=== PATIENT | female | born 1970 | race Caucasian/White ===

== ENCOUNTER 2019-12-14 09:07 | Outpatient (REF) | payer MEDICAID, SELFPAY ==
--- NOTE | 2019-12-14 09:28 | US_ITS ---
EXAMINATION: US ABDOMEN COMPLETE CLINICAL INFORMATION: Right upper quadrant pain. COMPARISON: Ultrasound abdomen 11/06/2008. TECHNIQUE: Real-time imaging of the abdominal viscera. FINDINGS: PANCREAS: The pancreas is normal in size and contour and echogenicity. There is no retroperitoneal effusion. No pancreatic ductal distention. ABDOMINAL AORTA: The proximal segment is normal in caliber. INFERIOR VENA CAVA: Visualized portions are normal. LIVER: The liver is normal in size and smooth in contour. There is mild geographic increased hepatic parenchymal echogenicity consistent with mild inhomogeneous hepatic steatosis. There is no focal hepatic parenchymal lesion or intrahepatic biliary ductal dilatation. Doppler shows portal flow towards the liver. GALLBLADDER: Normal. The gallbladder is physiologically distended without evidence of stones, sludge, polyps, wall thickening or pericholecystic fluid. COMMON BILE DUCT: Normal in caliber measuring 0.3 cm in diameter. RIGHT KIDNEY: Normal. No hydronephrosis. No renal calculi or focal parenchymal lesions. The kidney measures 10.8 cm in maximum dimension. LEFT KIDNEY: Normal. No hydronephrosis. No renal calculi or focal parenchymal lesions. The kidney measures 10.5 cm in maximum dimension. SPLEEN: Normal. The spleen measures 10.8 cm in maximum dimension. FREE FLUID: None. IMPRESSION: 1. No cholelithiasis or biliary ductal dilatation. 2. No hydronephrosis.
== END 2019-12-14 09:08 | disposition home or self-care (01) ==
LOC: HO.US 09:07
PROVIDERS: PCP Internal Medicine Geriatric Medicine; Visit Provider Internal Medicine Geriatric Medicine
DX: R10.11 Right upper quadrant pain (principal)
CPT/HCPCS: 76700

== ENCOUNTER 2020-09-26 13:46 | Outpatient (REF) | payer MEDICAID, SELFPAY ==
--- NOTE | ~2020-09-26 | MM_ITS ---
EXAMINATION: MM SCREENING DIGITAL BREAST TOMOSYNTHESIS, BILATERAL CLINICAL INFORMATION: Screening. Asymptomatic. The lifetime risk of breast cancer based on the Tyrer-Cuzick Model is 18%. COMPARISON: Mammography: 01/30/2019, 11/23/2017, 11/03/2016 TECHNIQUE: Digital breast tomosynthesis is performed in both the craniocaudal and mediolateral oblique views along with computer-aided detection (CAD). Synthesized 2D images are generated from the tomosynthesis. Additional left MLO x2 views are provided. FINDINGS: The breasts are heterogeneously dense, which may obscure small masses (ACR BI-RADS breast composition Category c). There are no significant masses, abnormal calcifications, or other abnormalities. There is fine fibronodular parenchymal pattern similar to prior studies. The axilla and skin contours are unremarkable. MM/MM tomosynthesis screening BI IMPRESSION: No mammographic evidence of malignancy. ASSESSMENT: BI-RADS 2: Benign RECOMMENDATION: Routine annual mammography screening. This patient's information was entered into a reminder system with a target due date for their next mammogram.
== END 2020-09-26 13:47 | disposition home or self-care (01) ==
LOC: HO.MAMMO 13:46
PROVIDERS: Visit Provider Internal Medicine Geriatric Medicine
DX: Z12.31 Encounter for screening mammogram for malignant neoplasm of breast (principal)
CPT/HCPCS: 77063; 77067

== ENCOUNTER 2020-11-15 18:16 | Emergency (ER) | payer MEDICAID, SELFPAY ==
--- NOTE | ~2020-11-15 | XR_ITS ---
EXAMINATION: XR KNEE, LEFT CLINICAL INFORMATION: Left knee pain status post fall. COMPARISON: None TECHNIQUE: Four views of the left knee. FINDINGS: Bones and soft tissues are normal. No fracture or joint effusion. Alignment is anatomic. Joint spaces are well maintained. No abnormal soft tissue calcification. XR/XR knee LT 4V IMPRESSION: Unremarkable left knee.
[2020-11-15 18:23] VITALS: BP 112/46; BP 130/80; PULSE 110; PULSE 53; RESP 18; TEMP 36.4; O2SAT 97; O2SAT 98
[2020-11-15 18:28] VITALS: PULSE 53; RESP 16; TEMP 36.4; O2SAT 97; BMI 39.8
--- NOTE | 2020-11-15 18:36 | ED.LOWEXIN ---
HPI - Extremity Injury (Lower) General Chief Complaint: Extremity Injury, Lower Stated Complaint: fall s/p left knee Time Seen by Provider: 11/15/20 18:31 Source: patient Mode of arrival: EMS Limitations: no limitations History of Present Illness HPI Narrative: Patient is a 50-year-old female with a past medical history of HTN and anxiety presenting with left knee pain and left elbow pain after falling down 2 stairs while chasing her cat just prior to arrival. Patient states she fell onto her knee on the cement stairs and she thinks she hit this right side of her head on the wall as she was going down. She denies being on a blood thinner. She denies a headache, dizziness, change in her vision or hearing. She states she did not lose consciousness. She does admit to having a few alcoholic drinks today but she is not intoxicated. Related Data Allergies Allergy/AdvReac Type Severity Reaction Status Date / Time No Known Allergies Allergy Verified 11/15/20 18:36 Review of Systems Review of Systems: Yes all other systems are reviewed and are negative FOR[facility] Past Medical History Medical History Acute anxiety Hypertension Social History Social History Advance Directives: No Advance Directives Information Provided: No Patient : No Physical Exam Vital Signs: Vital Signs: Last Vital Signs Temp 97.6 F 11/15/20 18:28 Pulse 53 11/15/20 18:28 Resp 16 11/15/20 18:28 BP 112/46 L 11/15/20 18:23 Pulse Ox 97 11/15/20 18:28 Body Mass Index 39.8 Const: General: cooperative, healthy appearing, comfortable, no acute distress and well developed Orientation/consciousness: patient oriented x3 Limitations: no limitations HENMT: Head: Yes normal to inspection, Yes No palpable skull fracture present, Yes normocephalic, Yes atraumatic, No abrasion, No Cody's sign, No contusion, No raccoon eyes, No scalp tenderness and No periorbital ecchymosis Ears: hearing grossly normal bilaterally, external ears normal and TM's normal bilaterally General nose exam: Normal external nose present and Normal nares present Face and sinus: Yes normal facial exam Mouth: Normal oral and palatal mucosa present Eyes: General: appearance normal, both eyes and all related structures Neck: Neck: Yes normal visual inspection and Yes full ROM Resp: Effort & Inspection: normal respiratory effort and able to speak in complete sentences Skin: General skin exam: no rashes or lesions noted Neuro: General: patient oriented x3 Extrem: General: Yes normal to inspection Left upper extremity: normal to inspection, full ROM and elbow/forearm Details: swelling and abrasion; Negative for no tenderness, no lacerations and no ecchymosis Left lower extremity: knee Details: tenderness Location: of the patella, swelling, knee ligament exam normal, Kameron's Test and Apley's Test; Negative for no abrasions, no lacerations, no ecchymosis, no deformity and no unusual warmth Course Course Course Narrative: Patient comfortable ambulating with Дмитрий wrap, she does live with her boyfriend who can help her as well. MDM - Extremity Injury (Lower) Imaging Data knee x-ray: Attestation: I personally reviewed and interpreted this imaging study as follows: Radiologist's impression: [address] [place] [address] XRay Report Signed Patient: Salma Borjas MR#: [id number] : 1970 Acct:[id number] Age/Sex: 50 / F ADM Date: 11/15/20 Loc: HO.ED Attending Dr: Ordering Physician: Maia Canseco PA-C Date of Service: 11/15/20 Procedure(s): XR knee LT 4V Accession Number(s): [id number] cc: Maia Canseco PA-C~ EXAMINATION: XR KNEE, LEFT CLINICAL INFORMATION: Left knee pain status post fall.? COMPARISON: None? TECHNIQUE: Four views of the left knee. FINDINGS: Bones and soft tissues are normal. No fracture or joint effusion. Alignment is anatomic. Joint spaces are well maintained. No abnormal soft tissue calcification.? XR/XR knee LT 4V IMPRESSION: Unremarkable left knee. ? Dictated By: SHAILESH IZQUIERDO MD Signed By: <Electronically signed by SHAILESH IZQUIERDO MD in OV> 11/15/201945 DD/ 45 TD/TT:? [place]: [facility] Discharge Plan Discharge Clinical Impression: Elbow pain, left, Acute knee pain Patient Disposition: Home, Self-Care Instructions: Knee Pain (ED), Arm Pain (ED) Additional Instructions: As discussed, please rest your knee and her elbow, you me use ice on both area as several times throughout the day. Please use ibuprofen if your able to take it, 600 mg every 6 hours as needed for pain. Your pain should improve each day. If it does not get better each day, please follow-up with your primary care doctor next week or the week after. Referrals: Name,MD Amado [Primary Care Provider] - 1 week (Mechanical fall with left knee and a left arm injury)
== END 2020-11-15 20:23 | disposition home or self-care (01) ==
PROVIDERS: Emergency Provider Internal Medicine; PCP Internal Medicine Geriatric Medicine
DX: M25.522 Pain in left elbow (principal); G89.11 Acute pain due to trauma; M25.562 Pain in left knee; I10 Essential (primary) hypertension
CPT/HCPCS: 73564; 99283; 99284

== ENCOUNTER → 2021-01-16 09:39 | Outpatient (BNVA) | payer MEDICAID, SELFPAY | PROVIDERS: PCP Internal Medicine Geriatric Medicine; Visit Provider Physician Assistant | DX: M17.12 Unilateral primary osteoarthritis, left knee (principal) | CPT/HCPCS: 99202 ==

== ENCOUNTER 2021-02-28 13:23 | Outpatient (REF) | payer MEDICAID, SELFPAY ==
--- NOTE | ~2021-02-28 | XR_ITS ---
EXAMINATION: XR CHEST CLINICAL INFORMATION: Asthma, shortness of breath. COMPARISON: Chest radiographs 06/03/2012 TECHNIQUE: 2 views of the chest were obtained. FINDINGS: The lungs are clear. There is no airspace consolidation or groundglass opacity. No hyperinflation. The costophrenic sulci are clear. The heart is normal in size. No hyperinflation. The hilar and mediastinal contours are unremarkable. There is gentle levocurvature again noted thoracic spine. XR/XR chest 2V IMPRESSION: Unremarkable examination.
== END 2021-02-28 13:24 | disposition home or self-care (01) ==
LOC: HO.XRAY 13:23
PROVIDERS: PCP Internal Medicine Geriatric Medicine; Visit Provider Internal Medicine Geriatric Medicine
DX: Z72.0 Tobacco use (principal)
CPT/HCPCS: 71046

== ENCOUNTER 2021-04-30 07:35 | Outpatient (REF) | payer MEDICAID, SELFPAY ==
[2021-04-30 07:46] LABS: MANUAL DIFF FLAG NO
[2021-04-30 08:24] LABS: Basophils Absolute Auto 0.1 X10*3/uL (0.0-0.2); Basophils Percent Auto 0.5 % (0-2); Eosinophils Absolute Auto 0.5 X10*3/uL (0.0-0.4); Eosinophils Percent Auto 3.8 % (0-4); Hematocrit 36.8 % (37.0-47.0); Hemoglobin 11.1 g/dl (12.0-16.0); Imm Gran Abs Auto 0.06 X10*3/uL (0.00-0.03); Imm Gran Pct Auto 0.5 % (0.0-0.4); Lymphocytes Absolute Auto 3.1 X10*3/uL (1.2-4.9); Lymphocytes Percent Auto 25.2 % (20-40); Mean Corpuscular HGB Conc 30.2 g/dl (31.0-35.0); Mean Corpuscular Hemoglobin 22.5 pg (27.0-33.0); Mean Corpuscular Volume 74.5 fL (80.0-98.0); Mean Platelet Volume 10.9 fL (9.4-12.3); Monocytes Absolute Auto 0.8 X10*3/uL (0.1-1.2); Monocytes Percent Auto 6.6 % (2-11); Neutrophils Absolute Auto 7.7 x10*3/uL (2.0-8.3); Neutrophils Percent Auto 63.4 % (45-73); Platelet Count 386 X10*3/uL (160-400); Red Blood Count 4.94 X10*6/uL (4.20-5.50); Red Cell Distribution Width 17.7 % (11.0-16.0); White Blood Count 12.1 X10*3/uL (4.8-10.8)
[2021-04-30 09:08] LABS: Iron 31 mcg/dL (30-160); Percent Iron Saturation 8 % (15-50); Total Iron Binding Capacity 411 mcg/dL (228-428); Unsaturated Iron Binding 380 ug/dL
[2021-04-30 09:10] LABS: Ferritin 5 ng/mL (10-250)
[2021-04-30 09:27] LABS: Folate 9.5 ng/mL (> or = 4.0)
[2021-04-30 10:06] LABS: Vitamin B12 376 pg/mL (200-900)
== END 2021-04-30 07:36 | disposition home or self-care (01) ==
LOC: HO.LAB 07:35
PROVIDERS: PCP Internal Medicine Geriatric Medicine; Visit Provider Internal Medicine
DX: D50.9 Iron deficiency anemia, unspecified (principal)
CPT/HCPCS: 36415; 82607; 82728; 82746; 83540; 85025

== ENCOUNTER 2021-05-12 10:34 | Day surgery (SDC) | payer MEDICAID, SELFPAY ==
--- NOTE | 2021-05-09 10:43 | HO.ANESPROP2 ---
Documented by User: Tatyana Schmitt NP 05/09/21 10:44 HPI - Anesthesia Eval Consult details Narrative: 50yo F for Upper Endoscopy and Colonoscopy PMFSH Active Problems Active Problems: All Active Problems (Updated 05/06/21 @ 09:26 by Hellen Perkins RN) Osteoarthritis of left knee (Acute) Past Medical History Medical History Acute anxiety Anemia Asthma GERD (gastroesophageal reflux disease) History of Jean Carlos's syndrome Hyperlipidemia Hypertension Seasonal allergies Surgical History Surgical History (Updated 01/16/21 @ 10:02 by Sylvain June) History of tonsillectomy Social History Social History (Updated 01/16/21 @ 10:02 by Sylvani June) Patient Tobacco Use Status: Current everyday Tobacco user Tobacco use type: Cigarette Cigarettes Per Day: 3 Use of substances other than those prescribed or required for medical reasons: No Advance Directives: No Advance Directives Information Provided: Yes Recently lost weight without trying: No Current occupational status: unemployed and disabled Current occupation: lt [employer] Allergies Allergy/AdvReac Type Severity Reaction Status Date / Time No Known Allergies Allergy Verified 05/06/21 09:36 Home Medications Medication Instructions Recorded Confirmed Last Taken Type acetaminophen 500 mg tablet 500 mg PO Q6H PRN 01/16/21 05/06/21 Unknown History albuterol sulfate 90 mcg/actuation 1 inh INHALATION QID 01/16/21 05/06/21 05/12/21 History aerosol inhaler (ProAir HFA) 1 inh azelastine-fluticasone 137 mcg-50 1 spray INTRANASAL BID 01/16/21 05/06/21 Unknown History mcg/spray nasal spray cetirizine 10 mg tablet 10 mg PO DAILY PRN 01/16/21 05/06/21 Unknown History chlorhexidine gluconate 0.12 % 15 ml BUCCAL DAILY 01/16/21 05/06/21 Unknown History mouthwash dicyclomine 20 mg tablet 20 mg PO TID 01/16/21 05/06/21 Unknown History ergocalciferol (vitamin D2) 1,250 1,250 mcg PO QWEEK 01/16/21 05/06/21 Unknown History mcg (50,000 unit) capsule fluticasone propionate 50 1 spray INTRANASAL DAILY 01/16/21 05/06/21 Unknown History mcg/actuation nasal spray,suspension hydrocortisone 2.5 % topical cream 1 appl TOPICAL BID PRN 01/16/21 05/06/21 Unknown History ibuprofen 600 mg tablet 600 mg PO TID 01/16/21 05/06/21 Unknown History lisinopril 5 mg tablet 5 mg PO DAILY 01/16/21 05/06/21 Unknown History loratadine 10 mg tablet (Allergy 10 mg PO DAILY 01/16/21 05/06/21 Unknown History Relief (loratadine)) montelukast 10 mg tablet 10 mg PO DAILY 01/16/21 05/06/21 Unknown History (Singulair) nystatin 100,000 unit/gram topical 1 appl TOPICAL DAILY 01/16/21 05/06/21 Unknown History ointment ondansetron HCl 4 mg tablet 4 mg PO Q6H PRN 01/16/21 05/06/21 Unknown History (Zofran) pantoprazole 40 mg tablet,delayed 40 mg PO DAILY 01/16/21 05/06/21 Unknown History release sertraline 100 mg tablet (Zoloft) 100 mg PO DAILY 01/16/21 05/06/21 05/12/21 History 100 mg fluticasone propionate 220 1 puff PO BID 05/06/21 05/06/21 Unknown History mcg/actuation HFA aerosol inhaler (Flovent HFA) hydrochlorothiazide 25 mg tablet 1 tab PO DAILY 05/06/21 05/06/21 Unknown History omega-3 fatty acids 1,000 mg 1 cap PO DAILY 05/06/21 05/06/21 Unknown History capsule pravastatin 80 mg tablet 1 tab PO DAILY 05/06/21 05/06/21 Unknown History Exam Exam Date and Time: May 09, 2021 1043 Pertinent Lab Results Pertinent Lab Results: Laboratory Tests 04/30/21 07:45 WBC 12.1 H Hgb 11.1 L Hct 36.8 L Plt Count 386 Assessment and Plan Assessment Anesthesia Assessment: Chart Reviewed Documented by User: Ivonne Webster MD 05/12/21 12:56 [facility] Past Medical History Medical History Acute anxiety Anemia Asthma GERD (gastroesophageal reflux disease) History of Jean Carlos's syndrome Hyperlipidemia Hypertension Seasonal allergies Functional capacity: independent ambulation Patient : No Family History Family history of problems with anesthesia: No Surgical History Surgical History (Updated 01/16/21 @ 10:02 by Sylvain June) History of tonsillectomy History of Problems with Anesthesia: No Social History Social History (Updated 01/16/21 @ 10:02 by Sylvain June) Patient Tobacco Use Status: Current everyday Tobacco user Tobacco use type: Cigarette Cigarettes Per Day: 3 Use of substances other than those prescribed or required for medical reasons: No Advance Directives: No Advance Directives Information Provided: Yes Recently lost weight without trying: No Current occupational status: unemployed and disabled Current occupation: lt [employer] Allergies Allergy/AdvReac Type Severity Reaction Status Date / Time No Known Allergies Allergy Verified 05/06/21 09:36 Home Medications Medication Instructions Recorded Confirmed Last Taken Type acetaminophen 500 mg tablet 500 mg PO Q6H PRN 01/16/21 05/06/21 Unknown History albuterol sulfate 90 mcg/actuation 1 inh INHALATION QID 01/16/21 05/06/21 05/12/21 History aerosol inhaler (ProAir HFA) 1 inh azelastine-fluticasone 137 mcg-50 1 spray INTRANASAL BID 01/16/21 05/06/21 Unknown History mcg/spray nasal spray cetirizine 10 mg tablet 10 mg PO DAILY PRN 01/16/21 05/06/21 Unknown History chlorhexidine gluconate 0.12 % 15 ml BUCCAL DAILY 01/16/21 05/06/21 Unknown History mouthwash dicyclomine 20 mg tablet 20 mg PO TID 01/16/21 05/06/21 Unknown History ergocalciferol (vitamin D2) 1,250 1,250 mcg PO QWEEK 01/16/21 05/06/21 Unknown History mcg (50,000 unit) capsule fluticasone propionate 50 1 spray INTRANASAL DAILY 01/16/21 05/06/21 Unknown History mcg/actuation nasal spray,suspension hydrocortisone 2.5 % topical cream 1 appl TOPICAL BID PRN 01/16/21 05/06/21 Unknown History ibuprofen 600 mg tablet 600 mg PO TID 01/16/21 05/06/21 Unknown History lisinopril 5 mg tablet 5 mg PO DAILY 01/16/21 05/06/21 Unknown History loratadine 10 mg tablet (Allergy 10 mg PO DAILY 01/16/21 05/06/21 Unknown History Relief (loratadine)) montelukast 10 mg tablet 10 mg PO DAILY 01/16/21 05/06/21 Unknown History (Singulair) nystatin 100,000 unit/gram topical 1 appl TOPICAL DAILY 01/16/21 05/06/21 Unknown History ointment ondansetron HCl 4 mg tablet 4 mg PO Q6H PRN 01/16/21 05/06/21 Unknown History (Zofran) pantoprazole 40 mg tablet,delayed 40 mg PO DAILY 01/16/21 05/06/21 Unknown History release sertraline 100 mg tablet (Zoloft) 100 mg PO DAILY 01/16/21 05/06/21 05/12/21 History 100 mg fluticasone propionate 220 1 puff PO BID 05/06/21 05/06/21 Unknown History mcg/actuation HFA aerosol inhaler (Flovent HFA) hydrochlorothiazide 25 mg tablet 1 tab PO DAILY 05/06/21 05/06/21 Unknown History omega-3 fatty acids 1,000 mg 1 cap PO DAILY 05/06/21 05/06/21 Unknown History capsule pravastatin 80 mg tablet 1 tab PO DAILY 05/06/21 05/06/21 Unknown History Exam Airway Mallampati Class: IV TM Dist: >3cm Neck ROM: Full Heart: RRR Lungs: CTA Assessment and Plan Final Anesthetic Review Family History of Problems with Anesthesia: No History of Problems with Anesthesia: No Final Preanesthetic Review: No Changes in Pt Med Stat, Meds/Allgs Chart Reviewed, Consent Obtained/Reviewed and Anes Risks/Benef Reviewed Patient Risk: Intermediate Procedure Risk: Low Anesthetic Plan Anesthetic Plan: MAC: Disposition: Standard PACU
[2021-05-12 10:50] VITALS: BP 142/62; PULSE 77; RESP 18; TEMP 36.3; O2SAT 96; BMI 35.5
[2021-05-12] MEDS: Lactated Ringers 1,000 ML 100 ML IVCONT (11:08)
--- NOTE | 2021-05-12 12:43 | P.BOP_ITS ---
Brief Operative Note Date of Service: 05/12/21 Pre-op diagnosis: GERD, Anemia Post-op diagnosis: other (Ascending colon mass, polyp, gastritis, HH with GERD) Procedure: EGD with biopsies; Colonoscopy to cecum with biopsies of Ascending colon mass and hot snare polypectomy at 40cm with submucosal ink marking and placement of 2 Resolution clips Surgeon: Varinder Louise Anesthesia: MAC Was an Environmental Field Team Member used for this Procedure?: No Estimated blood loss (mL): 3.0 Pathology: other (A. Descending duodenum B. Gastric antrum C. EG Junction at 38cm D. Ascending colon mass E. Polyp at 40cm) Condition: stable Disposition: PACU
[2021-05-12 12:44] VITALS: BP 106/56; PULSE 83; RESP 16; TEMP 36.4; O2SAT 93
[2021-05-12] MEDS: ondansetron HCL 4 MG/2 ML VIAL IVPUSH (12:58)
[2021-05-12 13:00] VITALS: BP 155/79; PULSE 67; RESP 18; O2SAT 97
[2021-05-12 13:15] VITALS: BP 132/77; PULSE 63; RESP 18; O2SAT 96
--- NOTE | 2021-05-12 14:39 | HO.POSTANES ---
Post Anesthesia Evaluation Post Anesthesia Evaluation Vital Signs: Vital Signs Temp Pulse Resp BP Pulse Ox 05/12/21 13:15 63 18 132/77 96 05/12/21 13:00 67 18 155/79 H 97 05/12/21 12:44 97.6 F 83 16 106/56 L 93 05/12/21 10:50 97.3 F 77 18 142/62 H 96 Anesthesia: Monitored Mental Status: Awake Pain Control: Satisfactory Nausea/Vomiting: None Hydration: Adequate Anesthesia-Related Issues: No Anes. Related Issues
--- NOTE | 2021-05-12 21:08 | OP_ITS ---
SURGEON: Varinder Louise MD INDICATIONS: The patient presents for evaluation of gastroesophageal reflux, and microcytic anemia. Full consent has been obtained from her for both procedures, including risks of bleeding and perforation. PREOPERATIVE DIAGNOSIS: POSTOPERATIVE DIAGNOSIS: PROCEDURE PERFORMED: Esophagogastroduodenoscopy with biopsies and colonoscopy to the cecum with biopsies, hot snare polypectomy at 40 cm, marking with submucosal ink at 40 cm and placement of 2 resolution clips on the polypectomy at 40 cm. ESTIMATED BLOOD LOSS: COMPLICATIONS: ANESTHESIA: Medication used, monitored anesthesia care. ASSISTANTS: SPECIMENS: PREOPERATIVE DIAGNOSES: Gastroesophageal reflux and microcytic anemia. POSTOPERATIVE DIAGNOSES: Gastroesophageal reflux and microcytic anemia, large proximal ascending colon mass consistent with carcinoma, colon polyp, diverticulosis, small internal hemorrhoids, hiatal hernia, gastritis, rule out celiac disease. DESCRIPTION OF PROCEDURE: The patient was placed in the left lateral decubitus position the Olympus video gastroscope was passed in the posterior oropharynx and upper esophagus under direct vision. The scope was passed slowly to the distal esophagus. The gastroesophageal junction appeared at 38 cm and appeared somewhat irregular consistent with reflux. There was no evidence of any definitive Cates's esophagus nor esophagitis. The scope entered into the stomach. There was a small to moderate-sized hiatal hernia. The scope was advanced to pylorus, and the duodenum was cannulated to the descending portion. The duodenum including the bulb appeared normal without mass or ulceration. Biopsies were obtained from the 2nd and 3rd portions of duodenum. The scope was withdrawn back in the stomach. The gastric antrum had some areas of erythema and edema, but no ulceration nor mass. There was good peristalsis. Biopsies were obtained from the antrum. The scope was retroflexed visualizing the proximal stomach carefully, which appeared normal, without any sign of mass or ulceration. Scope was straightened and withdrawn back to the esophagus. Biopsies were obtained at the EG junction at 38 cm. Proximal to this, the esophageal mucosa appeared normal. The scope was withdrawn from the patient. She was turned around for the colonoscopy. The digital rectal exam revealed no abnormalities. The Olympus video pediatric colonoscope was entered into the rectum advanced easily to the cecum. Once in the cecum, I did identify cecal pouch with appendiceal orifice and a normal-appearing cecal pouch other than a several millimeter polyp. There was transillumination of light deep in the right lower quadrant. The polyp was not removed given the findings in the ascending colon. The scope was slowly withdrawn assessing all mucosal surfaces carefully. Preparation was excellent. In the very proximal ascending colon, abutting the ileocecal valve, and then extending at least 5 cm distally was a circumferential partially obstructing ulcerated mass consistent with carcinoma. Multiple biopsies were obtained from it. At 40 cm, was a large approximately 1.5 to 2 cm polyp on a fairly long stalk, which was snared at the base of the stalk and then recovered with a retrieval net. The scope was readvanced back to the polypectomy site which appeared clean, without any sign of residual polyp nor bleeding. I did place a submucosal ink jeri just proximal and distal to the polypectomy site. I also placed 2 resolution clips on the polypectomy site itself with good deployment and good hemostasis. I did not visualize any other polyps, colitis, nor angiodysplasia. There was a mild amount of sigmoid diverticulosis. In the rectum, scope was retroflexed visualizing internal hemorrhoids, but no other pathology. The scope was straightened and withdrawn from the patient. She tolerated both procedures well and was returned to the recovery area in stable condition. IMPRESSION: 1. Large ascending colon mass, status post biopsy. 2. Large sigmoid colon polyp, status post hot snare polypectomy with submucosal ink marking and placement of 2 resolution clips. 3. Mild diverticulosis. 4. Internal hemorrhoids. 5. Gastritis. 6. Hiatal hernia with associated reflux. 7. Rule out celiac disease although given the findings in the colon, I do not think that will be positive. PLAN: The results of the pathology will be checked. She will obviously need surgical consultation for the ascending colon mass. She was advised to stay off all aspirin and NSAIDs long-term. She will continue her pantoprazole for the reflux. Her most recent hemoglobin on April 30 was 11.1, although she did have iron deficiency with an iron saturation of 8% and a ferritin of only 5. She should undergo repeat colonoscopy for further screening and surveillance in about 1 year. This has been discussed with her family. MD MASOOD Llanos/DAYAMI / [id number] MTDDarrion
== END 2021-05-12 14:12 | disposition home or self-care (01) ==
PROVIDERS: PCP Internal Medicine Geriatric Medicine; Visit Provider Internal Medicine
PROC: (CPT 45385; principal; 2021-05-12 12:00)
DX: Z12.11 Encounter for screening for malignant neoplasm of colon (principal); Z80.0 Family history of malignant neoplasm of digestive organs; D50.9 Iron deficiency anemia, unspecified; C18.2 Malignant neoplasm of ascending colon; D12.2 Benign neoplasm of ascending colon; K57.30 Diverticulosis of large intestine without perforation or abscess without bleeding; K64.8 Other hemorrhoids; K21.9 Gastro-esophageal reflux disease without esophagitis; K29.50 Unspecified chronic gastritis without bleeding; K44.9 Diaphragmatic hernia without obstruction or gangrene; G90.2 Horner's syndrome; I10 Essential (primary) hypertension; J45.909 Unspecified asthma, uncomplicated; E78.5 Hyperlipidemia, unspecified; F17.210 Nicotine dependence, cigarettes, uncomplicated; Z79.899 Other long term (current) drug therapy
CPT/HCPCS: 45385; 45380; 45381; 43239; 88305; 88342; J2405

== ENCOUNTER → 2021-05-22 08:56 | Outpatient (BNVA) | payer MEDICAID, SELFPAY | PROVIDERS: PCP Internal Medicine Geriatric Medicine; Referring Provider Internal Medicine Geriatric Medicine; Visit Provider Surgery | DX: C18.2 Malignant neoplasm of ascending colon (principal) | CPT/HCPCS: 99202 ==

== ENCOUNTER 2021-05-26 06:03 | Outpatient (REF) | payer MEDICAID, SELFPAY ==
--- NOTE | ~2021-05-26 | CT_ITS ---
EXAMINATION: CT ABDOMEN AND PELVIS WITH CONTRAST CLINICAL INFORMATION: Adenocarcinoma of ascending colon COMPARISON: Previous abdominal ultrasound December [address] of the abdomen and pelvis from 2013 TECHNIQUE: Multidetector volumetric images were obtained from the superior aspect of the liver through the pubic symphysis following administration 85 mL of Omnipaque 350 intravenous contrast. Sagittal and coronal reformatted images were obtained on the technologist's workstation. Oral contrast: Yes This CT examination was performed using dose optimization techniques as appropriate, variously including the following: *Automated exposure control *Adjustment of mA and/or kV according to patient size (this includes techniques or standardized protocols for targeted exams where dose is matched to indication/reason for exam; i.e. extremities or head) *Use of iterative reconstruction technique DLP: 819 mGy-cm FINDINGS: LUNG BASES: There is a 3 mm peripheral or subpleural left lower lobe nodule axial image 8 series 3. This is similar to 2014 exam and probably represents a subpleural lymph node. The lung bases are otherwise clear. LIVER, GALLBLADDER, AND BILIARY TREE: The liver is normal in size, shape, and attenuation. No focal hepatic lesion or biliary ductal dilatation is present. The gallbladder is unremarkable with no evidence of radiopaque gallstones, gallbladder wall thickening, or obvious pericholecystic inflammatory changes. PANCREAS: Unremarkable. SPLEEN: Unremarkable. ADRENAL GLANDS: Unremarkable. KIDNEYS AND URETERS: The kidneys are normal in size, shape, and attenuation. No hydronephrosis, hydroureter, or calculi seen. No perinephric stranding. BLADDER: Not optimally distended. GASTROINTESTINAL TRACT: There is a mass in the proximal ascending colon suspicious for malignancy. This measures 4 x 4 x 6 cm in AP transverse and longitudinal dimension. There is luminal narrowing and mild dilatation of the terminal ileum questionable for mild partial obstruction. There is some infiltration of the surrounding fat. There are prominent adjacent pericolic lymph nodes. There is abnormal soft tissue seen adjacent to the second portion of duodenum and head of the pancreas for example axial image 32 series 3. This is similar to 2014 exam and may represent ectopic pancreatic tissue. There is mild fat stranding of the small bowel mesentery. Similar to 2014 exam. Small and large bowel is otherwise unremarkable. The appendix is unremarkable. The stomach is unremarkable. ABDOMINAL WALL: There is a small umbilical hernia containing fat. LYMPH NODES: There are slightly prominent mesenteric lymph nodes adjacent to the proximal ascending colon mass. Largest lymph node measures 9 mm in short axis. There are small upper abdominal retroperitoneal and small bowel mesentery lymph nodes. VASCULAR: Unremarkable. PELVIC VISCERA: Unremarkable. There is a small probable 1.5 cm left ovarian cyst. 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 CT/CT abdomen pelvis w con IMPRESSION: 4 x 4 x 6 cm mass in the proximal ascending colon, infiltration of the fat and prominent adjacent pericolic lymph nodes. There is luminal narrowing and mild dilatation of the terminal ileum questionable for mild partial obstruction. Fleischner guidelines were followed.
[2021-05-26 06:14] LABS: MANUAL DIFF FLAG NO
[2021-05-26 07:26] LABS: Basophils Absolute Auto 0.1 X10*3/uL (0.0-0.2); Basophils Percent Auto 0.4 % (0-2); Eosinophils Absolute Auto 0.5 X10*3/uL (0.0-0.4); Hematocrit 37.6 % (37.0-47.0); Hemoglobin 11.5 g/dl (12.0-16.0); Imm Gran Abs Auto 0.04 X10*3/uL (0.00-0.03); Imm Gran Pct Auto 0.4 % (0.0-0.4); Lymphocytes Absolute Auto 3.2 X10*3/uL (1.2-4.9); Lymphocytes Percent Auto 28.1 % (20-40); Mean Corpuscular HGB Conc 30.6 g/dl (31.0-35.0); Mean Corpuscular Volume 75.2 fL (80.0-98.0); Mean Platelet Volume 11.1 fL (9.4-12.3); Monocytes Absolute Auto 0.8 X10*3/uL (0.1-1.2); Monocytes Percent Auto 6.8 % (2-11); Neutrophils Absolute Auto 6.9 x10*3/uL (2.0-8.3); Neutrophils Percent Auto 60.3 % (45-73); Platelet Count 444 X10*3/uL (160-400); Red Cell Distribution Width 16.2 % (11.0-16.0); White Blood Count 11.4 X10*3/uL (4.8-10.8)
[2021-05-26 08:26] LABS: Alanine Aminotransferase 12 U/L (0-31); Alkaline Phosphatase 73 U/L (39-117); Anion Gap 15 (12-20); Aspartate Amino Transferase 14 U/L (5-31); Bilirubin Direct < 0.2 mg/dL (0.0-0.5); Bilirubin Total < 0.2 mg/dL (0.0-1.0); Blood Urea Nitrogen 12 mg/dL (9-16); Calcium 9.5 mg/dL (8.4-10.2); Carbon Dioxide 26 mmol/L (22-29); Chloride 102 mmol/L (96-108); Estimated Glomerular Filt Rate > 60; Glucose Random 106 mg/dL (60-115); Potassium 4.3 mmol/L (3.3-5.1); Sodium 139 mmol/L (135-145)
[2021-05-26] MEDS: iohexoL 350 MG/ML 100 ML INFUS..BTL IV (09:06)
== END 2021-05-26 06:04 | disposition home or self-care (01) ==
LOC: HO.CT 06:03
PROVIDERS: PCP Internal Medicine Geriatric Medicine; Visit Provider Internal Medicine
DX: C18.2 Malignant neoplasm of ascending colon (principal)
CPT/HCPCS: 36415; 74177; 80048; 80076; 82378; 85025; Q9967

== ENCOUNTER 2021-06-12 10:14 | Inpatient (IN) | payer MEDICAID, SELFPAY ==
[2021-06-04 10:51] VITALS: BMI 36.2
--- NOTE | 2021-06-05 | ECG_ITS ---
Test Reason : PREOP Blood Pressure : / mmHG Vent. Rate : 077 BPM Atrial Rate : 077 BPM P-R Int : 160 ms QRS Dur : 086 ms QT Int : 402 ms P-R-T Axes : 054 059 076 degrees QTc Int : 454 ms Poor data quality Sinus rhythm with occasional Premature ventricular complexes Otherwise normal ECG No previous ECGs available Referred By: Tatyana Schmitt Electronically Signed By:SADI BRUNO MD
[2021-06-05 12:02] VITALS: BP 117/65; PULSE 84; RESP 16; O2SAT 97; BMI 36.2
--- NOTE | 2021-06-05 12:18 | P.CONAN_ITS ---
Documented by User: Tatyana Schmitt NP 06/09/21 13:15 HPI - Anesthesia Eval Consult details Narrative: 50yo F for Right Hand Assisted Colon Resection Laparoscopic Assist,poss open s/p Colonoscopy 04/2021 with TIVA PMFSH Active Problems Active Problems: All Active Problems (Updated 06/04/21 @ 11:40 by Gillian Eaton, RN) Osteoarthritis of left knee (Acute) Colon adenocarcinoma (Acute) Past Medical History Medical History (Updated 06/04/21 @ 11:40 by Gillian Eaton, RN) Acute anxiety Anemia Arthritis Asthma Colon adenocarcinoma Dental bridge present Environmental allergies GERD (gastroesophageal reflux disease) History of Jean Carlos's syndrome Hyperlipidemia Hypertension Low back pain Seasonal allergies Family History Family history of problems with anesthesia: No Surgical History Surgical History (Updated 06/04/21 @ 11:37 by Gillian Eaton RN) History of esophagogastroduodenoscopy (EGD) History of tonsillectomy Hx of colonoscopy History of Problems with Anesthesia: No Social History Social History (Updated 06/05/21 @ 12:23 by Tatyana Schmitt NP) Are you a primary child day care provider to a significant other at home: No Do you presently have visiting nurse or other home services: No Alcohol intake: current Patient Tobacco Use Status: Current everyday Tobacco user Tobacco use type: Cigarette Cigarettes Per Day: 3 Smoked in Last 30 Days: Yes Patient Interested in Nicotine Replacement: No Patient Given Instructions on How to Stop Smoking: Yes Date Education Initiated: 06/05/21 Second Hand Smoke Exposure: No Use of substances other than those prescribed or required for medical reasons: No Have you been hit, kicked, punched, or otherwise hurt by someone within the past year? If so, by whom?: No Spiritual Healthcare Practices: none Moravian Healthcare Practices: none Cultural Healthcare Practices: none Are you DNR?: No Advance Directives: No Advance Directives Information Provided: Yes Advance Directives on File: No Recently lost weight without trying: No Patient : No FDLMP: 05/06/21 : No Poor oral hygiene: No (bridge 2 front upper) Current occupational status: unemployed and disabled Current occupation: lt handed Narrative Narrative: No recent illness No CP/SOB with minimal activity. Meds Allergies Allergy/AdvReac Type Severity Reaction Status Date / Time No Known Allergies Allergy Verified 05/22/21 09:04 Home Medications Medication Instructions Recorded Confirmed Last Taken Type acetaminophen 500 mg tablet 500 mg PO Q8H PRN 01/16/21 06/12/21 Unknown History albuterol sulfate 90 mcg/actuation 2 inh INHALATION Q4-6H PRN 01/16/21 06/12/21 05/12/21 History aerosol inhaler (ProAir HFA) 1 inh cetirizine 10 mg tablet 10 mg PO DAILY PRN 01/16/21 06/04/21 06/12/21 History dicyclomine 20 mg tablet 20 mg PO TID PRN 01/16/21 06/04/21 Unknown History ergocalciferol (vitamin D2) 1,250 1,250 mcg PO QWEEK 01/16/21 06/04/21 Unknown History mcg (50,000 unit) capsule fluticasone propionate 50 1 spray INTRANASAL DAILY 01/16/21 06/04/21 Unknown History mcg/actuation nasal spray,suspension ibuprofen 600 mg tablet 600 mg PO TID PRN 01/16/21 06/04/21 Unknown History lisinopril 5 mg tablet 5 mg PO DAILY 01/16/21 06/04/21 Unknown History montelukast 10 mg tablet 10 mg PO DAILY 01/16/21 06/04/21 Unknown History (Singulair) pantoprazole 40 mg tablet,delayed 40 mg PO DAILY 01/16/21 06/04/21 06/12/21 History release sertraline 100 mg tablet (Zoloft) 100 mg PO DAILY 01/16/21 06/05/21 06/12/21 History fluticasone propionate 220 1 puff PO BID 05/06/21 06/04/21 Unknown History mcg/actuation HFA aerosol inhaler (Flovent HFA) hydrochlorothiazide 25 mg tablet 1 tab PO BEDTIME 05/06/21 06/05/21 Unknown History omega-3 fatty acids 1,000 mg 1 cap PO DAILY 05/06/21 06/04/21 06/11/21 History capsule pravastatin 80 mg tablet 1 tab PO DAILY 05/06/21 06/04/21 Unknown History azelastine 0.05 % eye drops 1 drp OPHTHALMIC (EYE) BID 06/12/21 06/12/21 Unknown History Exam Exam Date and Time: June 05, 2021 1218 Height,Weight and Vital Signs: Height 5 ft 4 in Weight 95.708 kg Last Vital Signs Pulse 84 06/05/21 12:02 Resp 16 06/05/21 12:02 BP 117/65 06/05/21 12:02 Pulse Ox 97 06/05/21 12:02 Pertinent Lab Results Pertinent Lab Results: Laboratory Tests 05/26/21 05/26/21 06:13 06:13 WBC 11.4 H Hgb 11.5 L Hct 37.6 Plt Count 444 H Sodium 139 Potassium 4.3 Chloride 102 Carbon Dioxide 26 BUN 12 Creatinine 0.73 Lab Results 06/05/21 Range/Units 12:45 Blood Type B Negative Antibody Screen POSITIVE Antibody Identification Inconclusive Crossmatch (AHG) See Detail Narrative Narrative: EKG 06/05/2021 Vent. Rate : 077 BPM ? ? Atrial Rate : 077 BPM ?? P-R Int : 160 ms? QRS Dur : 086 ms ? ? QT Int : 402 ms ? ? ? P-R-T Axes : 054 059 076 degrees ?? QTc Int : 454 ms ? Poor data quality Sinus rhythm with occasional Premature ventricular complexes Otherwise normal ECG No previous ECGs available Airway Mallampati Class: II TM Dist: >3cm Neck ROM: Full Partial: Upper Heart: RRR Lungs: CTAB Assessment and Plan Assessment Anesthesia Assessment: Anesthesia Plan Discussed, Smoking Cess. Discussed and PAT Visit Final Anesthetic Review Family History of Problems with Anesthesia: No History of Problems with Anesthesia: No Documented by User: Matias Sheridan MD 06/12/21 15:51 HPI - Anesthesia Eval Consult details Narrative: 50yo F for Right Hand Assisted Colon Resection Laparoscopic Assist,poss open backpain with radiation to b/l LE s/p Colonoscopy 04/2021 with TIVA PMFSH Past Medical History Medical History (Updated 06/04/21 @ 11:40 by Gillian Eaton RN) Acute anxiety Anemia Arthritis Asthma Colon adenocarcinoma Dental bridge present Environmental allergies GERD (gastroesophageal reflux disease) History of Jean Carlos's syndrome Hyperlipidemia Hypertension Low back pain Seasonal allergies Surgical History Surgical History (Updated 06/04/21 @ 11:37 by Gillian Eaton RN) History of esophagogastroduodenoscopy (EGD) History of tonsillectomy Hx of colonoscopy Social History Social History (Updated 06/05/21 @ 12:23 by Tatyana Schmitt NP) Are you a primary child day care provider to a significant other at home: No Do you presently have visiting nurse or other home services: No Alcohol intake: current Patient Tobacco Use Status: Current everyday Tobacco user Tobacco use type: Cigarette Cigarettes Per Day: 3 Smoked in Last 30 Days: Yes Patient Interested in Nicotine Replacement: No Patient Given Instructions on How to Stop Smoking: Yes Date Education Initiated: 06/05/21 Second Hand Smoke Exposure: No Use of substances other than those prescribed or required for medical reasons: No Have you been hit, kicked, punched, or otherwise hurt by someone within the past year? If so, by whom?: No Spiritual Healthcare Practices: none Moravian Healthcare Practices: none Cultural Healthcare Practices: none Are you DNR?: No Advance Directives: No Advance Directives Information Provided: Yes Advance Directives on File: No Recently lost weight without trying: No Patient : No FDLMP: 05/06/21 : No Poor oral hygiene: No (bridge 2 front upper) Current occupational status: unemployed and disabled Current occupation: lt [employer] Allergies Allergy/AdvReac Type Severity Reaction Status Date / Time No Known Allergies Allergy Verified 05/22/21 09:04 Home Medications Medication Instructions Recorded Confirmed Last Taken Type acetaminophen 500 mg tablet 500 mg PO Q8H PRN 01/16/21 06/12/21 Unknown History albuterol sulfate 90 mcg/actuation 2 inh INHALATION Q4-6H PRN 01/16/21 06/12/21 05/12/21 History aerosol inhaler (ProAir HFA) 1 inh cetirizine 10 mg tablet 10 mg PO DAILY PRN 01/16/21 06/04/21 06/12/21 History dicyclomine 20 mg tablet 20 mg PO TID PRN 01/16/21 06/04/21 Unknown History ergocalciferol (vitamin D2) 1,250 1,250 mcg PO QWEEK 01/16/21 06/04/21 Unknown History mcg (50,000 unit) capsule fluticasone propionate 50 1 spray INTRANASAL DAILY 01/16/21 06/04/21 Unknown History mcg/actuation nasal spray,suspension ibuprofen 600 mg tablet 600 mg PO TID PRN 01/16/21 06/04/21 Unknown History lisinopril 5 mg tablet 5 mg PO DAILY 01/16/21 06/04/21 Unknown History montelukast 10 mg tablet 10 mg PO DAILY 01/16/21 06/04/21 Unknown History (Singulair) pantoprazole 40 mg tablet,delayed 40 mg PO DAILY 01/16/21 06/04/21 06/12/21 History release sertraline 100 mg tablet (Zoloft) 100 mg PO DAILY 01/16/21 06/05/21 06/12/21 History fluticasone propionate 220 1 puff PO BID 05/06/21 06/04/21 Unknown History mcg/actuation HFA aerosol inhaler (Flovent HFA) hydrochlorothiazide 25 mg tablet 1 tab PO BEDTIME 05/06/21 06/05/21 Unknown History omega-3 fatty acids 1,000 mg 1 cap PO DAILY 05/06/21 06/04/21 06/11/21 History capsule pravastatin 80 mg tablet 1 tab PO DAILY 05/06/21 06/04/21 Unknown History azelastine 0.05 % eye drops 1 drp OPHTHALMIC (EYE) BID 06/12/21 06/12/21 Unknown History Exam Airway Loose/Missing/Broken Teeth: Yes Assessment and Plan Final Anesthetic Review NPO: Yes ASA Class: III Final Preanesthetic Review: Meds/Allgs Chart Reviewed, Consent Obtained/Reviewed and Anes Risks/Benef Reviewed Patient Risk: High Procedure Risk: Intermediate Anesthetic Plan Anesthetic Plan: GA Disposition: Inp. Admit - Standard Bed
[2021-06-12] VITALS (24 sets, daily range): BP systolic 94–143; BP diastolic 46–73; PULSE 54–85; RESP 16–22; TEMP 36.1–36.9; O2SAT 94–100; BMI 36.3
--- NOTE | ~2021-06-12 | CT_ITS ---
EXAMINATION: CT ABDOMEN AND PELVIS WITH CONTRAST CLINICAL INFORMATION: Status post right colectomy. Increase in pain. Leukocytosis. COMPARISON: 05/26/2021 TECHNIQUE: Multidetector volumetric images were obtained from the superior aspect of the liver through the pubic symphysis following administration 85 mL of Omnipaque 350 intravenous contrast. Sagittal and coronal reformatted images were obtained on the technologist's workstation. Oral contrast: No This CT examination was performed using dose optimization techniques as appropriate, variously including the following: *Automated exposure control *Adjustment of mA and/or kV according to patient size (this includes techniques or standardized protocols for targeted exams where dose is matched to indication/reason for exam; i.e. extremities or head) *Use of iterative reconstruction technique DLP: 733 mGy-cm FINDINGS: LUNG BASES: There is bibasilar dependent opacity favoring atelectasis. The visualized cardiac structures are unremarkable. LIVER, GALLBLADDER, AND BILIARY TREE: The liver is normal in size, shape, and attenuation. No focal hepatic lesion or biliary ductal dilatation is present. The gallbladder is unremarkable with no evidence of radiopaque gallstones, gallbladder wall thickening, or obvious pericholecystic inflammatory changes. PANCREAS: Unremarkable. SPLEEN: Unremarkable. ADRENAL GLANDS: Unremarkable. KIDNEYS AND URETERS: The kidneys are normal in size, shape, and attenuation. No hydronephrosis, hydroureter, or calculi seen. No perinephric stranding. BLADDER: Unremarkable. GASTROINTESTINAL TRACT: Decompressed stomach. Normal caliber of the small bowel. No obstruction. Enterocolic anastomosis in the right midabdomen. There is wall thickening of the ileum present with surrounding free fluid. This is a change from previous imaging. The left colon is unremarkable. No colonic wall thickening. No free air. Small volume ascites. Additional stranding within the mesenteric fat may represent fluid or necrosis postoperatively. ABDOMINAL WALL: No significant hernia. Mild anasarca. LYMPH NODES: Normal. VASCULAR: Normal caliber aorta with mild atherosclerotic calcification. PELVIC VISCERA: Anteverted uterus. Dominant left ovarian follicle measuring up to 2.1 cm. OSSEOUS STRUCTURES: No acute or suspicious osseous abnormality. Mild degenerative changes in the spine. Avascular necrosis of the right femoral head. CT/CT abdomen pelvis w con IMPRESSION: Right hemicolectomy with right upper quadrant enterocolic anastomosis. There is small bowel wall thickening involving the ileum with surrounding ascites, consistent with enteritis. This is of nonspecific etiology and could be infectious, inflammatory, or ischemic. Fleischner guidelines were followed.
[2021-06-12] MEDS: Lactated Ringers 1,000 ML 100 ML IVCONT (06:45)
[2021-06-12 07:30] LABS: COVID-19 Test Negative (Negative); IDNOW Serial# 55D5AD1C
--- NOTE | 2021-06-12 07:37 | MHC.SHP ---
Pre-Procedural Eval Section A Date of Service: 06/12/21 The patient is an INPATIENT: No Changes since office visit: No Cold of Flu in the past 2 weeks, No New Medical Problems, No Changes in Medication and No Patient answered all questions The History & Physical has been completed within 30 days and I have reviewed it.: Yes Section B Chief Complaint: Malignant neoplasm of colon Allergies: Allergies Allergy/AdvReac Type Severity Reaction Status Date / Time No Known Allergies Allergy Verified 05/22/21 09:04 Plan I have reviewed the history and physical and performed a pertinent physical examination on my patient. No changes have occurred unless specified.
--- NOTE | 2021-06-12 10:00 | P.BOP_ITS ---
Brief Operative Note Date of Service: 06/12/21 <Apple Jacinto PA-C - Last Filed: 06/12/21 10:01> Pre-op diagnosis: colon CA <Apple Jacinto PA-C - Last Filed: 06/12/21 10:01> Post-op diagnosis: same <Apple Jacinto PA-C - Last Filed: 06/12/21 10:01> Procedure: hand assisted laparoscopic right colon resection <Apple Jacinto PA-C - Last Filed: 06/12/21 10:01> Surgeon: BRENDAN RALPH MD <Apple Jacinto PA-C - Last Filed: 06/12/21 10:01> Anesthesia: GETA <Apple Jacinto PA-C - Last Filed: 06/12/21 10:01> Was an Complaint Manager used for this Procedure?: Yes <Apple Jacinto PA-C - Last Filed: 06/12/21 10:01> No <Brendan Ralph MD - Last Filed: 06/12/21 10:32> Complaint Manager: Apple Jacinto <Apple Jacinto PA-C - Last Filed: 06/12/21 10:01> Estimated blood loss (mL): 50 <Apple Jacinto PA-C - Last Filed: 06/12/21 10:01> IV fluids (mL): 1,400 <Apple Jacinto PA-C - Last Filed: 06/12/21 10:01> Urine output (mL): 200 <LUIS MANUEL Ace Last Filed: 06/12/21 10:01> Pathology: other (RIGHT COLON) <LUIS MANUEL Ace Last Filed: 06/12/21 10:01> Condition: stable <LUIS MANUEL Ace Last Filed: 06/12/21 10:01> Disposition: PACU <LUIS MANUEL Ace Last Filed: 06/12/21 10:01>
--- NOTE | 2021-06-12 10:04 | W.PM.OPN ---
Operative Note Operative Note Date of Service: 06/12/21 Narrative: Preop diagnosis: colon cancer, right colon Postop diagnosis: the same Procedure: Hand-assisted laparoscopic right colon resection Surgeon: Sebastián Mojica MD First asst: TYLOR Jacinto The patient is a 50F who was found to have a right colon adenoCa on colonoscopy last April 2021. I therefore explained tp her the technique of HALS right colon resection. She understood the risks, benefits and aternatives and had given consent. I had reviewed her CT scan as well. She was brought to the OR and placed supine under general anesthesia via ET tube. A rai cath was inserted. The abdomen was prepped and draped in the usual sterile fashion. A surgical timeout was done. The patient received Cefotan 2 g IV preop. I made a short midline supraumbilical incision using a blade 15. This was carried down through the ful thickness of the skin and subcutaneous fat down to the fascia. The patient was morbidlyobese so we had go through a thick amount of subcutaneous fat. I made an incision on the midline fasica and entered the peritoneum. I positioned the Wyatt wound retractor and Gelport. I insufflated to a pressure of 15 mmg Hg using a 12 mm port. The 10 mm 30degree laparoscope was inserted though this port and I placed a 5-12 mm port in the epigastric area and a 5 mm port in the LUQ with laparoscopic visualization. I remvoed the insufflating port from the Gelport and positioned my hand into this. THe patient was placed in a head-up, left side down position. I reflected the bowel loops away from the right side to identify the cecum and right colon. The right colon was was near the cecum and was very bulky, c/w the CT scan findings. I divided the peritoneal attachments along the white line of Toldt using the Ligasure starting from the cecum the the hepatic flexure. I mobilized the entire right colon in this manner, seprating the menetery from the retroperitoneum along welldefined planes. I continued to divide the hepatocolic ligaments with the Ligasure to complete the mobilization of the flexure. I dissected along the retroperitoneum until the duodenum was visualizaed and this represented the medial limit of our dissection. I continued to mobilize the ligamentous attachments inferior to the cecum and the terminal ileum. Once it apeared that we had adequate mobilization of the entire right colon, I dessuflated and tried to bring up the entire right colon through the small incision. However, the tumor was too bulky and there were a lot of visceral fat along with omentum attached to the right colon. I therefore continued to separate omentum from the right colon using the Ligasure. I had to extend the fascial incision a little more superiorly to allow better exposure as well as to allow us to pull up the entire right colon. I had to do more dissection of attached fat and omentume off of the right colon and flexure until I was able to bring up the entire right colon through the incision. I created a mesenteric defect on the terminal ileum about 15 cm from the valve. I transected the ileum with a OSCAR 60 mm staple along this mesnteric defect. I then created another mesenteric defect on the proximal transverse and divided this using a OSCAR 60 mm stapler. I marked my planned line of resection on the mesentery using electrocautery to ensure high ligation of the ileocolic pedicle and inclusion of adequate lymphatic basin. I divided the mesentery with Ligasure from both proximal and distal and stopped at the pedicle. I defined the pedicle and applied clampa this was divided between clamps and was doubly ligated with a 2-0 Dexon tie at the stump. I then sent the entire specimen for immediate gross. I proceeded to position the colon limb and ileal limb for our side to side anastomosis. I opened the apex of each sstaple line to entire the umen. I positioned each arm of the OSCAR 60 mm stapled trough the enterotomies and locked the staple in place at the antimesenteric side amking sure that there was no bowel loop or mesentery trapped between the staplers. I fired the stapled to create our side to side anastomosis. I cimpleted the anastomosis by closing the enterotomy with a TA 60 mm stapler. I examined the staple lines and these appeared itnact. The anastomosis appeared well vascularized, and there was no tension. I applied a dexon 3-0 stitch in a seromuscular fashion at the crotch . I rrigated the area of the anastomosis. I closed the mesenteric defect with a running Dexon 3-0 stitch. Once hemostasis was confirmed, I placed the bowel back in the peritoneal cavity and positioned the omentum to overlie this. I removed the Alexiis wound retractor and Gelport, and closed the fascia wih a runnung PDS-0 stitch. I examined the fascial closure laparsocopically and this appeareed intact without any bowel loop or omentum caught in the closure. I dessuflated completely. I irrigated the incision and closed all skin incisions with skin ck. All incisions were inflitrated with Marcaine .25%. Dressings were applied. She tolerated the procedure well. Initial and final counts of sponges and isntruments were correct. EBL was about 50 cc. The patient was extubated without difficulty and transferred to the with staple VS. Colon Resection Tumor location: Right colon and Hepatic flexure Extent of lymphovascular resection Right colon (cecum and ascending colon): high ligation of ileocolic pedicle done General Surg. - Synoptic Notes Colon Resection Tumor location: Right colon and Hepatic flexure Extent of Lymphovascular Resection: Right colon (cecum and ascending colon): high ligation of ileocolic pedicle done
[2021-06-12] MEDS: HYDROmorphone HCl 0.5 MG/0.5 ML SYRINGE 0.25 MG IVPUSH (10:30)
[2021-06-12 12:09] LABS: Magnesium 1.5 mg/dL (1.6-2.6); Phosphorus 4.5 mg/dL (2.7-4.5)
[2021-06-12 12:27] LABS: Anion Gap 13 (12-20); Blood Urea Nitrogen 16 mg/dL (9-16); Calcium 9.1 mg/dL (8.4-10.2); Carbon Dioxide 24 mmol/L (22-29); Chloride 105 mmol/L (96-108); Creatinine Clr Calc Pharmacy 72.7; Estimated Glomerular Filt Rate 56; Glucose Fasting 168 mg/dL (60-99); Potassium 3.9 mmol/L (3.3-5.1); Sodium 138 mmol/L (135-145)
[2021-06-12] MEDS: oxyCODONE HCl Immed Release 5 MG TABLET 10 MG PO (12:53)
[2021-06-12] MEDS: Magnesium Sulfate/H2O 2 GM/50 ML PIGGYBACK IV (13:20)
[2021-06-12] MEDS: Lactated Ringers 1,000 ML 80 ML IVCONT (13:21)
--- NOTE | 2021-06-12 14:58 | PM.EVENT ---
Event Note Date of Service: 06/12/21 Event Note: seen postop sleeping comfortably seems to have good pain control stable vital signs good urine output abdomen soft dressings dry continue pain management Clear liquids significant other updated by phone - Darell [phone]
--- NOTE | 2021-06-12 16:36 | HO.PM.IMCN ---
History of Present Illness Data of Consult Service Date: 06/12/21 Requesting physician: Sebastián Mojica Primary Care Provider: MD MICHELE Sorto Reason for consult: medical management 50-year-old female patient with past medical history significant for asthma, hyperlipidemia, seasonal allergy, hypertension, depression underwent elective Laparoscopic right colon resection due to colon cancer post procedure patient is awake alert complaining of abdominal pain and nausea, denies chest pain, no palpitation no lightheadedness or dizziness, receiving IV morphine and oxycodone for pain control. Review of Systems Review of Systems: General no headacheno dizziness no fever chills. CVS no chest pain, no palpitation. Respiratory no cough,no sob. Gastrointestinal complaining of nausea and abdominal pain Yes all other systems are reviewed and are negative [facility] Medical History Acute anxiety Anemia Arthritis Asthma Colon adenocarcinoma Dental bridge present Environmental allergies GERD (gastroesophageal reflux disease) History of Jean Carlos's syndrome Hyperlipidemia Hypertension Low back pain Seasonal allergies Pertinent family history: father of colon cancer diagnosed in 70s Surgical History History of esophagogastroduodenoscopy (EGD) History of tonsillectomy Hx of colonoscopy Social History Are you a primary lawn care specialist to a significant other at home: No Do you presently have visiting nurse or other home services: No Alcohol intake: current Patient Tobacco Use Status: Current everyday Tobacco user Tobacco use type: Cigarette Cigarettes Per Day: 3 Smoked in Last 30 Days: Yes Patient Interested in Nicotine Replacement: No Patient Given Instructions on How to Stop Smoking: Yes Date Education Initiated: 06/05/21 Second Hand Smoke Exposure: No Use of substances other than those prescribed or required for medical reasons: No Have you been hit, kicked, punched, or otherwise hurt by someone within the past year? If so, by whom?: No Spiritual Healthcare Practices: none L[employer]-Day Healthcare Practices: none Cultural Healthcare Practices: none Are you DNR?: No Advance Directives: No Advance Directives Information Provided: Yes Advance Directives on File: No Recently lost weight without trying: No Patient : No FDLMP: 05/06/21 : No Poor oral hygiene: No (bridge 2 front upper) Current occupational status: unemployed and disabled Current occupation: lt handed Meds Allergies Allergy/AdvReac Type Severity Reaction Status Date / Time No Known Allergies Allergy Verified 05/22/21 09:04 Active Medications: Current Medications Albuterol Sulfate (Albuterol Sulfate 90 Mcg 8 Gm Inhaler) 1 puff INHALE RQID [facility] Chlorhexidine Gluconate (Chlorhexidine Gluc Oral Rinse 15 Ml Mouthwash) 15 ml BUCCAL DAILY [facility] Fluticasone Propionate (Fluticasone Propionate 250 Mcg Blst.W.Dev) 1 puff INHALE RBID [facility] Fluticasone Propionate (Fluticasone Propionate Nasal 16 Gm [place]) 1 spray NOSTRIL-B DAILY [facility] Heparin Sodium (Porcine) (Heparin Sodium,Porcine 5,000 Unit/Ml Vial) 5,000 unit SUBCUT Q8H [facility] Hydrochlorothiazide (Hydrochlorothiazide 25 Mg Tablet) 25 mg PO BEDTIME ZOEY; Protocol Lactated Ringer's (Lr) 1,000 mls @ 80 mls/hr IVCONT .[id number] [facility] Last Admin: 06/12/21 13:21 Dose: 80 mls/hr Documented by: Acetaminophen (Ofirmev) 1,000 mg in 100 mls @ 400 mls/hr IV Q6H [facility] Lisinopril (Lisinopril 5 Mg Tablet) 5 mg PO DAILY [facility]; Protocol Loratadine (Loratadine 10 Mg Tablet) 10 mg PO DAILY PRN PRN Reason: Allergy Symptoms Melatonin (Melatonin 3 Mg Tablet) 6 mg PO BEDTIME PRN PRN Reason: Insomnia Montelukast Sodium (Montelukast Sodium 10 Mg Tablet) 10 mg PO BEDTIME [facility] Morphine Sulfate (Morphine Sulfate 2 Mg/Ml Cartridge) 4 mg IVPUSH Q4H PRN; Protocol PRN Reason: Pain, Severe (Pain Scale 7-10) Omeprazole (Omeprazole 20 Mg Capsule.Dr) 20 mg PO DAILY@0630 [facility] Ondansetron HCl (Ondansetron Hcl 4 Mg/2 Ml Vial) 4 mg IVPUSH Q8H PRN PRN Reason: Nausea and Vomiting Oxycodone HCl (Oxycodone Hcl Immed Release 5 Mg Tablet) 10 mg PO Q4H PRN PRN Reason: Pain, Severe (Pain Scale 7-10) Last Admin: 06/12/21 12:53 Dose: 10 mg Documented by: Oxycodone HCl (Oxycodone Hcl Immed Release 5 Mg Tablet) 5 mg PO Q4H PRN PRN Reason: Pain, Moderate (Pain Scale 4-6 Pravastatin Sodium (Pravastatin Sodium 80 Mg Tablet) 80 mg PO BEDTIME ZOEY Sertraline HCl (Sertraline Hcl 100 Mg Tablet) 100 mg PO DAILY [facility] Sodium Chloride (0.9 % Sodium Chloride Flush 3 Ml Syringe) 3 ml IVFLUSH QSHIFT [facility] Home Medications Medication Instructions Recorded Confirmed Last Taken Type acetaminophen 500 mg tablet 500 mg PO Q8H PRN 01/16/21 06/12/21 Unknown History albuterol sulfate 90 mcg/actuation 2 inh INHALATION Q4-6H PRN 01/16/21 06/12/21 05/12/21 History aerosol inhaler (ProAir HFA) 1 inh cetirizine 10 mg tablet 10 mg PO DAILY PRN 01/16/21 06/04/21 06/12/21 History dicyclomine 20 mg tablet 20 mg PO TID PRN 01/16/21 06/04/21 Unknown History ergocalciferol (vitamin D2) 1,250 1,250 mcg PO QWEEK 01/16/21 06/04/21 Unknown History mcg (50,000 unit) capsule fluticasone propionate 50 1 spray INTRANASAL DAILY 01/16/21 06/04/21 Unknown History mcg/actuation nasal spray,suspension ibuprofen 600 mg tablet 600 mg PO TID PRN 01/16/21 06/04/21 Unknown History lisinopril 5 mg tablet 5 mg PO DAILY 01/16/21 06/04/21 Unknown History montelukast 10 mg tablet 10 mg PO DAILY 01/16/21 06/04/21 Unknown History (Singulair) pantoprazole 40 mg tablet,delayed 40 mg PO DAILY 01/16/21 06/04/21 06/12/21 History release sertraline 100 mg tablet (Zoloft) 100 mg PO DAILY 01/16/21 06/05/21 06/12/21 History fluticasone propionate 220 1 puff PO BID 05/06/21 06/04/21 Unknown History mcg/actuation HFA aerosol inhaler (Flovent HFA) hydrochlorothiazide 25 mg tablet 1 tab PO BEDTIME 05/06/21 06/05/21 Unknown History omega-3 fatty acids 1,000 mg 1 cap PO DAILY 05/06/21 06/04/21 06/11/21 History capsule pravastatin 80 mg tablet 1 tab PO DAILY 05/06/21 06/04/21 Unknown History azelastine 0.05 % eye drops 1 drp OPHTHALMIC (EYE) BID 06/12/21 06/12/21 Unknown History Physical Exam Vital Signs and Narrative: Vital Signs: Last Vital Signs Temp 97.3 F 06/12/21 15:14 Pulse 79 06/12/21 15:14 Resp 18 06/12/21 15:14 BP 94/59 L 06/12/21 15:14 Pulse Ox 97 06/12/21 15:14 Oxygen Flow Rate 2 06/12/21 10:27 BMI result Body Mass Index 36.3 Const: Other: General awake alert in mild distress due to abdominal pain HEENT pupil equal reactive to light and accommodation Neck supple no JVD. CVS regular rate rhythm, Respiratory lungs clear to auscultation, no respiratory distress Gastrointestinal abdomen tender to palpation, bowel sounds audible, dressing in place, no rigidity. Extremities no edema. Neuro nonfocal Skin no rash psych appropriate affect Results Labs CBC and Chem 7: 06/12/21 11:44 Labs: Laboratory Results - last 24 hr 06/12/21 06/12/21 06/12/21 06:16 11:44 11:44 Anion Gap 13 Estim Creat Clear Calc 72.7 Estimated GFR 56 Random Glucose TNP Fasting Glucose 168 H Calcium 9.1 Phosphorus 4.5 Magnesium 1.5 L COVID-19 (EDILMA) Negative COVID-19 Clin Com See Note Assessment and Plan (1) Colon adenocarcinoma: Status: Acute Plan 50-year-old female patient with multiple medical issues including history of hyperlipidemia, hypertension, depression, asthma underwent elective right colon resection for colon cancer. status post right colon resection postoperative day 0 continue IV fluids/ clear liquid as per General surgery continue current pain medications and antiemetics hypertension noted to have low blood pressure will hold hydrochlorothiazide and lisinopril follow BP closely hyperlipidemia on Pravachol 80 mg at bedtime history of asthma with no acute exacerbation continue home inhalers history of depression continue Zoloft 100 mg DVT prophylaxis with heparin code status full code
[2021-06-12] MEDS: ondansetron HCL 4 MG/2 ML VIAL IVPUSH (18:00)
[2021-06-12] MEDS: Morphine Sulfate 2 MG/ML CARTRIDGE 4 MG IVPUSH (23:02)
[2021-06-13] VITALS (9 sets, daily range): BP systolic 110–142; BP diastolic 56–69; PULSE 72–95; RESP 16–20; TEMP 36.2–37.1; O2SAT 92–95; BMI 36.3
[2021-06-13] MEDS: Lactated Ringers 1,000 ML 80 ML IVCONT (01:01)
[2021-06-13] MEDS: Morphine Sulfate 2 MG/ML CARTRIDGE 4 MG IVPUSH ×3 (04:04→15:46)
[2021-06-13 06:01] LABS: MANUAL DIFF FLAG NO
[2021-06-13 06:05] LABS: Basophils Percent Auto 0.2 % (0-2); Hematocrit 30.4 % (37.0-47.0); Hemoglobin 9.8 g/dl (12.0-16.0); Imm Gran Abs Auto 0.07 X10*3/uL (0.00-0.03); Imm Gran Pct Auto 0.5 % (0.0-0.4); Lymphocytes Absolute Auto 1.9 X10*3/uL (1.2-4.9); Lymphocytes Percent Auto 13.5 % (20-40); Mean Corpuscular HGB Conc 32.2 g/dl (31.0-35.0); Mean Corpuscular Hemoglobin 23.8 pg (27.0-33.0); Mean Corpuscular Volume 73.8 fL (80.0-98.0); Mean Platelet Volume 10.8 fL (9.4-12.3); Monocytes Absolute Auto 1.2 X10*3/uL (0.1-1.2); Monocytes Percent Auto 8.7 % (2-11); Neutrophils Absolute Auto 10.9 x10*3/uL (2.0-8.3); Neutrophils Percent Auto 77.1 % (45-73); Platelet Count 357 X10*3/uL (160-400); Red Blood Count 4.12 X10*6/uL (4.20-5.50); Red Cell Distribution Width 17.1 % (11.0-16.0); White Blood Count 14.2 X10*3/uL (4.8-10.8)
[2021-06-13 06:25] LABS: Anion Gap 11 (12-20); Blood Urea Nitrogen 12 mg/dL (9-16); Calcium 9.2 mg/dL (8.4-10.2); Carbon Dioxide 28 mmol/L (22-29); Chloride 102 mmol/L (96-108); Creatinine Clr Calc Pharmacy 110.1; Estimated Glomerular Filt Rate > 60; Glucose Fasting 115 mg/dL (60-99); Potassium 4.4 mmol/L (3.3-5.1); Sodium 137 mmol/L (135-145)
--- NOTE | 2021-06-13 06:52 | P.CDIC_ITS ---
CDI Concurrent Query Documentation Clarification: PHYSICIAN'S DOCUMENTATION REQUEST Date of Query: 06/13/21 0652 Patient Name: Salma Borjas Admit Date: 06/12/21 Dear Doctor, A review of the medical record indicates additional documentation may be needed. Please review below and update the documentation accordingly. Clinical Indicators: Risk Factors/Clinical Indicators/Treatments BMI: 36.4 5' 4 in height Please indicate in your progress notes if you are in agreement that the above diagnosis is valid for this patient: BMI: Obese, Overweight, etc. * Yes, [___obesity ] is a valid diagnosis for this patient * No, [ ] is a not a valid diagnosis for this patient * Other (please specify) * Unable to determine Use of terms such as suspected, likely, concern for, or probable (associated with a specific diagnosis that is being evaluated, monitored, or treated as if it exists) are acceptable and can be coded in the inpatient setting, when documented at the time of discharge. Thank you, Jo Ballesteros [facility], CDIS Extension: [phone] Please use your independent medical judgment in providing your response. THIS QUERY IS PART OF THE PERMANENT MEDICAL RECORD Provider Response: Other (obesity) Other Diagnosis: obesity
[2021-06-13] MEDS: Albuterol Sulfate 90 MCG 8 GM INHALER 1 PUFF INHALE (08:21)
[2021-06-13] MEDS: Fluticasone Propionate 250 MCG BLST.W.DEV 1 PUFF INHALE ×2 (08:21→19:20)
[2021-06-13] MEDS: Heparin Sodium,Porcine 5,000 UNIT/ML VIAL 5000 UNIT SUBCUT ×2 (08:35→18:21)
[2021-06-13] MEDS: Sertraline HCL 100 MG TABLET PO (08:36)
[2021-06-13] MEDS: lisinopriL 5 MG TABLET PO (08:36)
[2021-06-13] MEDS: Chlorhexidine Gluc Oral Rinse 15 ML MOUTHWASH BUCCAL (08:36)
[2021-06-13] MEDS: 0.9 % Sodium Chloride Flush 3 ML SYRINGE IVFLUSH ×3 (08:37→23:52)
[2021-06-13] MEDS: Fluticasone Propionate Nasal 16 GM SPRAY 1 SPRAY NOSTRIL-B (08:54)
--- NOTE | 2021-06-13 09:10 | P.PNGS_ITS ---
Subjective Subjective Date of Service: 06/13/21 <Apple Jacinto PA-C - Last Filed: 06/13/21 10:23> 06/13/21 <Sebastián Mojica MD - Last Filed: 06/13/21 10:36> Interval history: Sore this morning. Comfortable with pain medication. Denies nausea. Tolerating clears. Denies passing flatus. Has not been OOB yet. <Apple Jacinto PA-C - Last Filed: 06/13/21 10:23> Physical Exam Vital Signs: Vital Signs: Last Vital Signs Temp 98 F 06/13/21 06:50 Pulse 95 06/13/21 06:50 Resp 18 06/13/21 08:24 BP 142/67 H 06/13/21 06:50 Pulse Ox 94 06/13/21 03:59 Oxygen Flow Rate 2 06/12/21 10:27 BMI result Body Mass Index 36.3 <Apple Jacinto PA-C - Last Filed: 06/13/21 10:23> Const: General: comfortable, no acute distress and alert <Apple Jacinto PA-C - Last Filed: 06/13/21 10:23> Resp: Effort & Inspection: normal respiratory effort <LUIS MANUEL Ace Last Filed: 06/13/21 10:23> GI: Inspection: No distended and Yes incision (dressings c/d/i) <Apple Jacinto PA-C - Last Filed: 06/13/21 10:23> Palpation (GI): Soft to palpation, Tenderness to palpation present (GI) ( incisional), no guarding and not rigid <Apple Jacinto PA-C - Last Filed: 06/13/21 10:23> Percussion: Yes normal to percussion <LUIS MANUEL Ace Last Filed: 06/13/21 10:23> Skin: General skin exam: no rashes or lesions noted <LUIS MANUEL Ace Last Filed: 06/13/21 10:23> Extrem: General: Yes no clubbing, cyanosis or edema <Apple Jacinto PA-C - Last Filed: 06/13/21 10:23> Objective Data Active Medications Albuterol Sulfate (Albuterol Sulfate 90 Mcg 8 Gm Inhaler) 1 puff INHALE RQID [facility] Last Admin: 06/13/21 08:21 Dose: 1 puff Documented by: LILIANE Chlorhexidine Gluconate (Chlorhexidine Gluc Oral Rinse 15 Ml Mouthwash) 15 ml BUCCAL DAILY [facility] Last Admin: 06/13/21 08:36 Dose: 15 ml Documented by: JENNIFER Fluticasone Propionate (Fluticasone Propionate 250 Mcg Blst.W.Dev) 1 puff INHALE RBID [facility] Last Admin: 06/13/21 08:21 Dose: 1 puff Documented by: LILIANE Fluticasone Propionate (Fluticasone Propionate Nasal 16 Gm [place]) 1 spray NOSTRIL-B DAILY [facility] Last Admin: 06/13/21 08:54 Dose: 1 spray Documented by: JENNIFER Heparin Sodium (Porcine) (Heparin Sodium,Porcine 5,000 Unit/Ml Vial) 5,000 unit SUBCUT Q8H [facility] Last Admin: 06/13/21 08:35 Dose: 5,000 unit Documented by: JENNIFER Acetaminophen (Ofirmev) 1,000 mg in 100 mls @ 400 mls/hr IV Q6H [facility] Last Infusion: 06/13/21 06:39 Dose: 0 mls/hr Documented by: ALISON Lisinopril (Lisinopril 5 Mg Tablet) 5 mg PO DAILY [facility]; Protocol Last Admin: 06/13/21 08:36 Dose: 5 mg Documented by: JENNIFER Loratadine (Loratadine 10 Mg Tablet) 10 mg PO DAILY PRN PRN Reason: Allergy Symptoms Melatonin (Melatonin 3 Mg Tablet) 6 mg PO BEDTIME PRN PRN Reason: Insomnia Montelukast Sodium (Montelukast Sodium 10 Mg Tablet) 10 mg PO BEDTIME [facility] Morphine Sulfate (Morphine Sulfate 2 Mg/Ml Cartridge) 4 mg IVPUSH Q4H PRN; Protocol PRN Reason: Pain, Severe (Pain Scale 7-10) Last Admin: 06/13/21 08:32 Dose: 4 mg Documented by: JENNIFER Omeprazole (Omeprazole 20 Mg Capsule.Dr) 20 mg PO DAILY@0630 [facility] Last Admin: 06/13/21 06:21 Dose: Not Given Documented by: ALISON Non-Admin Reason: Patient Refused Ondansetron HCl (Ondansetron Hcl 4 Mg/2 Ml Vial) 4 mg IVPUSH Q8H PRN PRN Reason: Nausea and Vomiting Last Admin: 06/12/21 18:00 Dose: 4 mg Documented by: VANESSA Oxycodone HCl (Oxycodone Hcl Immed Release 5 Mg Tablet) 10 mg PO Q4H PRN PRN Reason: Pain, Severe (Pain Scale 7-10) Last Admin: 06/12/21 12:53 Dose: 10 mg Documented by: NATI Oxycodone HCl (Oxycodone Hcl Immed Release 5 Mg Tablet) 5 mg PO Q4H PRN PRN Reason: Pain, Moderate (Pain Scale 4-6 Pravastatin Sodium (Pravastatin Sodium 80 Mg Tablet) 80 mg PO BEDTIME ZOEY Sertraline HCl (Sertraline Hcl 100 Mg Tablet) 100 mg PO DAILY [facility] Last Admin: 06/13/21 08:36 Dose: 100 mg Documented by: JENNIFER Sodium Chloride (0.9 % Sodium Chloride Flush 3 Ml Syringe) 3 ml IVFLUSH QSHIFT [facility] Last Admin: 06/13/21 08:37 Dose: 3 ml Documented by: JENNIFER <Apple Jacinto PA-C - Last Filed: 06/13/21 10:23> Labs CBC & Chem 7: : 06/13/21 05:14 06/13/21 05:14 <Apple Jacinto PA-C - Last Filed: 06/13/21 10:23> Labs: Laboratory Results - last 24 hr 06/12/21 06/12/21 06/13/21 11:44 11:44 05:14 MCV 73.8 L MCH 23.8 L MCHC 32.2 RDW 17.1 H Plt Count 357 MPV 10.8 Immature Gran % (Auto) 0.5 H Neut % (Auto) 77.1 H Lymph % (Auto) 13.5 L [place] % (Auto) 8.7 Eos % (Auto) 0.0 Baso % (Auto) 0.2 Lymph # (Auto) 1.9 [place] # (Auto) 1.2 Eos # (Auto) 0.0 Baso # (Auto) 0.0 Abs Immat Gran (auto) 0.07 H Absolute Neuts (auto) 10.9 H Absolute Nucleated RBC 0.000 Nucleated RBC % (auto) 0.0 Anion Gap 13 Estim Creat Clear Calc 72.7 Estimated GFR 56 Random Glucose TNP Fasting Glucose 168 H Calcium 9.1 Phosphorus 4.5 Magnesium 1.5 L 06/13/21 05:14 MCV MCH MCHC RDW Plt Count MPV Immature Gran % (Auto) Neut % (Auto) Lymph % (Auto) [place] % (Auto) Eos % (Auto) Baso % (Auto) Lymph # (Auto) [place] # (Auto) Eos # (Auto) Baso # (Auto) Abs Immat Gran (auto) Absolute Neuts (auto) Absolute Nucleated RBC Nucleated RBC % (auto) Anion Gap 11 L Estim Creat Clear Calc 110.1 Estimated GFR > 60 Random Glucose Fasting Glucose 115 H Calcium 9.2 Phosphorus Magnesium <Apple Jacinto PA-C - Last Filed: 06/13/21 10:23> Procedures Date of Service Date of Service: 06/13/21 <Apple Jacinto PA-C - Last Filed: 06/13/21 10:23> Progress Note: A&P Assessment and plan (1) Colon adenocarcinoma: Status: Acute <Apple Jacinto PA-C - Last Filed: 06/13/21 10:23> Assessment and Plan: Says she is comfortable Abdomen soft Denies flatus Encouraged to ambulate Incentive spirometry Pain management Await return of GI function Seen and examined independently - agree with TYLOR Jacinto <Sebastián Mojica MD - Last Filed: 06/13/21 10:36> (2) S/P right colectomy: Status: Acute <Apple Jacinto PA-C - Last Filed: 06/13/21 10:23> Plan 50 year old female POD #1 s/p SHIRA right colectomy for right colon CA. She is doing well post op, comfortable and tolerating clears. VSS. Abd exam benign with appropriate post op tenderness, dressings c/d/i. Will continue clears for now until some evidence of return of GI function. Cont gentle IVF. D/c rai. Encouraged OOB/ambulation and IS use. AM labs reviewed. <LUIS MANUEL Ace Last Filed: 06/13/21 10:23> Fall Risk Details Current Medications: Current Medications Albuterol Sulfate (Albuterol Sulfate 90 Mcg 8 Gm Inhaler) 1 puff INHALE RQID [facility] Last Admin: 06/13/21 08:21 Dose: 1 puff Documented by: Chlorhexidine Gluconate (Chlorhexidine Gluc Oral Rinse 15 Ml Mouthwash) 15 ml BUCCAL DAILY [facility] Last Admin: 06/13/21 08:36 Dose: 15 ml Documented by: Fluticasone Propionate (Fluticasone Propionate 250 Mcg Blst.W.Dev) 1 puff INHALE RBID [facility] Last Admin: 06/13/21 08:21 Dose: 1 puff Documented by: Fluticasone Propionate (Fluticasone Propionate Nasal 16 Gm [place]) 1 spray NOSTRIL-B DAILY [facility] Last Admin: 06/13/21 08:54 Dose: 1 spray Documented by: Heparin Sodium (Porcine) (Heparin Sodium,Porcine 5,000 Unit/Ml Vial) 5,000 unit SUBCUT Q8H [facility] Last Admin: 06/13/21 08:35 Dose: 5,000 unit Documented by: Acetaminophen ([facility]) 1,000 mg in 100 mls @ 400 mls/hr IV Q6H [facility] Last Infusion: 06/13/21 06:39 Dose: Infused Documented by: Lisinopril (Lisinopril 5 Mg Tablet) 5 mg PO DAILY [facility]; Protocol Last Admin: 06/13/21 08:36 Dose: 5 mg Documented by: Loratadine (Loratadine 10 Mg Tablet) 10 mg PO DAILY PRN PRN Reason: Allergy Symptoms Melatonin (Melatonin 3 Mg Tablet) 6 mg PO BEDTIME PRN PRN Reason: Insomnia Montelukast Sodium (Montelukast Sodium 10 Mg Tablet) 10 mg PO BEDTIME [facility] Morphine Sulfate (Morphine Sulfate 2 Mg/Ml Cartridge) 4 mg IVPUSH Q4H PRN; Protocol PRN Reason: Pain, Severe (Pain Scale 7-10) Last Admin: 06/13/21 08:32 Dose: 4 mg Documented by: Omeprazole (Omeprazole 20 Mg Capsule.Dr) 20 mg PO DAILY@0630 [facility] Last Admin: 06/13/21 06:21 Dose: Not Given Documented by: Ondansetron HCl (Ondansetron Hcl 4 Mg/2 Ml Vial) 4 mg IVPUSH Q8H PRN PRN Reason: Nausea and Vomiting Last Admin: 06/12/21 18:00 Dose: 4 mg Documented by: Oxycodone HCl (Oxycodone Hcl Immed Release 5 Mg Tablet) 10 mg PO Q4H PRN PRN Reason: Pain, Severe (Pain Scale 7-10) Last Admin: 06/12/21 12:53 Dose: 10 mg Documented by: Oxycodone HCl (Oxycodone Hcl Immed Release 5 Mg Tablet) 5 mg PO Q4H PRN PRN Reason: Pain, Moderate (Pain Scale 4-6 Pravastatin Sodium (Pravastatin Sodium 80 Mg Tablet) 80 mg PO BEDTIME ZOEY Sertraline HCl (Sertraline Hcl 100 Mg Tablet) 100 mg PO DAILY [facility] Last Admin: 06/13/21 08:36 Dose: 100 mg Documented by: Sodium Chloride (0.9 % Sodium Chloride Flush 3 Ml Syringe) 3 ml IVFLUSH QSHIFT [facility] Last Admin: 06/13/21 08:37 Dose: 3 ml Documented by: <Apple Jacinto PA-C - Last Filed: 06/13/21 10:23> Time Spent With Patient Time: Total time spent is greater than 50% in coordination of care (as d ocumented) at patient's floor/unit and/or counseling patient: <Apple Jacinto PA-C - Last Filed: 06/13/21 10:23> Quality Stroke Does the patient have a stroke diagnosis?: No <Apple Jacinto PA-C - Last Filed: 06/13/21 10:23> VTE Prior VTE?: No <Apple Jacinto PA-C - Last Filed: 06/13/21 10:23> VTE Risk Level:: Surgical - high <Apple Jacinto PA-C - Last Filed: 06/13/21 10:23> VTE Device Contraindication: N/A - Device Ordered <LUIS MANUEL Ace Last Filed: 06/13/21 10:23> VTE Drug Contraindication: N/A - Med Ordered <LUIS MANUEL Ace Last Filed: 06/13/21 10:23>
--- NOTE | 2021-06-13 09:41 | HO.PM.IMPN ---
Subjective Subjective Date of Service: 06/13/21 Interval History: complaining of persistent abdominal pain denies nausea, no vomiting, tolerating clear liquid diet, passing flatus ,no bowel movement, no acute issues overnight Review of Systems Review of Systems: Yes all other systems are reviewed and are negative Physical Exam Vital Signs: Vital Signs: Last Vital Signs Temp 98 F 06/13/21 06:50 Pulse 95 06/13/21 06:50 Resp 18 06/13/21 08:24 BP 142/67 H 06/13/21 06:50 Pulse Ox 94 06/13/21 03:59 Oxygen Flow Rate 2 06/12/21 10:27 BMI result Body Mass Index 36.3 Const: Other: General? awake antonino rt, no distress. H EENT pupil equal r eactive to light a nd accommodation. Neck? supple no JV D. CVS? regular ra te rhythm, Respira tory lungs clear t o auscultation, no respiratory distr ess. Gastrointesti nal abdomen tender to palpation, bow el sounds audible, dressing in place , no rigidity. Ext remities no edema. Neuro nonfocal Sk in no rash psych a ppropriate affect Objective Data Active Medications Albuterol Sulfate (Albuterol Sulfate 90 Mcg 8 Gm Inhaler) 1 puff INHALE RQID [facility] Last Admin: 06/13/21 08:21 Dose: 1 puff Documented by: LILIANE Chlorhexidine Gluconate (Chlorhexidine Gluc Oral Rinse 15 Ml Mouthwash) 15 ml BUCCAL DAILY [facility] Last Admin: 06/13/21 08:36 Dose: 15 ml Documented by: JENNIFER Fluticasone Propionate (Fluticasone Propionate 250 Mcg Blst.W.Dev) 1 puff INHALE RBID [facility] Last Admin: 06/13/21 08:21 Dose: 1 puff Documented by: LILIANE Fluticasone Propionate (Fluticasone Propionate Nasal 16 Gm [place]) 1 spray NOSTRIL-B DAILY [facility] Last Admin: 06/13/21 08:54 Dose: 1 spray Documented by: JENNIFER Heparin Sodium (Porcine) (Heparin Sodium,Porcine 5,000 Unit/Ml Vial) 5,000 unit SUBCUT Q8H [facility] Last Admin: 06/13/21 08:35 Dose: 5,000 unit Documented by: JENNIFER Acetaminophen (Ofirmev) 1,000 mg in 100 mls @ 400 mls/hr IV Q6H [facility] Last Infusion: 06/13/21 06:39 Dose: 0 mls/hr Documented by: ALISON Lisinopril (Lisinopril 5 Mg Tablet) 5 mg PO DAILY [facility]; Protocol Last Admin: 06/13/21 08:36 Dose: 5 mg Documented by: JENNIFER Loratadine (Loratadine 10 Mg Tablet) 10 mg PO DAILY PRN PRN Reason: Allergy Symptoms Melatonin (Melatonin 3 Mg Tablet) 6 mg PO BEDTIME PRN PRN Reason: Insomnia Montelukast Sodium (Montelukast Sodium 10 Mg Tablet) 10 mg PO BEDTIME [facility] Morphine Sulfate (Morphine Sulfate 2 Mg/Ml Cartridge) 4 mg IVPUSH Q4H PRN; Protocol PRN Reason: Pain, Severe (Pain Scale 7-10) Last Admin: 06/13/21 08:32 Dose: 4 mg Documented by: JENNIFER Omeprazole (Omeprazole 20 Mg Capsule.Dr) 20 mg PO DAILY@0630 [facility] Last Admin: 06/13/21 06:21 Dose: Not Given Documented by: ALISON Non-Admin Reason: Patient Refused Ondansetron HCl (Ondansetron Hcl 4 Mg/2 Ml Vial) 4 mg IVPUSH Q8H PRN PRN Reason: Nausea and Vomiting Last Admin: 06/12/21 18:00 Dose: 4 mg Documented by: VANESSA Oxycodone HCl (Oxycodone Hcl Immed Release 5 Mg Tablet) 10 mg PO Q4H PRN PRN Reason: Pain, Severe (Pain Scale 7-10) Last Admin: 06/12/21 12:53 Dose: 10 mg Documented by: NATI Oxycodone HCl (Oxycodone Hcl Immed Release 5 Mg Tablet) 5 mg PO Q4H PRN PRN Reason: Pain, Moderate (Pain Scale 4-6 Pravastatin Sodium (Pravastatin Sodium 80 Mg Tablet) 80 mg PO BEDTIME [facility] Sertraline HCl (Sertraline Hcl 100 Mg Tablet) 100 mg PO DAILY [facility] Last Admin: 06/13/21 08:36 Dose: 100 mg Documented by: JENNIFER Sodium Chloride (0.9 % Sodium Chloride Flush 3 Ml Syringe) 3 ml IVFLUSH QSHIFT [facility] Last Admin: 06/13/21 08:37 Dose: 3 ml Documented by: JENNIFER Labs CBC & Chem 7: 06/13/21 05:14 06/13/21 05:14 Labs: Laboratory Results - last 24 hr 06/12/21 06/12/21 06/13/21 11:44 11:44 05:14 MCV 73.8 L MCH 23.8 L MCHC 32.2 RDW 17.1 H Plt Count 357 MPV 10.8 Immature Gran % (Auto) 0.5 H Neut % (Auto) 77.1 H Lymph % (Auto) 13.5 L Alexander % (Auto) 8.7 Eos % (Auto) 0.0 Baso % (Auto) 0.2 Lymph # (Auto) 1.9 Alexander # (Auto) 1.2 Eos # (Auto) 0.0 Baso # (Auto) 0.0 Abs Immat Gran (auto) 0.07 H Absolute Neuts (auto) 10.9 H Absolute Nucleated RBC 0.000 Nucleated RBC % (auto) 0.0 Anion Gap 13 Estim Creat Clear Calc 72.7 Estimated GFR 56 Random Glucose TNP Fasting Glucose 168 H Calcium 9.1 Phosphorus 4.5 Magnesium 1.5 L 06/13/21 05:14 MCV MCH MCHC RDW Plt Count MPV Immature Gran % (Auto) Neut % (Auto) Lymph % (Auto) Alexander % (Auto) Eos % (Auto) Baso % (Auto) Lymph # (Auto) Alexander # (Auto) Eos # (Auto) Baso # (Auto) Abs Immat Gran (auto) Absolute Neuts (auto) Absolute Nucleated RBC Nucleated RBC % (auto) Anion Gap 11 L Estim Creat Clear Calc 110.1 Estimated GFR > 60 Random Glucose Fasting Glucose 115 H Calcium 9.2 Phosphorus Magnesium Assessment and Plan (1) Hypertension: Status: Acute (2) Obesity: Status: Acute Plan 50-year-old female patient with multiple medical issues including history of hyperlipidemia, hypertension, depression, asthma underwent elective right colon resection for colon cancer. ? status post right colon resection postoperative day 1 ? persistent abdominal pain, responding to current pain medication DC IV fluid, recommend out of bed to chair and encourage incentive spirometry diet and pain medicine as per General surgery. leukocytosis likely reactive post surgery follow Cbc acute on chronic anemia, low MCV and iron studies consistent with iron deficiency anemia, ferritin 5 and saturation 8, likely blood loss from colon ca, will give iv iron . hypomagnesemia mg 1.5 repleted ,check labs hypertension BP trending up will start on home dose of lisinopril 5 mg, continue to hold hydrochlorothiazide and follow BP closely. ?hyperlipidemia continue Pravachol 80 mg at bedtime ?history of asthma with no acute exacerbation continue home inhalers ?history of depression continue Zoloft 100 mg obesity weight recommended low-calorie diet, since contributing to hypertension and hyperlipidemia ?DVT prophylaxis with heparin ?code status full code Quality Stroke Does the patient have a stroke diagnosis?: No VTE Prior VTE?: No VTE Risk Level:: Medical - moderate - high VTE Device Contraindication: Treatment Not Indicated VTE Drug Contraindication: N/A - Med Ordered
--- NOTE | 2021-06-13 10:13 | HO.POSTANES ---
Post Anesthesia Evaluation Post Anesthesia Evaluation Vital Signs: Vital Signs Temp Pulse Resp BP Pulse Ox 06/13/21 08:24 18 06/13/21 06:50 98 F 95 20 142/67 H 06/13/21 03:59 97.1 F 84 16 139/69 94 06/12/21 23:34 98.2 F 80 16 118/58 L 94 06/12/21 23:00 97.5 F 84 18 136/72 94 Anesthesia: General Endotracheal-GETA Mental Status: Awake Pain Control: Satisfactory Nausea/Vomiting: None Hydration: Adequate Anesthesia-Related Issues: No Anes. Related Issues
[2021-06-13] MEDS: Sodium Ferric Gluconat/Sucrose 125 MG in 0.9 % Sodium Chloride 100 ML 100 MG IV (10:31)
[2021-06-13] MEDS: oxyCODONE HCl Immed Release 5 MG TABLET 10 MG PO ×2 (12:22→20:41)
--- NOTE | 2021-06-13 13:00 | MHC.CM.PN ---
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 SHE REPORTS BEING COVID VACCINATED AND A BOOSTER BUT DOES NOT RECALL THE BRAND OR DATES. SHE RECEIVES ASSISTANCE FOR TRANSPORT WITH [facility]. PATIENT HAS A CANE AND A WALKER IN THE HOME IF NEEDED. CASE MANAGEMENT FOLLOWING FOR DC NEEDS. SHE DOES NOT HAVE ANY VNA SERVICES IN THE HOME.
[2021-06-13] MEDS: Pravastatin Sodium 80 MG TABLET PO (20:38)
[2021-06-13] MEDS: Montelukast Sodium 10 MG TABLET PO (20:38)
[2021-06-14] VITALS (7 sets, daily range): BP systolic 99–110; BP diastolic 53–57; PULSE 74–85; RESP 18–20; TEMP 36.1–36.9; O2SAT 93–98
[2021-06-14] MEDS: Heparin Sodium,Porcine 5,000 UNIT/ML VIAL 5000 UNIT SUBCUT ×3 (01:55→18:03)
[2021-06-14] MEDS: oxyCODONE HCl Immed Release 5 MG TABLET 10 MG PO ×4 (01:57→23:53)
[2021-06-14] MEDS: Omeprazole 20 MG CAPSULE.DR PO (06:03)
[2021-06-14] MEDS: Fluticasone Propionate 250 MCG BLST.W.DEV 1 PUFF INHALE (07:57)
[2021-06-14] MEDS: Albuterol Sulfate 90 MCG 8 GM INHALER 1 PUFF INHALE (07:57)
--- NOTE | 2021-06-14 08:37 | HO.PM.IMPN ---
Subjective Subjective Date of Service: 06/14/21 Interval History: cc: right colectomy interval history: feeling better, pain controlled Cardiovascular Cardiovascular: Reports no additional cardiovascular complaints Respiratory Respiratory: Reports no additional respiratory complaints Physical Exam Vital Signs: Vital Signs: Last Vital Signs Temp 98.5 F 06/14/21 07:47 Pulse 74 06/14/21 07:47 Resp 20 06/14/21 07:59 BP 99/53 L 06/14/21 07:47 Pulse Ox 98 06/14/21 07:47 Oxygen Flow Rate 2 06/12/21 10:27 BMI result Body Mass Index 36.3 General: AO X 3, no acute distress Resp: CTA bilateral, no accessory muscles used CVS: S1,S2,RRR Neuro: motor grossly intact, alert Psych: appropriate affect, appropriate insight Objective Data Active Medications Albuterol Sulfate (Albuterol Sulfate 90 Mcg 8 Gm Inhaler) 1 puff INHALE RQID [facility] Last Admin: 06/14/21 07:57 Dose: 1 puff Documented by: LILIANE Chlorhexidine Gluconate (Chlorhexidine Gluc Oral Rinse 15 Ml Mouthwash) 15 ml BUCCAL DAILY [facility] Last Admin: 06/13/21 08:36 Dose: 15 ml Documented by: JENNIFER Fluticasone Propionate (Fluticasone Propionate 250 Mcg Blst.W.Dev) 1 puff INHALE RBID [facility] Last Admin: 06/14/21 07:57 Dose: 1 puff Documented by: LILIANE Fluticasone Propionate (Fluticasone Propionate Nasal 16 Gm [place]) 1 spray NOSTRIL-B DAILY [facility] Last Admin: 06/13/21 08:54 Dose: 1 spray Documented by: JENNIFER Heparin Sodium (Porcine) (Heparin Sodium,Porcine 5,000 Unit/Ml Vial) 5,000 unit SUBCUT Q8H [facility] Last Admin: 06/14/21 01:55 Dose: 5,000 unit Documented by: YOLY Acetaminophen (Ofirmev) 1,000 mg in 100 mls @ 400 mls/hr IV Q6H [facility] Last Infusion: 06/14/21 06:19 Dose: 0 mls/hr Documented by: YOLY Ferric Sodium Gluconate Complex 125 mg/ Sodium Chloride 110 mls @ 100 mls/hr IV DAILY [facility] Stop: 06/15/21 10:05 Last Infusion: 06/13/21 12:09 Dose: 0 mls/hr Documented by: JENNIFER Lisinopril (Lisinopril 5 Mg Tablet) 5 mg PO DAILY [facility]; Protocol Last Admin: 06/13/21 08:36 Dose: 5 mg Documented by: JENNIFER Loratadine (Loratadine 10 Mg Tablet) 10 mg PO DAILY PRN PRN Reason: Allergy Symptoms Melatonin (Melatonin 3 Mg Tablet) 6 mg PO BEDTIME PRN PRN Reason: Insomnia Montelukast Sodium (Montelukast Sodium 10 Mg Tablet) 10 mg PO BEDTIME [facility] Last Admin: 06/13/21 20:38 Dose: 10 mg Documented by: VANESSA Morphine Sulfate (Morphine Sulfate 2 Mg/Ml Cartridge) 4 mg IVPUSH Q4H PRN; Protocol PRN Reason: Pain, Severe (Pain Scale 7-10) Last Admin: 06/13/21 15:46 Dose: 4 mg Documented by: VANESSA Omeprazole (Omeprazole 20 Mg Capsule.Dr) 20 mg PO DAILY@0630 [facility] Last Admin: 06/14/21 06:03 Dose: 20 mg Documented by: YOLY Ondansetron HCl (Ondansetron Hcl 4 Mg/2 Ml Vial) 4 mg IVPUSH Q8H PRN PRN Reason: Nausea and Vomiting Last Admin: 06/12/21 18:00 Dose: 4 mg Documented by: VANESSA Oxycodone HCl (Oxycodone Hcl Immed Release 5 Mg Tablet) 10 mg PO Q4H PRN PRN Reason: Pain, Severe (Pain Scale 7-10) Last Admin: 06/14/21 01:57 Dose: 10 mg Documented by: YOLY Oxycodone HCl (Oxycodone Hcl Immed Release 5 Mg Tablet) 5 mg PO Q4H PRN PRN Reason: Pain, Moderate (Pain Scale 4-6 Pravastatin Sodium (Pravastatin Sodium 80 Mg Tablet) 80 mg PO BEDTIME [facility] Last Admin: 06/13/21 20:38 Dose: 80 mg Documented by: VANESSA Sertraline HCl (Sertraline Hcl 100 Mg Tablet) 100 mg PO DAILY [facility] Last Admin: 06/13/21 08:36 Dose: 100 mg Documented by: JENNIFER Sodium Chloride (0.9 % Sodium Chloride Flush 3 Ml Syringe) 3 ml IVFLUSH QSHIFT [facility] Last Admin: 06/13/21 23:52 Dose: 3 ml Documented by: YOLY Labs CBC & Chem 7: 06/13/21 05:14 06/13/21 05:14 Labs: Laboratory Results - last 24 hr 06/13/21 05:14 Magnesium 2.0 Assessment and Plan (1) Hypertension: Status: Acute (2) Obesity: Status: Acute Plan 50-year-old female patient with multiple medical issues including history of hyperlipidemia, hypertension, depression, asthma underwent elective right colon resection for colon cancer. ? status post right colon resection postoperative day 2 ?improving abdominal pain, responding to current pain medication recommend out of bed to chair and encourage incentive spirometry diet and pain medicine as per General surgery. leukocytosis likely reactive post surgery acute on chronic anemia, low MCV and iron studies consistent with iron deficiency anemia, ferritin 5 and saturation 8, likely blood loss from colon ca, giving iv iron . hypomagnesemia repleted hypertension lisinopril 5 mg ?hyperlipidemia continue Pravachol 80 mg at bedtime ?mild intermittent asthma no acute exacerbation continue home inhalers depression continue Zoloft 100 mg obesity weight loss recommended low-calorie diet, since contributing to hypertension and hyperlipidemia ?DVT prophylaxis with heparin ?code status full code Quality Stroke Does the patient have a stroke diagnosis?: No VTE Prior VTE?: No VTE Risk Level:: Surgical - high VTE Device Contraindication: N/A - Device Ordered VTE Drug Contraindication: N/A - Med Ordered
[2021-06-14] MEDS: Chlorhexidine Gluc Oral Rinse 15 ML MOUTHWASH BUCCAL (09:53)
[2021-06-14] MEDS: 0.9 % Sodium Chloride Flush 3 ML SYRINGE IVFLUSH ×3 (09:53→20:19)
[2021-06-14] MEDS: lisinopriL 5 MG TABLET PO (09:53)
[2021-06-14] MEDS: Sertraline HCL 100 MG TABLET PO (09:53)
--- NOTE | 2021-06-14 10:14 | P.PNGS_ITS ---
Subjective Subjective Date of Service: 06/14/21 Interval history: says she has ambulated to bathroom denies flatus no N/V pain well controlled Physical Exam Vital Signs: Vital Signs: Last Vital Signs Temp 98.5 F 06/14/21 07:47 Pulse 74 06/14/21 07:47 Resp 20 06/14/21 07:59 BP 99/53 L 06/14/21 07:47 Pulse Ox 98 06/14/21 07:47 Oxygen Flow Rate 2 06/12/21 10:27 BMI result Body Mass Index 36.3 Const: Other: in bed General: comfortable and no acute distress Resp: Effort & Inspection: normal respiratory effort Cardio: Rate: regular rate GI: Other: soft, incision clean and dry, Palpation (GI): not firm and no guarding Objective Data Active Medications Albuterol Sulfate (Albuterol Sulfate 90 Mcg 8 Gm Inhaler) 1 puff INHALE RQID [facility] Last Admin: 06/14/21 07:57 Dose: 1 puff Documented by: LILIANE Chlorhexidine Gluconate (Chlorhexidine Gluc Oral Rinse 15 Ml Mouthwash) 15 ml BUCCAL DAILY [facility] Last Admin: 06/14/21 09:53 Dose: 15 ml Documented by: YOVANNY Fluticasone Propionate (Fluticasone Propionate 250 Mcg Blst.W.Dev) 1 puff INHALE RBID [facility] Last Admin: 06/14/21 07:57 Dose: 1 puff Documented by: LILIANE Fluticasone Propionate (Fluticasone Propionate Nasal 16 Gm [place]) 1 spray NOS TRIL-B DAILY [facility] Last Admin: 06/14/21 09:50 Dose: Not Given Documented by: YOVANNY Non-Admin Reason: Med Not Available Heparin Sodium (Porcine) (Heparin Sodium,Porcine 5,000 Unit/Ml Vial) 5,000 unit SUBCUT Q8H [facility] Last Admin: 06/14/21 09:52 Dose: 5,000 unit Documented by: YOVANNY Acetaminophen (Ofirmev) 1,000 mg in 100 mls @ 400 mls/hr IV Q6H [facility] Last Infusion: 06/14/21 06:19 Dose: 0 mls/hr Documented by: YOLY Ferric Sodium Gluconate Complex 125 mg/ Sodium Chloride 110 mls @ 100 mls/hr IV DAILY [facility] Stop: 06/15/21 10:05 Last Infusion: 06/13/21 12:09 Dose: 0 mls/hr Documented by: JENNIFER Lisinopril (Lisinopril 5 Mg Tablet) 5 mg PO DAILY [facility]; Protocol Last Admin: 06/14/21 09:53 Dose: 5 mg Documented by: YOVANNY Loratadine (Loratadine 10 Mg Tablet) 10 mg PO DAILY PRN PRN Reason: Allergy Symptoms Melatonin (Melatonin 3 Mg Tablet) 6 mg PO BEDTIME PRN PRN Reason: Insomnia Montelukast Sodium (Montelukast Sodium 10 Mg Tablet) 10 mg PO BEDTIME [facility] Last Admin: 06/13/21 20:38 Dose: 10 mg Documented by: VANESSA Morphine Sulfate (Morphine Sulfate 2 Mg/Ml Cartridge) 4 mg IVPUSH Q4H PRN; Protocol PRN Reason: Pain, Severe (Pain Scale 7-10) Last Admin: 06/13/21 15:46 Dose: 4 mg Documented by: VANESSA Omeprazole (Omeprazole 20 Mg Capsule.Dr) 20 mg PO DAILY@0630 [facility] Last Admin: 06/14/21 06:03 Dose: 20 mg Documented by: YOLY Ondansetron HCl (Ondansetron Hcl 4 Mg/2 Ml Vial) 4 mg IVPUSH Q8H PRN PRN Reason: Nausea and Vomiting Last Admin: 06/12/21 18:00 Dose: 4 mg Documented by: VANESSA Oxycodone HCl (Oxycodone Hcl Immed Release 5 Mg Tablet) 10 mg PO Q4H PRN PRN Reason: Pain, Severe (Pain Scale 7-10) Last Admin: 06/14/21 09:53 Dose: 10 mg Documented by: YOVANNY Oxycodone HCl (Oxycodone Hcl Immed Release 5 Mg Tablet) 5 mg PO Q4H PRN PRN Reason: Pain, Moderate (Pain Scale 4-6 Pravastatin Sodium (Pravastatin Sodium 80 Mg Tablet) 80 mg PO BEDTIME [facility] Last Admin: 06/13/21 20:38 Dose: 80 mg Documented by: VANESSA Sertraline HCl (Sertraline Hcl 100 Mg Tablet) 100 mg PO DAILY [facility] Last Admin: 06/14/21 09:53 Dose: 100 mg Documented by: YOVANNY Sodium Chloride (0.9 % Sodium Chloride Flush 3 Ml Syringe) 3 ml IVFLUSH QSHIFT [facility] Last Admin: 06/14/21 09:53 Dose: 3 ml Documented by: YOVANNY Labs CBC & Chem 7: 06/13/21 05:14 06/13/21 05:14 Procedures Date of Service Date of Service: 06/14/21 Progress Note: A&P Assessment and plan (1) S/P right colectomy: Status: Acute Assessment and Plan: no flatus yet await return of GI function keep on clears encouraged to ambulate more - she tends to stay in bed doing well postop Fall Risk Details Current Medications: Current Medications Albuterol Sulfate (Albuterol Sulfate 90 Mcg 8 Gm Inhaler) 1 puff INHALE RQID [facility] Last Admin: 06/14/21 07:57 Dose: 1 puff Documented by: Chlorhexidine Gluconate (Chlorhexidine Gluc Oral Rinse 15 Ml Mouthwash) 15 ml BUCCAL DAILY [facility] Last Admin: 06/14/21 09:53 Dose: 15 ml Documented by: Fluticasone Propionate (Fluticasone Propionate 250 Mcg Blst.W.Dev) 1 puff INHALE RBID [facility] Last Admin: 06/14/21 07:57 Dose: 1 puff Documented by: Fluticasone Propionate (Fluticasone Propionate Nasal 16 Gm [place]) 1 spray NOSTRIL-B DAILY [facility] Last Admin: 06/14/21 09:50 Dose: Not Given Documented by: Heparin Sodium (Porcine) (Heparin Sodium,Porcine 5,000 Unit/Ml Vial) 5,000 unit SUBCUT Q8H [facility] Last Admin: 06/14/21 09:52 Dose: 5,000 unit Documented by: Acetaminophen (Ofirmev) 1,000 mg in 100 mls @ 400 mls/hr IV Q6H [facility] Last Infusion: 06/14/21 06:19 Dose: Infused Documented by: Ferric Sodium Gluconate Complex 125 mg/ Sodium Chloride 110 mls @ 100 mls/hr IV DAILY [facility] Stop: 06/15/21 10:05 Last Infusion: 06/13/21 12:09 Dose: Infused Documented by: Lisinopril (Lisinopril 5 Mg Tablet) 5 mg PO DAILY [facility]; Protocol Last Admin: 06/14/21 09:53 Dose: 5 mg Documented by: Loratadine (Loratadine 10 Mg Tablet) 10 mg PO DAILY PRN PRN Reason: Allergy Symptoms Melatonin (Melatonin 3 Mg Tablet) 6 mg PO BEDTIME PRN PRN Reason: Insomnia Montelukast Sodium (Montelukast Sodium 10 Mg Tablet) 10 mg PO BEDTIME [facility] Last Admin: 06/13/21 20:38 Dose: 10 mg Documented by: Morphine Sulfate (Morphine Sulfate 2 Mg/Ml Cartridge) 4 mg IVPUSH Q4H PRN; Protocol PRN Reason: Pain, Severe (Pain Scale 7-10) Last Admin: 06/13/21 15:46 Dose: 4 mg Documented by: Omeprazole (Omeprazole 20 Mg Capsule.Dr) 20 mg PO DAILY@0630 [facility] Last Admin: 06/14/21 06:03 Dose: 20 mg Documented by: Ondansetron HCl (Ondansetron Hcl 4 Mg/2 Ml Vial) 4 mg IVPUSH Q8H PRN PRN Reason: Nausea and Vomiting Last Admin: 06/12/21 18:00 Dose: 4 mg Documented by: Oxycodone HCl (Oxycodone Hcl Immed Release 5 Mg Tablet) 10 mg PO Q4H PRN PRN Reason: Pain, Severe (Pain Scale 7-10) Last Admin: 06/14/21 09:53 Dose: 10 mg Documented by: Oxycodone HCl (Oxycodone Hcl Immed Release 5 Mg Tablet) 5 mg PO Q4H PRN PRN Reason: Pain, Moderate (Pain Scale 4-6 Pravastatin Sodium (Pravastatin Sodium 80 Mg Tablet) 80 mg PO BEDTIME [facility] Last Admin: 06/13/21 20:38 Dose: 80 mg Documented by: Sertraline HCl (Sertraline Hcl 100 Mg Tablet) 100 mg PO DAILY [facility] Last Admin: 06/14/21 09:53 Dose: 100 mg Documented by: Sodium Chloride (0.9 % Sodium Chloride Flush 3 Ml Syringe) 3 ml IVFLUSH [facility] Last Admin: 06/14/21 09:53 Dose: 3 ml Documented by: Time Spent With Patient Time: Total time spent is greater than 50% in coordination of care (as documented) at patient's floor/unit and/or counseling patient: Quality Stroke Does the patient have a stroke diagnosis?: No VTE Prior VTE?: No VTE Risk Level:: Surgical - high VTE Device Contraindication: N/A - Device Ordered VTE Drug Contraindication: N/A - Med Ordered
[2021-06-14] MEDS: Sodium Ferric Gluconat/Sucrose 125 MG in 0.9 % Sodium Chloride 100 ML 100 MG IV (10:19)
--- NOTE | 2021-06-14 15:14 | MHC.CM.PN ---
PER REVIEW OF REPORTS, AWAITING RETURN OF GI FUNCTION. 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
[2021-06-14] MEDS: Montelukast Sodium 10 MG TABLET PO (20:19)
[2021-06-14] MEDS: Pravastatin Sodium 80 MG TABLET PO (20:19)
[2021-06-15] VITALS (10 sets, daily range): BP systolic 104–126; BP diastolic 54–63; PULSE 71–84; RESP 17–20; TEMP 36.7–37.4; O2SAT 90–97
[2021-06-15] MEDS: Heparin Sodium,Porcine 5,000 UNIT/ML VIAL 5000 UNIT SUBCUT ×3 (02:28→18:11)
[2021-06-15] MEDS: Omeprazole 20 MG CAPSULE.DR PO (05:33)
[2021-06-15] MEDS: Fluticasone Propionate 250 MCG BLST.W.DEV 1 PUFF INHALE ×2 (08:10→20:17)
[2021-06-15] MEDS: Sodium Ferric Gluconat/Sucrose 125 MG in 0.9 % Sodium Chloride 100 ML 100 MG IV (10:11)
[2021-06-15] MEDS: Fluticasone Propionate Nasal 16 GM SPRAY 1 SPRAY NOSTRIL-B (10:16)
[2021-06-15] MEDS: oxyCODONE HCl Immed Release 5 MG TABLET PO ×2 (10:16→18:11)
[2021-06-15] MEDS: lisinopriL 5 MG TABLET PO (10:16)
[2021-06-15] MEDS: Sertraline HCL 100 MG TABLET PO (10:16)
[2021-06-15] MEDS: 0.9 % Sodium Chloride Flush 3 ML SYRINGE IVFLUSH ×3 (10:16→20:50)
[2021-06-15] MEDS: Chlorhexidine Gluc Oral Rinse 15 ML MOUTHWASH BUCCAL (10:16)
--- NOTE | 2021-06-15 10:59 | P.PNGS_ITS ---
Subjective Subjective Date of Service: 06/15/21 Interval history: says she is ok sore on incision denies flatus or BM laying on bed Physical Exam Vital Signs: Vital Signs: Last Vital Signs Temp 98.0 F 06/15/21 08:00 Pulse 71 06/15/21 08:00 Resp 20 06/15/21 08:11 BP 111/59 L 06/15/21 08:00 Pulse Ox 91 L 06/15/21 10:00 Oxygen Flow Rate 2 06/12/21 10:27 BMI result Body Mass Index 36.3 Const: Other: morbidly obese General: comfortable and no acute distress Resp: Effort & Inspection: normal respiratory effort Cardio: Rate: regular rate GI: Other: soft, incision clean Palpation (GI): not firm and no guarding Objective Data Active Medications Albuterol Sulfate (Albuterol Sulfate 90 Mcg 8 Gm Inhaler) 1 puff INHALE RQID [facility] Last Admin: 06/15/21 08:11 Dose: Not Given Documented by: LILIANE Non-Admin Reason: See Note Chlorhexidine Gluconate (Chlorhexidine Gluc Oral Rinse 15 Ml Mouthwash) 15 ml BUCCAL DAILY [facility] Last Admin: 06/15/21 10:16 Dose: 15 ml Documented by: YOVANNY Fluticasone Propionate (Fluticasone Propionate 250 Mcg Blst.W.Dev) 1 puff INHALE RBID [facility] Last Admin: 06/15/21 08:10 Dose: 1 puff Documented by: LILIANE Fluticasone Propionate (Fluticasone Propionate Nasal 16 Gm [place]) 1 spray NOSTRIL-B DAILY [facility] Last Admin: 06/15/21 10:16 Dose: 1 spray Documented by: YOVANNY Heparin Sodium (Porcine) (Heparin Sodium,Porcine 5,000 Unit/Ml Vial) 5,000 unit SUBCUT Q8H [facility] Last Admin: 06/15/21 10:15 Dose: 5,000 unit Documented by: YOVANNY Acetaminophen (Ofirmev) 1,000 mg in 100 mls @ 400 mls/hr IV Q6H [facility] Last Infusion: 06/15/21 05:55 Dose: 0 mls/hr Documented by: YOLY Lactated Ringer's (Lr) 1,000 mls @ 80 mls/hr IVCONT .[id number] [facility] Lisinopril (Lisinopril 5 Mg Tablet) 5 mg PO DAILY [facility]; Protocol Last Admin: 06/15/21 10:16 Dose: 5 mg Documented by: YOVANNY Loratadine (Loratadine 10 Mg Tablet) 10 mg PO DAILY PRN PRN Reason: Allergy Symptoms Melatonin (Melatonin 3 Mg Tablet) 6 mg PO BEDTIME PRN PRN Reason: Insomnia Montelukast Sodium (Montelukast Sodium 10 Mg Tablet) 10 mg PO BEDTIME [facility] Last Admin: 06/14/21 20:19 Dose: 10 mg Documented by: YOLY Morphine Sulfate (Morphine Sulfate 2 Mg/Ml Cartridge) 4 mg IVPUSH Q4H PRN; Protocol PRN Reason: Pain, Severe (Pain Scale 7-10) Last Admin: 06/13/21 15:46 Dose: 4 mg Documented by: VANESSA Omeprazole (Omeprazole 20 Mg Capsule.Dr) 20 mg PO DAILY@0630 [facility] Last Admin: 06/15/21 05:33 Dose: 20 mg Documented by: YOLY Ondansetron HCl (Ondansetron Hcl 4 Mg/2 Ml Vial) 4 mg IVPUSH Q8H PRN PRN Reason: Nausea and Vomiting Last Admin: 06/12/21 18:00 Dose: 4 mg Documented by: VANESSA Oxycodone HCl (Oxycodone Hcl Immed Release 5 Mg Tablet) 10 mg PO Q4H PRN PRN Reason: Pain, Severe (Pain Scale 7-10) Last Admin: 06/14/21 23:53 Dose: 10 mg Documented by: YOLY Oxycodone HCl (Oxycodone Hcl Immed Release 5 Mg Tablet) 5 mg PO Q4H PRN PRN Reason: Pain, Moderate (Pain Scale 4-6 Last Admin: 06/15/21 10:16 Dose: 5 mg Documented by: YOVANNY Pravastatin Sodium (Pravastatin Sodium 80 Mg Tablet) 80 mg PO BEDTIME [facility] Last Admin: 06/14/21 20:19 Dose: 80 mg Documented by: YOLY Sertraline HCl (Sertraline Hcl 100 Mg Tablet) 100 mg PO DAILY [facility] Last Admin: 06/15/21 10:16 Dose: 100 mg Documented by: YOVANNY Sodium Chloride (0.9 % Sodium Chloride Flush 3 Ml Syringe) 3 ml IVFLUSH QSHIFT [facility] Last Admin: 06/15/21 10:16 Dose: 3 ml Documented by: YOVANNY Labs CBC & Chem 7: 06/13/21 05:14 06/13/21 05:14 Procedures Date of Service Date of Service: 06/15/21 Progress Note: A&P Assessment and plan (1) S/P right colectomy: Status: Acute Assessment and Plan: looks well denies flatus keep on clears instructed to get out of bed more and ambulate stable VS clinically doing well await return of GI function Fall Risk Details Current Medications: Current Medications Albuterol Sulfate (Albuterol Sulfate 90 Mcg 8 Gm Inhaler) 1 puff INHALE RQID [facility] Last Admin: 06/15/21 08:11 Dose: Not Given Documented by: Chlorhexidine Gluconate (Chlorhexidine Gluc Oral Rinse 15 Ml Mouthwash) 15 ml BUCCAL DAILY [facility] Last Admin: 06/15/21 10:16 Dose: 15 ml Documented by: Fluticasone Propionate (Fluticasone Propionate 250 Mcg Blst.W.Dev) 1 puff INHALE RBID [facility] Last Admin: 06/15/21 08:10 Dose: 1 puff Documented by: Fluticasone Propionate (Fluticasone Propionate Nasal 16 Gm [place]) 1 spray NOSTRIL-B DAILY [facility] Last Admin: 06/15/21 10:16 Dose: 1 spray Documented by: Heparin Sodium (Porcine) (Heparin Sodium,Porcine 5,000 Unit/Ml Vial) 5,000 unit SUBCUT Q8H [facility] Last Admin: 06/15/21 10:15 Dose: 5,000 unit Documented by: Acetaminophen (Ofirmev) 1,000 mg in 100 mls @ 400 mls/hr IV Q6H [facility] Last Infusion: 06/15/21 05:55 Dose: Infused Documented by: Lactated Ringer's (Lr) 1,000 mls @ 80 mls/hr IVCONT .[id number] [facility] Lisinopril (Lisinopril 5 Mg Tablet) 5 mg PO DAILY [facility]; Protocol Last Admin: 06/15/21 10:16 Dose: 5 mg Documented by: Loratadine (Loratadine 10 Mg Tablet) 10 mg PO DAILY PRN PRN Reason: Allergy Symptoms Melatonin (Melatonin 3 Mg Tablet) 6 mg PO BEDTIME PRN PRN Reason: Insomnia Montelukast Sodium (Montelukast Sodium 10 Mg Tablet) 10 mg PO BEDTIME [facility] Last Admin: 06/14/21 20:19 Dose: 10 mg Documented by: Morphine Sulfate (Morphine Sulfate 2 Mg/Ml Cartridge) 4 mg IVPUSH Q4H PRN; Protocol PRN Reason: Pain, Severe (Pain Scale 7-10) Last Admin: 06/13/21 15:46 Dose: 4 mg Documented by: Omeprazole (Omeprazole 20 Mg Capsule.Dr) 20 mg PO DAILY@0630 [facility] Last Admin: 06/15/21 05:33 Dose: 20 mg Documented by: Ondansetron HCl (Ondansetron Hcl 4 Mg/2 Ml Vial) 4 mg IVPUSH Q8H PRN PRN Reason: Nausea and Vomiting Last Admin: 06/12/21 18:00 Dose: 4 mg Documented by: Oxycodone HCl (Oxycodone Hcl Immed Release 5 Mg Tablet) 10 mg PO Q4H PRN PRN Reason: Pain, Severe (Pain Scale 7-10) Last Admin: 06/14/21 23:53 Dose: 10 mg Documented by: Oxycodone HCl (Oxycodone Hcl Immed Release 5 Mg Tablet) 5 mg PO Q4H PRN PRN Reason: Pain, Moderate (Pain Scale 4-6 Last Admin: 06/15/21 10:16 Dose: 5 mg Documented by: Pravastatin Sodium (Pravastatin Sodium 80 Mg Tablet) 80 mg PO BEDTIME [facility] Last Admin: 06/14/21 20:19 Dose: 80 mg Documented by: Sertraline HCl (Sertraline Hcl 100 Mg Tablet) 100 mg PO DAILY [facility] Last Admin: 06/15/21 10:16 Dose: 100 mg Documented by: Sodium Chloride (0.9 % Sodium Chloride Flush 3 Ml Syringe) [facility] Last Admin: 06/15/21 10:16 Dose: 3 ml Documented by: Time Spent With Patient Time: Total time spent is greater than 50% in coordination of care (as documented) at patient's floor/unit and/or counseling patient: Quality Stroke Does the patient have a stroke diagnosis?: No VTE Prior VTE?: No VTE Risk Level:: Surgical - high VTE Device Contraindication: N/A - Device Ordered VTE Drug Contraindication: N/A - Med Ordered
[2021-06-15] MEDS: Lactated Ringers 1,000 ML 80 ML IVCONT ×2 (11:36→23:32)
--- NOTE | 2021-06-15 11:48 | HO.PM.IMPN ---
Subjective Subjective Date of Service: 06/15/21 Interval History: cc: right colectomy interval history: feeling better, pain controlled Cardiovascular Cardiovascular: Reports no additional cardiovascular complaints Respiratory Respiratory: Reports no additional respiratory complaints Physical Exam Vital Signs: Vital Signs: Last Vital Signs Temp 98.0 F 06/15/21 08:00 Pulse 71 06/15/21 08:00 Resp 20 06/15/21 08:11 BP 111/59 L 06/15/21 08:00 Pulse Ox 91 L 06/15/21 10:00 Oxygen Flow Rate 2 06/12/21 10:27 BMI result Body Mass Index 36.3 Const Other: morbidly obese General:?comfortable and no acute distress Resp Effort & Inspection:?normal respiratory effort Cardio Rate:?regular rate GI Other: soft, incision clean Palpation (GI):?not firm and no guarding Objective Data Active Medications Albuterol Sulfate (Albuterol Sulfate 90 Mcg 8 Gm Inhaler) 1 puff INHALE RQID [facility] Last Admin: 06/15/21 08:11 Dose: Not Given Documented by: LILIANE Non-Admin Reason: See Note Chlorhexidine Gluconate (Chlorhexidine Gluc Oral Rinse 15 Ml Mouthwash) 15 ml BUCCAL DAILY [facility] Last Admin: 06/15/21 10:16 Dose: 15 ml Documented by: YOVANNY Fluticasone Propionate (Fluticasone Propionate 250 Mcg Blst.W.Dev) 1 puff INHALE RBID [facility] Last Admin: 06/15/21 08:10 Dose: 1 puff Documented by: LILIANE Fluticasone Propionate (Fluticasone Propionate Nasal 16 Gm [place]) 1 spray NOSTRIL-B DAILY [facility] Last Admin: 06/15/21 10:16 Dose: 1 spray Documented by: YOVANNY Heparin Sodium (Porcine) (Heparin Sodium,Porcine 5,000 Unit/Ml Vial) 5,000 unit SUBCUT Q8H [facility] Last Admin: 06/15/21 10:15 Dose: 5,000 unit Documented by: YOVANNY Acetaminophen (Ofirmev) 1,000 mg in 100 mls @ 400 mls/hr IV Q6H [facility] Last Infusion: 06/15/21 11:38 Dose: 0 mls/hr Documented by: YOVANNY Lactated Ringer's (Lr) 1,000 mls @ 80 mls/hr IVCONT .[id number] [facility] Last Admin: 06/15/21 11:36 Dose: 80 mls/hr Documented by: YOVANNY Lisinopril (Lisinopril 5 Mg Tablet) 5 mg PO DAILY [facility]; Protocol Last Admin: 06/15/21 10:16 Dose: 5 mg Documented by: YOVANNY Loratadine (Loratadine 10 Mg Tablet) 10 mg PO DAILY PRN PRN Reason: Allergy Symptoms Melatonin (Melatonin 3 Mg Tablet) 6 mg PO BEDTIME PRN PRN Reason: Insomnia Montelukast Sodium (Montelukast Sodium 10 Mg Tablet) 10 mg PO BEDTIME [facility] Last Admin: 06/14/21 20:19 Dose: 10 mg Documented by: YOLY Morphine Sulfate (Morphine Sulfate 2 Mg/Ml Cartridge) 4 mg IVPUSH Q4H PRN; Protocol PRN Reason: Pain, Severe (Pain Scale 7-10) Last Admin: 06/13/21 15:46 Dose: 4 mg Documented by: VANESSA Omeprazole (Omeprazole 20 Mg Capsule.Dr) 20 mg PO DAILY@0630 [facility] Last Admin: 06/15/21 05:33 Dose: 20 mg Documented by: YOLY Ondansetron HCl (Ondansetron Hcl 4 Mg/2 Ml Vial) 4 mg IVPUSH Q8H PRN PRN Reason: Nausea and Vomiting Last Admin: 06/12/21 18:00 Dose: 4 mg Documented by: VANESSA Oxycodone HCl (Oxycodone Hcl Immed Release 5 Mg Tablet) 10 mg PO Q4H PRN PRN Reason: Pain, Severe (Pain Scale 7-10) Last Admin: 06/14/21 23:53 Dose: 10 mg Documented by: YOLY Oxycodone HCl (Oxycodone Hcl Immed Release 5 Mg Tablet) 5 mg PO Q4H PRN PRN Reason: Pain, Moderate (Pain Scale 4-6 Last Admin: 06/15/21 10:16 Dose: 5 mg Documented by: YOVANNY Pravastatin Sodium (Pravastatin Sodium 80 Mg Tablet) 80 mg PO BEDTIME [facility] Last Admin: 06/14/21 20:19 Dose: 80 mg Documented by: YOLY Sertraline HCl (Sertraline Hcl 100 Mg Tablet) 100 mg PO DAILY [facility] Last Admin: 06/15/21 10:16 Dose: 100 mg Documented by: YOVANNY Sodium Chloride (0.9 % Sodium Chloride Flush 3 Ml Syringe) 3 ml IVFLUSH QSHIFT [facility] Last Admin: 06/15/21 10:16 Dose: 3 ml Documented by: YOVANNY Labs CBC & Chem 7: 06/13/21 05:14 06/13/21 05:14 Assessment and Plan (1) Hypertension: Status: Acute (2) Obesity: Status: Acute Plan 50-year-old female patient with multiple medical issues including history of hyperlipidemia, hypertension, depression, asthma underwent elective right colon resection for colon cancer. ? status post right colon resection postoperative day 3 ?improving abdominal pain, responding to current pain medication recommend out of bed to chair and encourage incentive spirometry diet and pain medicine as per General surgery. leukocytosis likely reactive post surgery follow up repeat acute on chronic anemia, low MCV and iron studies consistent with iron deficiency anemia, ferritin 5 and saturation 8, likely blood loss from colon ca, giving iv iron . monitor hypomagnesemia repleted hypertension lisinopril 5 mg ?hyperlipidemia continue Pravachol 80 mg at bedtime ?mild intermittent asthma no acute exacerbation continue home inhalers depression continue Zoloft 100 mg obesity weight loss recommended low-calorie diet, since contributing to hypertension and hyperlipidemia ?DVT prophylaxis with heparin ?code status full code Quality Stroke Does the patient have a stroke diagnosis?: No VTE Prior VTE?: No VTE Risk Level:: Surgical - high VTE Device Contraindication: N/A - Device Ordered VTE Drug Contraindication: N/A - Med Ordered
[2021-06-15] MEDS: Pravastatin Sodium 80 MG TABLET PO (20:50)
[2021-06-15] MEDS: Montelukast Sodium 10 MG TABLET PO (20:50)
[2021-06-15] MEDS: oxyCODONE HCl Immed Release 5 MG TABLET 10 MG PO (22:03)
[2021-06-16] VITALS (8 sets, daily range): BP systolic 107–134; BP diastolic 51–64; PULSE 77–90; RESP 16–24; TEMP 36–37.7; O2SAT 95–98
[2021-06-16] MEDS: Morphine Sulfate 2 MG/ML CARTRIDGE 4 MG IVPUSH (01:00)
[2021-06-16] MEDS: Heparin Sodium,Porcine 5,000 UNIT/ML VIAL 5000 UNIT SUBCUT ×3 (01:00→17:31)
[2021-06-16] MEDS: Omeprazole 20 MG CAPSULE.DR PO (05:39)
[2021-06-16 06:06] LABS: Hematocrit 26.9 % (37.0-47.0); Hemoglobin 8.4 g/dl (12.0-16.0); Mean Corpuscular HGB Conc 31.2 g/dl (31.0-35.0); Mean Corpuscular Hemoglobin 23.2 pg (27.0-33.0); Mean Corpuscular Volume 74.3 fL (80.0-98.0); Mean Platelet Volume 10.3 fL (9.4-12.3); Platelet Count 385 X10*3/uL (160-400); Red Blood Count 3.62 X10*6/uL (4.20-5.50); Red Cell Distribution Width 16.5 % (11.0-16.0); White Blood Count 14.9 X10*3/uL (4.8-10.8)
[2021-06-16 06:28] LABS: Anion Gap 12 (12-20); Blood Urea Nitrogen 6 mg/dL (9-16); Calcium 8.8 mg/dL (8.4-10.2); Carbon Dioxide 27 mmol/L (22-29); Chloride 102 mmol/L (96-108); Creatinine Clr Calc Pharmacy 126.9; Estimated Glomerular Filt Rate > 60; Glucose Fasting 95 mg/dL (60-99); Potassium 3.8 mmol/L (3.3-5.1); Sodium 137 mmol/L (135-145)
[2021-06-16] MEDS: lisinopriL 5 MG TABLET PO (07:41)
[2021-06-16] MEDS: Sertraline HCL 100 MG TABLET PO (07:41)
[2021-06-16] MEDS: Fluticasone Propionate Nasal 16 GM SPRAY 1 SPRAY NOSTRIL-B (07:41)
[2021-06-16] MEDS: Chlorhexidine Gluc Oral Rinse 15 ML MOUTHWASH BUCCAL (07:41)
--- NOTE | 2021-06-16 08:17 | P.PNGS_ITS ---
Subjective Subjective Date of Service: 06/16/21 <Apple Jacinto PA-C - Last Filed: 06/16/21 08:34> 06/16/21 <Sebastiná Mojica MD - Last Filed: 06/16/21 09:42> Interval history: Pain is still present but getting better. Denies flatus or BM still. Says she is getting OOB and ambulating- OOB to chair this morning. Denies nausea. <Apple Jacinto PA-C - Last Filed: 06/16/21 08:34> Physical Exam Vital Signs: Vital Signs: Last Vital Signs Temp 97.8 F 06/16/21 06:58 Pulse 80 06/16/21 06:58 Resp 19 06/16/21 06:58 BP 134/64 06/16/21 06:58 Pulse Ox 97 06/16/21 06:58 Oxygen Flow Rate 2 06/12/21 10:27 BMI result Body Mass Index 36.3 <LUIS MANUEL Ace Last Filed: 06/16/21 08:34> Const: General: comfortable, no acute distress and alert <Apple Jacinto PA-C - Last Filed: 06/16/21 08:34> Orientation/consciousness: patient oriented x3 <LUIS MANUEL Ace Last Filed: 06/16/21 08:34> Resp: Effort & Inspection: normal respiratory effort <Apple Jacinto PA-C - Last Filed: 06/16/21 08:34> GI: Inspection: No distended and Yes incision (clean) <LUIS MANUEL Ace Last Filed: 06/16/21 08:34> Palpation (GI): Soft to palpation, Tenderness to palpation present (GI) (minimal, incision), no guarding and not rigid <LUIS MANUEL Ace Last Filed: 06/16/21 08:34> Percussion: Yes normal to percussion <LUIS MANUEL Ace Last Filed: 06/16/21 08:34> Skin: General skin exam: no rashes or lesions noted <LUIS MANUEL Ace Last Filed: 04/04/22 08:34> Neuro: General: patient oriented x3 <Apple Jacinto PA-C - Last Filed: 06/16/21 08:34> Extrem: General: Yes no clubbing, cyanosis or edema <Apple Jacinto PA-C - Last Filed: 06/16/21 08:34> Objective Data Active Medications Albuterol Sulfate (Albuterol Sulfate 90 Mcg 8 Gm Inhaler) 1 puff INHALE RQID [facility] Last Admin: 06/16/21 07:40 Dose: Not Given Documented by: CASPER Non-Admin Reason: Patient Refused Chlorhexidine Gluconate (Chlorhexidine Gluc Oral Rinse 15 Ml Mouthwash) 15 ml BUCCAL DAILY [facility] Last Admin: 06/16/21 07:41 Dose: 15 ml Documented by: LUCITA Fluticasone Propionate (Fluticasone Propionate 250 Mcg Blst.W.Dev) 1 puff INHALE RBID [facility] Last Admin: 06/16/21 07:40 Dose: Not Given Documented by: CASPER Non-Admin Reason: Patient Refused Fluticasone Propionate (Fluticasone Propionate Nasal 16 Gm [place]) 1 spray NOSTRIL-B DAILY [facility] Last Admin: 06/16/21 07:41 Dose: 1 spray Documented by: LUCITA Heparin Sodium (Porcine) (Heparin Sodium,Porcine 5,000 Unit/Ml Vial) 5,000 unit SUBCUT Q8H [facility] Last Admin: 06/16/21 01:00 Dose: 5,000 unit Documented by: YOLY Lactated Ringer's (Lr) 1,000 mls @ 80 mls/hr IVCONT .[id number] [facility] Last Admin: 06/15/21 23:32 Dose: 80 mls/hr Documented by: YOLY Lisinopril (Lisinopril 5 Mg Tablet) 5 mg PO DAILY [facility]; Protocol Last Admin: 06/16/21 07:41 Dose: 5 mg Documented by: LUCITA Loratadine (Loratadine 10 Mg Tablet) 10 mg PO DAILY PRN PRN Reason: Allergy Symptoms Melatonin (Melatonin 3 Mg Tablet) 6 mg PO BEDTIME PRN PRN Reason: Insomnia Montelukast Sodium (Montelukast Sodium 10 Mg Tablet) 10 mg PO BEDTIME [facility] Last Admin: 06/15/21 20:50 Dose: 10 mg Documented by: YOLY Morphine Sulfate (Morphine Sulfate 2 Mg/Ml Cartridge) 4 mg IVPUSH Q4H PRN; Protocol PRN Reason: Pain, Severe (Pain Scale 7-10) Last Admin: 06/16/21 01:00 Dose: 4 mg Documented by: YOLY Omeprazole (Omeprazole 20 Mg Capsule.Dr) 20 mg PO DAILY@0630 [facility] Last Admin: 06/16/21 05:39 Dose: 20 mg Documented by: YOLY Ondansetron HCl (Ondansetron Hcl 4 Mg/2 Ml Vial) 4 mg IVPUSH Q8H PRN PRN Reason: Nausea and Vomiting Last Admin: 06/12/21 18:00 Dose: 4 mg Documented by: VANESSA Oxycodone HCl (Oxycodone Hcl Immed Release 5 Mg Tablet) 10 mg PO Q4H PRN PRN Reason: Pain, Severe (Pain Scale 7-10) Last Admin: 06/15/21 22:03 Dose: 10 mg Documented by: YOLY Oxycodone HCl (Oxycodone Hcl Immed Release 5 Mg Tablet) 5 mg PO Q4H PRN PRN Reason: Pain, Moderate (Pain Scale 4-6 Last Admin: 06/15/21 18:11 Dose: 5 mg Documented by: YOVANNY Pravastatin Sodium (Pravastatin Sodium 80 Mg Tablet) 80 mg PO BEDTIME [facility] Last Admin: 06/15/21 20:50 Dose: 80 mg Documented by: YOLY Sertraline HCl (Sertraline Hcl 100 Mg Tablet) 100 mg PO DAILY [facility] Last Admin: 06/16/21 07:41 Dose: 100 mg Documented by: LUCITA Sodium Chloride (0.9 % Sodium Chloride Flush 3 Ml Syringe) 3 ml IVFLUSH QSHIFT [facility] Last Admin: 06/16/21 07:41 Dose: Not Given Documented by: LUCITA Non-Admin Reason: IV Running <Apple Jacinto PA-C - Last Filed: 06/16/21 08:34> Labs CBC & Chem 7: : 06/16/21 05:37 06/16/21 05:37 <Apple Jacinto PA-C - Last Filed: 06/16/21 08:34> Labs: Laboratory Results - last 24 hr 06/16/21 06/16/21 05:37 05:37 MCV 74.3 L MCH 23.2 L MCHC 31.2 RDW 16.5 H Plt Count 385 MPV 10.3 Absolute Nucleated RBC 0.000 Nucleated RBC % (auto) 0.0 Anion Gap 12 Estim Creat Clear Calc 126.9 Estimated GFR > 60 Fasting Glucose 95 Calcium 8.8 <Apple Jacinto PA-C - Last Filed: 06/16/21 08:34> Procedures Date of Service Date of Service: 06/16/21 <Apple Jacinto PA-C - Last Filed: 06/16/21 08:34> Progress Note: A&P Assessment and plan (1) S/P right colectomy: Status: Acute <Apple Jacinto PA-C - Last Filed: 06/16/21 08:34> Assessment and Plan: Denies flatus Pain level seems much improved She looks well Incision clean and dry Abdomen soft Okay to slowly advance diet Encouraged to ambulate more Seen and examined independently - agree with TYLOR Jacinto <Sebastián Mojica MD - Last Filed: 06/16/21 09:42> (2) Colon adenocarcinoma: Status: Acute <Apple Jacinto PA-C - Last Filed: 06/16/21 08:34> Plan 50 year old female who is POD #3 s/p SHIRA right colectomy for right colon CA. Doing fairly well post op. No evidence of GI function yet according to patient. VSS. Abd exam benign and she looks well. Will advance to full liquids and then further as tolerated, start bowel regimen. Continue to encourage OOB/ambulation- had low activity over the weekend. <Apple Jacinto PA-C - Last Filed: 06/16/21 08:34> Fall Risk Details Current Medications: Current Medications Albuterol Sulfate (Albuterol Sulfate 90 Mcg 8 Gm Inhaler) 1 puff INHALE RQID [facility] Last Admin: 06/16/21 07:40 Dose: Not Given Documented by: Chlorhexidine Gluconate (Chlorhexidine Gluc Oral Rinse 15 Ml Mouthwash) 15 ml BUCCAL DAILY [facility] Last Admin: 06/16/21 07:41 Dose: 15 ml Documented by: Fluticasone Propionate (Fluticasone Propionate 250 Mcg Blst.W.Dev) 1 puff INHALE RBID [facility] Last Admin: 06/16/21 07:40 Dose: Not Given Documented by: Fluticasone Propionate (Fluticasone Propionate Nasal 16 Gm [place]) 1 spray NOSTRIL-B DAILY [facility] Last Admin: 06/16/21 07:41 Dose: 1 spray Documented by: Heparin Sodium (Porcine) (Heparin Sodium,Porcine 5,000 Unit/Ml Vial) 5,000 unit SUBCUT Q8H [facility] Last Admin: 06/16/21 01:00 Dose: 5,000 unit Documented by: Lactated Ringer's (Lr) 1,000 mls @ 80 mls/hr IVCONT .[id number] [facility] Last Admin: 06/15/21 23:32 Dose: 80 mls/hr Documented by: Lisinopril (Lisinopril 5 Mg Tablet) 5 mg PO DAILY [facility]; Protocol Last Admin: 06/16/21 07:41 Dose: 5 mg Documented by: Loratadine (Loratadine 10 Mg Tablet) 10 mg PO DAILY PRN PRN Reason: Allergy Symptoms Melatonin (Melatonin 3 Mg Tablet) 6 mg PO BEDTIME PRN PRN Reason: Insomnia Montelukast Sodium (Montelukast Sodium 10 Mg Tablet) 10 mg PO BEDTIME [facility] Last Admin: 06/15/21 20:50 Dose: 10 mg Documented by: Morphine Sulfate (Morphine Sulfate 2 Mg/Ml Cartridge) 4 mg IVPUSH Q4H PRN; Protocol PRN Reason: Pain, Severe (Pain Scale 7-10) Last Admin: 06/16/21 01:00 Dose: 4 mg Documented by: Omeprazole (Omeprazole 20 Mg Capsule.Dr) 20 mg PO DAILY@0630 [facility] Last Admin: 06/16/21 05:39 Dose: 20 mg Documented by: Ondansetron HCl (Ondansetron Hcl 4 Mg/2 Ml Vial) 4 mg IVPUSH Q8H PRN PRN Reason: Nausea and Vomiting Last Admin: 06/12/21 18:00 Dose: 4 mg Documented by: Oxycodone HCl (Oxycodone Hcl Immed Release 5 Mg Tablet) 10 mg PO Q4H PRN PRN Reason: Pain, Severe (Pain Scale 7-10) Last Admin: 06/15/21 22:03 Dose: 10 mg Documented by: Oxycodone HCl (Oxycodone Hcl Immed Release 5 Mg Tablet) 5 mg PO Q4H PRN PRN Reason: Pain, Moderate (Pain Scale 4-6 Last Admin: 06/15/21 18:11 Dose: 5 mg Documented by: Pravastatin Sodium (Pravastatin Sodium 80 Mg Tablet) 80 mg PO BEDTIME [facility] Last Admin: 06/15/21 20:50 Dose: 80 mg Documented by: Sertraline HCl (Sertraline Hcl 100 Mg Tablet) 100 mg PO DAILY [facility] Last Admin: 06/16/21 07:41 Dose: 100 mg Documented by: Sodium Chloride (0.9 % Sodium Chloride Flush 3 Ml Syringe) 3 ml IVFLUSH QSHIFT [facility] Last Admin: 06/16/21 07:41 Dose: Not Given Documented by: <Apple Jacinto PA-C - Last Filed: 06/16/21 08:34> Time Spent With Patient Time: Total time spent is greater than 50% in coordination of care (as documented) at patient's floor/unit and/or counseling patient: <Apple Jacinto PA-C - Last Filed: 06/16/21 08:34> Quality Stroke Does the patient have a stroke diagnosis?: No <Apple Jacinto PA-C - Last Filed: 06/16/21 08:34> VTE Prior VTE?: No <Apple Jacinto PA-C - Last Filed: 06/16/21 08:34> VTE Risk Level:: Surgical - high <LUIS MANUEL Ace Last Filed: 06/16/21 08:34> VTE Device Contraindication: N/A - Device Ordered <LUIS MANUEL Ace Last Filed: 06/16/21 08:34> VTE Drug Contraindication: N/A - Med Ordered <LUIS MANUEL Ace Last Filed: 06/16/21 08:34>
[2021-06-16] MEDS: Docusate Sodium 100 MG CAPSULE PO ×2 (09:30→20:36)
[2021-06-16] MEDS: polyethylene glycoL 3350 17 GM POWD.PACK PO (09:30)
[2021-06-16] MEDS: Lactated Ringers 1,000 ML 80 ML IVCONT ×2 (09:30→20:37)
--- NOTE | 2021-06-16 10:28 | MHC.CLN ---
F/U DIET ADVANCED FROM CLEAR LIQUIDS TO FULL LIQUIDS (4/4). CONTINUE TO FOLLOW FOR DIET TOLERANCE/DIET UPGRADE.
--- NOTE | 2021-06-16 12:58 | P.PNIM_ITS ---
Subjective Subjective Date of Service: 06/16/21 Interval History: Complaining of persistent abdominal pain tolerating clear liquid diet denies nausea vomiting, denies flatus or bowel movements sitting on chair. no acute overnight issues, no fevers no chills. Review of Systems Review of Systems: Yes all other systems are reviewed and are negative Physical Exam Vital Signs: Vital Signs: Last Vital Signs Temp 96.8 F 06/16/21 10:59 Pulse 82 06/16/21 10:59 Resp 20 06/16/21 10:59 BP 118/58 L 06/16/21 10:59 Pulse Ox 95 06/16/21 10:59 Oxygen Flow Rate 2 06/12/21 10:27 BMI result Body Mass Index 36.3 Const: Other: General? awake alert, no distress. HEENT pupil equal reactive to light and accommodation. Neck? supple no JVD. CVS? regular rate rhythm, Respiratory lungs clear to auscultation, no?respiratory distress. Gastrointestinal abdomen mild tenderness?to palpation, bowel sounds audible, no guarding, no rigidity. Extremities no edema. Neuro nonfocal Skin no rash psych appropriate affect Objective Data Active Medications Albuterol Sulfate (Albuterol Sulfate 90 Mcg 8 Gm Inhaler) 1 puff INHALE RQID [facility] Last Admin: 06/16/21 10:53 Dose: Not Given Documented by: CASPER Non-Admin Reason: Patient Refused Chlorhexidine Gluconate (Chlorhexidine Gluc Oral Rinse 15 Ml Mouthwash) 15 ml BUCCAL DAILY [facility] Last Admin: 06/16/21 07:41 Dose: 15 ml Documented by: LUCITA Docusate Sodium (Docusate Sodium 100 Mg Capsule) 100 mg PO BID [facility] Last Admin: 06/16/21 09:30 Dose: 100 mg Documented by: LUCITA Fluticasone Propionate (Fluticasone Propionate 250 Mcg Blst.W.Dev) 1 puff INHAL E RBID [facility] Last Admin: 06/16/21 07:40 Dose: Not Given Documented by: CASPER Non-Admin Reason: Patient Refused Fluticasone Propionate (Fluticasone Propionate Nasal 16 Gm [place]) 1 spray NOSTRIL-B DAILY [facility] Last Admin: 06/16/21 07:41 Dose: 1 spray Documented by: LUCITA Heparin Sodium (Porcine) (Heparin Sodium,Porcine 5,000 Unit/Ml Vial) 5,000 unit SUBCUT Q8H [facility] Last Admin: 06/16/21 09:30 Dose: 5,000 unit Documented by: LUCITA Lactated Ringer's (Lr) 1,000 mls @ 80 mls/hr IVCONT .[id number] [facility] Last Admin: 06/16/21 09:30 Dose: 80 mls/hr Documented by: LUCITA Lisinopril (Lisinopril 5 Mg Tablet) 5 mg PO DAILY [facility]; Protocol Last Admin: 06/16/21 07:41 Dose: 5 mg Documented by: LUCITA Loratadine (Loratadine 10 Mg Tablet) 10 mg PO DAILY PRN PRN Reason: Allergy Symptoms Melatonin (Melatonin 3 Mg Tablet) 6 mg PO BEDTIME PRN PRN Reason: Insomnia Montelukast Sodium (Montelukast Sodium 10 Mg Tablet) 10 mg PO BEDTIME [facility] Last Admin: 06/15/21 20:50 Dose: 10 mg Documented by: YOLY Morphine Sulfate (Morphine Sulfate 2 Mg/Ml Cartridge) 4 mg IVPUSH Q4H PRN; Protocol PRN Reason: Pain, Severe (Pain Scale 7-10) Last Admin: 06/16/21 01:00 Dose: 4 mg Documented by: YOLY Omeprazole (Omeprazole 20 Mg Capsule.Dr) 20 mg PO DAILY@0630 [facility] Last Admin: 06/16/21 05:39 Dose: 20 mg Documented by: YOLY Ondansetron HCl (Ondansetron Hcl 4 Mg/2 Ml Vial) 4 mg IVPUSH Q8H PRN PRN Reason: Nausea and Vomiting Last Admin: 06/12/21 18:00 Dose: 4 mg Documented by: VANESSA Oxycodone HCl (Oxycodone Hcl Immed Release 5 Mg Tablet) 10 mg PO Q4H PRN PRN Reason: Pain, Severe (Pain Scale 7-10) Last Admin: 06/15/21 22:03 Dose: 10 mg Documented by: YOLY Oxycodone HCl (Oxycodone Hcl Immed Release 5 Mg Tablet) 5 mg PO Q4H PRN PRN Reason: Pain, Moderate (Pain Scale 4-6 Last Admin: 06/15/21 18:11 Dose: 5 mg Documented by: YOVANNY Polyethylene Glycol (Polyethylene Glycol 3350 17 Gm Powd.Pack) 17 gm PO DAILY [facility] Last Admin: 06/16/21 09:30 Dose: 17 gm Documented by: LUCITA Pravastatin Sodium (Pravastatin Sodium 80 Mg Tablet) 80 mg PO BEDTIME [facility] Last Admin: 06/15/21 20:50 Dose: 80 mg Documented by: YOLY Sertraline HCl (Sertraline Hcl 100 Mg Tablet) 100 mg PO DAILY [facility] Last Admin: 06/16/21 07:41 Dose: 100 mg Documented by: LUCITA Sodium Chloride (0.9 % Sodium Chloride Flush 3 Ml Syringe) 3 ml IVFLUSH QSHIFT [facility] Last Admin: 06/16/21 07:41 Dose: Not Given Documented by: LUCITA Non-Admin Reason: IV Running Labs CBC & Chem 7: 06/16/21 05:37 06/16/21 05:37 Labs: Laboratory Results - last 24 hr 06/16/21 06/16/21 05:37 05:37 MCV 74.3 L MCH 23.2 L MCHC 31.2 RDW 16.5 H Plt Count 385 MPV 10.3 Absolute Nucleated RBC 0.000 Nucleated RBC % (auto) 0.0 Anion Gap 12 Estim Creat Clear Calc 126.9 Estimated GFR > 60 Fasting Glucose 95 Calcium 8.8 Assessment and Plan (1) Hypertension: Status: Acute (2) Obesity: Status: Acute Plan 50-year-old female patient with multiple medical issues including history of hyperlipidemia, hypertension, depression, asthma underwent elective right colon resection for colon cancer. ?Sstatus post right colon resection postoperative day 4 ?improving abdominal pain, responding to current pain medication, denies flatus or bowel movement diet advanced to full as per General surgery recommend out of bed to chair and ambulation encourage incentive spirometry leukocytosis likely reactive post surgery, persistent leukocytosis, no w orsening abdominal pain, no fever, will check UA Acute on chronic anemia, low MCV and iron studies consistent with iron deficiency anemia, ferritin 5 and saturation 8, likely blood loss from colon ca, status post iv iron, hematocrit dropped to 26.9 no active bleed noted, repeat CBC hold transfusion . hypomagnesemia repleted hypertension stable BP continue lisinopril 5 mg ?hyperlipidemia continue Pravachol 80 mg at bedtime ?mild intermittent asthma no acute exacerbation continue home inhalers depression continue Zoloft 100 mg obesity weight loss recommended low-calorie diet, since contributing to hypertension and hyperlipidemia ?DVT prophylaxis with heparin ?code status full code Quality Stroke Does the patient have a stroke diagnosis?: No VTE Prior VTE?: No VTE Risk Level:: Surgical - high VTE Device Contraindication: N/A - Device Ordered VTE Drug Contraindication: N/A - Med Ordered
[2021-06-16] MEDS: oxyCODONE HCl Immed Release 5 MG TABLET 10 MG PO ×2 (13:47→20:43)
--- NOTE | 2021-06-16 16:09 | MHC.CM.PN ---
PER MD ROUNDS, PT NOT READY TODAY, STILL IN SIGNIFICANT PAIN. DC PLAN REMAINS HOME WITH [employer]
[2021-06-16] MEDS: Albuterol Sulfate 90 MCG 8 GM INHALER 1 PUFF INHALE (20:10)
[2021-06-16] MEDS: Fluticasone Propionate 250 MCG BLST.W.DEV 1 PUFF INHALE (20:11)
[2021-06-16] MEDS: Montelukast Sodium 10 MG TABLET PO (20:36)
[2021-06-16] MEDS: Pravastatin Sodium 80 MG TABLET PO (20:36)
[2021-06-16] MEDS: Melatonin 3 MG TABLET 6 MG PO (20:36)
[2021-06-16] MEDS: 0.9 % Sodium Chloride Flush 3 ML SYRINGE IVFLUSH (20:38)
[2021-06-17] VITALS (13 sets, daily range): BP systolic 102–133; BP diastolic 55–74; PULSE 59–89; RESP 16–20; TEMP 36.1–37.6; O2SAT 94–98
[2021-06-17] MEDS: Heparin Sodium,Porcine 5,000 UNIT/ML VIAL 5000 UNIT SUBCUT ×3 (03:23→17:19)
[2021-06-17] MEDS: Omeprazole 20 MG CAPSULE.DR PO (05:31)
[2021-06-17 05:54] LABS: Hematocrit 24.6 % (37.0-47.0); Hemoglobin 7.6 g/dl (12.0-16.0); Mean Corpuscular HGB Conc 30.9 g/dl (31.0-35.0); Mean Corpuscular Volume 74.5 fL (80.0-98.0); Mean Platelet Volume 10.2 fL (9.4-12.3); Platelet Count 362 X10*3/uL (160-400); Red Cell Distribution Width 16.9 % (11.0-16.0); White Blood Count 15.2 X10*3/uL (4.8-10.8)
[2021-06-17] MEDS: Lactated Ringers 1,000 ML 80 ML IVCONT (07:15)
--- NOTE | 2021-06-17 09:02 | PM.PNGS ---
Subjective Subjective Date of Service: 06/17/21 <Apple Jacinto PA-C - Last Filed: 06/17/21 09:06> 06/17/21 <Sebastián Mojica MD - Last Filed: 06/17/21 14:15> Interval history: Has been ambulating in halls with staff. Reports passing flatus this morning. Tolerating full liquids but does not feel ready for solid food. Reports some SOB, dizziness with ambulating. RN reports sats dropping while ambulating off oxygen. <Apple Jacinto PA-C - Last Filed: 06/17/21 09:06> Physical Exam Vital Signs: Vital Signs: Last Vital Signs Temp 97 F 06/17/21 06:53 Pulse 76 06/17/21 06:53 Resp 19 06/17/21 06:53 BP 125/66 06/17/21 06:53 Pulse Ox 94 06/17/21 06:53 Oxygen Flow Rate 2 06/12/21 10:27 BMI result Body Mass Index 36.3 <Apple Jacinto PA-C - Last Filed: 06/17/21 09:06> Const: General: comfortable, no acute distress and alert <Apple Jacinto PA-C - Last Filed: 06/17/21 09:06> Orientation/consciousness: patient oriented x3 <LUIS MANUEL Ace Last Filed: 06/17/21 09:06> Resp: Effort & Inspection: normal respiratory effort <Apple Jacinto PA-C - Last Filed: 06/17/21 09:06> GI: Inspection: No distended and Yes incision (clean) <Apple Jacinto PA-C - Last Filed: 06/17/21 09:06> Palpation (GI): Soft to palpation, Tenderness to palpation present (GI) (mild, incisional), no guarding and not rigid <LUIS MANUEL Ace Last Filed: 06/17/21 09:06> Percussion: Yes normal to percussion <LUIS MANUEL Ace Last Filed: 06/17/21 09:06> Skin: General skin exam: no rashes or lesions noted <LUIS MANUEL Ace Last Filed: 06/17/21 09:06> Neuro: General: patient oriented x3 <Apple Jacinto PA-C - Last Filed: 06/17/21 09:06> Objective Data Active Medications Albuterol Sulfate (Albuterol Sulfate 90 Mcg 8 Gm Inhaler) 1 puff INHALE RQID [facility] Last Admin: 06/16/21 20:10 Dose: 1 puff Documented by: JETT Chlorhexidine Gluconate (Chlorhexidine Gluc Oral Rinse 15 Ml Mouthwash) 15 ml BUCCAL DAILY [facility] Last Admin: 06/16/21 07:41 Dose: 15 ml Documented by: LUCITA Docusate Sodium (Docusate Sodium 100 Mg Capsule) 100 mg PO BID [facility] Last Admin: 06/16/21 20:36 Dose: 100 mg Documented by: VIDAL Fluticasone Propionate (Fluticasone Propionate 250 Mcg Blst.W.Dev) 1 puff INHALE RBID [facility] Last Admin: 06/16/21 20:11 Dose: 1 puff Documented by: JETT Fluticasone Propionate (Fluticasone Propionate Nasal 16 Gm [place]) 1 spray NOSTRIL-B DAILY [facility] Last Admin: 06/16/21 07:41 Dose: 1 spray Documented by: LUCITA Heparin Sodium (Porcine) (Heparin Sodium,Porcine 5,000 Unit/Ml Vial) 5,000 unit SUBCUT Q8H [facility] Last Admin: 06/17/21 03:23 Dose: 5,000 unit Documented by: VIDAL Lactated Ringer's (Lr) 1,000 mls @ 80 mls/hr IVCONT .[id number] [facility] Last Admin: 06/17/21 07:15 Dose: 80 mls/hr Documented by: LUCITA Lisinopril (Lisinopril 5 Mg Tablet) 5 mg PO DAILY [facility]; Protocol Last Admin: 06/16/21 07:41 Dose: 5 mg Documented by: LUCITA Loratadine (Loratadine 10 Mg Tablet) 10 mg PO DAILY PRN PRN Reason: Allergy Symptoms Melatonin (Melatonin 3 Mg Tablet) 6 mg PO BEDTIME PRN PRN Reason: Insomnia Last Admin: 06/16/21 20:36 Dose: 6 mg Documented by: VIDAL Montelukast Sodium (Montelukast Sodium 10 Mg Tablet) 10 mg PO BEDTIME [facility] Last Admin: 06/16/21 20:36 Dose: 10 mg Documented by: VIDAL Morphine Sulfate (Morphine Sulfate 2 Mg/Ml Cartridge) 4 mg IVPUSH Q4H PRN; Protocol PRN Reason: Pain, Severe (Pain Scale 7-10) Last Admin: 06/16/21 01:00 Dose: 4 mg Documented by: YOLY Omeprazole (Omeprazole 20 Mg Capsule.Dr) 20 mg PO DAILY@0630 [facility] Last Admin: 06/17/21 05:31 Dose: 20 mg Documented by: VIDAL Ondansetron HCl (Ondansetron Hcl 4 Mg/2 Ml Vial) 4 mg IVPUSH Q8H PRN PRN Reason: Nausea and Vomiting Last Admin: 06/12/21 18:00 Dose: 4 mg Documented by: VANESSA Oxycodone HCl (Oxycodone Hcl Immed Release 5 Mg Tablet) 10 mg PO Q4H PRN PRN Reason: Pain, Severe (Pain Scale 7-10) Last Admin: 06/16/21 20:43 Dose: 10 mg Documented by: VIDAL Oxycodone HCl (Oxycodone Hcl Immed Release 5 Mg Tablet) 5 mg PO Q4H PRN PRN Reason: Pain, Moderate (Pain Scale 4-6 Last Admin: 06/15/21 18:11 Dose: 5 mg Documented by: YOHANNES-LORENA Polyethylene Glycol (Polyethylene Glycol 3350 17 Gm Powd.Pack) 17 gm PO DAILY [facility] Last Admin: 06/16/21 09:30 Dose: 17 gm Documented by: LUCITA Pravastatin Sodium (Pravastatin Sodium 80 Mg Tablet) 80 mg PO BEDTIME [facility] Last Admin: 06/16/21 20:36 Dose: 80 mg Documented by: VIDAL Sertraline HCl (Sertraline Hcl 100 Mg Tablet) 100 mg PO DAILY [facility] Last Admin: 06/16/21 07:41 Dose: 100 mg Documented by: LUCITA Sodium Chloride (0.9 % Sodium Chloride Flush 3 Ml Syringe) 3 ml IVFLUSH QSHIFT [facility] Last Admin: 06/17/21 07:09 Dose: Not Given Documented by: LUCITA Non-Admin Reason: IV Running <Apple Jacinto PA-C - Last Filed: 06/17/21 09:06> Labs CBC & Chem 7: : 06/17/21 05:24 06/16/21 05:37 <Apple Jacinto PA-C - Last Filed: 06/17/21 09:06> Labs: Laboratory Results - last 24 hr 06/17/21 05:24 MCV 74.5 L MCH 23.0 L MCHC 30.9 L RDW 16.9 H Plt Count 362 MPV 10.2 Absolute Nucleated RBC 0.000 Nucleated RBC % (auto) 0.0 <Apple Jacinto PA-C - Last Filed: 06/17/21 09:06> Procedures Date of Service Date of Service: 06/17/21 <LUIS MANUEL Ace Last Filed: 06/17/21 09:06> Progress Note: A&P Assessment and plan (1) S/P right colectomy: Status: Acute <Apple Jacinto PA-C - Last Filed: 06/17/21 09:06> Assessment and Plan: passing flatus tolerating liquids says she feels well ambulates pain level appropriate abd soft, obese, incision clean and dry Hg drifting - no obvious GI bleed she looks well, although has poor level of activity transfuse 1 unit seen and examined independently - agree with TYLOR Jacinto <Sebastián Mojica MD - Last Filed: 06/17/21 14:15> (2) Colon adenocarcinoma: Status: Acute <Apple Jacinto PA-C - Last Filed: 06/17/21 09:06> Plan 50 year old female who is POD #4 s/p SHIRA right colectomy for right colon CA. Doing fairly well post op, now passing flatus. VSS. Abd exam benign and she looks well. Continue full liquids- will reassess later for possible advancement to solid diet. Continue bowel regimen, Continue to encourage OOB/ambulation. ?CXR for O2 sats, leukocytosis. No clear signs of infection. May require transfusion as well as H/H drifting- no significant blood loss intra op. Will discuss with hospitalist. <Apple Jacinto PA-C - Last Filed: 06/17/21 09:06> Fall Risk Details Current Medications: Current Medications Albuterol Sulfate (Albuterol Sulfate 90 Mcg 8 Gm Inhaler) 1 puff INHALE RQID [facility] Last Admin: 06/16/21 20:10 Dose: 1 puff Documented by: Chlorhexidine Gluconate (Chlorhexidine Gluc Oral Rinse 15 Ml Mouthwash) 15 ml BUCCAL DAILY [facility] Last Admin: 06/16/21 07:41 Dose: 15 ml Documented by: Docusate Sodium (Docusate Sodium 100 Mg Capsule) 100 mg PO BID [facility] Last Admin: 06/16/21 20:36 Dose: 100 mg Documented by: Fluticasone Propionate (Fluticasone Propionate 250 Mcg Blst.W.Dev) 1 puff INHALE RBID [facility] Last Admin: 06/16/21 20:11 Dose: 1 puff Documented by: Fluticasone Propionate (Fluticasone Propionate Nasal 16 Gm [place]) 1 spray NOSTRIL-B DAILY [facility] Last Admin: 06/16/21 07:41 Dose: 1 spray Documented by: Heparin Sodium (Porcine) (Heparin Sodium,Porcine 5,000 Unit/Ml Vial) 5,000 unit SUBCUT Q8H [facility] Last Admin: 06/17/21 03:23 Dose: 5,000 unit Documented by: Lactated Ringer's (Lr) 1,000 mls @ 80 mls/hr IVCONT .[id number] [facility] Last Admin: 06/17/21 07:15 Dose: 80 mls/hr Documented by: Lisinopril (Lisinopril 5 Mg Tablet) 5 mg PO DAILY [facility]; Protocol Last Admin: 06/16/21 07:41 Dose: 5 mg Documented by: Loratadine (Loratadine 10 Mg Tablet) 10 mg PO DAILY PRN PRN Reason: Allergy Symptoms Melatonin (Melatonin 3 Mg Tablet) 6 mg PO BEDTIME PRN PRN Reason: Insomnia Last Admin: 06/16/21 20:36 Dose: 6 mg Documented by: Montelukast Sodium (Montelukast Sodium 10 Mg Tablet) 10 mg PO BEDTIME [facility] Last Admin: 06/16/21 20:36 Dose: 10 mg Documented by: Morphine Sulfate (Morphine Sulfate 2 Mg/Ml Cartridge) 4 mg IVPUSH Q4H PRN; Protocol PRN Reason: Pain, Severe (Pain Scale 7-10) Last Admin: 06/16/21 01:00 Dose: 4 mg Documented by: Omeprazole (Omeprazole 20 Mg Capsule.Dr) 20 mg PO DAILY@0630 [facility] Last Admin: 06/17/21 05:31 Dose: 20 mg Documented by: Ondansetron HCl (Ondansetron Hcl 4 Mg/2 Ml Vial) 4 mg IVPUSH Q8H PRN PRN Reason: Nausea and Vomiting Last Admin: 06/12/21 18:00 Dose: 4 mg Documented by: Oxycodone HCl (Oxycodone Hcl Immed Release 5 Mg Tablet) 10 mg PO Q4H PRN PRN Reason: Pain, Severe (Pain Scale 7-10) Last Admin: 06/16/21 20:43 Dose: 10 mg Documented by: Oxycodone HCl (Oxycodone Hcl Immed Release 5 Mg Tablet) 5 mg PO Q4H PRN PRN Reason: Pain, Moderate (Pain Scale 4-6 Last Admin: 06/15/21 18:11 Dose: 5 mg Documented by: Polyethylene Glycol (Polyethylene Glycol 3350 17 Gm Powd.Pack) 17 gm PO DAILY [facility] Last Admin: 06/16/21 09:30 Dose: 17 gm Documented by: Pravastatin Sodium (Pravastatin Sodium 80 Mg Tablet) 80 mg PO BEDTIME [facility] Last Admin: 06/16/21 20:36 Dose: 80 mg Documented by: Sertraline HCl (Sertraline Hcl 100 Mg Tablet) 100 mg PO DAILY [facility] Last Admin: 06/16/21 07:41 Dose: 100 mg Documented by: Sodium Chloride (0.9 % Sodium Chloride Flush 3 Ml Syringe) 3 ml IVFLUSH QSHIFT [facility] Last Admin: 06/17/21 07:09 Dose: Not Given Documented by: <Apple Jacinto PA-C - Last Filed: 06/17/21 09:06> Time Spent With Patient Time: Total time spent is greater than 50% in coordination of care (as documented) at patient's floor/unit and/or counseling patient: <Apple Jacnito PA-C - Last Filed: 06/17/21 09:06> Quality Stroke Does the patient have a stroke diagnosis?: No <Apple Jacinto PA-C - Last Filed: 06/17/21 09:06> VTE Prior VTE?: No <Apple Jacinto PA-C - Last Filed: 06/17/21 09:06> VTE Risk Level:: Surgical - high <LUIS MANUEL Ace Last Filed: 06/17/21 09:06> VTE Device Contraindication: N/A - Device Ordered <LUIS MANUEL Ace Last Filed: 06/17/21 09:06> VTE Drug Contraindication: N/A - Med Ordered <Apple Jacinto PA-C - Last Filed: 06/17/21 09:06>
[2021-06-17] MEDS: polyethylene glycoL 3350 17 GM POWD.PACK PO (10:00)
[2021-06-17] MEDS: lisinopriL 5 MG TABLET PO (10:01)
[2021-06-17] MEDS: Docusate Sodium 100 MG CAPSULE PO ×2 (10:02→20:59)
[2021-06-17] MEDS: Fluticasone Propionate Nasal 16 GM SPRAY 1 SPRAY NOSTRIL-B (10:02)
[2021-06-17] MEDS: Chlorhexidine Gluc Oral Rinse 15 ML MOUTHWASH BUCCAL (10:02)
[2021-06-17] MEDS: Sertraline HCL 100 MG TABLET PO (10:02)
[2021-06-17] MEDS: ondansetron HCL 4 MG/2 ML VIAL IVPUSH (11:17)
--- NOTE | 2021-06-17 11:24 | P.PNIM_ITS ---
Subjective Subjective Date of Service: 06/17/21 Interval History: feeling better, passing flatus no bowel movement diet advanced to full liquid since patient does not feel hungry complete being of mild lightheadedness activity, denies nausea vomiting, noted to have mild hypoxia with ambulation, no other acute issues overnight. Review of Systems Review of Systems: Yes all other systems are reviewed and are negative Physical Exam Vital Signs: Vital Signs: Last Vital Signs Temp 96.9 F 06/17/21 11:06 Pulse 80 06/17/21 11:06 Resp 20 06/17/21 11:06 BP 133/62 06/17/21 11:06 Pulse Ox 94 06/17/21 11:06 Oxygen Flow Rate 2 06/12/21 10:27 BMI result Body Mass Index 36.3 Const: Other: General? awake alert, no distress. HEENT pupil equal reactive to light and accommodation. Neck? supple no JVD. CVS? regular rate rhythm, Respiratory lungs clear to auscultation, no?respiratory distress. Gastrointestinal abdomen? mild tenderness?to palpation, bowel sounds audible, no guarding, no rigidity. Extremities no edema. Neuro nonfocal Skin no rash psych appropriate affect Objective Data Active Medications Albuterol Sulfate (Albuterol Sulfate 90 Mcg 8 Gm Inhaler) 1 puff INHALE RQID [facility] Last Admin: 06/17/21 09:53 Dose: Not Given Documented by: JUAN LUIS Non-Admin Reason: Patient Refused Chlorhexidine Gluconate (Chlorhexidine Gluc Oral Rinse 15 Ml Mouthwash) 15 ml BUCCAL DAILY [facility] Last Admin: 06/17/21 10:02 Dose: 15 ml Documented by: LUCITA Docusate Sodium (Docusate Sodium 100 Mg Capsule) 100 mg PO BID [facility] Last Admin: 06/17/21 10:02 Dose: 100 mg Documented by: LUCITA Fluticasone Propionate (Fluticasone Propionate 250 Mcg Blst.W.Dev) 1 puff INHALE RBID [facility] Last Admin: 06/17/21 09:53 Dose: Not Given Documented by: JUAN LUIS Non-Admin Reason: Patient Refused Fluticasone Propionate (Fluticasone Propionate Nasal 16 Gm [place]) 1 spray NOSTRIL-B DAILY [facility] Last Admin: 06/17/21 10:02 Dose: 1 spray Documented by: LUCITA Heparin Sodium (Porcine) (Heparin Sodium,Porcine 5,000 Unit/Ml Vial) 5,000 unit SUBCUT Q8H [facility] Last Admin: 06/17/21 10:02 Dose: 5,000 unit Documented by: LUCITA Lisinopril (Lisinopril 5 Mg Tablet) 5 mg PO DAILY [facility]; Protocol Last Admin: 06/17/21 10:01 Dose: 5 mg Documented by: LUCITA Loratadine (Loratadine 10 Mg Tablet) 10 mg PO DAILY PRN PRN Reason: Allergy Symptoms Melatonin (Melatonin 3 Mg Tablet) 6 mg PO BEDTIME PRN PRN Reason: Insomnia Last Admin: 06/16/21 20:36 Dose: 6 mg Documented by: VIDAL Montelukast Sodium (Montelukast Sodium 10 Mg Tablet) 10 mg PO BEDTIME [facility] Last Admin: 06/16/21 20:36 Dose: 10 mg Documented by: VIDAL Omeprazole (Omeprazole 20 Mg Capsule.Dr) 20 mg PO DAILY@0630 [facility] Last Admin: 06/17/21 05:31 Dose: 20 mg Documented by: VIDAL Ondansetron HCl (Ondansetron Hcl 4 Mg/2 Ml Vial) 4 mg IVPUSH Q8H PRN PRN Reason: Nausea and Vomiting Last Admin: 06/17/21 11:17 Dose: 4 mg Documented by: LUCITA Oxycodone HCl (Oxycodone Hcl Immed Release 5 Mg Tablet) 5 mg PO Q4H PRN PRN Reason: Pain, Moderate (Pain Scale 4-6 Last Admin: 06/15/21 18:11 Dose: 5 mg Documented by: YOVANNY Polyethylene Glycol (Polyethylene Glycol 3350 17 Gm Powd.Pack) 17 gm PO DAILY [facility] Last Admin: 06/17/21 10:00 Dose: 17 gm Documented by: LUCITA Pravastatin Sodium (Pravastatin Sodium 80 Mg Tablet) 80 mg PO BEDTIME [facility] Last Admin: 06/16/21 20:36 Dose: 80 mg Documented by: VIDAL Sertraline HCl (Sertraline Hcl 100 Mg Tablet) 100 mg PO DAILY [facility] Last Admin: 06/17/21 10:02 Dose: 100 mg Documented by: LUCITA Sodium Chloride (0.9 % Sodium Chloride Flush 3 Ml Syringe) 3 ml IVFLUSH QSHIFT [facility] Last Admin: 06/17/21 07:09 Dose: Not Given Documented by: LUCITA Non-Admin Reason: IV Running Labs CBC & Chem 7: 06/17/21 05:24 06/16/21 05:37 Labs: Laboratory Results - last 24 hr 06/17/21 05:24 MCV 74.5 L MCH 23.0 L MCHC 30.9 L RDW 16.9 H Plt Count 362 MPV 10.2 Absolute Nucleated RBC 0.000 Nucleated RBC % (auto) 0.0 Assessment and Plan (1) Hypertension: Status: Acute (2) Obesity: Status: Acute Plan 50-year-old female patient with multiple medical issues including history of hyperlipidemia, hypertension, depression, asthma underwent elective right colon resection for colon cancer. ?Sstatus post right colon resection postoperative day 5 ?improving abdominal pain, responding to current pain medication, denies flatus or bowel movement diet advanced to full as per General surgery recommend out of bed to chair and ambulation encourage incentive spirometry, will DC IV fluid, DC morphine and DC oxycodone 10 mg, continue oxycodone 5 mg as needed for pain, encouraged to take by mouth leukocytosis likely reactive post surgery, persistent leukocytosis, no wor sening abdominal pain, no fever, will check UA Acute on chronic anemia, low MCV and iron studies consistent with iron deficiency anemia, ferritin 5 and saturation 8, likely blood loss from colon ca, status post iv iron, hematocrit dropped to 24.6 no active bleed noted, since patient is symptomatic with weakness lightheadedness and mild hypoxia will transfuse 1 unit of packed RBC and follow CBC hypomagnesemia repleted hypertension stable BP continue lisinopril 5 mg ?hyperlipidemia continue Pravachol 80 mg at bedtime ?mild intermittent asthma no acute exacerbation continue home inhalers depression continue Zoloft 100 mg obesity weight loss recommended low-calorie diet, since contributing to hypertension and hyperlipidemia ?DVT prophylaxis with heparin ?code status full code Quality Stroke Does the patient have a stroke diagnosis?: No VTE Prior VTE?: No VTE Risk Level:: Surgical - high VTE Device Contraindication: N/A - Device Ordered VTE Drug Contraindication: N/A - Med Ordered
[2021-06-17] MEDS: Albuterol Sulfate 90 MCG 8 GM INHALER 1 PUFF INHALE ×3 (11:27→20:07)
--- NOTE | 2021-06-17 12:46 | MHC.CM.PN ---
PATIENT UPGRADED TO FULL LIQUID DIET PLAN IS FOR BLOOD PRODUCT TODAY PLAN IS TO ADVANCE DIET TOLERATED AND RETURN HOME. CASE MANAGEMENT FOLLOWING.
[2021-06-17] MEDS: 0.9 % Sodium Chloride Flush 3 ML SYRINGE IVFLUSH (14:41)
[2021-06-17] MEDS: oxyCODONE HCl Immed Release 5 MG TABLET PO ×2 (14:47→19:58)
[2021-06-17] MEDS: Fluticasone Propionate 250 MCG BLST.W.DEV 1 PUFF INHALE (20:07)
[2021-06-17] MEDS: Pravastatin Sodium 80 MG TABLET PO (20:59)
[2021-06-17] MEDS: Montelukast Sodium 10 MG TABLET PO (20:59)
[2021-06-18] VITALS (8 sets, daily range): BP systolic 113–134; BP diastolic 59–68; PULSE 42–84; RESP 17–19; TEMP 36.1–37; O2SAT 94–98
[2021-06-18] MEDS: Heparin Sodium,Porcine 5,000 UNIT/ML VIAL 5000 UNIT SUBCUT ×3 (02:21→18:48)
[2021-06-18] MEDS: 0.9 % Sodium Chloride Flush 3 ML SYRINGE IVFLUSH ×4 (02:28→19:59)
[2021-06-18] MEDS: ondansetron HCL 4 MG/2 ML VIAL IVPUSH ×2 (03:04→19:58)
[2021-06-18] MEDS: Omeprazole 20 MG CAPSULE.DR PO (05:38)
[2021-06-18 05:55] LABS: MANUAL DIFF FLAG NO
[2021-06-18 06:32] LABS: Basophils Percent Auto 0.2 % (0-2); Eosinophils Absolute Auto 0.2 X10*3/uL (0.0-0.4); Eosinophils Percent Auto 1.3 % (0-4); Hematocrit 33.5 % (37.0-47.0); Hemoglobin 10.5 g/dl (12.0-16.0); Imm Gran Abs Auto 0.27 X10*3/uL (0.00-0.03); Imm Gran Pct Auto 1.4 % (0.0-0.4); Lymphocytes Absolute Auto 1.7 X10*3/uL (1.2-4.9); Lymphocytes Percent Auto 8.9 % (20-40); Mean Corpuscular HGB Conc 31.3 g/dl (31.0-35.0); Mean Corpuscular Hemoglobin 23.9 pg (27.0-33.0); Mean Corpuscular Volume 76.3 fL (80.0-98.0); Mean Platelet Volume 10.4 fL (9.4-12.3); Monocytes Absolute Auto 1.4 X10*3/uL (0.1-1.2); Monocytes Percent Auto 7.3 % (2-11); Neutrophils Absolute Auto 15.5 x10*3/uL (2.0-8.3); Neutrophils Percent Auto 80.9 % (45-73); Platelet Count 416 X10*3/uL (160-400); Red Blood Count 4.39 X10*6/uL (4.20-5.50); Red Cell Distribution Width 17.5 % (11.0-16.0); White Blood Count 19.1 X10*3/uL (4.8-10.8)
--- NOTE | 2021-06-18 08:51 | PM.PNGS ---
Subjective Subjective Date of Service: 06/18/21 <Apple Jacinto PA-C - Last Filed: 06/18/21 08:56> 06/18/21 <Sebastián Mojica MD - Last Filed: 06/18/21 13:43> Interval history: Reports increase in pain yesterday at upper abdomen/incision. Associated with nausea. Has been passing flatus and now having multiple liquid BMs. Was unable to eat solid food yesterday due to pain and nausea. <Apple Jacinto PA-C - Last Filed: 06/18/21 08:56> Physical Exam Vital Signs: Vital Signs: Last Vital Signs Temp 97.2 F 06/18/21 06:54 Pulse 62 06/18/21 06:54 Resp 18 06/18/21 06:54 BP 125/59 L 06/18/21 06:54 Pulse Ox 94 06/18/21 06:54 Oxygen Flow Rate 2 06/12/21 10:27 BMI result Body Mass Index 36.3 <Apple Jacinto PA-C - Last Filed: 06/18/21 08:56> Const: General: comfortable and no acute distress <LUIS MANUEL Ace Last Filed: 06/18/21 08:56> Resp: Effort & Inspection: normal respiratory effort <LUIS MANUEL Ace Last Filed: 06/18/21 08:56> Cardio: Rate: regular rate <Apple Jacinto PA-C - Last Filed: 06/18/21 08:56> GI: Inspection: Yes distended and Yes incision (clean) <LUIS MANUEL Ace Last Filed: 06/18/21 08:56> Palpation (GI): Soft to palpation, Tenderness to palpation present (GI) (incisional, upper abdomen), no guarding and not rigid <LUIS MANUEL Ace Last Filed: 06/18/21 08:56> Percussion: Yes tympanic to percussion <LUIS MANUEL Ace Last Filed: 06/18/21 08:56> Skin: General skin exam: no rashes or lesions noted <LUIS MANUEL Ace Last Filed: 06/18/21 08:56> Extrem: General: Yes no clubbing, cyanosis or edema <Apple Jacinto PA-C - Last Filed: 06/18/21 08:56> Objective Data Active Medications Albuterol Sulfate (Albuterol Sulfate 90 Mcg 8 Gm Inhaler) 1 puff INHALE RQID [facility] Last Admin: 06/18/21 07:41 Dose: Not Given Documented by: JUAN LUIS Non-Admin Reason: Patient Refused Chlorhexidine Gluconate (Chlorhexidine Gluc Oral Rinse 15 Ml Mouthwash) 15 ml BUCCAL DAILY [facility] Last Admin: 06/17/21 10:02 Dose: 15 ml Documented by: LUCITA Docusate Sodium (Docusate Sodium 100 Mg Capsule) 100 mg PO BID [facility] Last Admin: 06/17/21 20:59 Dose: 100 mg Documented by: TYSON Fluticasone Propionate (Fluticasone Propionate 250 Mcg Blst.W.Dev) 1 puff INHALE RBID [facility] Last Admin: 06/18/21 07:42 Dose: Not Given Documented by: JUAN LUIS Non-Admin Reason: Patient Refused Fluticasone Propionate (Fluticasone Propionate Nasal 16 Gm [place]) 1 spray NOSTRIL-B DAILY [facility] Last Admin: 06/17/21 10:02 Dose: 1 spray Documented by: LUCITA Heparin Sodium (Porcine) (Heparin Sodium,Porcine 5,000 Unit/Ml Vial) 5,000 unit SUBCUT Q8H [facility] Last Admin: 06/18/21 02:21 Dose: 5,000 unit Documented by: TYSON Lactated Ringer's (Lr) 1,000 mls @ 100 mls/hr IVCONT .Q10H [facility] Acetaminophen (Ofirmev) 1,000 mg in 100 mls @ 400 mls/hr IV Q6H [facility] Lisinopril (Lisinopril 5 Mg Tablet) 5 mg PO DAILY [facility]; Protocol Last Admin: 06/17/21 10:01 Dose: 5 mg Documented by: LUCITA Loratadine (Loratadine 10 Mg Tablet) 10 mg PO DAILY PRN PRN Reason: Allergy Symptoms Melatonin (Melatonin 3 Mg Tablet) 6 mg PO BEDTIME PRN PRN Reason: Insomnia Last Admin: 06/16/21 20:36 Dose: 6 mg Documented by: HO.CASTILM Montelukast Sodium (Montelukast Sodium 10 Mg Tablet) 10 mg PO BEDTIME [facility] Last Admin: 06/17/21 20:59 Dose: 10 mg Documented by: TYSON Omeprazole (Omeprazole 20 Mg Capsule.Dr) 20 mg PO DAILY@0630 [facility] Last Admin: 06/18/21 05:38 Dose: 20 mg Documented by: TYSON Ondansetron HCl (Ondansetron Hcl 4 Mg/2 Ml Vial) 4 mg IVPUSH Q8H PRN PRN Reason: Nausea and Vomiting Last Admin: 06/18/21 03:04 Dose: 4 mg Documented by: TYSON Oxycodone HCl (Oxycodone Hcl Immed Release 5 Mg Tablet) 5 mg PO Q4H PRN PRN Reason: Pain, Moderate (Pain Scale 4-6 Last Admin: 06/17/21 19:58 Dose: 5 mg Documented by: TYSON Polyethylene Glycol (Polyethylene Glycol 3350 17 Gm Powd.Pack) 17 gm PO DAILY [facility] Last Admin: 06/17/21 10:00 Dose: 17 gm Documented by: LUCITA Pravastatin Sodium (Pravastatin Sodium 80 Mg Tablet) 80 mg PO BEDTIME [facility] Last Admin: 06/17/21 20:59 Dose: 80 mg Documented by: TYSON Sertraline HCl (Sertraline Hcl 100 Mg Tablet) 100 mg PO DAILY [facility] Last Admin: 06/17/21 10:02 Dose: 100 mg Documented by: LUCITA Sodium Chloride (0.9 % Sodium Chloride Flush 3 Ml Syringe) 3 ml IVFLUSH QSHIFT [facility] Last Admin: 06/18/21 02:28 Dose: 3 ml Documented by: TYSON <Apple Jacinto PA-C - Last Filed: 06/18/21 08:56> Labs CBC & Chem 7: : 06/18/21 05:45 06/16/21 05:37 <Apple Jacinto PA-C - Last Filed: 06/18/21 08:56> Labs: Laboratory Results - last 24 hr 06/17/21 06/18/21 11:31 05:45 MCV 76.3 L MCH 23.9 L MCHC 31.3 RDW 17.5 H Plt Count 416 H MPV 10.4 Immature Gran % (Auto) 1.4 H Neut % (Auto) 80.9 H Lymph % (Auto) 8.9 L [place] % (Auto) 7.3 Eos % (Auto) 1.3 Baso % (Auto) 0.2 Lymph # (Auto) 1.7 [place] # (Auto) 1.4 H Eos # (Auto) 0.2 Baso # (Auto) 0.0 Abs Immat Gran (auto) 0.27 H Absolute Neuts (auto) 15.5 H Absolute Nucleated RBC 0.000 Nucleated RBC % (auto) 0.0 Blood Type B Negative Antibody Screen POSITIVE Antibody Identification Negative Crossmatch (AHG) See Detail <Apple Jacinto PA-C - Last Filed: 06/18/21 08:56> Procedures Date of Service Date of Service: 06/18/21 <Apple Jacinto PA-C - Last Filed: 06/18/21 08:56> Progress Note: A&P Assessment and plan (1) S/P right colectomy: Status: Acute <Apple Jacinto PA-C - Last Filed: 06/18/21 08:56> Assessment and Plan: Seen early this morning She had complained of severe diarrhea, nausea WBC elevated Clinically looks well otherwise Abdomen seems to be soft CT scan ordered Seen and examined independently - agree with TYLOR Jacinto <Sebastián Mojica MD - Last Filed: 06/18/21 13:43> (2) Colon adenocarcinoma: Status: Acute <Apple Jacinto PA-C - Last Filed: 06/18/21 08:56> (3) Ileus following gastrointestinal surgery: Status: Acute <Apple Jacinto PA-C - Last Filed: 06/18/21 08:56> Plan 50 year old female who is POD #5 s/p SHIRA right colectomy for right colon CA. Increase in pain and nausea yesterday- is slightly distended and tympanitic on exam this morning but moving bowels. VSS. Diet as tolerated. STRONGLY encouraged OOB and ambulation and increasing her activity for GI function. Likely has segmental ileus but will obtain CT scan given significant leukocytosis this morning. Discussed with patient who states she understands. Will add ofirmev back in to reduce narcotics. H/H- tranfused 1 U PRBC yesterday. Appropriate rise. <Apple Jacinto PA-C - Last Filed: 06/18/21 08:56> Fall Risk Details Current Medications: Current Medications Albuterol Sulfate (Albuterol Sulfate 90 Mcg 8 Gm Inhaler) 1 puff INHALE RQID [facility] Last Admin: 06/18/21 07:41 Dose: Not Given Documented by: Chlorhexidine Gluconate (Chlorhexidine Gluc Oral Rinse 15 Ml Mouthwash) 15 ml BUCCAL DAILY [facility] Last Admin: 06/17/21 10:02 Dose: 15 ml Documented by: Docusate Sodium (Docusate Sodium 100 Mg Capsule) 100 mg PO BID [facility] Last Admin: 06/17/21 20:59 Dose: 100 mg Documented by: Fluticasone Propionate (Fluticasone Propionate 250 Mcg Blst.W.Dev) 1 puff INHALE RBID [facility] Last Admin: 06/18/21 07:42 Dose: Not Given Documented by: Fluticasone Propionate (Fluticasone Propionate Nasal 16 Gm [place]) 1 spray NOSTRIL-B DAILY [facility] Last Admin: 06/17/21 10:02 Dose: 1 spray Documented by: Heparin Sodium (Porcine) (Heparin Sodium,Porcine 5,000 Unit/Ml Vial) 5,000 unit SUBCUT Q8H [facility] Last Admin: 06/18/21 02:21 Dose: 5,000 unit Documented by: Lactated Ringer's (Lr) 1,000 mls @ 100 mls/hr IVCONT .Q10H [facility] Acetaminophen (Ofirmev) 1,000 mg in 100 mls @ 400 mls/hr IV Q6H [facility] Lisinopril (Lisinopril 5 Mg Tablet) 5 mg PO DAILY [facility]; Protocol Last Admin: 06/17/21 10:01 Dose: 5 mg Documented by: Loratadine (Loratadine 10 Mg Tablet) 10 mg PO DAILY PRN PRN Reason: Allergy Symptoms Melatonin (Melatonin 3 Mg Tablet) 6 mg PO BEDTIME PRN PRN Reason: Insomnia Last Admin: 06/16/21 20:36 Dose: 6 mg Documented by: Montelukast Sodium (Montelukast Sodium 10 Mg Tablet) 10 mg PO BEDTIME [facility] Last Admin: 06/17/21 20:59 Dose: 10 mg Documented by: Omeprazole (Omeprazole 20 Mg Capsule.Dr) 20 mg PO DAILY@0630 [facility] Last Admin: 06/18/21 05:38 Dose: 20 mg Documented by: Ondansetron HCl (Ondansetron Hcl 4 Mg/2 Ml Vial) 4 mg IVPUSH Q8H PRN PRN Reason: Nausea and Vomiting Last Admin: 06/18/21 03:04 Dose: 4 mg Documented by: Oxycodone HCl (Oxycodone Hcl Immed Release 5 Mg Tablet) 5 mg PO Q4H PRN PRN Reason: Pain, Moderate (Pain Scale 4-6 Last Admin: 06/17/21 19:58 Dose: 5 mg Documented by: Polyethylene Glycol (Polyethylene Glycol 3350 17 Gm Powd.Pack) 17 gm PO DAILY [facility] Last Admin: 06/17/21 10:00 Dose: 17 gm Documented by: Pravastatin Sodium (Pravastatin Sodium 80 Mg Tablet) 80 mg PO BEDTIME [facility] Last Admin: 06/17/21 20:59 Dose: 80 mg Documented by: Sertraline HCl (Sertraline Hcl 100 Mg Tablet) 100 mg PO DAILY [facility] Last Admin: 06/17/21 10:02 Dose: 100 mg Documented by: Sodium Chloride (0.9 % Sodium Chloride Flush 3 Ml Syringe) 3 ml IVFLUSH QSHIFT [facility] Last Admin: 06/18/21 02:28 Dose: 3 ml Documented by: <Apple Jacinto PA-C - Last Filed: 06/18/21 08:56> Time Spent With Patient Time: Total time spent is greater than 50% in coordination of care (as documented) at patient's floor/unit and/or counseling patient: <Apple Jacinto PA-C - Last Filed: 06/18/21 08:56> Quality Stroke Does the patient have a stroke diagnosis?: No <LUIS MANUEL Ace Last Filed: 06/18/21 08:56> VTE Prior VTE?: No <Apple Jacinto PA-C - Last Filed: 06/18/21 08:56> VTE Risk Level:: Surgical - high <LUIS MANUEL Ace Last Filed: 06/18/21 08:56> VTE Device Contraindication: N/A - Device Ordered <LUIS MANUEL Ace Last Filed: 06/18/21 08:56> VTE Drug Contraindication: N/A - Med Ordered <Apple Jacinto PA-C - Last Filed: 06/18/21 08:56>
[2021-06-18] MEDS: lisinopriL 5 MG TABLET PO (09:36)
[2021-06-18] MEDS: Docusate Sodium 100 MG CAPSULE PO ×2 (09:36→20:02)
[2021-06-18] MEDS: Sertraline HCL 100 MG TABLET PO (09:36)
[2021-06-18] MEDS: Chlorhexidine Gluc Oral Rinse 15 ML MOUTHWASH BUCCAL (09:37)
[2021-06-18] MEDS: polyethylene glycoL 3350 17 GM POWD.PACK PO (09:38)
[2021-06-18] MEDS: Fluticasone Propionate Nasal 16 GM SPRAY 1 SPRAY NOSTRIL-B (09:39)
[2021-06-18] MEDS: Lactated Ringers 1,000 ML 100 ML IVCONT (09:41)
[2021-06-18] MEDS: iohexoL 350 MG/ML 100 ML INFUS..BTL IV (12:38)
--- NOTE | 2021-06-18 13:41 | MHC.CLN ---
F/U DIET CHANGED TO NPO 4/6. PAITENT WITH PAIN AND NAUSEA. UNABLE TO EAT 4/5. TODAY IS DAY 7 WITH LIMITED INTAKE. CONTINUE TO FOLLOW FOR DIET TOLERANCE/DIET UPGRADE. CONSIDER ALTERNATIVE NUTRITION IF NPO/LIMITED INTAKE CONTINUES.
--- NOTE | 2021-06-18 15:08 | HO.PM.IMPN ---
Subjective Subjective Date of Service: 06/18/21 Interval History: complaining of worsening abdominal pain, nausea, had small loose stools this morning passing flatus decreased by mouth intake due to nausea, no fevers no chills. Review of Systems [employer] mild headache, no dizziness CVS no chest pain, no palpitation Respiratory no cough, no sputum production Review of Systems: Yes all other systems are reviewed and are negative Physical Exam Vital Signs: Vital Signs: Last Vital Signs Temp 98.4 F 06/18/21 14:59 Pulse 42 L 06/18/21 14:59 Resp 18 06/18/21 14:59 BP 113/62 06/18/21 14:59 Pulse Ox 96 06/18/21 14:59 Oxygen Flow Rate 2 06/12/21 10:27 BMI result Body Mass Index 36.3 Const: Other: General? awake alert, no distress, appears uncomfortable HEENT pupil equal reactive to light and accommodation. Neck? supple no JVD. CVS? regular rate rhythm, Respiratory lungs clear to auscultation, no?respiratory distress. Gastrointestinal abdomen?tenderness?to palpation, distended, bowel sounds audible, no guarding, no rigidity, incision clean, ck and place. Extremities no edema. Neuro nonfocal Skin no rash psych appropriate affect Objective Data Active Medications Albuterol Sulfate (Albuterol Sulfate 90 Mcg 8 Gm Inhaler) 1 puff INHALE RQID [facility] Last Admin: 06/18/21 11:11 Dose: Not Given Documented by: JUAN LUIS Non-Admin Reason: Patient Refused Chlorhexidine Gluconate (Chlorhexidine Gluc Oral Rinse 15 Ml Mouthwash) 15 ml BUCCAL DAILY [facility] Last Admin: 06/18/21 09:37 Dose: 15 ml Documented by: CRESCENCIO Docusate Sodium (Docusate Sodium 100 Mg Capsule) 100 mg PO BID [facility] Last Admin: 06/18/21 09:36 Dose: 100 mg Documented by: CRESCENCIO Fluticasone Propionate (Fluticasone Propionate 250 Mcg Blst.W.Dev) 1 puff INHALE RBID [facility] Last Admin: 06/18/21 07:42 Dose: Not Given Documented by: JUAN LUIS Non-Admin Reason: Patient Refused Fluticasone Propionate (Fluticasone Propionate Nasal 16 Gm [place]) 1 spray NOSTRIL-B DAILY [facility] Last Admin: 06/18/21 09:39 Dose: 1 spray Documented by: CRESCENCIO Heparin Sodium (Porcine) (Heparin Sodium,Porcine 5,000 Unit/Ml Vial) 5,000 unit SUBCUT Q8H [facility] Last Admin: 06/18/21 09:37 Dose: 5,000 unit Documented by: CRESCENCIO Lactated Ringer's (Lr) 1,000 mls @ 100 mls/hr IVCONT .Q10H [facility] Last Admin: 06/18/21 09:41 Dose: 100 mls/hr Documented by: CRESCENCIO Acetaminophen (Ofirmev) 1,000 mg in 100 mls @ 400 mls/hr IV Q6H [facility] Last Infusion: 06/18/21 10:31 Dose: 0 mls/hr Documented by: CRESCENCIO Promethazine HCl 12.5 mg/ (Sodium Chloride) 50.5 mls @ 202 mls/hr IV Q6H PRN PRN Reason: Nausea and Vomiting Lisinopril (Lisinopril 5 Mg Tablet) 5 mg PO DAILY [facility]; Protocol Last Admin: 06/18/21 09:36 Dose: 5 mg Documented by: CRESCENCIO Loratadine (Loratadine 10 Mg Tablet) 10 mg PO DAILY PRN PRN Reason: Allergy Symptoms Melatonin (Melatonin 3 Mg Tablet) 6 mg PO BEDTIME PRN PRN Reason: Insomnia Last Admin: 06/16/21 20:36 Dose: 6 mg Documented by: VIDAL Montelukast Sodium (Montelukast Sodium 10 Mg Tablet) 10 mg PO BEDTIME [facility] Last Admin: 06/17/21 20:59 Dose: 10 mg Documented by: TYSON Morphine Sulfate (Morphine Sulfate 4 Mg/Ml Cartridge) 4 mg IVPUSH Q4H PRN; Protocol PRN Reason: Pain, Severe (Pain Scale 7-10) Omeprazole (Omeprazole 20 Mg Capsule.Dr) 20 mg PO DAILY@0630 [facility] Last Admin: 06/18/21 05:38 Dose: 20 mg Documented by: TYSON Ondansetron HCl (Ondansetron Hcl 4 Mg/2 Ml Vial) 4 mg IVPUSH Q8H PRN PRN Reason: Nausea and Vomiting Last Admin: 06/18/21 03:04 Dose: 4 mg Documented by: TYSON Oxycodone HCl (Oxycodone Hcl Immed Release 5 Mg Tablet) 5 mg PO Q4H PRN PRN Reason: Pain, Moderate (Pain Scale 4-6 Last Admin: 06/17/21 19:58 Dose: 5 mg Documented by: TYSON Oxycodone HCl (Oxycodone Hcl Immed Release 5 Mg Tablet) 10 mg PO Q4H PRN PRN Reason: Pain, Severe (Pain Scale 7-10) Polyethylene Glycol (Polyethylene Glycol 3350 17 Gm Powd.Pack) 17 gm PO DAILY [facility] Last Admin: 06/18/21 09:38 Dose: 17 gm Documented by: CRESCENCIO Pravastatin Sodium (Pravastatin Sodium 80 Mg Tablet) 80 mg PO BEDTIME [facility] Last Admin: 06/17/21 20:59 Dose: 80 mg Documented by: TYSON Sertraline HCl (Sertraline Hcl 100 Mg Tablet) 100 mg PO DAILY [facility] Last Admin: 06/18/21 09:36 Dose: 100 mg Documented by: CRESCENCIO Sodium Chloride (0.9 % Sodium Chloride Flush 3 Ml Syringe) 3 ml IVFLUSH QSHIFT [facility] Last Admin: 06/18/21 09:39 Dose: 3 ml Documented by: CRESCENCIO Labs CBC & Chem 7: 06/18/21 05:45 06/16/21 05:37 Labs: Laboratory Results - last 24 hr 06/17/21 06/18/21 11:31 05:45 MCV 76.3 L MCH 23.9 L MCHC 31.3 RDW 17.5 H Plt Count 416 H MPV 10.4 Immature Gran % (Auto) 1.4 H Neut % (Auto) 80.9 H Lymph % (Auto) 8.9 L [place] % (Auto) 7.3 Eos % (Auto) 1.3 Baso % (Auto) 0.2 Lymph # (Auto) 1.7 [place] # (Auto) 1.4 H Eos # (Auto) 0.2 Baso # (Auto) 0.0 Abs Immat Gran (auto) 0.27 H Absolute Neuts (auto) 15.5 H Absolute Nucleated RBC 0.000 Nucleated RBC % (auto) 0.0 Blood Type B Negative Antibody Screen POSITIVE Antibody Identification Negative Crossmatch (AHG) See Detail Assessment and Plan (1) Hypertension: Status: Acute (2) Obesity: Status: Acute Plan 50-year-old female patient with multiple medical issues including history of hyperlipidemia, hypertension, depression, asthma underwent elective right colon resection for colon cancer. ?Sstatus post right colon resection postoperative day ?worsening abdominal pain, nausea and mild distension, passing flatus ,+ bowel movement WBC trending up repeat CT abdomen per surgery on IV fluid, morphine , Tylenol and oxycodone 10 mg, as needed for pain, encouraged to bed and ambulation leukocytosis trending up, no fevers repeat CT abdomen ordered, UA not collected Acute on chronic anemia, low MCV and iron studies consistent with iron deficiency anemia, ferritin 5 and saturation 8, likely blood loss from colon ca, status post iv iron, hematocrit dropped to 24.6 no active bleed noted, s/p 1 unit of packed RBC on 06/17 hematocrit improved to 33.5 hypomagnesemia repleted hypertension stable BP continue lisinopril 5 mg ?hyperlipidemia continue Pravachol 80 mg at bedtime ?mild intermittent asthma no acute exacerbation continue home inhalers depression continue Zoloft 100 mg obesity weight loss recommended low-calorie diet, since contributing to hypertension and hyperlipidemia ?DVT prophylaxis with heparin ?code status full code patient need continued inpatient hospitalization due to right colon resection with persistent abdominal pain, now with abd distension, nausea, on IV fluids with poor by mouth intake. Quality Stroke Does the patient have a stroke diagnosis?: No VTE Prior VTE?: No VTE Risk Level:: Surgical - high VTE Device Contraindication: N/A - Device Ordered VTE Drug Contraindication: N/A - Med Ordered
[2021-06-18] MEDS: Albuterol Sulfate 90 MCG 8 GM INHALER 1 PUFF INHALE (15:41)
[2021-06-18] MEDS: Morphine Sulfate 4 MG/ML CARTRIDGE IVPUSH ×2 (15:43→19:58)
--- NOTE | 2021-06-18 15:44 | PM.EVENT ---
Event Note Date of Service: 06/18/21 Event Note: Feels a little better than this morning although still has some periods of abdominal pain and nausea Abdomen soft I had sent her CAT scan earlier Images reviewed - anastomosis seems intact and patent There is however free fluid some mild thickening of part of the ileum -enteritis etiology unknown Will keep NPO for now but okay to have sips of clears Pain management Bowel rest Follow CBCs
[2021-06-18] MEDS: Melatonin 3 MG TABLET 6 MG PO (20:02)
[2021-06-18] MEDS: Montelukast Sodium 10 MG TABLET PO (20:02)
[2021-06-18] MEDS: Pravastatin Sodium 80 MG TABLET PO (20:02)
[2021-06-18] MEDS: Fluticasone Propionate 250 MCG BLST.W.DEV 1 PUFF INHALE (20:17)
[2021-06-19] VITALS (10 sets, daily range): BP systolic 106–135; BP diastolic 58–66; PULSE 50–89; RESP 14–18; TEMP 36–37.1; O2SAT 93–98
[2021-06-19] MEDS: Lactated Ringers 1,000 ML 100 ML IVCONT ×2 (03:11→14:32)
[2021-06-19] MEDS: Heparin Sodium,Porcine 5,000 UNIT/ML VIAL 5000 UNIT SUBCUT ×3 (03:15→19:16)
[2021-06-19] MEDS: Omeprazole 20 MG CAPSULE.DR PO (05:52)
[2021-06-19] MEDS: ondansetron HCL 4 MG/2 ML VIAL IVPUSH ×2 (05:52→19:16)
[2021-06-19] MEDS: oxyCODONE HCl Immed Release 5 MG TABLET 10 MG PO (05:54)
--- NOTE | 2021-06-19 07:59 | P.PNGS_ITS ---
Subjective Subjective Date of Service: 06/19/21 <Apple Jacinto PA-C - Last Filed: 06/19/21 08:47> 06/19/21 <Sebastián Mojica MD - Last Filed: 06/19/21 10:04> Interval history: Feels like a balloon . Continues with pain. Has not passed flatus since yesterday. No further loose stools. <Apple Jacinto PA-C - Last Filed: 06/19/21 08:47> Physical Exam Vital Signs: Vital Signs: Last Vital Signs Temp 96.8 F 06/19/21 07:03 Pulse 50 06/19/21 07:03 Resp 15 06/19/21 07:03 BP 128/60 06/19/21 07:03 Pulse Ox 95 06/19/21 07:03 Oxygen Flow Rate 2 06/12/21 10:27 BMI result Body Mass Index 36.3 <Apple Jacinto PA-C - Last Filed: 06/19/21 08:47> Const: General: comfortable, no acute distress and alert <Apple Jacinto PA-C - Last Filed: 06/19/21 08:47> Orientation/consciousness: patient oriented x3 <LUIS MANUEL Ace Last Filed: 06/19/21 08:47> Resp: Effort & Inspection: normal respiratory effort <LUIS MANUEL Ace Last Filed: 06/19/21 08:47> GI: Inspection: Yes distended and Yes incision (clean) <Aplpe Jacinto PA-C - Last Filed: 06/19/21 08:47> Palpation (GI): Soft to palpation, Tenderness to palpation present (GI), no guarding and not rigid <Apple Jacinto PA-C - Last Filed: 06/19/21 08:47> Percussion: Yes tympanic to percussion <LUIS MANUEL Ace Last Filed: 06/19/21 08:47> Skin: General skin exam: no rashes or lesions noted <LUIS MANUEL Ace Last Filed: 06/19/21 08:47> Neuro: General: patient oriented x3 <LUIS MANUEL Ace Filed: 06/19/21 08:47> Objective Data Active Medications Albuterol Sulfate (Albuterol Sulfate 90 Mcg 8 Gm Inhaler) 1 puff INHALE RQID COUNTS INCLUDE 234 BEDS AT [facility] Last Admin: 06/18/21 20:19 Dose: Not Given Documented by: NELA Non-Admin Reason: Patient Refused Chlorhexidine Gluconate (Chlorhexidine Gluc Oral Rinse 15 Ml Mouthwash) 15 ml BUCCAL DAILY COUNTS INCLUDE 234 BEDS AT THE [facility] Last Admin: 06/18/21 09:37 Dose: 15 ml Documented by: CRESCENCIO Docusate Sodium (Docusate Sodium 100 Mg Capsule) 100 mg PO BID COUNTS INCLUDE 234 BEDS AT [facility] Last Admin: 06/18/21 20:02 Dose: 100 mg Documented by: ANA Fluticasone Propionate (Fluticasone Propionate 250 Mcg Blst.W.Dev) 1 puff INHALE RBID COUNTS INCLUDE 234 BEDS AT [facility] Last Admin: 06/18/21 20:17 Dose: 1 puff Documented by: NELA Fluticasone Propionate (Fluticasone Propionate Nasal 16 Gm [place]) 1 spray NOSTRIL-B DAILY COUNTS INCLUDE 234 BEDS AT [facility] Last Admin: 06/18/21 09:39 Dose: 1 spray Documented by: CRESCENCIO Heparin Sodium (Porcine) (Heparin Sodium,Porcine 5,000 Unit/Ml Vial) 5,000 unit SUBCUT Q8H COUNTS INCLUDE 234 BEDS AT [facility] Last Admin: 06/19/21 03:15 Dose: 5,000 unit Documented by: ANA Lactated Ringer's (Lr) 1,000 mls @ 100 mls/hr IVCONT .Q10H COUNTS INCLUDE 234 BEDS AT [facility] Last Admin: 06/19/21 03:11 Dose: 100 mls/hr Documented by: ANA Acetaminophen (Ofirmev) 1,000 mg in 100 mls @ 400 mls/hr IV Q6H COUNTS INCLUDE 234 BEDS AT THE [facility] Last Infusion: 06/19/21 03:33 Dose: 0 mls/hr Documented by: ANA Promethazine HCl 12.5 mg/ (Sodium Chloride) 50.5 mls @ 202 mls/hr IV Q6H PRN PRN Reason: Nausea and Vomiting Piperacillin Sod/Tazobactam (Sod 3.375 gm/ Sodium Chloride) 50 mls @ 100 mls/hr IV Q6H COUNTS INCLUDE 234 BEDS AT [facility] Lisinopril (Lisinopril 5 Mg Tablet) 5 mg PO DAILY COUNTS INCLUDE 234 BEDS AT THE [facility]; Protocol Last Admin: 06/18/21 09:36 Dose: 5 mg Documented by: CRESCENCIO Loratadine (Loratadine 10 Mg Tablet) 10 mg PO DAILY PRN PRN Reason: Allergy Symptoms Melatonin (Melatonin 3 Mg Tablet) 6 mg PO BEDTIME PRN PRN Reason: Insomnia Last Admin: 06/18/21 20:02 Dose: 6 mg Documented by: ANA Montelukast Sodium (Montelukast Sodium 10 Mg Tablet) 10 mg PO BEDTIME COUNTS INCLUDE 234 BEDS AT [facility] Last Admin: 06/18/21 20:02 Dose: 10 mg Documented by: ANA Morphine Sulfate (Morphine Sulfate 4 Mg/Ml Cartridge) 4 mg IVPUSH Q4H PRN; Protocol PRN Reason: Pain, Severe (Pain Scale 7-10) Last Admin: 06/18/21 19:58 Dose: 4 mg Documented by: ANA Omeprazole (Omeprazole 20 Mg Capsule.Dr) 20 mg PO DAILY@0630 COUNTS INCLUDE 234 BEDS AT [facility] Last Admin: 06/19/21 05:52 Dose: 20 mg Documented by: ANA Ondansetron HCl (Ondansetron Hcl 4 Mg/2 Ml Vial) 4 mg IVPUSH Q8H PRN PRN Reason: Nausea and Vomiting Last Admin: 06/19/21 05:52 Dose: 4 mg Documented by: ANA Oxycodone HCl (Oxycodone Hcl Immed Release 5 Mg Tablet) 5 mg PO Q4H PRN PRN Reason: Pain, Moderate (Pain Scale 4-6 Last Admin: 06/17/21 19:58 Dose: 5 mg Documented by: TYSON Oxycodone HCl (Oxycodone Hcl Immed Release 5 Mg Tablet) 10 mg PO Q4H PRN PRN Reason: Pain, Severe (Pain Scale 7-10) Last Admin: 06/19/21 05:54 Dose: 10 mg Documented by: ANA Polyethylene Glycol (Polyethylene Glycol 3350 17 Gm Powd.Pack) 17 gm PO DAILY COUNTS INCLUDE 234 BEDS AT [facility] Last Admin: 06/18/21 09:38 Dose: 17 gm Documented by: CRESCENCIO Pravastatin Sodium (Pravastatin Sodium 80 Mg Tablet) 80 mg PO BEDTIME COUNTS INCLUDE 234 BEDS AT [facility] Last Admin: 06/18/21 20:02 Dose: 80 mg Documented by: ANA Sertraline HCl (Sertraline Hcl 100 Mg Tablet) 100 mg PO DAILY COUNTS INCLUDE 234 BEDS AT [facility] Last Admin: 06/18/21 09:36 Dose: 100 mg Documented by: CRESCENCIO Sodium Chloride (0.9 % Sodium Chloride Flush 3 Ml Syringe) 3 ml IVFLUSH QSHIFT COUNTS INCLUDE 234 BEDS AT [facility] Last Admin: 06/18/21 19:59 Dose: 3 ml Documented by: ANA <Apple Jacinto PA-C - Last Filed: 06/19/21 08:47> Labs CBC & Chem 7: : 06/19/21 08:15 06/19/21 08:15 <LUIS MANUEL Ace Last Filed: 06/19/21 08:47> Procedures Date of Service Date of Service: 06/19/21 <LUIS MANUEL Ace Last Filed: 06/19/21 08:47> Progress Note: A&P Assessment and plan (1) Ileus following gastrointestinal surgery: Status: Acute <Apple Jacinto PA-C - Last Filed: 06/19/21 08:47> Assessment and Plan: Does states she seems to be better compared to yesterday although says she has nausea Stable vital signs, no fever Abdomen soft CT scan yesterday showing ascites, thickened segment of distal ileum In view of nausea will keep NPO She otherwise looks well Encouraged to ambulate and get out of bed more Seen and examined independently - agree with TYLOR Jacinto <Sebastián Mojica MD - Last Filed: 06/19/21 10:04> (2) S/P right colectomy: Status: Acute <Apple Jacinto PA-C - Last Filed: 06/19/21 08:47> (3) Colon adenocarcinoma: Status: Acute <LUIS MANUEL Ace Last Filed: 06/19/21 08:47> Plan 50 year old female who is POD #6 s/p SHIRA right colectomy for right colon CA. Increasing leukocytosis yesterday- CT scan obtained which showed thickening of ileum ?enteritis, dilated SB loops. Continues to have pain, be distended. Likely has segmental ileus, question of enteritis. Will keep NPO, start PPN given prolonged period of NPO. Repeat labs this am. Strongly encouraged OOB and ambulation at least 4x per day for GI function. PATHOLOGY: Colon, right, ileocolectomy: -Adenocarcinoma, moderately differentiated, with focal mucinous differentiation. -Tumor invades through the muscularis propria into pericolonic tissues -Proximal, distal, and mesenteric margins are free of tumor. -One of nine lymph nodes is positive for metastatic tumor. -Small and large vessel invasion and tumor deposits present. -Tubular adenomas. -Hyperplastic polyp. -Fibrous serosal adhesions, with focal mesothelial hyperplasia. -Fibrous obliteration of distal appendiceal lumen. <Apple Jacinto PA-C - Last Filed: 06/19/21 08:47> Fall Risk Details Current Medications: Current Medications Albuterol Sulfate (Albuterol Sulfate 90 Mcg 8 Gm Inhaler) 1 puff INHALE RQID COUNTS INCLUDE 234 BEDS AT [facility] Last Admin: 06/18/21 20:19 Dose: Not Given Documented by: Chlorhexidine Gluconate (Chlorhexidine Gluc Oral Rinse 15 Ml Mouthwash) 15 ml BUCCAL DAILY COUNTS INCLUDE 234 BEDS AT [facility] Last Admin: 06/18/21 09:37 Dose: 15 ml Documented by: Docusate Sodium (Docusate Sodium 100 Mg Capsule) 100 mg PO BID COUNTS INCLUDE 234 BEDS AT [facility] Last Admin: 06/18/21 20:02 Dose: 100 mg Documented by: Fluticasone Propionate (Fluticasone Propionate 250 Mcg Blst.W.Dev) 1 puff INHALE RBID COUNTS INCLUDE 234 BEDS AT [facility] Last Admin: 06/18/21 20:17 Dose: 1 puff Documented by: Fluticasone Propionate (Fluticasone Propionate Nasal 16 Gm [place]) 1 spray NOSTRIL-B DAILY COUNTS INCLUDE 234 BEDS AT [facility] Last Admin: 06/18/21 09:39 Dose: 1 spray Documented by: Heparin Sodium (Porcine) (Heparin Sodium,Porcine 5,000 Unit/Ml Vial) 5,000 unit SUBCUT Q8H COUNTS INCLUDE 234 BEDS AT [facility] Last Admin: 06/19/21 03:15 Dose: 5,000 unit Documented by: Lactated Ringer's (Lr) 1,000 mls @ 100 mls/hr IVCONT .Q10H COUNTS INCLUDE 234 BEDS AT [facility] Last Admin: 06/19/21 03:11 Dose: 100 mls/hr Documented by: Acetaminophen (Ofirmev) 1,000 mg in 100 mls @ 400 mls/hr IV Q6H COUNTS INCLUDE 234 BEDS AT [facility] Last Infusion: 06/19/21 03:33 Dose: Infused Documented by: Promethazine HCl 12.5 mg/ (Sodium Chloride) 50.5 mls @ 202 mls/hr IV Q6H PRN PRN Reason: Nausea and Vomiting Piperacillin Sod/Tazobactam (Sod 3.375 gm/ Sodium Chloride) 50 mls @ 100 mls/hr IV Q6H COUNTS INCLUDE 234 BEDS AT [facility] Lisinopril (Lisinopril 5 Mg Tablet) 5 mg PO DAILY COUNTS INCLUDE 234 BEDS AT [facility]; Protocol Last Admin: 06/18/21 09:36 Dose: 5 mg Documented by: Loratadine (Loratadine 10 Mg Tablet) 10 mg PO DAILY PRN PRN Reason: Allergy Symptoms Melatonin (Melatonin 3 Mg Tablet) 6 mg PO BEDTIME PRN PRN Reason: Insomnia Last Admin: 06/18/21 20:02 Dose: 6 mg Documented by: Montelukast Sodium (Montelukast Sodium 10 Mg Tablet) 10 mg PO BEDTIME COUNTS INCLUDE 234 BEDS AT [facility] Last Admin: 06/18/21 20:02 Dose: 10 mg Documented by: Morphine Sulfate (Morphine Sulfate 4 Mg/Ml Cartridge) 4 mg IVPUSH Q4H PRN; Protocol PRN Reason: Pain, Severe (Pain Scale 7-10) Last Admin: 06/18/21 19:58 Dose: 4 mg Documented by: Omeprazole (Omeprazole 20 Mg Capsule.Dr) 20 mg PO DAILY@0630 COUNTS INCLUDE 234 BEDS AT [facility] Last Admin: 06/19/21 05:52 Dose: 20 mg Documented by: Ondansetron HCl (Ondansetron Hcl 4 Mg/2 Ml Vial) 4 mg IVPUSH Q8H PRN PRN Reason: Nausea and Vomiting Last Admin: 06/19/21 05:52 Dose: 4 mg Documented by: Oxycodone HCl (Oxycodone Hcl Immed Release 5 Mg Tablet) 5 mg PO Q4H PRN PRN Reason: Pain, Moderate (Pain Scale 4-6 Last Admin: 06/17/21 19:58 Dose: 5 mg Documented by: Oxycodone HCl (Oxycodone Hcl Immed Release 5 Mg Tablet) 10 mg PO Q4H PRN PRN Reason: Pain, Severe (Pain Scale 7-10) Last Admin: 06/19/21 05:54 Dose: 10 mg Documented by: Polyethylene Glycol (Polyethylene Glycol 3350 17 Gm Powd.Pack) 17 gm PO DAILY COUNTS INCLUDE 234 BEDS AT [facility] Last Admin: 06/18/21 09:38 Dose: 17 gm Documented by: Pravastatin Sodium (Pravastatin Sodium 80 Mg Tablet) 80 mg PO BEDTIME COUNTS INCLUDE 234 BEDS AT [facility] Last Admin: 06/18/21 20:02 Dose: 80 mg Documented by: Sertraline HCl (Sertraline Hcl 100 Mg Tablet) 100 mg PO DAILY COUNTS INCLUDE 234 BEDS AT [facility] Last Admin: 06/18/21 09:36 Dose: 100 mg Documented by: Sodium Chloride (0.9 % Sodium Chloride Flush 3 Ml Syringe) 3 ml IVFLUSH QSHIFT COUNTS INCLUDE 234 BEDS AT [facility] Last Admin: 06/18/21 19:59 Dose: 3 ml Documented by: <Apple Jacinto PA-C - Last Filed: 06/19/21 08:47> Time Spent With Patient Time: Total time spent is greater than 50% in coordination of care (as documented) at patient's floor/unit and/or counseling patient: <Apple Jacinto PA-C - Last Filed: 06/19/21 08:47> Quality Stroke Does the patient have a stroke diagnosis?: No <Apple Jacinto PA-C - Last Filed: 06/19/21 08:47> VTE Prior VTE?: No <Apple Jacinto PA-C - Last Filed: 06/19/21 08:47> VTE Risk Level:: Surgical - high <LUIS MANUEL Ace Last Filed: 06/19/21 08:47> VTE Device Contraindication: N/A - Device Ordered <LUIS MANUEL Ace Last Filed: 06/19/21 08:47> VTE Drug Contraindication: N/A - Med Ordered <LUIS MANUEL Ace Last Filed: 06/19/21 08:47>
[2021-06-19 08:22] LABS: MANUAL DIFF FLAG NO
[2021-06-19 08:25] LABS: Basophils Percent Auto 0.2 % (0-2); Eosinophils Absolute Auto 0.5 X10*3/uL (0.0-0.4); Eosinophils Percent Auto 2.6 % (0-4); Hematocrit 35.8 % (37.0-47.0); Imm Gran Abs Auto 0.28 X10*3/uL (0.00-0.03); Imm Gran Pct Auto 1.5 % (0.0-0.4); Lymphocytes Absolute Auto 2.2 X10*3/uL (1.2-4.9); Lymphocytes Percent Auto 12.1 % (20-40); Mean Corpuscular HGB Conc 30.7 g/dl (31.0-35.0); Mean Corpuscular Hemoglobin 23.8 pg (27.0-33.0); Mean Corpuscular Volume 77.5 fL (80.0-98.0); Mean Platelet Volume 9.8 fL (9.4-12.3); Monocytes Absolute Auto 1.2 X10*3/uL (0.1-1.2); Monocytes Percent Auto 6.6 % (2-11); Platelet Count 554 X10*3/uL (160-400); Red Blood Count 4.62 X10*6/uL (4.20-5.50); Red Cell Distribution Width 17.7 % (11.0-16.0); White Blood Count 18.1 X10*3/uL (4.8-10.8)
[2021-06-19 08:48] LABS: Anion Gap 16 (12-20); Blood Urea Nitrogen 10 mg/dL (9-16); Calcium 9.2 mg/dL (8.4-10.2); Carbon Dioxide 28 mmol/L (22-29); Chloride 101 mmol/L (96-108); Creatinine Clr Calc Pharmacy 126.9; Estimated Glomerular Filt Rate > 60; Glucose Fasting 107 mg/dL (60-99); Magnesium 1.8 mg/dL (1.6-2.6); Phosphorus 3.7 mg/dL (2.7-4.5); Potassium 3.9 mmol/L (3.3-5.1); Sodium 141 mmol/L (135-145)
[2021-06-19] MEDS: Piperacillin Sodium/Tazobactam 3.375 GM in 0.9 % Sodium Chloride 50 ML IV ×3 (09:37→19:14)
[2021-06-19] MEDS: Sertraline HCL 100 MG TABLET PO (09:40)
[2021-06-19] MEDS: Chlorhexidine Gluc Oral Rinse 15 ML MOUTHWASH BUCCAL (09:40)
[2021-06-19] MEDS: Docusate Sodium 100 MG CAPSULE PO ×2 (09:40→21:19)
[2021-06-19] MEDS: polyethylene glycoL 3350 17 GM POWD.PACK PO (09:41)
[2021-06-19] MEDS: lisinopriL 5 MG TABLET PO (09:41)
[2021-06-19] MEDS: Fluticasone Propionate Nasal 16 GM SPRAY 1 SPRAY NOSTRIL-B (09:41)
[2021-06-19] MEDS: 0.9 % Sodium Chloride Flush 3 ML SYRINGE IVFLUSH (09:41)
[2021-06-19] MEDS: Albuterol Sulfate 90 MCG 8 GM INHALER 1 PUFF INHALE ×3 (11:28→20:28)
--- NOTE | 2021-06-19 11:36 | P.PNIM_ITS ---
Subjective Subjective Date of Service: 06/19/21 Interval History: complaining of nausea, not passing flatus, no bowel movement since yesterday, complaining of persistent abdominal pain, and distension, denies fever, no chills. Review of Systems [employer] SERV[employer]IC[employer] no headache, no dizziness CVS no chest pain, no palpitation Respiratory no cough, no sob Review of Systems: Yes all other systems are reviewed and are negative Physical Exam Vital Signs: Vital Signs: Last Vital Signs Temp 96.8 F 06/19/21 07:03 Pulse 50 06/19/21 07:03 Resp 18 06/19/21 11:30 BP 128/60 06/19/21 07:03 Pulse Ox 94 06/19/21 09:55 Oxygen Flow Rate 2 06/19/21 09:55 BMI result Body Mass Index 36.3 Const: Other: General? awake alert,? no distress, appears uncomfortable HEENT pupil equal reactive to light and accommodation. Neck? supple no JVD. CVS? regular rate rhythm, Respiratory lungs clear to auscultation, no?respiratory distress. Gastrointestinal abdomen distended,?tender?to palpation, bowel sounds audible, no guarding, no rigidity,? incision clean, ck in place. Extremities no edema. Neuro nonfocal Skin no rash psych appropriate affect Objective Data Active Medications Albuterol Sulfate (Albuterol Sulfate 90 Mcg 8 Gm Inhaler) 1 puff INHALE RQID [facility] Last Admin: 06/19/21 11:28 Dose: 1 puff Documented by: JUAN LUIS Chlorhexidine Gluconate (Chlorhexidine Gluc Oral Rinse 15 Ml Mouthwash) 15 ml BUCCAL DAILY [facility] Last Admin: 06/19/21 09:40 Dose: 15 ml Documented by: YOVANNY Docusate Sodium (Docusate Sodium 100 Mg Capsule) 100 mg PO BID [facility] Last Admin: 06/19/21 09:40 Dose: 100 mg Documented by: YOVANNY Fluticasone Propionate (Fluticasone Propionate 250 Mcg Blst.W.Dev) 1 puff INHALE RBID [facility] Last Admin: 06/19/21 08:12 Dose: Not Given Documented by: JUAN LUIS Non-Admin Reason: Patient Refused Fluticasone Propionate (Fluticasone Propionate Nasal 16 Gm [place]) 1 spray NOSTRIL-B DAILY [facility] Last Admin: 06/19/21 09:41 Dose: 1 spray Documented by: YOVANNY Heparin Sodium (Porcine) (Heparin Sodium,Porcine 5,000 Unit/Ml Vial) 5,000 unit SUBCUT Q8H [facility] Last Admin: 06/19/21 09:39 Dose: 5,000 unit Documented by: YOVANNY Lactated Ringer's (Lr) 1,000 mls @ 100 mls/hr IVCONT .Q10H [facility] Last Admin: 06/19/21 03:11 Dose: 100 mls/hr Documented by: ANA Acetaminophen (Ofirmev) 1,000 mg in 100 mls @ 400 mls/hr IV Q6H [facility] Last Admin: 06/19/21 09:40 Dose: 400 mls/hr Documented by: YOVANNY Promethazine HCl 12.5 mg/ (Sodium Chloride) 50.5 mls @ 202 mls/hr IV Q6H PRN PRN Reason: Nausea and Vomiting Last Admin: 06/19/21 09:38 Dose: 202 mls/hr Documented by: YOVANNY Piperacillin Sod/Tazobactam (Sod 3.375 gm/ Sodium Chloride) 50 mls @ 100 mls/hr IV Q6H [facility] Last Admin: 06/19/21 09:37 Dose: 100 mls/hr Documented by: YOVANNY Lisinopril (Lisinopril 5 Mg Tablet) 5 mg PO DAILY [facility]; Protocol Last Admin: 06/19/21 09:41 Dose: 5 mg Documented by: YOVANNY Loratadine (Loratadine 10 Mg Tablet) 10 mg PO DAILY PRN PRN Reason: Allergy Symptoms Melatonin (Melatonin 3 Mg Tablet) 6 mg PO BEDTIME PRN PRN Reason: Insomnia Last Admin: 06/18/21 20:02 Dose: 6 mg Documented by: ANA Montelukast Sodium (Montelukast Sodium 10 Mg Tablet) 10 mg PO BEDTIME [facility] Last Admin: 06/18/21 20:02 Dose: 10 mg Documented by: ANA Morphine Sulfate (Morphine Sulfate 4 Mg/Ml Cartridge) 4 mg IVPUSH Q4H PRN; Prot ocol PRN Reason: Pain, Severe (Pain Scale 7-10) Last Admin: 04/06/22 19:58 Dose: 4 mg Documented by: ANA Omeprazole (Omeprazole 20 Mg Capsule.Dr) 20 mg PO DAILY@0630 [facility] Last Admin: 06/19/21 05:52 Dose: 20 mg Documented by: ANA Ondansetron HCl (Ondansetron Hcl 4 Mg/2 Ml Vial) 4 mg IVPUSH Q8H PRN PRN Reason: Nausea and Vomiting Last Admin: 06/19/21 05:52 Dose: 4 mg Documented by: ANA Oxycodone HCl (Oxycodone Hcl Immed Release 5 Mg Tablet) 5 mg PO Q4H PRN PRN Reason: Pain, Moderate (Pain Scale 4-6 Last Admin: 06/17/21 19:58 Dose: 5 mg Documented by: TYSON Oxycodone HCl (Oxycodone Hcl Immed Release 5 Mg Tablet) 10 mg PO Q4H PRN PRN Reason: Pain, Severe (Pain Scale 7-10) Last Admin: 06/19/21 05:54 Dose: 10 mg Documented by: ANA Polyethylene Glycol (Polyethylene Glycol 3350 17 Gm Powd.Pack) 17 gm PO DAILY [facility] Last Admin: 06/19/21 09:41 Dose: 17 gm Documented by: YOVANNY Pravastatin Sodium (Pravastatin Sodium 80 Mg Tablet) 80 mg PO BEDTIME [facility] Last Admin: 06/18/21 20:02 Dose: 80 mg Documented by: ANA Sertraline HCl (Sertraline Hcl 100 Mg Tablet) 100 mg PO DAILY [facility] Last Admin: 06/19/21 09:40 Dose: 100 mg Documented by: YOVANNY Sodium Chloride (0.9 % Sodium Chloride Flush 3 Ml Syringe) 3 ml IVFLUSH QSHIFT [facility] Last Admin: 06/19/21 09:41 Dose: 3 ml Documented by: YOVANNY Labs CBC & Chem 7: 06/19/21 08:15 06/19/21 08:15 Labs: Laboratory Results - last 24 hr 06/19/21 06/19/21 08:15 08:15 MCV 77.5 L MCH 23.8 L MCHC 30.7 L RDW 17.7 H Plt Count 554 H D MPV 9.8 Immature Gran % (Auto) 1.5 H Neut % (Auto) 77.0 H Lymph % (Auto) 12.1 L Webb % (Auto) 6.6 Eos % (Auto) 2.6 Baso % (Auto) 0.2 Lymph # (Auto) 2.2 Webb # (Auto) 1.2 Eos # (Auto) 0.5 H Baso # (Auto) 0.0 Abs Immat Gran (auto) 0.28 H Absolute Neuts (auto) 14.0 H Absolute Nucleated RBC 0.000 Nucleated RBC % (auto) 0.0 Anion Gap 16 Estim Creat Clear Calc 126.9 Estimated GFR > 60 Fasting Glucose 107 H Calcium 9.2 Phosphorus 3.7 Magnesium 1.8 Assessment and Plan (1) Hypertension: Status: Acute (2) Obesity: Status: Acute Plan 50-year-old female patient with multiple medical issues including history of hyperlipidemia, hypertension, depression, asthma underwent elective right colon resection for colon cancer. ?Status post right colon resection postoperative day 7 ? persistent abdominal pain, nausea and distension, no flatus ,no bowel movement. WBC elevated, no fevers no chills CT abdomen showed small bowel wall thickening in ileum with surrounding ascites consistent with enteritis will add IV Zosyn follow clinical course and CBC on IV fluid, morphine , Tylenol and oxycodone 10 mg, as needed for pain, enco uraged to bed and ambulation PPN per surgery due to prolonged NPO status surgical pathology showed adeno carcinoma, moderately different with focal mucinous differentiation with 1 of 9 lymph node positive for metastatic tumor Acute on chronic anemia, low MCV and iron studies consistent with iron deficiency anemia, ferritin 5 and saturation 8, likely blood loss from colon ca, status post iv iron, hematocrit dropped to 24.6 no active bleed noted, s/p 1 unit of packed RBC on 06/17 hematocrit improved to 33.5 hypomagnesemia repleted hypertension stable BP continue lisinopril 5 mg ?hyperlipidemia continue Pravachol 80 mg at bedtime ?mild intermittent asthma no acute exacerbation continue home inhalers depression continue Zoloft 100 mg obesity weight loss recommended low-calorie diet, since contributing to hypertension and hyperlipidemia ?DVT prophylaxis with heparin ?code status full code patient need continued inpatient hospitalization due to right colon resection with persistent abdominal pain, abd distension, nausea, NPO requiring iv PPN . Quality Stroke Does the patient have a stroke diagnosis?: No VTE Prior VTE?: No VTE Risk Level:: Surgical - high VTE Device Contraindication: N/A - Device Ordered VTE Drug Contraindication: N/A - Med Ordered
--- NOTE | 2021-06-19 11:50 | MHC.CLN ---
CONSULT PPN TO START TODAY RECOMMEND D10AA4.25 AT 50ML/HR TO PROVIDE 612KCALS, 51G PROTEIN DISCUSSED WITH PHARMACY AND PA REPLETE LYTES NEEDED TOMORROW: 06/20/21 RECOMMEND INCREASING TO 70ML/HR TO PROVIDE 857KCALS, 71G PROTEIN CHECK TRIGS AND REPLETE LYTES NEEDED
--- NOTE | 2021-06-19 14:30 | MHC.CM.PN ---
PATIENT STILL WITH DISTENDED ABDOMEN. AWAITING SURGICAL INPUT. 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
--- NOTE | 2021-06-19 15:25 | PM.EVENT ---
Event Note Date of Service: 06/19/21 Event Note: Seen on afternoon rounds Says she feels better More comfortable Wants to try chicken soup Will see how she does overnight PPN ordered Stable vital signs Looks well and comfortable
[2021-06-19] MEDS: Fluticasone Propionate 250 MCG BLST.W.DEV 1 PUFF INHALE (20:28)
[2021-06-19] MEDS: Pravastatin Sodium 80 MG TABLET PO (21:19)
[2021-06-19] MEDS: Montelukast Sodium 10 MG TABLET PO (21:19)
[2021-06-20] VITALS (9 sets, daily range): BP systolic 116–145; BP diastolic 45–67; PULSE 53–88; RESP 14–18; TEMP 36–36.8; O2SAT 96–100; BMI 36.3
[2021-06-20] MEDS: Lactated Ringers 1,000 ML 100 ML IVCONT ×2 (02:46→13:01)
[2021-06-20] MEDS: Heparin Sodium,Porcine 5,000 UNIT/ML VIAL 5000 UNIT SUBCUT ×3 (02:47→18:18)
[2021-06-20] MEDS: Piperacillin Sodium/Tazobactam 3.375 GM in 0.9 % Sodium Chloride 50 ML IV ×4 (02:47→20:18)
[2021-06-20] MEDS: ondansetron HCL 4 MG/2 ML VIAL IVPUSH (03:47)
[2021-06-20] MEDS: oxyCODONE HCl Immed Release 5 MG TABLET 10 MG PO (03:48)
[2021-06-20] MEDS: Omeprazole 20 MG CAPSULE.DR PO (05:11)
[2021-06-20 06:07] LABS: Hematocrit 30.2 % (37.0-47.0); Hemoglobin 9.5 g/dl (12.0-16.0); Mean Corpuscular HGB Conc 31.5 g/dl (31.0-35.0); Mean Corpuscular Hemoglobin 24.1 pg (27.0-33.0); Mean Corpuscular Volume 76.6 fL (80.0-98.0); Mean Platelet Volume 10.2 fL (9.4-12.3); Platelet Count 436 X10*3/uL (160-400); Red Blood Count 3.94 X10*6/uL (4.20-5.50); Red Cell Distribution Width 17.6 % (11.0-16.0); White Blood Count 12.8 X10*3/uL (4.8-10.8)
[2021-06-20 06:29] LABS: Anion Gap 12 (12-20); Blood Urea Nitrogen 9 mg/dL (9-16); Calcium 8.5 mg/dL (8.4-10.2); Carbon Dioxide 27 mmol/L (22-29); Chloride 103 mmol/L (96-108); Creatinine Clr Calc Pharmacy 146.8; Estimated Glomerular Filt Rate > 60; Glucose Random 137 mg/dL (60-115); Potassium 3.5 mmol/L (3.3-5.1); Sodium 138 mmol/L (135-145)
[2021-06-20] MEDS: Fluticasone Propionate 250 MCG BLST.W.DEV 1 PUFF INHALE ×2 (07:48→20:14)
--- NOTE | 2021-06-20 07:53 | P.PNGS_ITS ---
Subjective Subjective Date of Service: 06/20/21 <Apple Jacinto PA-C - Last Filed: 06/20/21 07:58> 06/20/21 <Sebastián Mojica MD - Last Filed: 06/20/21 12:56> Interval history: Feels much better this morning. Passing flatus and had multiple loose stools overnight. Denies nausea. Wants to try liquids. Pain improving. <Apple Jacinto PA-C - Last Filed: 06/20/21 07:58> Physical Exam Vital Signs: Vital Signs: Last Vital Signs Temp 96.9 F 06/20/21 07:29 Pulse 54 06/20/21 07:29 Resp 18 06/20/21 07:50 BP 118/62 06/20/21 07:29 Pulse Ox 97 06/20/21 07:29 Oxygen Flow Rate 2 06/19/21 09:55 BMI result Body Mass Index 36.3 <LUIS MANUEL Ace Last Filed: 06/20/21 07:58> Const: General: comfortable, no acute distress and alert <Apple Jacinto PA-C - Last Filed: 06/20/21 07:58> Orientation/consciousness: patient oriented x3 <LUIS MANUEL Ace Last Filed: 06/20/21 07:58> Resp: Effort & Inspection: normal respiratory effort <LUIS MANUEL Ace Last Filed: 06/20/21 07:58> GI: Inspection: Yes distended and Yes incision (clean) <Apple greer PA-C - Last Filed: 06/20/21 07:58> Palpation (GI): Soft to palpation, Tenderness to palpation present (GI) (mild, incisional), no guarding and not rigid <LUIS MANUEL Ace Last Filed: 06/20/21 07:58> Percussion: Yes tympanic to percussion <LUIS MANUEL Ace Bernard ed: 06/20/21 07:58> Skin: General skin exam: no rashes or lesions noted <LUIS MANUEL Ace Last Filed: 06/20/21 07:58> Neuro: General: patient oriented x3 <Apple Jacinto PA-C - Last Filed: 06/20/21 07:58> Objective Data Active Medications Albuterol Sulfate (Albuterol Sulfate 90 Mcg 8 Gm Inhaler) 1 puff INHALE RQID [facility] Last Admin: 06/20/21 07:48 Dose: Not Given Documented by: LILIANE Non-Admin Reason: See Note Chlorhexidine Gluconate (Chlorhexidine Gluc Oral Rinse 15 Ml Mouthwash) 15 ml BUCCAL DAILY [facility] Last Admin: 06/19/21 09:40 Dose: 15 ml Documented by: YOVANNY Docusate Sodium (Docusate Sodium 100 Mg Capsule) 100 mg PO BID [facility] Last Admin: 06/19/21 21:19 Dose: 100 mg Documented by: FADI Fluticasone Propionate (Fluticasone Propionate 250 Mcg Blst.W.Dev) 1 puff IN [place]EMUS RBID [facility] Last Admin: 06/20/21 07:48 Dose: 1 puff Documented by: LILIANE Fluticasone Propionate (Fluticasone Propionate Nasal 16 Gm [place]) 1 spray NOSTRIL-B DAILY [facility] Last Admin: 06/19/21 09:41 Dose: 1 spray Documented by: YOVANNY Heparin Sodium (Porcine) (Heparin Sodium,Porcine 5,000 Unit/Ml Vial) 5,000 unit SUBCUT Q8H [facility] Last Admin: 06/20/21 02:47 Dose: 5,000 unit Documented by: TEGAN Lactated Ringer's (Lr) 1,000 mls @ 100 mls/hr IVCONT .Q10H [facility] Last Admin: 06/20/21 02:46 Dose: 100 mls/hr Documented by: RAYASY Acetaminophen (Ofirmev) 1,000 mg in 100 mls @ 400 mls/hr IV Q6H [facility] Last Infusion: 06/20/21 04:04 Dose: 0 mls/hr Documented by: TEGAN Promethazine HCl 12.5 mg/ (Sodium Chloride) 50.5 mls @ 202 mls/hr IV Q6H PRN PRN Reason: Nausea and Vomiting Last Infusion: 06/19/21 12:35 Dose: 0 mls/hr Documented by: YOVANNY Piperacillin Sod/Tazobactam (Sod 3.375 gm/ Sodium Chloride) 50 mls @ 100 mls/hr IV Q6H [facility] Last Infusion: 06/20/21 03:39 Dose: 0 mls/hr Documented by: TEGAN Amino Acids/Electrolytes/Dextrose (Clinimix E 4.25%-10%) 1,200 mls @ 50 mls/hr IV DAILY@1800 [facility] Stop: 06/20/21 17:59 Last Admin: 06/19/21 22:42 Dose: 50 mls/hr Documented by: FADI Lisinopril (Lisinopril 5 Mg Tablet) 5 mg PO DAILY [facility]; Protocol Last Admin: 06/19/21 09:41 Dose: 5 mg Documented by: YOVANNY Loratadine (Loratadine 10 Mg Tablet) 10 mg PO DAILY PRN PRN Reason: Allergy Symptoms Melatonin (Melatonin 3 Mg Tablet) 6 mg PO BEDTIME PRN PRN Reason: Insomnia Last Admin: 06/18/21 20:02 Dose: 6 mg Documented by: ANA Montelukast Sodium (Montelukast Sodium 10 Mg Tablet) 10 mg PO BEDTIME [facility] Last Admin: 06/19/21 21:19 Dose: 10 mg Documented by: FADI Morphine Sulfate (Morphine Sulfate 4 Mg/Ml Cartridge) 4 mg IVPUSH Q4H PRN; Protocol PRN Reason: Pain, Severe (Pain Scale 7-10) Last Admin: 06/18/21 19:58 Dose: 4 mg Documented by: ANA Omeprazole (Omeprazole 20 Mg Capsule.Dr) 20 mg PO DAILY@0630 [facility] Last Admin: 06/20/21 05:11 Dose: 20 mg Documented by: TEGAN Ondansetron HCl (Ondansetron Hcl 4 Mg/2 Ml Vial) 4 mg IVPUSH Q8H PRN PRN Reason: Nausea and Vomiting Last Admin: 06/20/21 03:47 Dose: 4 mg Documented by: TEGAN Oxycodone HCl (Oxycodone Hcl Immed Release 5 Mg Tablet) 5 mg PO Q4H PRN PRN Reason: Pain, Moderate (Pain Scale 4-6 Last Admin: 06/17/21 19:58 Dose: 5 mg Documented by: TYSON Oxycodone HCl (Oxycodone Hcl Immed Release 5 Mg Tablet) 10 mg PO Q4H PRN PRN Reason: Pain, Severe (Pain Scale 7-10) Last Admin: 06/20/21 03:48 Dose: 10 mg Documented by: TEGAN Polyethylene Glycol (Polyethylene Glycol 3350 17 Gm Powd.Pack) 17 gm PO DAILY [facility] Last Admin: 06/19/21 09:41 Dose: 17 gm Documented by: YOVANNY Pravastatin Sodium (Pravastatin Sodium 80 Mg Tablet) 80 mg PO BEDTIME [facility] Last Admin: 06/19/21 21:19 Dose: 80 mg Documented by: COLANGELA Sertraline HCl (Sertraline Hcl 100 Mg Tablet) 100 mg PO DAILY [facility] Last Admin: 06/19/21 09:40 Dose: 100 mg Documented by: YOVANNY Sodium Chloride (0.9 % Sodium Chloride Flush 3 Ml Syringe) 3 ml IVFLUSH QSHIFT [facility] Last Admin: 06/20/21 02:46 Dose: Not Given Documented by: TEGAN Non-Admin Reason: IV Running <Apple Jacinto PA-C - Last Filed: 06/20/21 07:58> Labs CBC & Chem 7: : 06/20/21 10:09 06/20/21 05:54 <Apple Jacinto PA-C - Last Filed: 06/20/21 07:58> Labs: Laboratory Results - last 24 hr 06/19/21 06/19/21 06/20/21 08:15 08:15 05:54 MCV 77.5 L 76.6 L MCH 23.8 L 24.1 L MCHC 30.7 L 31.5 RDW 17.7 H 17.6 H Plt Count 554 H D 436 H MPV 9.8 10.2 Immature Gran % (Auto) 1.5 H Neut % (Auto) 77.0 H Lymph % (Auto) 12.1 L Early % (Auto) 6.6 Eos % (Auto) 2.6 Baso % (Auto) 0.2 Lymph # (Auto) 2.2 Early # (Auto) 1.2 Eos # (Auto) 0.5 H Baso # (Auto) 0.0 Abs Immat Gran (auto) 0.28 H Absolute Neuts (auto) 14.0 H Absolute Nucleated RBC 0.000 0.000 Nucleated RBC % (auto) 0.0 0.0 Anion Gap 16 Estim Creat Clear Calc 126.9 Estimated GFR > 60 Random Glucose Fasting Glucose 107 H Calcium 9.2 Phosphorus 3.7 Magnesium 1.8 06/20/21 05:54 MCV MCH MCHC RDW Plt Count MPV Immature Gran % (Auto) Neut % (Auto) Lymph % (Auto) Early % (Auto) Eos % (Auto) Baso % (Auto) Lymph # (Auto) Early # (Auto) Eos # (Auto) Baso # (Auto) Abs Immat Gran (auto) Absolute Neuts (auto) Absolute Nucleated RBC Nucleated RBC % (auto) Anion Gap 12 Estim Creat Clear Calc 146.8 Estimated GFR > 60 Random Glucose 137 H Fasting Glucose Calcium 8.5 D Phosphorus Magnesium <Apple Jacinto PA-C - Last Filed: 06/20/21 07:58> Procedures Date of Service Date of Service: 06/20/21 <Apple Jacinto PA-C - Last Filed: 06/20/21 07:58> Progress Note: A&P Assessment and plan (1) S/P right colectomy: Status: Acute <Apple Jacinto PA-C - Last Filed: 06/20/21 07:58> Assessment and Plan: Continues to feel much better Hungry and wants to eat Passing flatus Looks well Abdomen obese and soft Clinically doing well Clear liquids and slowly advance as tolerated Encouraged to ambulate some more No fever, looks well and appears happy Seen and examined independently - agree with TYLOR Jacinto <Sebastián Mojica MD - Last Filed: 06/20/21 12:56> (2) Colon adenocarcinoma: Status: Acute <Apple Jacinto PA-C - Last Filed: 06/20/21 07:58> Plan 50 year old female who is POD #7 s/p SHIRA right colectomy for right colon CA. Increasing leukocytosis yesterday- CT scan obtained which showed ascites, thickening of ileum ?enteritis, dilated SB loops. Improved this morning. VSS. Abd exam- remains distended but soft, clean incision, tenderness decreased. WBC significantly improved yesterday. AM CBC pending. Will advance to clear liquids. Continue PPN for now. C diff pending. Continued to encourage OOB and ambulation. <Apple Jacinto PA-C - Last Filed: 06/20/21 07:58> Fall Risk Details Current Medications: Current Medications Albuterol Sulfate (Albuterol Sulfate 90 Mcg 8 Gm Inhaler) 1 puff INHALE RQID [facility] Last Admin: 06/20/21 07:48 Dose: Not Given Documented by: Chlorhexidine Gluconate (Chlorhexidine Gluc Oral Rinse 15 Ml Mouthwash) 15 ml BUCCAL DAILY [facility] Last Admin: 06/19/21 09:40 Dose: 15 ml Documented by: Docusate Sodium (Docusate Sodium 100 Mg Capsule) 100 mg PO BID [facility] Last Admin: 06/19/21 21:19 Dose: 100 mg Documented by: Fluticasone Propionate (Fluticasone Propionate 250 Mcg Blst.W.Dev) 1 puff INHALE RBID [facility] Last Admin: 06/20/21 07:48 Dose: 1 puff Documented by: Fluticasone Propionate (Fluticasone Propionate Nasal 16 Gm [place]) 1 spray NOSTRIL-B DAILY [facility] Last Admin: 06/19/21 09:41 Dose: 1 spray Documented by: Heparin Sodium (Porcine) (Heparin Sodium,Porcine 5,000 Unit/Ml Vial) 5,000 unit SUBCUT Q8H [facility] Last Admin: 06/20/21 02:47 Dose: 5,000 unit Documented by: Lactated Ringer's (Lr) 1,000 mls @ 100 mls/hr IVCONT .Q10H [facility] Last Admin: 06/20/21 02:46 Dose: 100 mls/hr Documented by: Acetaminophen (Ofirmev) 1,000 mg in 100 mls @ 400 mls/hr IV Q6H [facility] Last Infusion: 06/20/21 04:04 Dose: Infused Documented by: Promethazine HCl 12.5 mg/ (Sodium Chloride) 50.5 mls @ 202 mls/hr IV Q6H PRN PRN Reason: Nausea and Vomiting Last Infusion: 06/19/21 12:35 Dose: Infused Documented by: Piperacillin Sod/Tazobactam (Sod 3.375 gm/ Sodium Chloride) 50 mls @ 100 mls/hr IV Q6H [facility] Last Infusion: 06/20/21 03:39 Dose: Infused Documented by: Amino Acids/Electrolytes/Dextrose (Clinimix E 4.25%-10%) 1,200 mls @ 50 mls/hr IV DAILY@1800 [facility] Stop: 06/20/21 17:59 Last Admin: 06/19/21 22:42 Dose: 50 mls/hr Documented by: Lisinopril (Lisinopril 5 Mg Tablet) 5 mg PO DAILY [facility]; Protocol Last Admin: 06/19/21 09:41 Dose: 5 mg Documented by: Loratadine (Loratadine 10 Mg Tablet) 10 mg PO DAILY PRN PRN Reason: Allergy Symptoms Melatonin (Melatonin 3 Mg Tablet) 6 mg PO BEDTIME PRN PRN Reason: Insomnia Last Admin: 06/18/21 20:02 Dose: 6 mg Documented by: Montelukast Sodium (Montelukast Sodium 10 Mg Tablet) 10 mg PO BEDTIME [facility] Last Admin: 06/19/21 21:19 Dose: 10 mg Documented by: Morphine Sulfate (Morphine Sulfate 4 Mg/Ml Cartridge) 4 mg IVPUSH Q4H PRN; Protocol PRN Reason: Pain, Severe (Pain Scale 7-10) Last Admin: 06/18/21 19:58 Dose: 4 mg Documented by: Omeprazole (Omeprazole 20 Mg Capsule.Dr) 20 mg PO DAILY@0630 [facility] Last Admin: 06/20/21 05:11 Dose: 20 mg Documented by: Ondansetron HCl (Ondansetron Hcl 4 Mg/2 Ml Vial) 4 mg IVPUSH Q8H PRN PRN Reason: Nausea and Vomiting Last Admin: 06/20/21 03:47 Dose: 4 mg Documented by: Oxycodone HCl (Oxycodone Hcl Immed Release 5 Mg Tablet) 5 mg PO Q4H PRN PRN Reason: Pain, Moderate (Pain Scale 4-6 Last Admin: 06/17/21 19:58 Dose: 5 mg Documented by: Oxycodone HCl (Oxycodone Hcl Immed Release 5 Mg Tablet) 10 mg PO Q4H PRN PRN Reason: Pain, Severe (Pain Scale 7-10) Last Admin: 06/20/21 03:48 Dose: 10 mg Documented by: Polyethylene Glycol (Polyethylene Glycol 3350 17 Gm Powd.Pack) 17 gm PO DAILY [facility] Last Admin: 06/19/21 09:41 Dose: 17 gm Documented by: Pravastatin Sodium (Pravastatin Sodium 80 Mg Tablet) 80 mg PO BEDTIME [facility] Last Admin: 06/19/21 21:19 Dose: 80 mg Documented by: Sertraline HCl (Sertraline Hcl 100 Mg Tablet) 100 mg PO DAILY [facility] Last Admin: 06/19/21 09:40 Dose: 100 mg Documented by: Sodium Chloride (0.9 % Sodium Chloride Flush 3 Ml Syringe) 3 ml IVFLUSH QSHIFT [facility] Last Admin: 06/20/21 02:46 Dose: Not Given Documented by: <Apple Jacinto PA-C - Last Filed: 06/20/21 07:58> Time Spent With Patient Time: Total time spent is greater than 50% in coordination of care (as documented) at patient's floor/unit and/or counseling patient: <Apple Jacinto PA-C - Last Filed: 06/20/21 07:58> Quality Stroke Does the patient have a stroke diagnosis?: No <Apple Jacinto PA-C - Last Filed: 06/20/21 07:58> VTE Prior VTE?: No <Apple Jacinto PA-C - Last Filed: 06/20/21 07:58> VTE Risk Level:: Surgical - high <LUIS MANUEL Ace Last Filed: 06/20/21 07:58> VTE Device Contraindication: N/A - Device Ordered <LUIS MANUEL Ace Last Filed: 06/20/21 07:58> VTE Drug Contraindication: N/A - Med Ordered <LUIS MANUEL Ace Last Filed: 06/20/21 07:58>
[2021-06-20 08:17] LABS: Magnesium 1.8 mg/dL (1.6-2.6); Triglycerides 193 mg/dL
--- NOTE | 2021-06-20 09:15 | MHC.CLN ---
F/U PPN STARTED 06/19. RUNNING AT D10AA4.25 AT 50ML/HR TO PROVIDE 612KCALS, 51G PROTEIN RECOMMEND DAY 2, 06/20/21: D10AA4.25 AT 70ML/HR TO PROVIDE 857KCALS, 71G PROTEIN CHECK TRIGS AND REPLETE LYTES NEEDED DAY 3, 06/21/21: D10AA4.25 AT 90ML/HR TO PROVIDE 1102KCALS, 92G PROTEIN REPLETE LYTES NEEDED DAY 4, 06/22/21: D10AA4.25 AT 100ML/HR TO PROVIDE 1224KCALS, 102G PROTEIN ADD LIPIDS 17ML OF 20% LIPIDS. TOTAL 2040KCALS (31.4G/KG CALCULATED METABOLIC RATE); 102G PROTEIN (1.57G/KG CALCULATED METABOLIC RATE) REPLETE LYTES NEEDED RD REVIEWED WITH PHARMACY. DIET ADVANCED TO CLEAR LIQUIDS 06/20/21. FOLLOW FOR DIET ADVANCEMENT/TOLERANCE. FOLLOW PO INTAKE AND ADJUST PPN NEEDED TO REFLECT ORAL INTAKE.
[2021-06-20] MEDS: polyethylene glycoL 3350 17 GM POWD.PACK PO (09:16)
[2021-06-20] MEDS: 0.9 % Sodium Chloride Flush 3 ML SYRINGE IVFLUSH ×2 (09:16→17:50)
[2021-06-20] MEDS: Docusate Sodium 100 MG CAPSULE PO ×2 (09:17→20:19)
[2021-06-20] MEDS: Sertraline HCL 100 MG TABLET PO (09:17)
[2021-06-20] MEDS: Chlorhexidine Gluc Oral Rinse 15 ML MOUTHWASH BUCCAL (09:17)
[2021-06-20] MEDS: lisinopriL 5 MG TABLET PO (09:17)
[2021-06-20] MEDS: Fluticasone Propionate Nasal 16 GM SPRAY 1 SPRAY NOSTRIL-B (09:31)
--- NOTE | 2021-06-20 09:35 | P.PNIM_ITS ---
Subjective Subjective Date of Service: 06/20/21 Interval History: feeling better this morning, had multiple bowel movement overnight few formed and few soft, denies nausea , no vomiting, no fevers no chills, no acute events overnight. Review of Systems [employer] no headache, no dizziness CVS no chest pain, no palpitation respiratory no cough, no shortness of breath Review of Systems: Yes all other systems are reviewed and are negative Physical Exam Vital Signs: Vital Signs: Last Vital Signs Temp 96.9 F 06/20/21 07:29 Pulse 54 06/20/21 07:29 Resp 18 06/20/21 07:50 BP 118/62 06/20/21 07:29 Pulse Ox 97 06/20/21 07:29 Oxygen Flow Rate 2 06/19/21 09:55 BMI result Body Mass Index 36.3 Const: Other: General? awake alert,? no distress, appears uncomfortable HEENT pupil equal reactive to light and accommodation. Neck? supple no JVD. CVS? regular rate rhythm, Respiratory lungs clear to auscultation, no?respiratory distress. Gastrointestinal abdomen less distended, less tenderness to palpation,?bowel sounds audible, no guarding, no rigidity,? incision clean, ck in place. Extremities no edema. Neuro nonfocal Skin no rash psych appropriate affect Objective Data Active Medications Albuterol Sulfate (Albuterol Sulfate 90 Mcg 8 Gm Inhaler) 1 puff INHALE RQID [facility] Last Admin: 06/20/21 07:48 Dose: Not Given Documented by: LILIANE Non-Admin Reason: See Note Chlorhexidine Gluconate (Chlorhexidine Gluc Oral Rinse 15 Ml Mouthwash) 15 ml BUCCAL DAILY [facility] Last Admin: 06/20/21 09:17 Dose: 15 ml Documented by: YOVANNY Docusate Sodium (Docusate Sodium 100 Mg Capsule) 100 mg PO BID [facility] Last Admin: 06/20/21 09:17 Dose: 100 mg Documented by: YOVANNY Fluticasone Propionate (Fluticasone Propionate 250 Mcg Blst.W.Dev) 1 puff INHALE RBID [facility] Last Admin: 06/20/21 07:48 Dose: 1 puff Documented by: LILIANE Fluticasone Propionate (Fluticasone Propionate Nasal 16 Gm [place]) 1 spray NOSTRIL-B DAILY [facility] Last Admin: 06/20/21 09:31 Dose: 1 spray Documented by: YOVANNY Heparin Sodium (Porcine) (Heparin Sodium,Porcine 5,000 Unit/Ml Vial) 5,000 unit SUBCUT Q8H [facility] Last Admin: 06/20/21 09:17 Dose: 5,000 unit Documented by: YOVANNY Lactated Ringer's (Lr) 1,000 mls @ 100 mls/hr IVCONT .Q10H [facility] Last Admin: 06/20/21 02:46 Dose: 100 mls/hr Documented by: TUMASY Acetaminophen (Ofirmev) 1,000 mg in 100 mls @ 400 mls/hr IV Q6H [facility] Last Admin: 06/20/21 09:16 Dose: 400 mls/hr Documented by: YOVANNY Promethazine HCl 12.5 mg/ (Sodium Chloride) 50.5 mls @ 202 mls/hr IV Q6H PRN PRN Reason: Nausea and Vomiting Last Infusion: 06/19/21 12:35 Dose: 0 mls/hr Documented by: YOVANNY Piperacillin Sod/Tazobactam (Sod 3.375 gm/ Sodium Chloride) 50 mls @ 100 mls/hr IV Q6H [facility] Last Admin: 06/20/21 09:16 Dose: 100 mls/hr Documented by: YOVANNY Amino Acids/Electrolytes/Dextrose (Clinimix E 4.25%-10%) 1,200 mls @ 50 mls/hr IV DAILY@1800 [facility] Stop: 06/20/21 17:59 Last Admin: 06/19/21 22:42 Dose: 50 mls/hr Documented by: FADI Lisinopril (Lisinopril 5 Mg Tablet) 5 mg PO DAILY [facility]; Protocol Last Admin: 06/20/21 09:17 Dose: 5 mg Documented by: YOVANNY Loratadine (Loratadine 10 Mg Tablet) 10 mg PO DAILY PRN PRN Reason: Allergy Symptoms Melatonin (Melatonin 3 Mg Tablet) 6 mg PO BEDTIME PRN PRN Reason: Insomnia Last Admin: 06/18/21 20:02 Dose: 6 mg Documented by: ANA Montelukast Sodium (Montelukast Sodium 10 Mg Tablet) 10 mg PO BEDTIME [facility] Last Admin: 06/19/21 21:19 Dose: 10 mg Documented by: FADI Morphine Sulfate (Morphine Sulfate 4 Mg/Ml Cartridge) 4 mg IVPUSH Q4H PRN; Protocol PRN Reason: Pain, Severe (Pain Scale 7-10) Last Admin: 06/18/21 19:58 Dose: 4 mg Documented by: ANA Omeprazole (Omeprazole 20 Mg Capsule.Dr) 20 mg PO DAILY@0630 [facility] Last Admin: 06/20/21 05:11 Dose: 20 mg Documented by: TEGAN Ondansetron HCl (Ondansetron Hcl 4 Mg/2 Ml Vial) 4 mg IVPUSH Q8H PRN PRN Reason: Nausea and Vomiting Last Admin: 06/20/21 03:47 Dose: 4 mg Documented by: TEGAN Oxycodone HCl (Oxycodone Hcl Immed Release 5 Mg Tablet) 5 mg PO Q4H PRN PRN Reason: Pain, Moderate (Pain Scale 4-6 Last Admin: 06/17/21 19:58 Dose: 5 mg Documented by: TYSON Oxycodone HCl (Oxycodone Hcl Immed Release 5 Mg Tablet) 10 mg PO Q4H PRN PRN Reason: Pain, Severe (Pain Scale 7-10) Last Admin: 06/20/21 03:48 Dose: 10 mg Documented by: TEGAN Polyethylene Glycol (Polyethylene Glycol 3350 17 Gm Powd.Pack) 17 gm PO DAILY [facility] Last Admin: 06/20/21 09:16 Dose: 17 gm Documented by: YOVANNY Pravastatin Sodium (Pravastatin Sodium 80 Mg Tablet) 80 mg PO BEDTIME [facility] Last Admin: 06/19/21 21:19 Dose: 80 mg Documented by: FADI Sertraline HCl (Sertraline Hcl 100 Mg Tablet) 100 mg PO DAILY [facility] Last Admin: 06/20/21 09:17 Dose: 100 mg Documented by: YOVANNY Sodium Chloride (0.9 % Sodium Chloride Flush 3 Ml Syringe) 3 ml IVFLUSH [facility] Last Admin: 06/20/21 09:16 Dose: 3 ml Documented by: YOVANNY Labs CBC & Chem 7: 06/20/21 05:54 06/20/21 05:54 Labs: Laboratory Results - last 24 hr 06/20/21 06/20/21 05:54 05:54 MCV 76.6 L MCH 24.1 L MCHC 31.5 RDW 17.6 H Plt Count 436 H MPV 10.2 Absolute Nucleated RBC 0.000 Nucleated RBC % (auto) 0.0 Anion Gap 12 Estim Creat Clear Calc 146.8 Estimated GFR > 60 Random Glucose 137 H Calcium 8.5 D Phosphorus 4.0 Magnesium 1.8 Triglycerides 193 Assessment and Plan (1) Hypertension: Status: Acute (2) Obesity: Status: Acute Plan 50-year-old female patient with multiple medical issues including history of hyperlipidemia, hypertension, depression, asthma underwent elective right colon resection for colon cancer. ?Status post right colon resection postoperative day 8 abdominal pain and distension improving, no nausea, multiple bowel movement overnight. WBC trending down , no fevers, no chills CT abdomen from 06/18 showed small bowel wall thickening in ileum with surrounding ascites consistent with enteritis on IV Zosyn day 2, follow clinical course and CBC on IV fluid, morphine , Tylenol, and oxycodone 5-10 mg, as needed for pain, encouraged OOB and ambulation on iv PPN due to prolonged NPO status, started on clear liquids today surgical pathology showed adeno carcinoma, moderately different with focal mucinous differentiation with 1 of 9 lymph node positive for metastatic tumor will change IV fluid to 50 mL per/h. Acute on chronic anemia, low MCV and iron studies consistent with iron deficiency anemia, ferritin 5 and saturation 8, likely blood loss from colon ca, status post iv iron, hematocrit dropped to 24.6 no active bleed noted, s/p 1 unit of packed RBC on 06/17 hematocrit improved to 33.5 trended down to 30.2 hypomagnesemia repleted hypertension stable BP continue lisinopril 5 mg ?hyperlipidemia continue Pravachol 80 mg at bedtime ?mild intermittent asthma no acute exacerbation continue home inhalers depression continue Zoloft 100 mg obesity weight loss recommended low-calorie diet, since contributing to hyper tension and hyperlipidemia ?DVT prophylaxis with heparin ?code status full code patient need continued inpatient hospitalization due to right colon resection with persistent abdominal pain, abd distension, requiring iv PPN and IV fluid. Quality Stroke Does the patient have a stroke diagnosis?: No VTE Prior VTE?: No VTE Risk Level:: Surgical - high VTE Device Contraindication: N/A - Device Ordered VTE Drug Contraindication: N/A - Med Ordered
[2021-06-20 10:21] LABS: MANUAL DIFF FLAG NO
[2021-06-20 10:28] LABS: Basophils Absolute Auto 0.1 X10*3/uL (0.0-0.2); Basophils Percent Auto 0.4 % (0-2); Eosinophils Absolute Auto 0.4 X10*3/uL (0.0-0.4); Eosinophils Percent Auto 3.2 % (0-4); Hematocrit 29.9 % (37.0-47.0); Hemoglobin 9.3 g/dl (12.0-16.0); Imm Gran Abs Auto 0.19 X10*3/uL (0.00-0.03); Imm Gran Pct Auto 1.5 % (0.0-0.4); Lymphocytes Absolute Auto 1.8 X10*3/uL (1.2-4.9); Mean Corpuscular HGB Conc 31.1 g/dl (31.0-35.0); Mean Corpuscular Hemoglobin 24.4 pg (27.0-33.0); Mean Corpuscular Volume 78.5 fL (80.0-98.0); Mean Platelet Volume 10.1 fL (9.4-12.3); Monocytes Absolute Auto 0.9 X10*3/uL (0.1-1.2); Monocytes Percent Auto 7.2 % (2-11); Neutrophils Absolute Auto 9.4 x10*3/uL (2.0-8.3); Neutrophils Percent Auto 73.7 % (45-73); Platelet Count 409 X10*3/uL (160-400); Red Blood Count 3.81 X10*6/uL (4.20-5.50); Red Cell Distribution Width 17.8 % (11.0-16.0); White Blood Count 12.8 X10*3/uL (4.8-10.8)
[2021-06-20] MEDS: Albuterol Sulfate 90 MCG 8 GM INHALER 1 PUFF INHALE (20:14)
[2021-06-20] MEDS: Pravastatin Sodium 80 MG TABLET PO (20:19)
[2021-06-20] MEDS: Montelukast Sodium 10 MG TABLET PO (20:19)
[2021-06-21] VITALS (7 sets, daily range): BP systolic 119–144; BP diastolic 57–74; PULSE 47–79; RESP 16–19; TEMP 35.5–37.1; O2SAT 95–100
[2021-06-21] MEDS: Piperacillin Sodium/Tazobactam 3.375 GM in 0.9 % Sodium Chloride 50 ML IV ×4 (02:26→19:54)
[2021-06-21] MEDS: Heparin Sodium,Porcine 5,000 UNIT/ML VIAL 5000 UNIT SUBCUT ×3 (02:27→18:25)
[2021-06-21] MEDS: Lactated Ringers 1,000 ML 100 ML IVCONT (05:10)
[2021-06-21] MEDS: Omeprazole 20 MG CAPSULE.DR PO (05:13)
[2021-06-21 06:02] LABS: Hematocrit 30.4 % (37.0-47.0); Hemoglobin 9.5 g/dl (12.0-16.0); Mean Corpuscular HGB Conc 31.3 g/dl (31.0-35.0); Mean Corpuscular Hemoglobin 24.2 pg (27.0-33.0); Mean Corpuscular Volume 77.4 fL (80.0-98.0); Mean Platelet Volume 10.3 fL (9.4-12.3); Platelet Count 409 X10*3/uL (160-400); Red Blood Count 3.93 X10*6/uL (4.20-5.50); Red Cell Distribution Width 17.7 % (11.0-16.0); White Blood Count 12.9 X10*3/uL (4.8-10.8)
[2021-06-21 06:33] LABS: Anion Gap 12 (12-20); Blood Urea Nitrogen 7 mg/dL (9-16); Calcium 8.7 mg/dL (8.4-10.2); Carbon Dioxide 26 mmol/L (22-29); Chloride 105 mmol/L (96-108); Estimated Glomerular Filt Rate > 60; Glucose Random 133 mg/dL (60-115); Potassium 4.1 mmol/L (3.3-5.1); Sodium 139 mmol/L (135-145)
[2021-06-21] MEDS: Albuterol Sulfate 90 MCG 8 GM INHALER 1 PUFF INHALE ×2 (07:24→19:57)
[2021-06-21] MEDS: 0.9 % Sodium Chloride Flush 3 ML SYRINGE IVFLUSH (07:54)
[2021-06-21 09:16] LABS: Magnesium 1.8 mg/dL (1.6-2.6); Phosphorus 3.8 mg/dL (2.7-4.5)
[2021-06-21] MEDS: Sertraline HCL 100 MG TABLET PO (09:18)
[2021-06-21] MEDS: Docusate Sodium 100 MG CAPSULE PO ×2 (09:18→19:54)
[2021-06-21] MEDS: polyethylene glycoL 3350 17 GM POWD.PACK PO (09:18)
[2021-06-21] MEDS: Chlorhexidine Gluc Oral Rinse 15 ML MOUTHWASH BUCCAL (09:19)
[2021-06-21] MEDS: lisinopriL 5 MG TABLET PO (09:19)
[2021-06-21] MEDS: Fluticasone Propionate Nasal 16 GM SPRAY 1 SPRAY NOSTRIL-B (09:20)
[2021-06-21] MEDS: ondansetron HCL 4 MG/2 ML VIAL IVPUSH (12:56)
[2021-06-21] MEDS: oxyCODONE HCl Immed Release 5 MG TABLET 10 MG PO (12:56)
--- NOTE | 2021-06-21 12:58 | P.PNIM_ITS ---
Subjective Subjective Date of Service: 06/21/21 Interval History: Patient's is feeling better, passing BM,no vomiting, no fevers no chills, no acute events overnigh Review of Systems denies any chest shortness of breath of fever chills, Physical Exam Vital Signs: Vital Signs: Last Vital Signs Temp 96 F L 06/21/21 07:08 Pulse 79 06/21/21 08:57 Resp 16 06/21/21 07:25 BP 127/62 06/21/21 08:57 Pulse Ox 99 06/21/21 08:57 Oxygen Flow Rate 2 06/19/21 09:55 BMI result Body Mass Index 36.3 Appearance: Alert.? Oriented X3.? not in distress.? Eyes: Pupils equal, round and reactive to light.? Sclera nonicteric.? ENT: Pharynx normal.? Moist mucous membranes. cvs: rrr, [id number] , no murmur res: clear to auscultation ,no rhonchii or wheezing Gastrointestinal abdomen less distended, less tenderness to palpation,?bowel sounds audible, no guarding, no rigidity,? incision clean, ck in place. ext pulses present , no cyanosis ,Gait well balanced well coordinated. neuro: axo3 , nonfocal. Objective Data Active Medications Albuterol Sulfate (Albuterol Sulfate 90 Mcg 8 Gm Inhaler) 1 puff INHALE RQID [facility] Last Admin: 06/21/21 10:40 Dose: Not Given Documented by: CASPER Non-Admin Reason: Patient Refused Chlorhexidine Gluconate (Chlorhexidine Gluc Oral Rinse 15 Ml Mouthwash) 15 ml BUCCAL DAILY [facility] Last Admin: 06/21/21 09:19 Dose: 15 ml Documented by: RUBI Docusate Sodium (Docusate Sodium 100 Mg Capsule) 100 mg PO BID [facility] Last Admin: 06/21/21 09:18 Dose: 100 mg Documented by: RUBI Fluticasone Propionate (Fluticasone Propionate 250 Mcg Blst.W.Dev) 1 puff INHALE RBID [facility] Last Admin: 06/21/21 07:25 Dose: Not Given Documented by: CASPER Non-Admin Reason: Patient Refused Fluticasone Propionate (Fluticasone Propionate Nasal 16 Gm [place]) 1 spray NOSTRIL-B DAILY [facility] Last Admin: 06/21/21 09:20 Dose: 1 spray Documented by: RUBI Heparin Sodium (Porcine) (Heparin Sodium,Porcine 5,000 Unit/Ml Vial) 5,000 unit SUBCUT Q8H [facility] Last Admin: 06/21/21 09:19 Dose: 5,000 unit Documented by: RUBI Acetaminophen (Ofirmev) 1,000 mg in 100 mls @ 400 mls/hr IV Q6H [facility] Last Infusion: 06/21/21 10:07 Dose: 0 mls/hr Documented by: LUCITA Promethazine HCl 12.5 mg/ (Sodium Chloride) 50.5 mls @ 202 mls/hr IV Q6H PRN PRN Reason: Nausea and Vomiting Last Infusion: 06/19/21 12:35 Dose: 0 mls/hr Documented by: YOVANNY Piperacillin Sod/Tazobactam (Sod 3.375 gm/ Sodium Chloride) 50 mls @ 100 mls/hr IV Q6H [facility] Last Infusion: 06/21/21 08:48 Dose: 100 mls/hr Documented by: RUBI Multivitamins 10 ml/ Trace Metals 1 ml/ Amino Acids/Electrolytes/Dextrose 1,680 mls @ 70 mls/hr IV DAILY@1800 [facility] Stop: 06/21/21 17:59 Last Admin: 06/20/21 18:18 Dose: 70 mls/hr Documented by: YOVANNY Amino Acids/Electrolytes/Dextrose (Clinimix E 4.25%-10%) 2,000 mls @ 83.333 mls/hr IV DAILY@1800 [facility] Stop: 06/22/21 17:59 Lisinopril (Lisinopril 5 Mg Tablet) 5 mg PO DAILY [facility]; Protocol Last Admin: 06/21/21 09:19 Dose: 5 mg Documented by: RUBI Loratadine (Loratadine 10 Mg Tablet) 10 mg PO DAILY PRN PRN Reason: Allergy Symptoms Melatonin (Melatonin 3 Mg Tablet) 6 mg PO BEDTIME PRN PRN Reason: Insomnia Last Admin: 06/18/21 20:02 Dose: 6 mg Documented by: ANA Montelukast Sodium (Montelukast Sodium 10 Mg Tablet) 10 mg PO BEDTIME [facility] Last Admin: 06/20/21 20:19 Dose: 10 mg Documented by: IVY Morphine Sulfate (Morphine Sulfate 4 Mg/Ml Cartridge) 4 mg IVPUSH Q4H PRN; Protocol PRN Reason: Pain, Severe (Pain Scale 7-10) Last Admin: 06/18/21 19:58 Dose: 4 mg Documented by: ANA Omeprazole (Omeprazole 20 Mg Capsule.Dr) 20 mg PO DAILY@0630 [facility] Last Admin: 06/21/21 05:13 Dose: 20 mg Documented by: IVY Ondansetron HCl (Ondansetron Hcl 4 Mg/2 Ml Vial) 4 mg IVPUSH Q8H PRN PRN Reason: Nausea and Vomiting Last Admin: 06/21/21 12:56 Dose: 4 mg Documented by: LUCITA Oxycodone HCl (Oxycodone Hcl Immed Release 5 Mg Tablet) 5 mg PO Q4H PRN PRN Reason: Pain, Moderate (Pain Scale 4-6 Last Admin: 06/17/21 19:58 Dose: 5 mg Documented by: TYSON Oxycodone HCl (Oxycodone Hcl Immed Release 5 Mg Tablet) 10 mg PO Q4H PRN PRN Reason: Pain, Severe (Pain Scale 7-10) Last Admin: 06/21/21 12:56 Dose: 10 mg Documented by: LUCITA Polyethylene Glycol (Polyethylene Glycol 3350 17 Gm Powd.Pack) 17 gm PO DAILY [facility] Last Admin: 06/21/21 09:18 Dose: 17 gm Documented by: RUBI Pravastatin Sodium (Pravastatin Sodium 80 Mg Tablet) 80 mg PO BEDTIME [facility] Last Admin: 06/20/21 20:19 Dose: 80 mg Documented by: IVY Sertraline HCl (Sertraline Hcl 100 Mg Tablet) 100 mg PO DAILY [facility] Last Admin: 06/21/21 09:18 Dose: 100 mg Documented by: RUBI Sodium Chloride (0.9 % Sodium Chloride Flush 3 Ml Syringe) [facility] Last Admin: 06/21/21 07:54 Dose: 3 ml Documented by: LUCITA Labs CBC & Chem 7: 06/21/21 05:45 06/21/21 05:46 Labs: Laboratory Results - last 24 hr 06/21/21 06/21/21 05:45 05:46 MCV 77.4 L MCH 24.2 L MCHC 31.3 RDW 17.7 H Plt Count 409 H MPV 10.3 Absolute Nucleated RBC 0.000 Nucleated RBC % (auto) 0.0 Anion Gap 12 Estim Creat Clear Calc 156.0 Estimated GFR > 60 Random Glucose 133 H Calcium 8.7 Phosphorus 3.8 Magnesium 1.8 Assessment and Plan (1) Ileus following gastrointestinal surgery: Status: Acute (2) Hypertension: Status: Acute Plan 50-year-old female patient with multiple medical issues including history of hyperlipidemia, hypertension, depression, asthma underwent elective right colon resection for colon cancer. 1.?Status post right colon resection postoperative day 9 ?abdominal pain and distension improving, no nausea, multiple bowel movement overnight. ?WBC? trending down , no fevers, no chills ?CT abdomen from 06/18? showed small bowel wall thickening in ileum with s urrounding ascites consistent with enteritis ?on IV Zosyn day 3, follow clinical course and CBC ?on IV fluid, morphine , Tylenol, and oxycodone 5-10 mg,? as needed for pain, encouraged OOB and ambulation ?on iv PPN? due to prolonged NPO status, started on clear liquids yesterday tolerting fine ?surgical pathology showed adeno carcinoma, moderately different with focal mucinous differentiation with 1 of 9 lymph node positive for metastatic tumor ?will change IV fluid to 50 mL per/h. ? 2.?Acute on chronic anemia, low MCV and iron studies consistent with iron deficiency anemia, ferritin 5 and saturation 8, likely blood loss from colon ca,? status post iv iron, hematocrit dropped to 24.6 no active bleed ?noted, s/p 1 unit of packed RBC on 06/17? hematocrit improved to 33.5? trended down to 30.2 ? 3.?hypomagnesemia ? repleted 4.?hypertension ? stable BP? continue lisinopril 5 mg 5.?hyperlipidemia ? continue Pravachol 80 mg at bedtime 6.?mild intermittent asthma? no acute exacerbation continue home inhalers ?7.depression continue Zoloft 100 mg 8.?obesity weight? loss recommended low-calorie diet, since contributing to hypertension and hyperlipidemia ?DVT prophylaxis with heparin ?code status full code ?patient need continued inpatient hospitalization due to right colon resection with persistent abdominal pain, abd distension, requiring iv PPN? and IV fluid. Quality Stroke Does the patient have a stroke diagnosis?: No VTE Prior VTE?: No VTE Risk Level:: Surgical - high VTE Device Contraindication: N/A - Device Ordered VTE Drug Contraindication: N/A - Med Ordered
--- NOTE | 2021-06-21 14:56 | PM.PNGS ---
Subjective Subjective Date of Service: 06/21/21 Interval history: pt doing better says she is drinking liquids doesnt want solids though says she mainly likes to eat soups. she is passing liquid stools not a lot of flatus she says occasionaly a little nauseated still getting ppn Physical Exam Vital Signs: Vital Signs: Last Vital Signs Temp 96 F L 06/21/21 07:08 Pulse 79 06/21/21 08:57 Resp 16 06/21/21 07:25 BP 127/62 06/21/21 08:57 Pulse Ox 99 06/21/21 08:57 Oxygen Flow Rate 2 06/19/21 09:55 BMI result Body Mass Index 36.3 Const: General: cooperative, healthy appearing, comfortable, alert, awake and Physically active; No acute distress Resp: Effort & Inspection: normal respiratory effort Auscultation: clear to auscultation bilaterally Cardio: Rate: regular rate Rhythm: regular rhythm GI: Other: abdo -s oft - distended, some bowel sounds active but slow and some little high pitched and rushes, nontender, incisons look great Inspection: Yes normal to inspection Extrem: General: Yes normal to inspection Psych: Appearance: grossly normal Objective Data Active Medications Albuterol Sulfate (Albuterol Sulfate 90 Mcg 8 Gm Inhaler) 1 puff INHALE RQID [facility] Last Admin: 06/21/21 10:40 Dose: Not Given Documented by: CASPER Non-Admin Reason: Patient Refused Chlorhexidine Gluconate (Chlorhexidine Gluc Oral Rinse 15 Ml Mouthwash) 15 ml BUCCAL DAILY [facility] Last Admin: 06/21/21 09:19 Dose: 15 ml Documented by: RUBI Docusate Sodium (Docusate Sodium 100 Mg Capsule) 100 mg PO BID [facility] Last Admin: 06/21/21 09:18 Dose: 100 mg Documented by: RUBI Fluticasone Propionate (Fluticasone Propionate 250 Mcg Blst.W.Dev) 1 puff INHALE RBID [facility] Last Admin: 06/21/21 07:25 Dose: Not Given Documented by: CASPER Non-Admin Reason: Patient Refused Fluticasone Propionate (Fluticasone Propionate Nasal 16 Gm [place]) 1 spray NOSTRIL-B DAILY [facility] Last Admin: 06/21/21 09:20 Dose: 1 spray Documented by: RUBI Heparin Sodium (Porcine) (Heparin Sodium,Porcine 5,000 Unit/Ml Vial) 5,000 unit SUBCUT Q8H [facility] Last Admin: 06/21/21 09:19 Dose: 5,000 unit Documented by: RUBI Acetaminophen (Ofirmev) 1,000 mg in 100 mls @ 400 mls/hr IV Q6H [facility] Last Infusion: 06/21/21 10:07 Dose: 0 mls/hr Documented by: LUCITA Promethazine HCl 12.5 mg/ (Sodium Chloride) 50.5 mls @ 202 mls/hr IV Q6H PRN PRN Reason: Nausea and Vomiting Last Infusion: 06/19/21 12:35 Dose: 0 mls/hr Documented by: YOVANNY Piperacillin Sod/Tazobactam (Sod 3.375 gm/ Sodium Chloride) 50 mls @ 100 mls/hr IV Q6H [facility] Last Infusion: 06/21/21 14:18 Dose: 0 mls/hr Documented by: LUCITA Multivitamins 10 ml/ Trace Metals 1 ml/ Amino Acids/Electrolytes/Dextrose 1,680 mls @ 70 mls/hr IV DAILY@1800 [facility] Stop: 06/21/21 17:59 Last Admin: 06/20/21 18:18 Dose: 70 mls/hr Documented by: YOVANNY Amino Acids/Electrolytes/Dextrose (Clinimix E 4.25%-10%) 2,000 mls @ 83.333 mls/hr IV DAILY@1800 [facility] Stop: 06/22/21 17:59 Lisinopril (Lisinopril 5 Mg Tablet) 5 mg PO DAILY [facility]; Protocol Last Admin: 06/21/21 09:19 Dose: 5 mg Documented by: RUBI Loratadine (Loratadine 10 Mg Tablet) 10 mg PO DAILY PRN PRN Reason: Allergy Symptoms Melatonin (Melatonin 3 Mg Tablet) 6 mg PO BEDTIME PRN PRN Reason: Insomnia Last Admin: 06/18/21 20:02 Dose: 6 mg Documented by: ANA Montelukast Sodium (Montelukast Sodium 10 Mg Tablet) 10 mg PO BEDTIME [facility] Last Admin: 06/20/21 20:19 Dose: 10 mg Documented by: IVY Morphine Sulfate (Morphine Sulfate 4 Mg/Ml Cartridge) 4 mg IVPUSH Q4H PRN; Protocol PRN Reason: Pain, Severe (Pain Scale 7-10) Last Admin: 06/18/21 19:58 Dose: 4 mg Documented by: ANA Omeprazole (Omeprazole 20 Mg Capsule.Dr) 20 mg PO DAILY@0630 [facility] Last Admin: 06/21/21 05:13 Dose: 20 mg Documented by: IVY Ondansetron HCl (Ondansetron Hcl 4 Mg/2 Ml Vial) 4 mg IVPUSH Q8H PRN PRN Reason: Nausea and Vomiting Last Admin: 06/21/21 12:56 Dose: 4 mg Documented by: LUCITA Oxycodone HCl (Oxycodone Hcl Immed Release 5 Mg Tablet) 5 mg PO Q4H PRN PRN Reason: Pain, Moderate (Pain Scale 4-6 Last Admin: 06/17/21 19:58 Dose: 5 mg Documented by: TYSON Oxycodone HCl (Oxycodone Hcl Immed Release 5 Mg Tablet) 10 mg PO Q4H PRN PRN Reason: Pain, Severe (Pain Scale 7-10) Last Admin: 06/21/21 12:56 Dose: 10 mg Documented by: LUCITA Polyethylene Glycol (Polyethylene Glycol 3350 17 Gm Powd.Pack) 17 gm PO DAILY [facility] Last Admin: 06/21/21 09:18 Dose: 17 gm Documented by: RUBI Pravastatin Sodium (Pravastatin Sodium 80 Mg Tablet) 80 mg PO BEDTIME [facility] Last Admin: 06/20/21 20:19 Dose: 80 mg Documented by: IVY Sertraline HCl (Sertraline Hcl 100 Mg Tablet) 100 mg PO DAILY [facility] Last Admin: 06/21/21 09:18 Dose: 100 mg Documented by: RUBI Sodium Chloride (0.9 % Sodium Chloride Flush 3 Ml Syringe) 3 ml IVFLUSH QSHIFT [facility] Last Admin: 06/21/21 07:54 Dose: 3 ml Documented by: LUCITA Labs CBC & Chem 7: 06/21/21 05:45 06/21/21 05:46 Labs: Laboratory Results - last 24 hr 06/21/21 06/21/21 05:45 05:46 MCV 77.4 L MCH 24.2 L MCHC 31.3 RDW 17.7 H Plt Count 409 H MPV 10.3 Absolute Nucleated RBC 0.000 Nucleated RBC % (auto) 0.0 Anion Gap 12 Estim Creat Clear Calc 156.0 Estimated GFR > 60 Random Glucose 133 H Calcium 8.7 Phosphorus 3.8 Magnesium 1.8 Procedures Date of Service Date of Service: 06/21/21 Progress Note: A&P Assessment and plan (1) Ileus following gastrointestinal surgery: Status: Acute Plan pt is a 50 year old female sp right colectomy with postop ilesu - doing better neuro - pain meds prn as needed, try to reduce due to ileus resp - no issues on puffers cardio - doing well no abnormal activity so off of telemetry, hospitalists following gi - ileus improving - cont wth ppn today and dc tomorrow, cont with liquids and check kub tomorrow gu - good urine output fen - cont wht ppn and po liquids heme - no issues dvt prophylaxis ambulate Fall Risk Details Current Medications: Current Medications Albuterol Sulfate (Albuterol Sulfate 90 Mcg 8 Gm Inhaler) 1 puff INHALE RQID [facility] Last Admin: 06/21/21 10:40 Dose: Not Given Documented by: Chlorhexidine Gluconate (Chlorhexidine Gluc Oral Rinse 15 Ml Mouthwash) 15 ml BUCCAL DAILY [facility] Last Admin: 06/21/21 09:19 Dose: 15 ml Documented by: Docusate Sodium (Docusate Sodium 100 Mg Capsule) 100 mg PO BID [facility] Last Admin: 06/21/21 09:18 Dose: 100 mg Documented by: Fluticasone Propionate (Fluticasone Propionate 250 Mcg Blst.W.Dev) 1 puff INHALE RBID [facility] Last Admin: 06/21/21 07:25 Dose: Not Given Documented by: Fluticasone Propionate (Fluticasone Propionate Nasal 16 Gm [place]) 1 spray NOSTRIL-B DAILY [facility] Last Admin: 06/21/21 09:20 Dose: 1 spray Documented by: Heparin Sodium (Porcine) (Heparin Sodium,Porcine 5,000 Unit/Ml Vial) 5,000 unit SUBCUT Q8H [facility] Last Admin: 06/21/21 09:19 Dose: 5,000 unit Documented by: Acetaminophen (irmev) 1,000 mg in 100 mls @ 400 mls/hr IV Q6H [facility] Last Infusion: 06/21/21 10:07 Dose: Infused Documented by: Promethazine HCl 12.5 mg/ (Sodium Chloride) 50.5 mls @ 202 mls/hr IV Q6H PRN PRN Reason: Nausea and Vomiting Last Infusion: 06/19/21 12:35 Dose: Infused Documented by: Piperacillin Sod/Tazobactam (Sod 3.375 gm/ Sodium Chloride) 50 mls @ 100 mls/hr IV Q6H [facility] Last Infusion: 06/21/21 14:18 Dose: Infused Documented by: Multivitamins 10 ml/ Trace Metals 1 ml/ Amino Acids/Electrolytes/Dextrose 1,680 mls @ 70 mls/hr IV DAILY@1800 [facility] Stop: 06/21/21 17:59 Last Admin: 06/20/21 18:18 Dose: 70 mls/hr Documented by: Amino Acids/Electrolytes/Dextrose (Clinimix E 4.25%-10%) 2,000 mls @ 83.333 mls/hr IV DAILY@1800 [facility] Stop: 06/22/21 17:59 Lisinopril (Lisinopril 5 Mg Tablet) 5 mg PO DAILY [facility]; Protocol Last Admin: 06/21/21 09:19 Dose: 5 mg Documented by: Loratadine (Loratadine 10 Mg Tablet) 10 mg PO DAILY PRN PRN Reason: Allergy Symptoms Melatonin (Melatonin 3 Mg Tablet) 6 mg PO BEDTIME PRN PRN Reason: Insomnia Last Admin: 06/18/21 20:02 Dose: 6 mg Documented by: Montelukast Sodium (Montelukast Sodium 10 Mg Tablet) 10 mg PO BEDTIME [facility] Last Admin: 06/20/21 20:19 Dose: 10 mg Documented by: Morphine Sulfate (Morphine Sulfate 4 Mg/Ml Cartridge) 4 mg IVPUSH Q4H PRN; Protocol PRN Reason: Pain, Severe (Pain Scale 7-10) Last Admin: 06/18/21 19:58 Dose: 4 mg Documented by: Omeprazole (Omeprazole 20 Mg Capsule.) 20 mg PO DAILY@0630 [facility] Last Admin: 06/21/21 05:13 Dose: 20 mg Documented by: Ondansetron HCl (Ondansetron Hcl 4 Mg/2 Ml Vial) 4 mg IVPUSH Q8H PRN PRN Reason: Nausea and Vomiting Last Admin: 06/21/21 12:56 Dose: 4 mg Documented by: Oxycodone HCl (Oxycodone Hcl Immed Release 5 Mg Tablet) 5 mg PO Q4H PRN PRN Reason: Pain, Moderate (Pain Scale 4-6 Last Admin: 06/17/21 19:58 Dose: 5 mg Documented by: Oxycodone HCl (Oxycodone Hcl Immed Release 5 Mg Tablet) 10 mg PO Q4H PRN PRN Reason: Pain, Severe (Pain Scale 7-10) Last Admin: 06/21/21 12:56 Dose: 10 mg Documented by: Polyethylene Glycol (Polyethylene Glycol 3350 17 Gm Powd.Pack) 17 gm PO DAILY [facility] Last Admin: 06/21/21 09:18 Dose: 17 gm Documented by: Pravastatin Sodium (Pravastatin Sodium 80 Mg Tablet) 80 mg PO BEDTIME [facility] Last Admin: 06/20/21 20:19 Dose: 80 mg Documented by: Sertraline HCl (Sertraline Hcl 100 Mg Tablet) 100 mg PO DAILY [facility] Last Admin: 06/21/21 09:18 Dose: 100 mg Documented by: Sodium Chloride (0.9 % Sodium Chloride Flush 3 Ml Syringe) 3 ml IVFLUSH QSHIFT [facility] Last Admin: 06/21/21 07:54 Dose: 3 ml Documented by: Time Spent With Patient Time: Total time spent is greater than 50% in coordination of care (as documented) at patient's floor/unit and/or counseling patient: Quality Stroke Does the patient have a stroke diagnosis?: No VTE Prior VTE?: No VTE Risk Level:: Surgical - high VTE Device Contraindication: N/A - Device Ordered VTE Drug Contraindication: N/A - Med Ordered
[2021-06-21] MEDS: Pravastatin Sodium 80 MG TABLET PO (19:54)
[2021-06-21] MEDS: Montelukast Sodium 10 MG TABLET PO (19:54)
[2021-06-21] MEDS: Fluticasone Propionate 250 MCG BLST.W.DEV 1 PUFF INHALE (19:57)
[2021-06-22] VITALS (12 sets, daily range): BP systolic 110–127; BP diastolic 58–93; PULSE 63–76; RESP 14–20; TEMP 36.2–37.1; O2SAT 95–99
[2021-06-22] MEDS: Heparin Sodium,Porcine 5,000 UNIT/ML VIAL 5000 UNIT SUBCUT ×3 (03:31→18:44)
[2021-06-22] MEDS: Piperacillin Sodium/Tazobactam 3.375 GM in 0.9 % Sodium Chloride 50 ML IV ×2 (03:31→08:11)
--- NOTE | 2021-06-22 04:36 | PC.NURSE ---
Patient ambulating very well to bathroom with supervision only. She states she is feeling well and wants to try eating and would like to go home.
[2021-06-22 04:47] LABS: Anion Gap 12 (12-20); Blood Urea Nitrogen 7 mg/dL (9-16); Calcium 8.9 mg/dL (8.4-10.2); Carbon Dioxide 28 mmol/L (22-29); Chloride 104 mmol/L (96-108); Creatinine Clr Calc Pharmacy 136.2; Estimated Glomerular Filt Rate > 60; Glucose Random 99 mg/dL (60-115); Sodium 140 mmol/L (135-145)
[2021-06-22] MEDS: Loratadine 10 MG TABLET PO (04:51)
[2021-06-22] MEDS: Omeprazole 20 MG CAPSULE.DR PO (06:41)
[2021-06-22] MEDS: Sertraline HCL 100 MG TABLET PO (08:11)
[2021-06-22] MEDS: Docusate Sodium 100 MG CAPSULE PO ×2 (08:11→20:54)
[2021-06-22] MEDS: 0.9 % Sodium Chloride Flush 3 ML SYRINGE IVFLUSH (08:11)
[2021-06-22] MEDS: Fluticasone Propionate Nasal 16 GM SPRAY 1 SPRAY NOSTRIL-B (08:11)
[2021-06-22] MEDS: Chlorhexidine Gluc Oral Rinse 15 ML MOUTHWASH BUCCAL (08:11)
[2021-06-22] MEDS: lisinopriL 5 MG TABLET PO (08:11)
[2021-06-22] MEDS: polyethylene glycoL 3350 17 GM POWD.PACK PO (08:11)
[2021-06-22] MEDS: Albuterol Sulfate 90 MCG 8 GM INHALER 1 PUFF INHALE ×4 (08:13→20:25)
[2021-06-22 09:16] LABS: Albumin Level 3.1 g/dL (3.5-5.0); Magnesium 1.8 mg/dL (1.6-2.6); Phosphorus 4.4 mg/dL (2.7-4.5)
--- NOTE | 2021-06-22 12:18 | MHC.CLN ---
F/U PPN RUNNING AT 83.33 ML PER HOUR. LABS REVIEWED. DISCUSSED WITH PHARMACY. TOLERATING CLEAR LIQUIDS. RD ADDING ENSURE CLEAR TID TO INCREASE PO NUTRITIONAL INTAKE. CONTINUE PPN AT 83.33 ML PER HOUR. REPLETE LYTES NEEDED. RD TO FOLLOW FOR PPN AND DIET ADVANCEMENT/PO INTAKE.
--- NOTE | 2021-06-22 13:29 | PM.PNGS ---
Subjective Subjective Date of Service: 06/22/21 Interval history: feeling well hungry passing gas and stool feeling better and wanting to go home Physical Exam Vital Signs: Vital Signs: Last Vital Signs Temp 97.2 F 06/22/21 11:47 Pulse 63 06/22/21 11:47 Resp 20 06/22/21 12:06 BP 112/64 06/22/21 11:47 Pulse Ox 97 06/22/21 11:47 Oxygen Flow Rate 2 06/19/21 09:55 BMI result Body Mass Index 36.3 Const: General: cooperative, healthy appearing and comfortable HEENT: Head: Yes normal to inspection Resp: Effort & Inspection: normal respiratory effort Auscultation: clear to auscultation bilaterally Cardio: Rate: regular rate Rhythm: regular rhythm GI: Other: abdo still large better bowel sounds nontender and incisions look great Objective Data Active Medications Albuterol Sulfate (Albuterol Sulfate 90 Mcg 8 Gm Inhaler) 1 puff INHALE RQID [facility] Last Admin: 06/22/21 11:58 Dose: 1 puff Documented by: ERNESTINA Chlorhexidine Gluconate (Chlorhexidine Gluc Oral Rinse 15 Ml Mouthwash) 15 ml BUCCAL DAILY [facility] Last Admin: 06/22/21 08:11 Dose: 15 ml Documented by: LUCITA Docusate Sodium (Docusate Sodium 100 Mg Capsule) 100 mg PO BID [facility] Last Admin: 06/22/21 08:11 Dose: 100 mg Documented by: LUCITA Fluticasone Propionate (Fluticasone Propionate 250 Mcg Blst.W.Dev) 1 puff INHALE RBID [facility] Last Admin: 06/22/21 08:13 Dose: Not Given Documented by: ERNESTINA Non-Admin Reason: Patient Refused Fluticasone Propionate (Fluticasone Propionate Nasal 16 Gm [place]) 1 spray NOSTRIL-B DAILY [facility] Last Admin: 06/22/21 08:11 Dose: 1 spray Documented by: LUCITA Heparin Sodium (Porcine) (Heparin Sodium,Porcine 5,000 Unit/Ml Vial) 5,000 unit SUBCUT Q8H [facility] Last Admin: 06/22/21 09:52 Dose: 5,000 unit Documented by: LUCITA Acetaminophen (Ofirmev) 1,000 mg in 100 mls @ 400 mls/hr IV Q6H [facility] Last Infusion: 06/22/21 09:55 Dose: 0 mls/hr Documented by: LUCITA Promethazine HCl 12.5 mg/ (Sodium Chloride) 50.5 mls @ 202 mls/hr IV Q6H PRN PRN Reason: Nausea and Vomiting Last Infusion: 06/19/21 12:35 Dose: 0 mls/hr Documented by: YOVANNY Piperacillin Sod/Tazobactam (Sod 3.375 gm/ Sodium Chloride) 50 mls @ 100 mls/hr IV Q6H [facility] Last Infusion: 06/22/21 08:50 Dose: 0 mls/hr Documented by: LUCITA Lisinopril (Lisinopril 5 Mg Tablet) 5 mg PO DAILY [facility]; Protocol Last Admin: 06/22/21 08:11 Dose: 5 mg Documented by: LUCITA Loratadine (Loratadine 10 Mg Tablet) 10 mg PO DAILY PRN PRN Reason: Allergy Symptoms Last Admin: 06/22/21 04:51 Dose: 10 mg Documented by: RACHANA Melatonin (Melatonin 3 Mg Tablet) 6 mg PO BEDTIME PRN PRN Reason: Insomnia Last Admin: 06/18/21 20:02 Dose: 6 mg Documented by: ANA Montelukast Sodium (Montelukast Sodium 10 Mg Tablet) 10 mg PO BEDTIME [facility] Last Admin: 06/21/21 19:54 Dose: 10 mg Documented by: CRESCENCIO Morphine Sulfate (Morphine Sulfate 4 Mg/Ml Cartridge) 4 mg IVPUSH Q4H PRN; Protocol PRN Reason: Pain, Severe (Pain Scale 7-10) Last Admin: 06/18/21 19:58 Dose: 4 mg Documented by: ANA Omeprazole (Omeprazole 20 Mg Capsule.Dr) 20 mg PO DAILY@0630 [facility] Last Admin: 06/22/21 06:41 Dose: 20 mg Documented by: RACHANA Ondansetron HCl (Ondansetron Hcl 4 Mg/2 Ml Vial) 4 mg IVPUSH Q8H PRN PRN Reason: Nausea and Vomiting Last Admin: 06/21/21 12:56 Dose: 4 mg Documented by: LUCITA Oxycodone HCl (Oxycodone Hcl Immed Release 5 Mg Tablet) 10 mg PO Q4H PRN PRN Reason: Pain, Severe (Pain Scale 7-10) Last Admin: 06/21/21 12:56 Dose: 10 mg Documented by: LUCITA Polyethylene Glycol (Polyethylene Glycol 3350 17 Gm Powd.Pack) 17 gm PO DAILY [facility] Last Admin: 06/22/21 08:11 Dose: 17 gm Documented by: LUCITA Pravastatin Sodium (Pravastatin Sodium 80 Mg Tablet) 80 mg PO BEDTIME [facility] Last Admin: 06/21/21 19:54 Dose: 80 mg Documented by: CRESCENCIO Sertraline HCl (Sertraline Hcl 100 Mg Tablet) 100 mg PO DAILY [facility] [place] Last Admin: 06/22/21 08:11 Dose: 100 mg Documented by: LUCITA Sodium Chloride (0.9 % Sodium Chloride Flush 3 Ml Syringe) 3 ml IVFLUSH QSHIFT [facility] Last Admin: 06/22/21 08:11 Dose: 3 ml Documented by: LUCITA Labs CBC & Chem 7: 06/21/21 05:45 06/22/21 03:29 Labs: Laboratory Results - last 24 hr 06/22/21 03:29 Anion Gap 12 Estim Creat Clear Calc 136.2 Estimated GFR > 60 Random Glucose 99 Calcium 8.9 Phosphorus 4.4 Magnesium 1.8 Albumin 3.1 L D Procedures Date of Service Date of Service: 06/22/21 Progress Note: A&P Assessment and plan (1) Ileus following gastrointestinal surgery: Status: Acute Assessment and Plan: pt doing well after right colectomy - ileus resolving - stop ppn and encourage po diet. did well yesterday with clears and so today will advance to regular low fat diet. pt wants to go home but will give her one more day to ensure she does well with the more solid diet. ambulate convert iv to po meds. (2) S/P right colectomy: Status: Acute Fall Risk Details Current Medications: Current Medications Albuterol Sulfate (Albuterol Sulfate 90 Mcg 8 Gm Inhaler) 1 puff INHALE RQID [facility] Last Admin: 06/22/21 11:58 Dose: 1 puff Documented by: Chlorhexidine Gluconate (Chlorhexidine Gluc Oral Rinse 15 Ml Mouthwash) 15 ml BUCCAL DAILY [facility] Last Admin: 06/22/21 08:11 Dose: 15 ml Documented by: Docusate Sodium (Docusate Sodium 100 Mg Capsule) 100 mg PO BID [facility] Last Admin: 06/22/21 08:11 Dose: 100 mg Documented by: Fluticasone Propionate (Fluticasone Propionate 250 Mcg Blst.W.Dev) 1 puff INHALE RBID [facility] Last Admin: 06/22/21 08:13 Dose: Not Given Documented by: Fluticasone Propionate (Fluticasone Propionate Nasal 16 Gm [place]) 1 spray NOSTRIL-B DAILY [facility] Last Admin: 06/22/21 08:11 Dose: 1 spray Documented by: Heparin Sodium (Porcine) (Heparin Sodium,Porcine 5,000 Unit/Ml Vial) 5,000 unit SUBCUT Q8H [facility] Last Admin: 06/22/21 09:52 Dose: 5,000 unit Documented by: Acetaminophen (irmev) 1,000 mg in 100 mls @ 400 mls/hr IV Q6H [facility] Last Infusion: 06/22/21 09:55 Dose: Infused Documented by: Promethazine HCl 12.5 mg/ (Sodium Chloride) 50.5 mls @ 202 mls/hr IV Q6H PRN PRN Reason: Nausea and Vomiting Last Infusion: 06/19/21 12:35 Dose: Infused Documented by: Piperacillin Sod/Tazobactam (Sod 3.375 gm/ Sodium Chloride) 50 mls @ 100 mls/hr IV Q6H [facility] Last Infusion: 06/22/21 08:50 Dose: Infused Documented by: Lisinopril (Lisinopril 5 Mg Tablet) 5 mg PO DAILY [facility]; Protocol Last Admin: 06/22/21 08:11 Dose: 5 mg Documented by: Loratadine (Loratadine 10 Mg Tablet) 10 mg PO DAILY PRN PRN Reason: Allergy Symptoms Last Admin: 06/22/21 04:51 Dose: 10 mg Documented by: Melatonin (Melatonin 3 Mg Tablet) 6 mg PO BEDTIME PRN PRN Reason: Insomnia Last Admin: 06/18/21 20:02 Dose: 6 mg Documented by: Montelukast Sodium (Montelukast Sodium 10 Mg Tablet) 10 mg PO BEDTIME [facility] Last Admin: 06/21/21 19:54 Dose: 10 mg Documented by: Morphine Sulfate (Morphine Sulfate 4 Mg/Ml Cartridge) 4 mg IVPUSH Q4H PRN; Protocol PRN Reason: Pain, Severe (Pain Scale 7-10) Last Admin: 06/18/21 19:58 Dose: 4 mg Documented by: Omeprazole (Omeprazole 20 Mg Capsule.Dr) 20 mg PO DAILY@0630 [facility] Last Admin: 06/22/21 06:41 Dose: 20 mg Documented by: Ondansetron HCl (Ondansetron Hcl 4 Mg/2 Ml Vial) 4 mg IVPUSH Q8H PRN PRN Reason: Nausea and Vomiting Last Admin: 06/21/21 12:56 Dose: 4 mg Documented by: Oxycodone HCl (Oxycodone Hcl Immed Release 5 Mg Tablet) 10 mg PO Q4H PRN PRN Reason: Pain, Severe (Pain Scale 7-10) Last Admin: 06/21/21 12:56 Dose: 10 mg Documented by: Polyethylene Glycol (Polyethylene Glycol 3350 17 Gm Powd.Pack) 17 gm PO DAILY [facility] Last Admin: 06/22/21 08:11 Dose: 17 gm Documented by: Pravastatin Sodium (Pravastatin Sodium 80 Mg Tablet) 80 mg PO BEDTIME [facility] Last Admin: 06/21/21 19:54 Dose: 80 mg Documented by: Sertraline HCl (Sertraline Hcl 100 Mg Tablet) 100 mg PO DAILY [facility] Last Admin: 06/22/21 08:11 Dose: 100 mg Documented by: Sodium Chloride (0.9 % Sodium Chloride Flush 3 Ml Syringe) 3 ml IVFLUSH QSHIFT [facility] Last Admin: 06/22/21 08:11 Dose: 3 ml Documented by: Time Spent With Patient Time: Total time spent is greater than 50% in coordination of care (as documented) at patient's floor/unit and/or counseling patient: Quality Stroke Does the patient have a stroke diagnosis?: No VTE Prior VTE?: No VTE Risk Level:: Surgical - high VTE Device Contraindication: N/A - Device Ordered VTE Drug Contraindication: N/A - Med Ordered
--- NOTE | 2021-06-22 13:34 | P.PNIM_ITS ---
Subjective Subjective Date of Service: 06/22/21 Interval History: Patient's says feeling better,? no vomiting, no fevers no chills,tolerating po, no acute events overnight Review of Systems denies any chest shortness of breath or cough or nausea. Physical Exam Vital Signs: Vital Signs: Last Vital Signs Temp 97.2 F 06/22/21 11:47 Pulse 63 06/22/21 11:47 Resp 20 06/22/21 12:06 BP 112/64 06/22/21 11:47 Pulse Ox 97 06/22/21 11:47 Oxygen Flow Rate 2 06/19/21 09:55 BMI result Body Mass Index 36.3 Appearance: Alert.? Oriented X3.? not in distress.? Eyes: Pupils equal, round and reactive to light.? Sclera nonicteric.? ENT: Pharynx normal.? Moist mucous membranes. cvs: rrr, [id number] , no murmur res: clear to auscultation ,no rhonchii or wheezing Gastrointestinal : less tenderness to palpation,?bowel sounds audible, no guarding, no rigidity,? incision clean, ck in place. ext pulses present , no cyanosis ,Gait well balanced well coordinated. neuro: axo3 , nonfocal. Objective Data Active Medications Albuterol Sulfate (Albuterol Sulfate 90 Mcg 8 Gm Inhaler) 1 puff INHALE RQID [facility] Last Admin: 06/22/21 11:58 Dose: 1 puff Documented by: ERNESTINA Chlorhexidine Gluconate (Chlorhexidine Gluc Oral Rinse 15 Ml Mouthwash) 15 ml BUCCAL DAILY [facility] Last Admin: 06/22/21 08:11 Dose: 15 ml Documented by: LUCITA Docusate Sodium (Docusate Sodium 100 Mg Capsule) 100 mg PO BID [facility] Last Admin: 06/22/21 08:11 Dose: 100 mg Documented by: LUCITA Fluticasone Propionate (Fluticasone Propionate 250 Mcg Blst.W.Dev) 1 puff INHALE RBID [facility] Last Admin: 06/22/21 08:13 Dose: Not Given Documented by: ERNESTINA Non-Admin Reason: Patient Refused Fluticasone Propionate (Fluticasone Propionate Nasal 16 Gm [place]) 1 spray NOSTRIL-B DAILY [facility] Last Admin: 06/22/21 08:11 Dose: 1 spray Documented by: LUCITA Heparin Sodium (Porcine) (Heparin Sodium,Porcine 5,000 Unit/Ml Vial) 5,000 unit SUBCUT Q8H [facility] Last Admin: 06/22/21 09:52 Dose: 5,000 unit Documented by: LUCITA Acetaminophen (Ofirmev) 1,000 mg in 100 mls @ 400 mls/hr IV Q6H [facility] Last Infusion: 06/22/21 09:55 Dose: 0 mls/hr Documented by: LUCITA Promethazine HCl 12.5 mg/ (Sodium Chloride) 50.5 mls @ 202 mls/hr IV Q6H PRN PRN Reason: Nausea and Vomiting Last Infusion: 06/19/21 12:35 Dose: 0 mls/hr Documented by: YOVANNY Piperacillin Sod/Tazobactam (Sod 3.375 gm/ Sodium Chloride) 50 mls @ 100 mls/hr IV Q6H [facility] Last Infusion: 06/22/21 08:50 Dose: 0 mls/hr Documented by: LUCITA Lisinopril (Lisinopril 5 Mg Tablet) 5 mg PO DAILY [facility]; Protocol Last Admin: 06/22/21 08:11 Dose: 5 mg Documented by: LUCITA Loratadine (Loratadine 10 Mg Tablet) 10 mg PO DAILY PRN PRN Reason: Allergy Symptoms Last Admin: 06/22/21 04:51 Dose: 10 mg Documented by: RACHANA Melatonin (Melatonin 3 Mg Tablet) 6 mg PO BEDTIME PRN PRN Reason: Insomnia Last Admin: 06/18/21 20:02 Dose: 6 mg Documented by: ANA Montelukast Sodium (Montelukast Sodium 10 Mg Tablet) 10 mg PO BEDTIME [facility] Last Admin: 06/21/21 19:54 Dose: 10 mg Documented by: CRESCENCIO Morphine Sulfate (Morphine Sulfate 4 Mg/Ml Cartridge) 4 mg IVPUSH Q4H PRN; Protocol PRN Reason: Pain, Severe (Pain Scale 7-10) Last Admin: 06/18/21 19:58 Dose: 4 mg Documented by: ANA Omeprazole (Omeprazole 20 Mg Capsule.) 20 mg PO DAILY@0630 [facility] Last Admin: 06/22/21 06:41 Dose: 20 mg Documented by: RACHANA Ondansetron HCl (Ondansetron Hcl 4 Mg/2 Ml Vial) 4 mg IVPUSH Q8H PRN PRN Reason: Nausea and Vomiting Last Admin: 06/21/21 12:56 Dose: 4 mg Documented by: LUCITA Oxycodone HCl (Oxycodone Hcl Immed Release 5 Mg Tablet) 10 mg PO Q4H PRN PRN Reason: Pain, Severe (Pain Scale 7-10) Last Admin: 06/21/21 12:56 Dose: 10 mg Documented by: LUCITA Polyethylene Glycol (Polyethylene Glycol 3350 17 Gm Powd.Pack) 17 gm PO DAILY [facility] Last Admin: 06/22/21 08:11 Dose: 17 gm Documented by: LUCITA Pravastatin Sodium (Pravastatin Sodium 80 Mg Tablet) 80 mg PO BEDTIME [facility] Last Admin: 06/21/21 19:54 Dose: 80 mg Documented by: CRESCENCIO Sertraline HCl (Sertraline Hcl 100 Mg Tablet) 100 mg PO DAILY [facility] Last Admin: 06/22/21 08:11 Dose: 100 mg Documented by: LUCITA Sodium Chloride (0.9 % Sodium Chloride Flush 3 Ml Syringe) 3 ml IVFLUSH QSHIFT [facility] Last Admin: 06/22/21 08:11 Dose: 3 ml Documented by: LUCITA Labs CBC & Chem 7: 06/21/21 05:45 06/22/21 03:29 Labs: Laboratory Results - last 24 hr 06/22/21 03:29 Anion Gap 12 Estim Creat Clear Calc 136.2 Estimated GFR > 60 Random Glucose 99 Calcium 8.9 Phosphorus 4.4 Magnesium 1.8 Albumin 3.1 L D Assessment and Plan (1) Ileus following gastrointestinal surgery: Status: Acute (2) Colon adenocarcinoma: Status: Acute (3) Hypertension: Status: Acute (4) Obesity: Status: Acute Plan 50-year-old female patient with multiple medical issues including history of hyperlipidemia, hypertension, depression, asthma underwent elective right colon resection for colon cancer. 1.?Status post right colon resection postoperative day 11 ?abdominal pain and distension improving, no nausea, multiple bowel movement overnight. ?WBC? trending down , no fevers, no chills ?CT abdomen from 06/18? showed small bowel wall thickening in ileum with surrounding ascites consistent with enteritis ?on IV Zosyn day 3 dayas , switched to levaquin/flagyl day1 ( as per surgery), follow clinical course . ?on IV fluid, morphine , Tylenol, and oxycodone as needed for pain, encouraged OOB and ambulation ?off tpn, fluids , strated tolerating diet. ?surgical pathology showed adeno carcinoma, moderately different with focal mucinous differentiation with 1 of 9 lymph node positive for metastatic tumor ? 2.?Acute on chronic anemia, low MCV and iron studies consistent with iron deficiency anemia, ferritin 5 and saturation 8, likely blood loss from colon ca,? status post iv iron, hematocrit dropped to 24.6 no active bleed ?noted, s/p 1 unit of packed RBC on 06/17?. h/h stable around 9.5/30 range ? 3.?hypomagnesemia ? repleted, resolved. 4.?hypertension ? stable BP? continue lisinopril 5 mg 5.?hyperlipidemia ? continue Pravachol 80 mg at bedtime 6.?mild intermittent asthma? no acute exacerbation continue home inhalers ?7.depression continue Zoloft 100 mg 8.?obesity weight? loss recommended low-calorie diet, since contributing to hypertension and hyperlipidemia ?DVT prophylaxis with heparin ?code status full code Inpatient reason: patient will go home once surgerically clear. Quality Stroke Does the patient have a stroke diagnosis?: No VTE Prior VTE?: No VTE Risk Level:: Surgical - high VTE Device Contraindication: N/A - Device Ordered VTE Drug Contraindication: N/A - Med Ordered
[2021-06-22] MEDS: levoFLOXacin 500 MG TABLET PO (15:00)
[2021-06-22] MEDS: metroNIDAZOLE 500 MG TABLET PO ×2 (15:00→20:53)
[2021-06-22] MEDS: Fluticasone Propionate 250 MCG BLST.W.DEV 1 PUFF INHALE (20:25)
[2021-06-22] MEDS: Pravastatin Sodium 80 MG TABLET PO (20:53)
[2021-06-22] MEDS: Montelukast Sodium 10 MG TABLET PO (20:54)
[2021-06-23] MEDS: Heparin Sodium,Porcine 5,000 UNIT/ML VIAL 5000 UNIT SUBCUT ×2 (02:03→09:05)
[2021-06-23 03:57] VITALS: BP 115/61; PULSE 74; RESP 14; TEMP 36.6; O2SAT 93
[2021-06-23] MEDS: Omeprazole 20 MG CAPSULE.DR PO (05:33)
[2021-06-23] MEDS: metroNIDAZOLE 500 MG TABLET PO (05:33)
[2021-06-23 06:59] VITALS: BP 142/74; PULSE 72; RESP 18; TEMP 36.1; O2SAT 93
[2021-06-23 07:57] VITALS: PULSE 72; RESP 18; O2SAT 93
[2021-06-23] MEDS: Albuterol Sulfate 90 MCG 8 GM INHALER 1 PUFF INHALE (07:57)
[2021-06-23] MEDS: Fluticasone Propionate 250 MCG BLST.W.DEV 1 PUFF INHALE (07:57)
--- NOTE | 2021-06-23 08:53 | P.PNGS_ITS ---
Subjective Subjective Date of Service: 06/23/21 Interval history: feels well passing flatus and BMs tolerating diet wants to go home Physical Exam Vital Signs: Vital Signs: Last Vital Signs Temp 97 F 06/23/21 06:59 Pulse 72 06/23/21 06:59 Resp 18 06/23/21 07:57 BP 142/74 H 06/23/21 06:59 Pulse Ox 93 06/23/21 06:59 Oxygen Flow Rate 2 06/19/21 09:55 BMI result Body Mass Index 36.3 Const: General: comfortable, no acute distress and alert Resp: Effort & Inspection: normal respiratory effort Cardio: Rate: regular rate GI: Other: incisions clean and dry, mild redness on lowermost part of midline incision Palpation (GI): Soft to palpation, not firm, nontender and no guarding Objective Data Active Medications Albuterol Sulfate (Albuterol Sulfate 90 Mcg 8 Gm Inhaler) 1 puff INHALE RQID [facility] Last Admin: 06/23/21 07:57 Dose: 1 puff Documented by: JUAN LUIS Chlorhexidine Gluconate (Chlorhexidine Gluc Oral Rinse 15 Ml Mouthwash) 15 ml BUCCAL DAILY [facility] Last Admin: 06/22/21 08:11 Dose: 15 ml Documented by: LUCITA Docusate Sodium (Docusate Sodium 100 Mg Capsule) 100 mg PO BID [facility] Last Admin: 06/22/21 20:54 Dose: 100 mg Documented by: ARNULFO Fluticasone Propionate (Fluticasone Propionate 250 Mcg Blst.W.Dev) 1 puff INHALE RBID [facility] Last Admin: 06/23/21 07:57 Dose: 1 puff Documented by: JUAN LUIS Fluticasone Propionate (Fluticasone Propionate Nasal 16 Gm Kimball) 1 spray NOSTRIL-B DAILY [facility] Last Admin: 06/22/21 08:11 Dose: 1 spray Documented by: LUCITA Heparin Sodium (Porcine) (Heparin Sodium,Porcine 5,000 Unit/Ml Vial) 5,000 unit SUBCUT Q8H [facility] Last Admin: 06/23/21 02:03 Dose: 5,000 unit Documented by: ARNULFO Levofloxacin (Levofloxacin 500 Mg Tablet) 500 mg PO Q24H [facility] Last Admin: 06/22/21 15:00 Dose: 500 mg Documented by: LUCITA Lisinopril (Lisinopril 5 Mg Tablet) 5 mg PO DAILY [facility]; Protocol Last Admin: 06/22/21 08:11 Dose: 5 mg Documented by: LUCITA Loratadine (Loratadine 10 Mg Tablet) 10 mg PO DAILY PRN PRN Reason: Allergy Symptoms Last Admin: 06/22/21 04:51 Dose: 10 mg Documented by: RACHANA Melatonin (Melatonin 3 Mg Tablet) 6 mg PO BEDTIME PRN PRN Reason: Insomnia Last Admin: 06/18/21 20:02 Dose: 6 mg Documented by: ANA Metronidazole (Metronidazole 500 Mg Tablet) 500 mg PO Q8H [facility] Last Admin: 06/23/21 05:33 Dose: 500 mg Documented by: ARNULFO Montelukast Sodium (Montelukast Sodium 10 Mg Tablet) 10 mg PO BEDTIME [facility] Last Admin: 06/22/21 20:54 Dose: 10 mg Documented by: ARNULFO Morphine Sulfate (Morphine Sulfate 4 Mg/Ml Cartridge) 4 mg IVPUSH Q4H PRN; P rotocol PRN Reason: Pain, Severe (Pain Scale 7-10) Last Admin: 06/18/21 19:58 Dose: 4 mg Documented by: ANA Omeprazole (Omeprazole 20 Mg Capsule.Dr) 20 mg PO DAILY@0630 [facility] Last Admin: 06/23/21 05:33 Dose: 20 mg Documented by: ARNULFO Ondansetron HCl (Ondansetron Hcl 4 Mg/2 Ml Vial) 4 mg IVPUSH Q8H PRN PRN Reason: Nausea and Vomiting Last Admin: 06/21/21 12:56 Dose: 4 mg Documented by: LUCITA Ondansetron HCl (Ondansetron Odt 4 Mg Tab.Rapdis) 4 mg TRANSLINGU Q6H PRN PRN Reason: Nausea Oxycodone HCl (Oxycodone Hcl Immed Release 5 Mg Tablet) 10 mg PO Q4H PRN PRN Reason: Pain, Severe (Pain Scale 7-10) Last Admin: 06/21/21 12:56 Dose: 10 mg Documented by: LUCITA Polyethylene Glycol (Polyethylene Glycol 3350 17 Gm Powd.Pack) 17 gm PO DAILY [facility] Last Admin: 06/22/21 08:11 Dose: 17 gm Documented by: LUCITA Pravastatin Sodium (Pravastatin Sodium 80 Mg Tablet) 80 mg PO BEDTIME [facility] Last Admin: 06/22/21 20:53 Dose: 80 mg Documented by: ODRISIvanna Sertraline HCl (Sertraline Hcl 100 Mg Tablet) 100 mg PO DAILY [facility] Last Admin: 06/22/21 08:11 Dose: 100 mg Documented by: LUCITA Sodium Chloride (0.9 % Sodium Chloride Flush 3 Ml Syringe) 3 ml IVFLUSH QSHIFT [facility] Last Admin: 06/23/21 06:59 Dose: Not Given Documented by: LUCITA Non-Admin Reason: No Access Labs CBC & Chem 7: 06/21/21 05:45 06/22/21 03:29 Labs: Laboratory Results - last 24 hr 06/22/21 03:29 Phosphorus 4.4 Magnesium 1.8 Albumin 3.1 L D Procedures Date of Service Date of Service: 06/23/21 Progress Note: A&P Assessment and plan (1) S/P right colectomy: Status: Acute Assessment and Plan: doing well now good GI function looks well all skin ck dc'ed some redness on lowermost part of incision - probed with qtip, no pus but some seroma BandAid applied to this area dc instructions given Fall Risk Details Current Medications: Current Medications Albuterol Sulfate (Albuterol Sulfate 90 Mcg 8 Gm Inhaler) 1 puff INHALE RQID [facility] Last Admin: 06/23/21 07:57 Dose: 1 puff Documented by: Chlorhexidine Gluconate (Chlorhexidine Gluc Oral Rinse 15 Ml Mouthwash) 15 ml BUCCAL DAILY [facility] Last Admin: 06/22/21 08:11 Dose: 15 ml Documented by: Docusate Sodium (Docusate Sodium 100 Mg Capsule) 100 mg PO BID [facility] Last Admin: 06/22/21 20:54 Dose: 100 mg Documented by: Fluticasone Propionate (Fluticasone Propionate 250 Mcg Blst.W.Dev) 1 puff INHALE RBID [facility] Last Admin: 06/23/21 07:57 Dose: 1 puff Documented by: Fluticasone Propionate (Fluticasone Propionate Nasal 16 Gm Kimball) 1 spray NOSTRIL-B DAILY [facility] Last Admin: 06/22/21 08:11 Dose: 1 spray Documented by: Heparin Sodium (Porcine) (Heparin Sodium,Porcine 5,000 Unit/Ml Vial) 5,000 unit SUBCUT Q8H [facility] Last Admin: 06/23/21 02:03 Dose: 5,000 unit Documented by: Levofloxacin (Levofloxacin 500 Mg Tablet) 500 mg PO Q24H [facility] Last Admin: 06/22/21 15:00 Dose: 500 mg Documented by: Lisinopril (Lisinopril 5 Mg Tablet) 5 mg PO DAILY [facility]; Protocol Last Admin: 06/22/21 08:11 Dose: 5 mg Documented by: Loratadine (Loratadine 10 Mg Tablet) 10 mg PO DAILY PRN PRN Reason: Allergy Symptoms Last Admin: 06/22/21 04:51 Dose: 10 mg Documented by: Melatonin (Melatonin 3 Mg Tablet) 6 mg PO BEDTIME PRN PRN Reason: Insomnia Last Admin: 06/18/21 20:02 Dose: 6 mg Documented by: Metronidazole (Metronidazole 500 Mg Tablet) 500 mg PO Q8H [facility] Last Admin: 06/23/21 05:33 Dose: 500 mg Documented by: Montelukast Sodium (Montelukast Sodium 10 Mg Tablet) 10 mg PO BEDTIME [facility] Last Admin: 06/22/21 20:54 Dose: 10 mg Documented by: Morphine Sulfate (Morphine Sulfate 4 Mg/Ml Cartridge) 4 mg IVPUSH Q4H PRN; Protocol PRN Reason: Pain, Severe (Pain Scale 7-10) Last Admin: 06/18/21 19:58 Dose: 4 mg Documented by: Omeprazole (Omeprazole 20 Mg Capsule.Dr) 20 mg PO DAILY@0630 [facility] Last Admin: 06/23/21 05:33 Dose: 20 mg Documented by: Ondansetron HCl (Ondansetron Hcl 4 Mg/2 Ml Vial) 4 mg IVPUSH Q8H PRN PRN Reason: Nausea and Vomiting Last Admin: 06/21/21 12:56 Dose: 4 mg Documented by: Ondansetron HCl (Ondansetron Odt 4 Mg Tab.Rapdis) 4 mg TRANSLINGU Q6H PRN PRN Reason: Nausea Oxycodone HCl (Oxycodone Hcl Immed Release 5 Mg Tablet) 10 mg PO Q4H PRN PRN Reason: Pain, Severe (Pain Scale 7-10) Last Admin: 06/21/21 12:56 Dose: 10 mg Documented by: Polyethylene Glycol (Polyethylene Glycol 3350 17 Gm Powd.Pack) 17 gm PO DAILY [facility] Last Admin: 06/22/21 08:11 Dose: 17 gm Documented by: Pravastatin Sodium (Pravastatin Sodium 80 Mg Tablet) 80 mg PO BEDTIME [facility] Last Admin: 06/22/21 20:53 Dose: 80 mg Documented by: Sertraline HCl (Sertraline Hcl 100 Mg Tablet) 100 mg PO DAILY [facility] Last Admin: 06/22/21 08:11 Dose: 100 mg Documented by: Sodium Chloride (0.9 % Sodium Chloride Flush 3 Ml Syringe) 3 ml IVFLUSH QSHIFT [facility] Last Admin: 06/23/21 06:59 Dose: Not Given Documented by: Time Spent With Patient Time: Total time spent is greater than 50% in coordination of care (as documented) at patient's floor/unit and/or counseling patient: Quality Stroke Does the patient have a stroke diagnosis?: No VTE Prior VTE?: No VTE Risk Level:: Surgical - high VTE Device Contraindication: N/A - Device Ordered VTE Drug Contraindication: N/A - Med Ordered
[2021-06-23] MEDS: Docusate Sodium 100 MG CAPSULE PO (09:03)
[2021-06-23] MEDS: lisinopriL 5 MG TABLET PO (09:03)
[2021-06-23] MEDS: Sertraline HCL 100 MG TABLET PO (09:03)
[2021-06-23] MEDS: polyethylene glycoL 3350 17 GM POWD.PACK PO (09:04)
[2021-06-23] MEDS: Fluticasone Propionate Nasal 16 GM SPRAY 1 SPRAY NOSTRIL-B (09:04)
--- NOTE | 2021-06-23 09:04 | MHC.CLN ---
F/U DIET ADVANCED TO REGULAR 06/22 AND SUPPLEMENT DISCONTINUED. APPEARS TO BE EATING WELL, TOLERATING DIET. PPN DISCONTINUED 06/22/21. SCHEDULED FOR DISCHARGE TODAY.
[2021-06-23] MEDS: Chlorhexidine Gluc Oral Rinse 15 ML MOUTHWASH BUCCAL (09:06)
--- NOTE | 2021-06-23 09:12 | MHC.CM.PN ---
PATIENT IS DISCHARGED HOME WITH RESUMPTION OF HER [employer]. RN AWARE OF PLAN.
--- NOTE | 2021-06-23 09:47 | P.DS_ITS ---
DS: Providers Provider Date of Service: 06/23/21 Date of admission: 06/12/21 10:14 Primary care physician: Amado Orr MD Attending physician on admission: Sebastián Mojica Consults: 06/12/21 13:58 Consult to Hospitalist Routine Consulting Provider: Hospitalist Reason For Exam: medical management Attending physician on discharge: Sebastián Mojica DS: Diagnosis Discharge Diagnosis (1) S/P right colectomy: Status: Acute DS: Summary Hospital Course Hospital Course: BRIEF HPI: The patient is a 50F who was found to have a right colon adenoCa on colonoscopy April 2021. It was therefore recommended to proceed with SHIRA right colon resection. She had a preoperative CT scan as part of her work up for the adenoCA which showed 4 x 4 x 6 cm mass in the proximal ascending colon, infiltration of the fat and prominent adjacent pericolic lymph nodes with luminal narrowing. She now presents for her right colon resection. HOSPITAL COURSE: On 06/12/21, a hand assisted laparoscopic right colon resection was performed by Dr. Mojica without complication. The patient tolerated the procedure well, completed routine recovery in PACU and was admitted to the medical/surgical floor for observation. A hospitalist consult was obtained for management of her medical comorbidities. The patient had a lengthy, slow recovery course due to a post operative ileus and development of colitis. She was initially doing well post operatively but recovering slowly. Her pain was well controlled with both IV and PO PRN analgesics. She was tolerating clear liquids. Her rai was removed. She was gotten OOB but this was minimal. She did not have any evidence of return of GI function for several days post operatively but she was clinically appearing well. Her activity was increased daily. Her diet was slowly advanced to full liquids and then solid. She did have a drift in her H/H without any evidence of active bleed. She was symptomatic and therefore transfused 1 unit PRBC with appropriate rise. She however developed increasing pain and nausea with a coinciding jump in her WBC count. A CT scan was obtained which showed some dilated bowel loops and ?of enteritis. She was passing flatus at this time and multiple liquid BMs. She was started empirically on IV zosyn by the hospitalist service. Her WBC count significantly improved. Given her prolonged NPO status, she was started on PPN for nutrition while her PO intake was low. She continued to improve the following days. She continued to pass flatus and have liquid BMs. Her pain improved. She was advanced to clear liquids and then low residue diet. PPN was discontinued when she was tolerating a solid diet. She was clinically appearing well with a benign abdominal exam. Her incision ck were removed. She felt ready for discharge. She was discharged to home on 06/23/21 in stable condition. She is to follow up with Dr. Mojica in office. Unfortunately her pathology did reveal adenoCA invading the pericolonic tissues with one positive lymph node. She will need to follow up with oncology as an outpatient. Status at Discharge Functional status at discharge: independent ambulation Overall status at discharge: patient is progressing back to baseline Time Spent with Patient Time attestation: Total time spent providing and/or coordinating discharge services: Discharge coordination time: Greater than 30 minutes Quality: Safe Use of Opioids Does Pt have an Active Cancer Diagnosis on the Problem List?: Yes Opioid Measure Date for [facility] Report: 05/25/21 Opioid Measure Time for [facility] Report: 12:44 Quality: Stroke Does the patient have a stroke diagnosis?: No Physical Exam Vital Signs: Vital Signs: Last Vital Signs Temp 97 F 06/23/21 06:59 Pulse 72 06/23/21 06:59 Resp 18 06/23/21 07:57 BP 142/74 H 06/23/21 06:59 Pulse Ox 93 06/23/21 06:59 Oxygen Flow Rate 2 06/19/21 09:55 BMI result Body Mass Index 36.3 Const: General: comfortable, no acute distress and alert Orientation/consciousness: patient oriented x3 Resp: Effort & Inspection: normal respiratory effort GI: Inspection: No distended and Yes incision (clean, ck removed) Palpation (GI): Soft to palpation, Tenderness to palpation present (GI) (mild, incisional), no guarding and not rigid Percussion: Yes normal to percussion Skin: General skin exam: no rashes or lesions noted Neuro: General: patient oriented x3 DS: Data Data Completed and Pending Completed studies during hospitalization [Text1]: 06/12/21 09:22 Surgical [PTH] Urgent Diagnosis Colon, right, ileocolectomy: -Adenocarcinoma, moderately differentiated, with focal mucinous differentiation. -Tumor invades through the muscularis propria into pericolonic tissues -Proximal, distal, and mesenteric margins are free of tumor. -One of nine lymph nodes is positive for metastatic tumor. -Small and large vessel invasion and tumor deposits present. -Tubular adenomas. -Hyperplastic polyp. -Fibrous serosal adhesions, with focal mesothelial hyperplasia. -Fibrous obliteration of distal appendiceal lumen. Addendum #1 Immunohistochemical results on tumor as follows: - MLH1: PRESERVED (Intact nuclear expression) - MSH2: PRESERVED (Intact nuclear expression) - MSH6: PRESERVED (Intact nuclear expression) - PMS2: PRESERVED (Intact nuclear expression) NOTE: Results are NEGATIVE for Mismatch repair defect/ Valero Syndrome-related tumor, however a small percentage of this form of heritable cancer may not be identified by this technique. Correlation with the patient's presentation and family history is recommended. Discharge Plan Discharge Patient Disposition: Home, Self-Care Discharge Diagnosis: Right colon cancer Referrals: Sebastián Mojica MD [Physician] - 1 Week Name,MD Amado [Primary Care Provider] - 1 Week Discharge Medications: New oxycodone-acetaminophen [Percocet] 5-325 mg tablet 1 tab PO Q4-6H PRN (Reason: pain, severe) Qty: 30 0RF Continued omega-3 fatty acids 1,000 mg capsule 1 cap PO DAILY 0RF pravastatin 80 mg tablet 1 tab PO DAILY 0RF Flovent HFA 220 mcg/actuation HFA aerosol inhaler 1 puff PO BID 0RF hydrochlorothiazide 25 mg tablet 1 tab PO BEDTIME 0RF azelastine 0.05 % drops 1 drp ophthalmic (eye) BID 0RF sertraline [Zoloft] 100 mg tablet 100 mg PO DAILY 0RF pantoprazole 40 mg tablet,delayed release (DR/EC) 40 mg PO DAILY 0RF fluticasone propionate 50 mcg/actuation spray,suspension 1 spray intranasal DAILY 0RF Rx Instructions: administer into each nostril lisinopril 5 mg tablet 5 mg PO DAILY 0RF ergocalciferol (vitamin D2) 1,250 mcg (50,000 unit) capsule 1,250 mcg PO QWEEK 0RF albuterol sulfate [ProAir HFA] 90 mcg/actuation HFA aerosol inhaler 2 inh inhalation Q4-6H PRN (Reason: Wheezing) 0RF montelukast [Singulair] 10 mg tablet 10 mg PO DAILY 0RF dicyclomine 20 mg tablet 20 mg PO TID PRN (Reason: Abdominal Discomfort) 0RF cetirizine 10 mg tablet 10 mg PO DAILY PRN (Reason: Allergy Symptoms) 0RF ibuprofen 600 mg tablet 600 mg PO TID PRN (Reason: Pain) 0RF Held acetaminophen 500 mg tablet 500 mg PO Q8H PRN (Reason: Pain) 0RF Hold Instructions: Resume on 07/16/21. while taking narcotics with acetaminophen Discharge Orders: Discharge Order (Routine); Ordered 06/23/21 Ordered By: Apple Jacinto Diet: advance to usual diet Activity on Discharge: No heavy lifting Stand Alone Forms: Patient Portal Discharge page Activity Restrictions/Additional Instructions: If the incision area is tender, you may apply an ice pack for short intervals (No more than 20 minutes on, followed by at least 20 minutes off). Do not apply heat. Do not use creams, lotions, or topical antibiotics unless instructed to do so by your surgeon. These can cause infection or allergic reaction. Ok to shower. NO HEAVY LIFTING (>10lbs) or strenuous activity. Follow up in office. ([phone]) Call Your Doctor If: -Your temperature exceeds 101.5? F -You experience excessive pain or swelling -You have an unexpected reaction to medication -You have excessive bleeding -You experience continued vomiting/nausea -Your incision begins to separate -Your incision shows signs of infection such as increased redness, swelling, excessive pain, drainage (light blood or clear fluid is normal) or heat Care Plan Goals: Treat colon cancer Health Concerns: Colon cancer Obesity and hypertension Plan of Treatment: Follow-up in the office postop Assessment: Doing well. Discharge Date/Time: 06/23/21 11:15
--- NOTE | 2021-06-23 11:17 | PM.EVENT ---
Event Note Date of Service: 06/23/21 Event Note: Patient left for went to see the patient, Management was discussed with the primary team in detail earlier this morning.
== END 2021-06-23 11:15 | disposition home or self-care (01) | DRG 231 ==
LOC: HO.SSSA 10:20 → HO.S3 13:18
PROVIDERS: Anesthesiology; Hospitalist; Internal Medicine; Nurse Practitioner; Physician Assistant Medical; Physician Assistant Surgical; Admitting Provider Surgery; PCP Internal Medicine Geriatric Medicine; Visit Provider Surgery
PROC: 0DTE0ZZ Resection of Large Intestine, Open Approach (ICD-10-PCS; principal; 2021-06-12 07:30)
DX: C18.2 Malignant neoplasm of ascending colon (principal); K56.7 Ileus, unspecified; D50.0 Iron deficiency anemia secondary to blood loss (chronic); D72.829 Elevated white blood cell count, unspecified; F17.210 Nicotine dependence, cigarettes, uncomplicated; E66.9 Obesity, unspecified; E78.5 Hyperlipidemia, unspecified; J45.20 Mild intermittent asthma, uncomplicated; Z68.36 Body mass index [BMI] 36.0-36.9, adult; K52.9 Noninfective gastroenteritis and colitis, unspecified; E83.42 Hypomagnesemia; F32.A Depression, unspecified; Z20.822 Contact with and (suspected) exposure to COVID-19; Z71.6 Tobacco abuse counseling; Z79.51 Long term (current) use of inhaled steroids; Z79.899 Other long term (current) drug therapy
CPT/HCPCS: 36415; 74177; 80048; 82040; 83735; 84100; 84478; 85025; 85027; 86850; 86870; 86900; 86901; 86920; 86922; 87635; 88309; 88329; 88341; 88342; 93005; 99024; C1758; J0131; J1170; J2250; J2270; J2370; J2405; J2543; J2550; J2916; J3010; J3475; P9016; Q9967

== ENCOUNTER 2021-07-09 10:47 | Outpatient (REF) | payer MEDICAID, SELFPAY | END 2021-07-09 10:48 | disposition home or self-care (01) | LOC: HO.LAB 10:47 | PROVIDERS: PCP Internal Medicine Geriatric Medicine; Referring Provider Internal Medicine Geriatric Medicine; Visit Provider Surgery | DX: C18.9 Malignant neoplasm of colon, unspecified (principal); F17.210 Nicotine dependence, cigarettes, uncomplicated | CPT/HCPCS: 36415; 82378; 99212 ==

== ENCOUNTER → 2021-07-22 09:47 | Outpatient (BNV) | payer MEDICAID, SELFPAY | PROVIDERS: PCP Internal Medicine Geriatric Medicine; Visit Provider Internal Medicine | DX: Z85.038 Personal history of other malignant neoplasm of large intestine (principal); Z92.21 Personal history of antineoplastic chemotherapy; D12.8 Benign neoplasm of rectum | CPT/HCPCS: 99204; 99213; 99214 ==

== ENCOUNTER 2021-07-25 08:54 | Outpatient (REF) | payer MEDICAID, SELFPAY ==
--- NOTE | ~2021-07-25 | CT_ITS ---
EXAMINATION: CT CHEST WITH CONTRAST CLINICAL INFORMATION: Staging COMPARISON: None TECHNIQUE: Multidetector volumetric CT imaging of the chest was obtained after the administration of 65 mL of Omnipaque 350 intravenous contrast without immediate adverse reactions. Axial MIP volume rendering provided. Sagittal and coronal reformatted images were obtained. This CT examination was performed using dose optimization techniques as appropriate, variously including the following: *Automated exposure control *Adjustment of mA and/or kV according to patient size (this includes techniques or standardized protocols for targeted exams where dose is matched to indication/reason for exam; i.e. extremities or head) *Use of iterative reconstruction technique DLP: 211 mGy-cm FINDINGS: OFFICE PROFESSIONAL: Noncontributory LUNGS: The lungs are clear with no evidence of inflammation or nodules. MEDIASTINUM: The mediastinum is normal. PLEURA: There is no pleural effusion. No pleural mass or thickening. AXILLA: No lymphadenopathy. UPPER ABDOMEN: Minor infiltration right upper quadrant partially imaged is related to postsurgical changes. OSSEOUS STRUCTURES: Unremarkable. CT/CT chest w con IMPRESSION: No evidence metastatic disease to the chest. Fleischner guidelines were followed.
[2021-07-25 10:12] LABS: Alanine Aminotransferase 23 U/L (0-31); Albumin Level 4.2 g/dL (3.5-5.0); Alkaline Phosphatase 88 U/L (39-117); Anion Gap 13 (12-20); Aspartate Amino Transferase 17 U/L (5-31); Bilirubin Total 0.4 mg/dL (0.0-1.0); Blood Urea Nitrogen 10 mg/dL (9-16); Calcium 10.4 mg/dL (8.4-10.2); Carbon Dioxide 28 mmol/L (22-29); Chloride 103 mmol/L (96-108); Estimated Glomerular Filt Rate > 60; Glucose Random 106 mg/dL (60-115); Potassium 4.4 mmol/L (3.3-5.1); Sodium 140 mmol/L (135-145); Total Protein 7.4 g/dL (6.5-8.0)
[2021-07-25] MEDS: iohexoL 350 MG/ML 100 ML INFUS..BTL IV (11:19)
== END 2021-07-25 08:55 | disposition home or self-care (01) ==
LOC: HO.CT 08:54
PROVIDERS: PCP Internal Medicine Geriatric Medicine; Visit Provider Internal Medicine
DX: C18.9 Malignant neoplasm of colon, unspecified (principal)
CPT/HCPCS: 36415; 71260; 80053; Q9967

== ENCOUNTER 2021-07-29 08:40 | Day surgery (SDC) | payer MEDICAID, SELFPAY ==
[2021-07-29] VITALS (7 sets, daily range): BP systolic 111–134; BP diastolic 40–78; PULSE 58–83; RESP 16–18; TEMP 36.3; O2SAT 97–98; BMI 33.0
--- NOTE | ~2021-07-29 | IR_ITS ---
PROCEDURE: IR INSERTION OF TUNNEL CATHETER CLINICAL INFORMATION: Right colon cancer. Needs chemotherapy. COMPARISON: CT chest 07/25/2021. TECHNIQUE: Following explaining insertion of the tunneled Christopher-Catheter under ultrasound and fluoroscopy guidance procedure, benefits and risk, a written consent was obtained. The patient was placed supine on the IR table and preliminary ultrasound imaging was obtained through the neck. An optimal site was selected, marked, cleaned and draped in the usual sterile manner. 1% lidocaine was injected at the puncture site. Under sterile ultrasound guidance, a single-wall needle was advanced and the right jugular vein above the clavicle was punctured. After observing venous return, a thin guidewire was advanced into the IVC and the needle withdrawn. A 5-Cypriot dilator with sheath was placed over the guidewire and the entire unit was anchored to the drape. Approximately 1 gauze length from the right neck incision, 1% lidocaine was injected at the right anterior chest wall. A small skin incision was performed and a blunt dissection was created along the right anterior chest wall for the port hardware to be inserted. The port hardware was then placed within the pocket and anchored to the skin with 2 nonabsorbable 3-0 sutures. 1% lidocaine was then inserted from the right anterior chest wall incision to the right neck incision in the subcutaneous adipose tissue. The port catheter was attached to a tunneler and was then bluntly tunneled through the subcutaneous channel and pulled through the right anterior neck incision. The catheter was sized. The right neck 5-Cypriot dilator was removed and a long 0.035 J-wire was advanced and placed in the IVC. The 5-Cypriot sheath was removed and 6-Cypriot Peel-Away sheath with dilator was advanced over the guidewire. The guidewire and the dilator were removed and the correctly sized Christopher-Catheter was inserted through the Peel-Away sheath. The Peel-Away sheath was removed as the catheter was held in place. A single image was obtained following removal of the Peel-Away sheath over the chest wall confirming the tip of the Christopher-Catheter in the mid SVC. The catheter was flushed with saline followed by heparin. The neck incisions were sealed with absorbable 3-0 nylon sutures along the subcutaneous soft tissues of the anterior chest wall followed by 4-0 sutures along the skin. The right neck incision was sutured with a 3-0 absorbable solitary suture. A sterile dressing was applied post procedure at both incision sites. Conscious sedation with Versed and fentanyl was performed during the exam and the patient was monitored by the nursing. The patient tolerated the procedure extremely well. All elements of maximal sterile barrier technique were followed including use of cap, mask, sterile gown, sterile gloves, a sterile full body drape and hand hygiene. Also followed was skin preparation with 2% chlorhexidine for cutaneous antisepsis, and sterile ultrasound preparation with sterile gel and probe cover when applicable. FINDINGS: On preliminary ultrasound imaging, there is a widely patent jugular vein. Ultrasound and fluoroscopy-guided placement of 6.6-Cypriot and 22 cm long right Christopher-Catheter with its tip in the mid SVC ready for use. FLUOROSCOPY TIME: 3.7 minutes DAP: 1109 cGy.cm2 SEDATION TIME: 45 minutes IR/IR cvc insert tunnel w prt/senior ux designer IMPRESSION: Successful insertion of a tunnel catheter under fluoroscopy and ultrasound.
[2021-07-29 10:23] LABS: MANUAL DIFF FLAG NO
[2021-07-29 10:35] LABS: INTERNATIONAL NORM RATIO 0.9 (0.9-1.1); Prothrombin Time 10.7 SEC (9.9-13.0)
[2021-07-29 10:38] LABS: Partial Thromboplastin Time 38.4 SEC (24.1-38.0)
[2021-07-29 10:39] LABS: Basophils Percent Auto 0.4 % (0-2); Eosinophils Absolute Auto 0.1 X10*3/uL (0.0-0.4); Eosinophils Percent Auto 1.6 % (0-4); Hematocrit 38.6 % (37.0-47.0); Imm Gran Abs Auto 0.04 X10*3/uL (0.00-0.03); Imm Gran Pct Auto 0.5 % (0.0-0.4); Lymphocytes Absolute Auto 2.5 X10*3/uL (1.2-4.9); Lymphocytes Percent Auto 30.5 % (20-40); Mean Corpuscular HGB Conc 31.1 g/dl (31.0-35.0); Mean Corpuscular Hemoglobin 24.3 pg (27.0-33.0); Mean Corpuscular Volume 78.1 fL (80.0-98.0); Mean Platelet Volume 10.5 fL (9.4-12.3); Monocytes Absolute Auto 0.5 X10*3/uL (0.1-1.2); Monocytes Percent Auto 6.6 % (2-11); Neutrophils Absolute Auto 4.9 x10*3/uL (2.0-8.3); Neutrophils Percent Auto 60.4 % (45-73); Platelet Count 301 X10*3/uL (160-400); Red Blood Count 4.94 X10*6/uL (4.20-5.50); Red Cell Distribution Width 18.5 % (11.0-16.0); White Blood Count 8.1 X10*3/uL (4.8-10.8)
[2021-07-29] MEDS: Lidocaine HCl 1 % MPF 5 ML VIAL 10 ML SUBCUT (12:52)
[2021-07-29] MEDS: oxyCODONE HCl Immed Release 5 MG TABLET PO (13:54)
== END 2021-07-29 15:24 | disposition home or self-care (01) ==
PROVIDERS: Radiology Diagnostic Radiology; PCP Internal Medicine Geriatric Medicine; Visit Provider Radiology Diagnostic Radiology
DX: C18.8 Malignant neoplasm of overlapping sites of colon (principal); C77.2 Secondary and unspecified malignant neoplasm of intra-abdominal lymph nodes; Z80.0 Family history of malignant neoplasm of digestive organs; F41.1 Generalized anxiety disorder; J45.909 Unspecified asthma, uncomplicated; K21.9 Gastro-esophageal reflux disease without esophagitis; E78.5 Hyperlipidemia, unspecified; I10 Essential (primary) hypertension; M54.50 Low back pain, unspecified; Z79.1 Long term (current) use of non-steroidal anti-inflammatories (NSAID); Z79.51 Long term (current) use of inhaled steroids; Z79.899 Other long term (current) drug therapy; F17.210 Nicotine dependence, cigarettes, uncomplicated
CPT/HCPCS: 36415; 36561; 85025; 85610; 85730; 99152; 99153; C1769; C1788; J0690; J1642; J2250; J3010

== ENCOUNTER → 2021-08-07 11:05 | Outpatient (BNVA) | payer MEDICAID, SELFPAY | PROVIDERS: PCP Internal Medicine Geriatric Medicine; Visit Provider Surgery | DX: Z48.3 Aftercare following surgery for neoplasm (principal); C18.9 Malignant neoplasm of colon, unspecified | CPT/HCPCS: 99212 ==

== ENCOUNTER 2021-10-27 07:33 | Outpatient (REF) | payer MEDICAID, SELFPAY ==
--- NOTE | ~2021-10-27 | MM_ITS ---
EXAMINATION: MM SCREENING DIGITAL BREAST TOMOSYNTHESIS, BILATERAL CLINICAL INFORMATION: Screening. Asymptomatic. History colon cancer. The lifetime risk of breast cancer based on the Tyrer-Cuzick Model is 10%. COMPARISON: Mammography: 09/26/2020, 01/30/2019, 11/23/2017 TECHNIQUE: Digital breast tomosynthesis is performed in both the craniocaudal and mediolateral oblique views along with computer-aided detection (CAD). Synthesized 2D images are generated from the tomosynthesis. FINDINGS: The breasts are heterogeneously dense, which may obscure small masses (ACR BI-RADS breast composition Category c). There is fine fibronodular parenchymal pattern similar to prior studies. Parenchymal pattern is similar to prior exams and there is no developing density or interval architectural abnormality or abnormal calcifications. A tunneled port overlying the right axilla on the MLO view. The skin contours are smooth. There are no significant changes. MM/MM tomosynthesis screening BI IMPRESSION: No mammographic evidence of malignancy. ASSESSMENT: BI-RADS 2: Benign RECOMMENDATION: Routine annual mammography screening. This patient's information was entered into a reminder system with a target due date for their next mammogram.
== END 2021-10-27 07:34 | disposition home or self-care (01) ==
LOC: HO.MAMMO 07:33
PROVIDERS: PCP Internal Medicine Geriatric Medicine; Visit Provider Internal Medicine Geriatric Medicine
DX: Z12.31 Encounter for screening mammogram for malignant neoplasm of breast (principal)
CPT/HCPCS: 77063; 77067

== ENCOUNTER 2022-06-26 07:53 | Outpatient (REF) | payer MEDICAID, SELFPAY ==
--- NOTE | ~2022-06-26 | CT_ITS ---
EXAMINATION: CT OF THE CHEST, ABDOMEN AND PELVIS WITH IV CONTRAST CLINICAL INFORMATION: Colon cancer. COMPARISON: Previous chest CT July 2021 and abdominal and pelvic CT June 2021. TECHNIQUE: Axial images through the chest, abdomen and pelvis following oral and 85 mL Omnipaque 350 intravenous contrast. Sagittal and coronal reconstructions on the technologist's workstation were performed. This CT examination was performed using dose optimization techniques as appropriate, variously including the following: *Automated exposure control *Adjustment of mA and/or kV according to patient size (this includes techniques or standardized protocols for targeted exams where dose is matched to indication/reason for exam; i.e. extremities or head) *Use of iterative reconstruction technique DLP: 211+701 mGy-cm FINDINGS: CHEST: 2 mm right middle lobe nodule axial image 267 series 5. 3 mm right middle lobe nodule axial image 312 series 5. In retrospect, these are stable. No new or suspicious pulmonary nodule. There are no enlarged hilar or mediastinal lymph nodes. Normal heart size. No coronary artery calcification. No pericardial effusion. Right jugular port with tip projecting over the SVC. Normal thyroid gland. Normal caliber thoracic aorta. No pleural effusion or pleural thickening. No chest wall mass or enlarged axillary lymph nodes. ABDOMEN AND PELVIS: The liver is normal. The gallbladder is normal. The pancreas is normal. The adrenal glands are normal. The kidneys are normal. The bladder is normal. There is a small stable 1 x 1.5 cm left ovarian cyst. Uterus and adnexa are otherwise normal. There are postsurgical changes following right colectomy. Small and large bowel is otherwise normal. No ascites or adenopathy. No evidence of peritoneal disease. Normal vascular structures. Small umbilical hernia containing fat. Right femoral head AVN. No suspicious bone lesion. CT/CT abdomen pelvis w IV con IMPRESSION: Chest: No suspicious findings. Small stable nodules in the right middle lobe. Abdomen and pelvis: Postsurgical changes following right colectomy. No evidence of metastatic or recurrent disease. Small stable left ovarian cyst. Right femoral head AVN.
[2022-06-26] MEDS: Barium Sulfate Oral (Vanilla) 450 ML ORAL.SUSP 900 ML PO (09:38)
[2022-06-26] MEDS: iohexoL 350 MG/ML 100 ML INFUS..BTL IV (09:39)
== END 2022-06-26 07:54 | disposition home or self-care (01) ==
LOC: HO.CT 07:53
PROVIDERS: PCP Internal Medicine Geriatric Medicine; Visit Provider Internal Medicine
DX: D64.9 Anemia, unspecified (principal)
CPT/HCPCS: 71260; 74177; Q9967

== ENCOUNTER 2022-11-10 11:26 | Outpatient (REF) | payer MEDICAID, SELFPAY ==
--- NOTE | ~2022-11-10 | MM_ITS ---
EXAMINATION: MM SCREENING DIGITAL BREAST TOMOSYNTHESIS, BILATERAL CLINICAL INFORMATION: Screening. Asymptomatic. COMPARISON: Mammography: This study is compared with prior exams dating back to 2019. TECHNIQUE: Digital breast tomosynthesis is performed in both the craniocaudal and mediolateral oblique views along with computer-aided detection (CAD). Synthesized 2D images are generated from the tomosynthesis. FINDINGS: The breasts are heterogeneously dense, which may obscure small masses (ACR BI-RADS breast composition Category c). There is a central venous access port at the superior aspect of the right side of the chest. There are no significant masses, abnormal calcifications, or other abnormalities. MM/MM tomosynthesis screening BI IMPRESSION: No mammographic evidence of malignancy. ASSESSMENT: BI-RADS BI-RADS 1 - Negative RECOMMENDATION: Routine annual mammography screening. 1 year F/U This examination should not preclude the clinical evaluation of a suspicious palpable abnormality. This patient's information was entered into a reminder system with a target due date for their next mammogram.
== END 2022-11-10 11:27 | disposition home or self-care (01) ==
LOC: HO.MAMMO 11:26
PROVIDERS: Visit Provider Internal Medicine Geriatric Medicine
DX: Z12.31 Encounter for screening mammogram for malignant neoplasm of breast (principal)
CPT/HCPCS: 77063; 77067

== ENCOUNTER → 2022-11-10 11:45 | Outpatient (BNV) | payer MEDICAID, SELFPAY | PROVIDERS: Visit Provider Radiology Diagnostic Radiology | DX: Z12.31 Encounter for screening mammogram for malignant neoplasm of breast (principal) | CPT/HCPCS: 77063; 77067 ==

== ENCOUNTER 2023-01-07 08:08 | Outpatient (REF) | payer MEDICAID, SELFPAY ==
--- NOTE | ~2023-01-07 | CT_ITS ---
EXAMINATION: CT CHEST, ABDOMEN AND PELVIS WITH CONTRAST CLINICAL INFORMATION: Surveillance. There seems to be a history of colon carcinoma when reviewing prior studies. COMPARISON: CT chest, abdomen and pelvis 06/26/2022. TECHNIQUE: Multidetector volumetric imaging was performed from the thoracic inlet through the pubic symphysis following administration of 85 mL of Omnipaque 350. Sagittal and coronal reformatted images were obtained on the technologist's workstation. This CT examination was performed using dose optimization techniques as appropriate, variously including the following: *Automated exposure control *Adjustment of mA and/or kV according to patient size (this includes techniques or standardized protocols for targeted exams where dose is matched to indication/reason for exam; i.e. extremities or head) *Use of iterative reconstruction technique DLP: 686 mGy-cm. FINDINGS: CHEST: Lung: A number of pulmonary nodules are seen, all of which are stable: 3 mm right middle lobe (5:264 compare prior 5:266) 3 mm right middle lobe (5:311 compare prior 5:312) 3 mm lingula (5:284 compare prior 5:283) 2 mm lingula (5:287 compare prior 5:286) No new worrisome nodules are seen to suggest active pulmonary metastatic disease. Mediastinum: A right chest wall port remains in place with its tip in the distal SVC. Heart size normal. The central vascular structures are unremarkable. No hilar or mediastinal lymphadenopathy. Coronary Artery Calcium: None. Pericardium/Pleura: No significant effusion. No pleural mass or thickening. Chest Wall/Axilla: Right chest port described above. ABDOMEN/PELVIS: Peritoneal Space: No significant free air or free fluid identified. Liver, Gallbladder, Biliary Tree: The liver is normal in size, shape, and attenuation. No focal hepatic lesion or biliary ductal dilatation is present. The gallbladder is unremarkable with no evidence of radiopaque gallstones, gallbladder wall thickening, or obvious pericholecystic inflammatory changes. Pancreas: Unremarkable. Spleen: Spleen is mildly enlarged at 13.2 cm in greatest transverse dimension. Adrenal Glands: Unremarkable. Kidneys and Ureters: The kidneys are normal in size, shape, and attenuation. No hydronephrosis, hydroureter, or calculi seen. No perinephric stranding. Bladder: Unremarkable. Gastrointestinal Tract: Status post right hemicolectomy. The small and large bowel are otherwise unremarkable. The appendix is longer present. Abdominal Wall: No significant hernia is appreciated. Lymph Nodes: No lymphadenopathy. Vascular: The aorta appears normal. The IVC appears unremarkable. PELVIC VISCERA: The arcuate uterus and adnexa are unremarkable. A benign 1.7 cm left ovarian cyst is unchanged. No followup is needed. No free fluid present in the cul-de-sac. OSSEUS STRUCTURES: Minimal degenerative changes are noted in the spine. Subchondral sclerosis and cyst formation in the right hip consistent with old AVN is unchanged. No bony destructive lesions are seen. CT/CT abdomen pelvis w IV con IMPRESSION: 1. No evidence of metastatic disease in the chest, abdomen or pelvis. 2. Stable small pulmonary nodules. 3. Stable mild splenomegaly. 4. Status post right hemicolectomy. 5. Right hip avascular necrosis. Fleischner guidelines were followed.
[2023-01-07] MEDS: iohexoL 350 MG/ML 100 ML INFUS..BTL IV (09:24)
[2023-01-07 10:11] LABS: Creatinine POC 0.6 mg/dL (0.5-1.4); GFR POC > 60
== END 2023-01-07 08:09 | disposition home or self-care (01) ==
LOC: HO.CT 08:08
PROVIDERS: Visit Provider Internal Medicine
DX: C18.9 Malignant neoplasm of colon, unspecified (principal)
CPT/HCPCS: 71260; 74177; 82565; Q9967

== ENCOUNTER 2023-04-21 13:02 | Outpatient (REF) | payer MEDICAID, SELFPAY ==
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
== END 2023-04-21 13:03 | disposition home or self-care (01) ==
LOC: HO.HHCX 13:02
PROVIDERS: Visit Provider Internal Medicine Geriatric Medicine
DX: M25.531 Pain in right wrist (principal)
CPT/HCPCS: 73110

== ENCOUNTER 2023-06-22 20:21 | Emergency (ER) | payer MEDICAID, SELFPAY ==
--- NOTE | ~2023-06-22 | XR_ITS ---
EXAMINATION: XR CHEST CLINICAL INFORMATION: Shortness of breath. Abdominal pain. Subjective fever. History of metastatic colon cancer. Query pneumonia. COMPARISON: Chest CT dated 01/07/2023. TECHNIQUE: Frontal view of the chest was obtained. FINDINGS: The right internal jugular vein chest port terminates over the cavoatrial junction. The trachea is in normal anatomic position. Heart size is normal. There is no consolidation within either lung. No pleural effusion or pneumothorax. No acute osseous abnormality. XR/XR chest 1V IMPRESSION: No acute cardiopulmonary disease.
--- NOTE | ~2023-06-22 | CT_ITS ---
EXAMINATION: CT ABDOMEN AND PELVIS WITH CONTRAST CLINICAL INFORMATION: Pain. COMPARISON: None available. TECHNIQUE: Multidetector volumetric images were obtained from the superior aspect of the liver through the pubic symphysis following administration 85 mL of Omnipaque 350 intravenous contrast. Sagittal and coronal reformatted images were obtained on the technologist's workstation. Oral contrast: No This CT examination was performed using dose optimization techniques as appropriate, variously including the following: *Automated exposure control *Adjustment of mA and/or kV according to patient size (this includes techniques or standardized protocols for targeted exams where dose is matched to indication/reason for exam; i.e. extremities or head) *Use of iterative reconstruction technique DLP: 701 mGy-cm FINDINGS: LUNG BASES: The visualized lung bases are unremarkable. LIVER, GALLBLADDER, AND BILIARY TREE: The liver is normal in size, shape, and attenuation. No focal hepatic lesion or biliary ductal dilatation is present. The gallbladder is unremarkable with no evidence of radiopaque gallstones, gallbladder wall thickening, or obvious pericholecystic inflammatory changes. PANCREAS: Unremarkable. SPLEEN: Unremarkable. ADRENAL GLANDS: Unremarkable. KIDNEYS AND URETERS: The kidneys are normal in size, shape, and attenuation. No hydronephrosis, hydroureter, or calculi seen. No perinephric stranding. BLADDER: Unremarkable. GASTROINTESTINAL TRACT: The small and large bowel are unremarkable. The appendix is not seen. ABDOMINAL WALL: There is a minimal umbilical hernia containing fat. LYMPH NODES: Normal. VASCULAR: There is atherosclerotic plaque of the abdominal aorta and proximal branches. PELVIC VISCERA: Unremarkable. OSSEOUS STRUCTURES: Unremarkable. CT/CT abdomen pelvis w IV con IMPRESSION: No acute findings. Fleischner guidelines were followed.
[2023-06-22 20:47] VITALS: BP 142/73; PULSE 66; O2SAT 98
[2023-06-22 20:49] VITALS: BP 132/51; PULSE 49; RESP 16; TEMP 36.7; O2SAT 96; BMI 29.2
--- NOTE | 2023-06-22 20:55 | ED_ITS ---
HPI - Abdominal Pain General Chief Complaint: General Medical Stated Complaint: ETOH, CONSTIPATION Time Seen by Provider: 06/22/23 20:43 Source: patient and EMS Mode of arrival: EMS Limitations: no limitations History of Present Illness HPI narrative: 52-year-old female with a history of GERD, microcytic anemia, hypertension, depression, obesity, adenocarcinoma of the colon 1 year prior status post surgery, currently receiving chemotherapy who presents emergency department for evaluation of constipation x2 days abdominal bloating, abdominal pain, nausea with no vomiting. Patient states that she has had intermittent abdominal pain over the last 2 weeks which is gotten progressively worse. She points to her right lower quadrant area when asked to localize the sharp pain which is 8/10 at its worst. She states the pain does radiate to her back. Patient has had nausea with no vomiting. She states that she did have a bowel movement today but otherwise has been constipated, she occasionally has diarrhea. Review of systems was positive for fever, chills, rhinorrhea, nonproductive cough, chest pain worse with breathing, shortness of breath, dyspnea on exertion, urinary frequency. Dysuria, black tarry stools or bloody stools. Patient did notice a rash in her left intertriginous region which is been there for 2 days. She states that the rash is not painful. She states she drank at least 4-5 beers prior to coming to the emergency department. I did review the hematology oncology note by Dr. Reilly on 03/05/2023. The patient had a large ascending mass abutting the ileocecal valve extending at least 5 cm distally and partially obstructing ulcerative mass with ileocecal ectomy on 06/12/2021. Patient had a adenocarcinoma which invaded through the muscularis into the pericolonic tissue and she had 1 of 9 lymph nodes positive for metastatic tumor with negative margins. Postoperative course was complicated by colitis. Patient had a screening CT scan chest abdomen pelvis with contrast December 2022 that showed no evidence of disease recurrence. Patient received adjuvant chemotherapy. Related Data Home Medications ?Medication ?Instructions ?Recorded ?Confirmed acetaminophen 500 mg tablet 500 mg PO Q8H PRN Pain 01/16/21 06/22/23 albuterol sulfate 90 mcg/actuation 2 inh inhalation Q4-6H PRN Wheezing 01/16/21 06/22/23 aerosol inhaler (ProAir HFA) dicyclomine 20 mg tablet 20 mg PO TID PRN Abdominal 01/16/21 06/22/23 Discomfort ergocalciferol (vitamin D2) 1,250 1,250 mcg PO QWEEK 01/16/21 06/22/23 mcg (50,000 unit) capsule fluticasone propionate 50 1 spray intranasal DAILY 01/16/21 06/22/23 mcg/actuation nasal spray,suspension lisinopril 5 mg tablet 5 mg PO DAILY 01/16/21 06/22/23 montelukast 10 mg tablet 10 mg PO DAILY 01/16/21 06/22/23 (Singulair) sertraline 100 mg tablet (Zoloft) 100 mg PO DAILY 01/16/21 06/22/23 hydrochlorothiazide 25 mg tablet 1 tab PO BEDTIME 05/06/21 06/22/23 omega-3 fatty acids 1,000 mg 1 cap PO DAILY 05/06/21 06/22/23 capsule pravastatin 80 mg tablet 1 tab PO DAILY 05/06/21 06/22/23 azelastine 0.05 % eye drops 1 drp ophthalmic (eye) BID 06/12/21 06/22/23 Previous Rx's ?Medication ?Instructions ?Recorded cetirizine 10 mg tablet 10 mg PO DAILY PRN Allergy 09/24/21 Symptoms #30 tabs docusate sodium 100 mg capsule 100 mg PO DAILY #30 caps 09/24/21 (Colace) aluminum-magnesium hydroxide 200 5 ml PO Q4-6H PRN Acid Reflux #100 10/17/21 mg-200 mg/5 mL oral suspension mL nystatin 100,000 unit/mL oral 100,000 unit buccal DAILY #300 mL 01/06/22 suspension nystatin 100,000 unit/gram topical 1 appl topical TID #60 grams 04/01/22 powder ondansetron 8 mg disintegrating 8 mg PO Q8H PRN Nausea #60 tabs 08/11/22 tablet pantoprazole 40 mg tablet,delayed 40 mg PO DAILY #30 tabs 06/18/23 release morphine 15 mg immediate release 15 mg PO Q6H PRN pain #10 tabs 06/23/23 tablet ondansetron 4 mg disintegrating 4 mg PO Q6-8H PRN nausea and 06/23/23 tablet vomiting #14 tabs Allergies Allergy/AdvReac Type Severity Reaction Status Date / Time No Known Allergies Allergy Verified 06/22/23 20:56 Review of Systems Review of Systems Yes all other systems are reviewed and are negative FORMERLY [facility], [facility]–1983 Past Medical History Medical History (Updated 06/23/23 @ 07:24 by Eric Zaldivar MD) Jean Carlos syndrome Dental bridge present Arthritis Low back pain Environmental allergies Anemia GERD (gastroesophageal reflux disease) Hyperlipidemia Seasonal allergies Asthma Hypertension Acute anxiety Surgical History (Updated 06/22/23 @ 15:16 by Marilyn Trevizo RN) History of laryngoscopy History of surgery History of colon resection History of esophagogastroduodenoscopy (EGD) Hx of colonoscopy History of tonsillectomy Family History Family History Father Colon cancer Social History Social History Are you a primary certified social workers in health care to a significant other at home: No Do you presently have visiting nurse or other home services: No Alcohol intake: current Patient Tobacco Use Status: Current everyday Tobacco user Tobacco use type: Cigarette Second Hand Smoke Exposure: No Use of substances other than those prescribed or required for medical reasons: No Advance Directives: No Advance Directives Information Provided: No Patient : No service: No Current occupational status: unemployed and disabled Current occupation: lt handed Physical Exam ED Vital Signs: Vital Signs - 24 hr 06/22/23 20:49 06/22/23 22:00 06/23/23 00:00 Temperature 98.1 F 97.5 F 98.0 F Pulse Rate 49 L 71 70 Respiratory Rate 16 14 17 Blood Pressure 132/51 L 111/66 110/62 Pulse Oximetry 96 97 95 Oxygen Delivery Method Room Air Room Air Room Air 06/23/23 03:16 06/23/23 06:52 Temperature 98.4 F 98.0 F Pulse Rate 63 59 Respiratory Rate 16 16 Blood Pressure 112/61 107/64 Pulse Oximetry 96 97 Oxygen Delivery Method Room Air Room Air BMI result Body Mass Index 29.2 Exam: General: Awake, alert , does have a strong odor of alcohol on her breath but answers questions appropriately Head: Normocephalic, atraumatic EENT: PERRL, Lids normal, sclera normal, conjunctiva normal, nose normal , ears normal, throat without erythema or exudates Neck: Supple, no adenopathy Lung: breath sounds symmetric, no wheezing, rales or rhonchi Chest: symmetric movement, nontender Heart: regular rate and rhythm, normal S1, S2 no murmurs or rubs Abdomen: soft, obese, moderate right upper and right lower quadrant tenderness, diminished bowel sounds, appears to be distended, no voluntary, involuntary guarding or rebound Back: no vertebral tenderness, no CVAT Extremities: no deformities, moves all extremities symmetrically Skin: Patient has an intertriginous fungal like rash in the left groin area Neuro: Awake, alert, oriented, normal speech, cranial nerves intact, moves all extremities symmetrically Psych: Pleasant, cooperative Medical Decision Making Medical Decision Making MDM Narrative: 52-year-old female with a history of GERD, microcytic anemia, hypertension, depression, obesity, invasive, metastatic adenocarcinoma of the colon status post ileocecalectomy 06/12/2021, also treated with adjuvant chemotherapy who presents emergency department for evaluation of constipation x2 days abdominal bloating, abdominal pain, nausea with no vomiting times few weeks. States she has been having constipation but had a bowel movement today and has had intermittent diarrhea was positive for subject fever, chills, rhinorrhea, nonproductive cough, chest pain worse with breathing, shortness of breath, dyspnea on exertion, urinary frequency. Patient does admit to drinking 4-5 beers prior to coming to emergency department. Patient a rash in her left intertriginous region which is been there for 2 days. She states that the rash is not painful. Vital signs ......... Physical examination revealed obese abdomen with moderate right upper and right lower quadrant tenderness, she does appear to be distended. She had diminished bowel sounds with significant right sided abdominal tenderness. Also has an intertriginous fungal rash in her left groin area. Differential diagnosis: ?Includes but is not limited to small-bowel obstruction, cholecystitis, appendicitis, recurrence of metastatic adenocarcinoma, viral syndrome Following evaluation was ordered: CRP, ESR, troponin, lipase, lactic acid, quantitative beta-hCG, troponin, urine drug screen, ethanol level, urinalysis, chest x-ray one view, CT abdomen pelvis with IV and oral contrast. Patient was initially treated with the following: IV insert, cardiac monitoring, O2 saturation monitor Morphine 4 mg IV, Zofran 4 mg IV, normal saline x1 L Course: 22:44 My interpretation patient's laboratory evaluation as follows: WBC elevated 15,300, no anemia with an H&H of 14 and 43.8. CMP was normal. Troponin was below detectable limits. Urinalysis was negative. Quantitative beta-hCG was negative. Ethanol level was elevated 174 consistent with acute alcohol intoxication. Drug screen urine was negative. COVID-19, influenza, RSV were negative. Twelve EKG did reveal bigeminy, PACs and prolonged QTC interval-patient was placed on a electronic device monitor 07:19 CT scan of the patient's abdomen pelvis with IV and oral contrast did not reveal a clear etiology for the patient's pain, there was no bowel obstruction which is reassuring. Patient most likely has a viral syndrome causing her symptoms and I did discuss this with her. The patient does have an intertriginous rash in her left groin area which is can consistent with a fungal infection. She was prescribed nystatin ointment b.i.d. for 2 weeks. Patient was advised to take Tylenol and ibuprofen for pain and for pain not relieved by these medications she was prescribed morphine. She was also prescribed Zofran 4 mg ODT every 6 hours as needed for nausea and vomiting. She was given printed and verbal instructions and discharged home. Admission/Observation Consideration of admission/observation: Escalation of care including admission/observation considered Lab Data 06/22/23 21:41 06/22/23 21:41 Labs: Lab Results 06/22/23 06/22/23 Range/Units 21:34 21:41 WBC 15.3 H (4.8-10.8) X10*3/uL RBC 5.33 (4.20-5.50) X10*6/uL Hgb 14.8 (12.0-16.0) g/dl Hct 43.4 (37.0-47.0) % MCV 81.4 (80.0-98.0) fL MCH 27.8 (27.0-33.0) pg MCHC 34.1 (31.0-35.0) g/dl RDW 13.5 (11.0-16.0) % Plt Count 252 D (160-400) X10*3/uL MPV 10.4 (9.4-12.3) fL Immature Gran % (Auto) 0.5 H (0.0-0.4) % Neut % (Auto) 60.2 (45-73) % Lymph % (Auto) 32.5 (20-40) % [place] % (Auto) 5.7 (2-11) % Eos % (Auto) 0.8 (0-4) % Baso % (Auto) 0.3 (0-2) % Lymph # (Auto) 5.0 H (1.2-4.9) X10*3/uL [place] # (Auto) 0.9 (0.1-1.2) X10*3/uL Eos # (Auto) 0.1 (0.0-0.4) X10*3/uL Baso # (Auto) 0.1 (0.0-0.2) X10*3/uL Abs Immat Gran (auto) 0.08 H (0.00-0.03) X10*3/uL Absolute Neuts (auto) 9.2 H (2.0-8.3) x10*3/uL Absolute Nucleated RBC 0.000 (0.0-0.012) X10*3/uL Nucleated RBC % (auto) 0.0 (0.0-0.2) /100WBC ESR 8 (0-20) MM/HR APTT 34.7 (26.0-36.8) SEC Sodium 135 (135-145) mmol/L Potassium 3.5 (3.3-5.1) mmol/L Chloride 101 (96-108) mmol/L Carbon Dioxide 25 (22-29) mmol/L Anion Gap 13 (12-20) BUN 9 (9-16) mg/dL Creatinine 0.72 (0.5-1.4) mg/dL Estim Creat Clear Calc 97.5 Estimated GFR > 60 Random Glucose 86 (60-115) mg/dL Lactic Acid 1.1 (0.5-2.0) mmol/L Calcium 9.4 (8.4-10.2) mg/dL Total Bilirubin 0.3 (0.0-1.0) mg/dL AST 21 (5-31) U/L ALT 23 (0-31) U/L Alkaline Phosphatase 85 (39-117) U/L Troponin I High Sens < 2.7 (<3.5-17.0) ng/L C-Reactive Protein < 0.10 (< or = 0.50) mg/dL Total Protein 7.3 (6.5-8.0) g/dL Albumin 4.3 (3.5-5.0) g/dL Lipase 76 (8-78) U/L Beta HCG, Quant < 2 mIU/mL Urine Color Yellow Urine Appearance Clear Urine pH 5.5 (5.0-9.0) Ur Specific [place] <= 1.005 (1.005-1.025) Urine Protein Negative (Neg-Trace) mg/dL Urine Glucose (UA) Negative (Negative) mg/dL Urine Ketones Negative (Negative) mg/dL Urine Blood Negative (Negative) Urine Nitrite Negative (Negative) Ur Leukocyte Esterase Negative (Negative) Urine Opiates Screen Not Detected (Not Detect) Urine Fentanyl Screen Not Detected (Not Detect) Ur Barbiturates Screen Not Detected (Not Detect) Ur Phencyclidine Scrn Not Detected (Not Detect) Ur Amphetamines Screen Not Detected (Not Detect) U Benzodiazepines Scrn Not Detected (Not Detect) Urine Cocaine Screen Not Detected (Not Detect) U Marijuana (THC) Screen Not Detected (Not Detect) Ethyl Alcohol 176 mg/dL Influenza Type A (PCR) NEGATIVE (Negative) Influenza Type B (PCR) NEGATIVE (Negative) RSV RNA Qual (PCR) NEGATIVE (Negative) SARS-CoV-2 RNA (RT-PCR) NEGATIVE (Negative) Independent Interpretation I performed an independent interpretation of an: EKG Interpretation: My independent interpretation the patient's 12 EKG done at 20:57 hours is as follows: Normal sinus rhythm rate of 90, bigeminy and PACs, normal MA interval, QRS duration prolonged QTC interval of 489 milliseconds, no ST segment elevation, no ST segment depression, no significant T-wave abnormalities. Medications Administered Discontinued Medications Generic Name Dose Route Start Last Admin Trade Name Freq PRN Reason Stop Dose Admin Diatrizoate Meglum/Diatrizoate Sod 30 ml 06/22/23 23:52 06/22/23 23:53 Diatrizoate Meglumine, Sodium 30 Ml Solution PO 06/22/23 23:53 30 ml ONCE ONE Administration Sodium Chloride 1,000 mls @ 999 mls/hr 06/22/23 20:55 06/22/23 23:45 Ns IV 06/22/23 21:55 Infused .Q1H1M STA Infusion Iohexol 85 ml 06/22/23 23:57 06/22/23 23:57 Iohexol 350 Mg/Ml 100 Ml Infus..Btl IV 06/22/23 23:58 85 ml ONCE ONE Administration Morphine Sulfate 4 mg 06/22/23 20:55 06/22/23 21:55 Morphine Sulfate 4 Mg/Ml Cartridge IVPUSH 06/22/23 20:56 4 mg ONCE STA Administration Protocol Ondansetron HCl 4 mg 06/22/23 20:55 06/22/23 21:55 Ondansetron Hcl 4 Mg/2 Ml Vial IVPUSH 06/22/23 20:56 4 mg ONCE ONE Administration Discharge Plan Discharge Clinical Impression: Viral syndrome, Intertriginous candidiasis Abdominal pain Qualifiers: Abdominal location: generalized Qualified Code(s): R10.84 - Generalized abdominal pain Acute alcohol intoxication Qualifiers: Complication of substance-induced condition: uncomplicated Qualified Code(s): F 10.920 - Alcohol use, unspecified with intoxication, uncomplicated Patient Disposition: Home, Self-Care Instructions: Abdominal Pain (ED), Skin Yeast Infection (ED) Additional Instructions: Your laboratory evaluation was unremarkable. Your COVID-19, influenza and RSV tests were negative. The CT scan of your abdomen pelvis with IV and oral contrast did not reveal a clear cause for your pain, there was no bowel obstruction, this is reassuring. Your alcohol level was elevated above the level of intoxication, you should get help with your alcohol use disorder. The rash in your left groin is consistent with a fungal infection, apply nystatin ointment twice a day for 2 weeks to this area Take ibuprofen 200 mg pills, 2 pills every 6 hours as needed for pain. Take Tylenol (acetaminophen) 2 pills every 46 hours as needed for pain. For pain not relieved by ibuprofen or Tylenol take morphine 15 mg pills, 1 pill every 4 hours as needed for pain. This medication will make you sleepy, do not drive or work while taking this medication. Morphine is a narcotic medication and can be addicting. If you are concerned about addiction you can ask the pharmacist for less pills or do not get this prescription filled. Take Zofran ODT 4 mg pills, 1 pill dissolved in your mouth every 8 hours as needed for nausea and vomiting. Follow-up with your doctor in 2 days. Please return to the emergency department if your symptoms get worse or if you develop any symptoms that are concerning to you. Prescriptions: New morphine 15 mg tablet 15 mg PO Q6H PRN (Reason: pain) Qty: 10 0RF Rx Instructions: The patient may ask for partial fill; Partial Fill upon patient request. ondansetron 4 mg tablet,disintegrating 4 mg PO Q6-8H PRN (Reason: nausea and vomiting) Qty: 14 0RF No Action omega-3 fatty acids 1,000 mg capsule 1 cap PO DAILY pravastatin 80 mg tablet 1 tab PO DAILY hydrochlorothiazide 25 mg tablet 1 tab PO BEDTIME azelastine 0.05 % drops 1 drp ophthalmic (eye) BID cetirizine 10 mg tablet 10 mg PO DAILY PRN (Reason: Allergy Symptoms) Qty: 30 0RF docusate sodium [Colace] 100 mg Capsule 100 mg PO DAILY Qty: 30 3RF aluminum-magnesium hydroxide 200-200 mg/5 mL Suspension 5 ml PO Q4-6H PRN (Reason: Acid Reflux) Qty: 100 0RF nystatin 100,000 unit/mL Suspension 100,000 unit BUCCAL DAILY Qty: 300 2RF Rx Instructions: administer 1/2 of dose in each side of the mouth nystatin 100,000 unit/gram Powder 1 appl TOPICAL TID Qty: 60 1RF ondansetron 8 mg Tablet,Disintegrating 8 mg PO Q8H PRN (Reason: Nausea) Qty: 60 3RF pantoprazole 40 mg tablet,delayed release (DR/EC) 40 mg PO DAILY Qty: 30 0RF sertraline [Zoloft] 100 mg tablet 100 mg PO DAILY acetaminophen 500 mg tablet 500 mg PO Q8H PRN (Reason: Pain) Hold Instructions: Resume on 07/16/21. while taking narcotics with acetaminophen fluticasone propionate 50 mcg/actuation spray,suspension 1 spray intranasal DAILY Rx Instructions: administer into each nostril lisinopril 5 mg tablet 5 mg PO DAILY ergocalciferol (vitamin D2) 1,250 mcg (50,000 unit) capsule 1,250 mcg PO QWEEK albuterol sulfate [ProAir HFA] 90 mcg/actuation HFA aerosol inhaler 2 inh inhalation Q4-6H PRN (Reason: Wheezing) montelukast [Singulair] 10 mg tablet 10 mg PO DAILY dicyclomine 20 mg tablet 20 mg PO TID PRN (Reason: Abdominal Discomfort) Print Language: Tajik
--- NOTE | 2023-06-22 20:56 | ECG_ITS ---
Test Reason : CHEST/ABD PAIN Blood Pressure : / mmHG Vent. Rate : 090 BPM Atrial Rate : 051 BPM P-R Int : 164 ms QRS Dur : 096 ms QT Int : 400 ms P-R-T Axes : 038 069 058 degrees QTc Int : 489 ms Normal sinus rhythm with Premature atrial complexes with intermittent aberrant ventricular conduction or PVCs Prolonged QT Abnormal ECG When compared with ECG of 05-JUN-2021 12:52, No significant changes seen Referred By: Eric Zaldivar Electronically Signed By:SADI BRUNO MD
[2023-06-22 21:48] LABS: MANUAL DIFF FLAG NO
[2023-06-22 21:51] LABS: Basophils Absolute Auto 0.1 X10*3/uL (0.0-0.2); Basophils Percent Auto 0.3 % (0-2); Eosinophils Absolute Auto 0.1 X10*3/uL (0.0-0.4); Eosinophils Percent Auto 0.8 % (0-4); Hematocrit 43.4 % (37.0-47.0); Hemoglobin 14.8 g/dl (12.0-16.0); Imm Gran Abs Auto 0.08 X10*3/uL (0.00-0.03); Imm Gran Pct Auto 0.5 % (0.0-0.4); Lymphocytes Percent Auto 32.5 % (20-40); Mean Corpuscular HGB Conc 34.1 g/dl (31.0-35.0); Mean Corpuscular Hemoglobin 27.8 pg (27.0-33.0); Mean Corpuscular Volume 81.4 fL (80.0-98.0); Mean Platelet Volume 10.4 fL (9.4-12.3); Monocytes Absolute Auto 0.9 X10*3/uL (0.1-1.2); Monocytes Percent Auto 5.7 % (2-11); Neutrophils Absolute Auto 9.2 x10*3/uL (2.0-8.3); Neutrophils Percent Auto 60.2 % (45-73); Platelet Count 252 X10*3/uL (160-400); Red Blood Count 5.33 X10*6/uL (4.20-5.50); Red Cell Distribution Width 13.5 % (11.0-16.0); White Blood Count 15.3 X10*3/uL (4.8-10.8)
[2023-06-22 21:51] LABS: Appearance Urine Clear; Color Urine Yellow; Glucose Urine UA Negative (Negative); Leukocyte Esterase Urine Negative (Negative); Nitrite Urine Negative (Negative); PH 5.5 (5.0-9.0); Specific Gravity - Urine <= 1.005 (1.005-1.025); Urine Blood Negative (Negative); Urine Ketones Negative (Negative); Urine Protein Negative (Neg-Trace)
[2023-06-22] MEDS: ondansetron HCL 4 MG/2 ML VIAL IVPUSH (21:55)
[2023-06-22] MEDS: 0.9 % Sodium Chloride 1,000 ML 999 ML IV (21:55)
[2023-06-22] MEDS: Morphine Sulfate 4 MG/ML CARTRIDGE IVPUSH (21:55)
[2023-06-22 21:59] LABS: Partial Thromboplastin Time 34.7 SEC (26.0-36.8)
[2023-06-22 22:00] VITALS: BP 111/66; PULSE 71; RESP 14; TEMP 36.4; O2SAT 97
[2023-06-22 22:00] LABS: Amphetamine Screen Urine Not Detected (Not Detect); Barbiturates, Urine Not Detected (Not Detect); Benzodiazepines Screen Urine Not Detected (Not Detect); Cannabinoid Screen Urine Not Detected (Not Detect); Cocaine Screen Urine Not Detected (Not Detect); Fentanyl, urine Not Detected (Not Detect); Opiate Screen Urine Not Detected (Not Detect); Phencyclidine Screen Urine Not Detected (Not Detect)
[2023-06-22 22:02] LABS: Lactic Acid 1.1 mmol/L (0.5-2.0)
--- NOTE | 2023-06-22 22:05 | PC.NURSE ---
Pt medicated per may. Pt ambulated to the restroom. Plan of care ongoing.
[2023-06-22 22:06] LABS: C Reactive Protein < 0.10 mg/dL (< or = 0.50)
[2023-06-22 22:13] LABS: Alanine Aminotransferase 23 U/L (0-31); Albumin Level 4.3 g/dL (3.5-5.0); Alkaline Phosphatase 85 U/L (39-117); Anion Gap 13 (12-20); Aspartate Amino Transferase 21 U/L (5-31); Bilirubin Total 0.3 mg/dL (0.0-1.0); Blood Urea Nitrogen 9 mg/dL (9-16); Calcium 9.4 mg/dL (8.4-10.2); Carbon Dioxide 25 mmol/L (22-29); Chloride 101 mmol/L (96-108); Creatinine Clr Calc Pharmacy 97.5; Estimated Glomerular Filt Rate > 60; Ethanol 176 mg/dL; Glucose Random 86 mg/dL (60-115); Lipase 76 U/L (8-78); Potassium 3.5 mmol/L (3.3-5.1); Sodium 135 mmol/L (135-145); Total Protein 7.3 g/dL (6.5-8.0)
[2023-06-22 22:14] LABS: HCG Quantitative < 2 mIU/mL
[2023-06-22 22:20] LABS: Troponin-I High Sensitivity < 2.7 ng/L (<3.5-17.0)
[2023-06-22 22:27] LABS: Influenza A PCR NEGATIVE (Negative); Influenza B PCR NEGATIVE (Negative); Resp Syncy Virus RNA Qual PCR NEGATIVE (Negative); SARS COV2 PCR INHOUSE NEGATIVE (Negative)
[2023-06-22 22:32] LABS: Erythrocyte Sedimentation Rate 8 MM/HR (0-20)
[2023-06-22] MEDS: Diatrizoate Meglumine, Sodium 30 ML SOLUTION PO (23:53)
[2023-06-22] MEDS: iohexoL 350 MG/ML 100 ML INFUS..BTL 85 ML IV (23:57)
[2023-06-23] VITALS: BP 110/62; PULSE 70; RESP 17; TEMP 36.7; O2SAT 95
[2023-06-23 03:16] VITALS: BP 112/61; PULSE 63; RESP 16; TEMP 36.9; O2SAT 96
[2023-06-23 06:52] VITALS: BP 107/64; PULSE 59; RESP 16; TEMP 36.7; O2SAT 97
[2023-06-23 08:20] VITALS: BP 129/61; PULSE 62; RESP 18; TEMP 36.6; O2SAT 98
== END 2023-06-23 08:21 | disposition home or self-care (01) ==
PROVIDERS: Emergency Provider Emergency Medicine Emergency Medical Services; PCP Internal Medicine Geriatric Medicine
DX: B34.9 Viral infection, unspecified (principal); B37.2 Candidiasis of skin and nail; F10.920 Alcohol use, unspecified with intoxication, uncomplicated; K59.00 Constipation, unspecified; R14.0 Abdominal distension (gaseous); C18.9 Malignant neoplasm of colon, unspecified; I10 Essential (primary) hypertension; D53.9 Nutritional anemia, unspecified; Z79.60 Long term (current) use of unspecified immunomodulators and immunosuppressants; Z79.899 Other long term (current) drug therapy; Z03.818 Encounter for observation for suspected exposure to other biological agents ruled out
CPT/HCPCS: 0241U; 36415; 71045; 74177; 80053; 80307; 81003; 83605; 83690; 84484; 84702; 85025; 85652; 85730; 86140; 93005; 96361; 96374; 96375; 99284; 99285; J2270; J2405; Q9967

== ENCOUNTER → 2023-06-22 20:56 | Outpatient (BNV) | payer MEDICAID, SELFPAY | PROVIDERS: Emergency Provider Emergency Medicine Emergency Medical Services; PCP Internal Medicine Geriatric Medicine; Visit Provider Internal Medicine Cardiovascular Disease | DX: R07.9 Chest pain, unspecified (principal); I45.81 Long QT syndrome | CPT/HCPCS: 93010 ==

== ENCOUNTER 2023-06-25 10:13 | Day surgery (SDC) | payer MEDICAID, SELFPAY ==
[2023-06-22 15:20] VITALS: BMI 33.0
--- NOTE | 2023-06-24 09:14 | HO.ANESPROP2 ---
Documented by User: Tatyana Schmitt NP 06/24/23 09:19 HPI - Anesthesia Eval Consult details Narrative: 52yo F for Colonoscopy [facility] [place]/22/23 with abdominal pain: viral vs ETOH (drank ~5 beers prior to arrival), CT scan negative PMFSH Active Problems Active Problems: All Active Problems Depression (Acute) Colon adenocarcinoma (Chronic) Obesity (Acute) Hypertension (Acute) Osteoarthritis of left knee (Acute) Past Medical History Medical History Jean Carlos syndrome Dental bridge present Arthritis Low back pain Environmental allergies Anemia GERD (gastroesophageal reflux disease) Hyperlipidemia Seasonal allergies Asthma Hypertension Acute anxiety Family History Family History Father Colon cancer Family history of problems with anesthesia: No Surgical History Surgical History History of laryngoscopy History of surgery History of colon resection History of esophagogastroduodenoscopy (EGD) Hx of colonoscopy History of tonsillectomy History of Problems with Anesthesia: No Social History Social History Are you a primary landcare officer to a significant other at home: No Do you presently have visiting nurse or other home services: No Alcohol intake: current Alcohol intake frequency: holidays/special occasions only Patient Tobacco Use Status: Current everyday Tobacco user Tobacco use type: Cigarette Cigarettes Per Day: 3 Second Hand Smoke Exposure: No Use of substances other than those prescribed or required for medical reasons: No Are you DNR?: No Advance Directives: No Advance Directives Information Provided: Yes service: No Current occupational status: unemployed and disabled Current occupation: lt handed Meds Allergies Allergy/AdvReac Type Severity Reaction Status Date / Time No Known Allergies Allergy Verified 06/25/23 10:58 Home Medications ?Medication ?Instructions ?Recorded ?Confirmed ?Last Taken ?Type acetaminophen 500 mg tablet 500 mg PO Q8H PRN Pain 01/16/21 06/22/23 Unknown History albuterol sulfate 90 mcg/actuation 2 inh inhalation Q4-6H PRN Wheezing 01/16/21 06/25/23 06/25/23 History aerosol inhaler (ProAir HFA) dicyclomine 20 mg tablet 20 mg PO TID PRN Abdominal 01/16/21 06/22/23 Unknown History Discomfort ergocalciferol (vitamin D2) 1,250 1,250 mcg PO QWEEK 01/16/21 06/25/23 06/23/23 History mcg (50,000 unit) capsule fluticasone propionate 50 1 spray intranasal DAILY 01/16/21 06/22/23 Unknown History mcg/actuation nasal spray,suspension lisinopril 5 mg tablet 5 mg PO DAILY 01/16/21 06/25/23 06/25/23 History montelukast 10 mg tablet 10 mg PO DAILY 01/16/21 06/25/23 06/23/23 History (Singulair) sertraline 100 mg tablet (Zoloft) 100 mg PO DAILY 01/16/21 06/25/23 06/23/23 History hydrochlorothiazide 25 mg tablet 1 tab PO BEDTIME 05/06/21 06/25/23 06/23/23 History pravastatin 80 mg tablet 1 tab PO DAILY 05/06/21 06/25/23 06/23/23 History azelastine 0.05 % eye drops 1 drp ophthalmic (eye) BID 06/12/21 06/22/23 Unknown History Exam Height,Weight and Vital Signs: Height 5 ft 4 in Weight 87.09 kg Pertinent Lab Results Pertinent Lab Results: Laboratory Tests 06/22/23 21:41 WBC 15.3 H Hgb 14.8 Hct 43.4 Plt Count 252 D Sodium 135 Potassium 3.5 Chloride 101 Carbon Dioxide 25 BUN 9 Creatinine 0.72 Narrative Narrative: EKG 06/22/23 Vent. Rate : 090 BPM Atrial Rate : 051 BPM P-R Int : 164 ms QRS Dur : 096 ms QT Int : 400 ms P-R-T Axes : 038 069 058 degrees QTc Int : 489 ms Normal sinus rhythm with Premature atrial complexes with intermittent aberrant ventricular conduction or PVCs Prolonged QT Abnormal ECG When compared with ECG of 05-JUN-2021 12:52, No significant changes seen Assessment and Plan Assessment Anesthesia Assessment: Chart Reviewed Final Anesthetic Review Family History of Problems with Anesthesia: No History of Problems with Anesthesia: No Documented by User: Katalina Justice MD 06/25/23 12:12 [facility] Active Problems Active Problems: All Active Problems Depression (Acute) Colon adenocarcinoma (Chronic) Obesity (Acute) Hypertension (Acute)Seen in ED 06/22 23 with abdominal pain, ETOH - Discharged with ?viral illness. Denies fever, malaise today Smoker- last cigarette this morning Past Medical History Medical History Jean Carlos syndrome Dental bridge present Arthritis Low back pain Environmental allergies Anemia GERD (gastroesophageal reflux disease) Hyperlipidemia Seasonal allergies Asthma Hypertension Acute anxiety Family History Family History Father Colon cancer Family history of problems with anesthesia: No Surgical History Surgical History History of laryngoscopy History of surgery History of colon resection History of esophagogastroduodenoscopy (EGD) Hx of colonoscopy History of tonsillectomy History of Problems with Anesthesia: No Social History Social History Are you a primary landcare officer to a significant other at home: No Do you presently have visiting nurse or other home services: No Alcohol intake: current Alcohol intake frequency: holidays/special occasions only Patient Tobacco Use Status: Current everyday Tobacco user Tobacco use type: Cigarette Cigarettes Per Day: 3 Second Hand Smoke Exposure: No Use of substances other than those prescribed or required for medical reasons: No Are you DNR?: No Advance Directives: No Advance Directives Information Provided: Yes service: No Current occupational status: unemployed and disabled Current occupation: lt handed Meds Allergies Allergy/AdvReac Type Severity Reaction Status Date / Time No Known Allergies Allergy Verified 06/25/23 10:58 Home Medications ?Medication ?Instructions ?Recorded ?Confirmed ?Last Taken ?Type acetaminophen 500 mg tablet 500 mg PO Q8H PRN Pain 01/16/21 06/22/23 Unknown History albuterol sulfate 90 mcg/actuation 2 inh inhalation Q4-6H PRN Wheezing 11/07/0306/25/23 06/25/23 History aerosol inhaler (ProAir HFA) dicyclomine 20 mg tablet 20 mg PO TID PRN Abdominal 01/16/21 06/22/23 Unknown History Discomfort ergocalciferol (vitamin D2) 1,250 1,250 mcg PO QWEEK 01/16/21 06/25/23 06/23/23 History mcg (50,000 unit) capsule fluticasone propionate 50 1 spray intranasal DAILY 01/16/21 06/22/23 Unknown History mcg/actuation nasal spray,suspension lisinopril 5 mg tablet 5 mg PO DAILY 01/16/21 06/25/23 06/25/23 History montelukast 10 mg tablet 10 mg PO DAILY 01/16/21 06/25/23 06/23/23 History (Singulair) sertraline 100 mg tablet (Zoloft) 100 mg PO DAILY 01/16/21 06/25/23 06/23/23 History hydrochlorothiazide 25 mg tablet 1 tab PO BEDTIME 05/06/21 06/25/23 06/23/23 History pravastatin 80 mg tablet 1 tab PO DAILY 05/06/21 06/25/23 06/23/23 History azelastine 0.05 % eye drops 1 drp ophthalmic (eye) BID 06/12/21 06/22/23 Unknown History Exam Height,Weight and Vital Signs: Height 5 ft 4 in Weight 87.09 kg Vital Signs Temp Pulse Resp BP Pulse Ox O2 Del Method 06/25/23 10:58 96.5 F L 86 16 113/75 97 Room Air Airway Mallampati Class: II TM Dist: >3cm Neck ROM: Full Loose/Missing/Broken Teeth: Yes (Broken teeth, missing teeth top. Denies loose teeth) Heart: RRR Lungs: CTAB Assessment and Plan Assessment Anesthesia Assessment: Anesthesia Plan Discussed Final Anesthetic Review Family History of Problems with Anesthesia: No History of Problems with Anesthesia: No NPO: Yes ASA Class: III Final Preanesthetic Review: No Changes in Pt Med Stat, Meds/Allgs Chart Reviewed, Consent Obtained/Reviewed and Anes Risks/Benef Reviewed Patient Risk: Intermediate Procedure Risk: Low Assessment/Block/Sedation in SS: Assess/Block/Sedation-SS Anesthetic Plan Anesthetic Plan: MAC: Disposition: Standard PACU
[2023-06-25 10:38] VITALS: BMI 33.5
[2023-06-25 10:58] VITALS: BP 113/75; PULSE 86; RESP 16; TEMP 35.8; O2SAT 97
[2023-06-25] MEDS: Lactated Ringers 1,000 ML 100 ML IVCONT (10:59)
[2023-06-25 13:07] VITALS: BP 90/54; PULSE 75; RESP 16; TEMP 36.5; O2SAT 97
--- NOTE | 2023-06-25 13:15 | PM.OP ---
Brief Operative Note Date of Service: 06/25/23 Pre-op diagnosis: Screening Post-op diagnosis: other (Rectal polyp) Procedure: Colonoscopy to the anastomosis with bx/removal of polyp Surgeon: Varinder Louise MD Anesthesia: MAC Was an Freelance Programmer/App Developer used for this Procedure?: No Estimated blood loss (mL): 2.0 Pathology: other (A. Rectal polyp) Condition: stable Disposition: PACU
[2023-06-25 13:22] VITALS: BP 125/70; PULSE 773; RESP 16; TEMP 36.6; O2SAT 97
--- NOTE | 2023-06-26 04:36 | OP_ITS ---
DATE OF SERVICE: 06/25/2023 SURGEON: Varinder Louise MD INDICATIONS: The patient presents for evaluation of personal history of colon cancer and colon polyps. Informed consent has been obtained from her for this, including risks of bleeding and perforation. PREOPERATIVE DIAGNOSIS: POSTOPERATIVE DIAGNOSIS: PROCEDURE PERFORMED: Colonoscopy to the anastomosis and small bowel with biopsy and removal of polyp. ESTIMATED BLOOD LOSS: COMPLICATIONS: ANESTHESIA: Monitored anesthesia care. ASSISTANTS: SPECIMENS: PREOPERATIVE DIAGNOSES: Personal history of colon cancer and colon polyps. POSTOPERATIVE DIAGNOSES: Personal history of colon cancer and colon polyps, rectal polyp, normal anastomosis, mild diverticulosis, and small internal hemorrhoids. DESCRIPTION OF PROCEDURE: The patient was placed in the left lateral decubitus position. The digital rectal exam revealed no abnormalities. The Olympus video-pediatric colonoscope was entered into the rectum and advanced easily to the region of the anastomosis. The anastomosis including the small bowel appeared normal. The scope was then slowly withdrawn assessing all mucosal surfaces carefully. Preparation was excellent. There was no sign of any colitis nor angiodysplasia. There was a mild amount of sigmoid diverticulosis. In the rectum, the scope was retroflexed visualizing internal hemorrhoids. In the forward viewing position in the distal rectum was an approximately 5 mm polyp, which was biopsied and completely removed with cold biopsy forceps. Of note, the previously placed submucosal ink marking was noted in the sigmoid colon with no sign of any recurrent polyp tissue. The scope was withdrawn from the patient. She tolerated the procedure well and was returned to the recovery area in stable condition. IMPRESSION: 1. Small rectal polyp, status post biopsy removal. 2. Normal anastomosis. 3. Internal hemorrhoids. PLAN: The results of the pathology will be checked. Given her history, I would recommend a repeat colonoscopy in 2 years for further screening and surveillance. She will otherwise see me on a p.r.n. basis. MD MASOOD Llanos/DAYAMI / [phone]
== END 2023-06-25 15:06 | disposition home or self-care (01) ==
PROVIDERS: PCP Internal Medicine Geriatric Medicine; Visit Provider Internal Medicine
PROC: 0DJD8ZZ Inspection of Lower Intestinal Tract, Via Natural or Artificial Opening Endoscopic (ICD-10-PCS; CPT 45378; principal; 2023-06-25 11:30)
DX: Z12.11 Encounter for screening for malignant neoplasm of colon (principal); Z85.038 Personal history of other malignant neoplasm of large intestine; Z86.010 Personal history of colon polyps; Z80.0 Family history of malignant neoplasm of digestive organs; D12.8 Benign neoplasm of rectum; Z98.0 Intestinal bypass and anastomosis status; K57.30 Diverticulosis of large intestine without perforation or abscess without bleeding; K64.8 Other hemorrhoids; Z90.49 Acquired absence of other specified parts of digestive tract; K21.9 Gastro-esophageal reflux disease without esophagitis; J45.909 Unspecified asthma, uncomplicated; I10 Essential (primary) hypertension; E78.5 Hyperlipidemia, unspecified; G90.2 Horner's syndrome; Z79.1 Long term (current) use of non-steroidal anti-inflammatories (NSAID); Z79.51 Long term (current) use of inhaled steroids; Z79.899 Other long term (current) drug therapy; Z88.1 Allergy status to other antibiotic agents; F17.210 Nicotine dependence, cigarettes, uncomplicated
CPT/HCPCS: 45380; 88305; J1596; J2704

== ENCOUNTER 2023-11-24 08:09 | Outpatient (REF) | payer MEDICAID, SELFPAY ==
--- NOTE | ~2023-11-24 | MM_ITS ---
EXAMINATION: MM SCREENING DIGITAL BREAST TOMOSYNTHESIS, BILATERAL CLINICAL INFORMATION: Screening. Asymptomatic. COMPARISON: Mammography: Comparison is made with available priors TECHNIQUE: Digital breast mammography with tomosynthesis is performed in both the craniocaudal and mediolateral oblique views along with computer-aided detection (CAD). FINDINGS: The breasts are heterogeneously dense, which may obscure small masses (ACR BI-RADS breast composition Category c). A port overlies and obscures the superior posterior right breast on MLO view. There are no significant masses, abnormal calcifications, or other abnormalities. MM/MM tomosynthesis screening BI IMPRESSION: No mammographic evidence of malignancy. ASSESSMENT: BI-RADS BI-RADS 2 - Benign Findings RECOMMENDATION: Routine annual mammography screening. 1 year F/U This examination should not preclude the clinical evaluation of a suspicious palpable abnormality. This patient's information was entered into a reminder system with a target due date for their next mammogram. Electronically signed by: Stephanie Green DO 12/07/2023 04:03 PM EDT
== END 2023-11-24 08:10 | disposition home or self-care (01) ==
LOC: HO.MAMMO 08:09
PROVIDERS: PCP Internal Medicine Geriatric Medicine; Visit Provider Internal Medicine Geriatric Medicine
DX: Z12.31 Encounter for screening mammogram for malignant neoplasm of breast (principal)
CPT/HCPCS: 77063; 77067

== ENCOUNTER → 2023-11-24 08:15 | Outpatient (BNV) | payer MEDICAID, SELFPAY | PROVIDERS: PCP Internal Medicine Geriatric Medicine; Visit Provider Internal Medicine | DX: Z12.31 Encounter for screening mammogram for malignant neoplasm of breast (principal) | CPT/HCPCS: 77063; 77067 ==

== ENCOUNTER 2024-01-20 11:17 | Outpatient (REF) | payer MEDICAID, SELFPAY ==
[2024-01-20 13:48] LABS: Anion Gap 13 (12-20); Blood Urea Nitrogen 16 mg/dL (9-16); Calcium 9.7 mg/dL (8.4-10.2); Carbon Dioxide 28 mmol/L (22-29); Chloride 105 mmol/L (96-108); Estimated Glomerular Filt Rate > 60; Glucose Random 95 mg/dL (60-115); Potassium 4.9 mmol/L (3.3-5.1); Sodium 141 mmol/L (135-145)
== END 2024-01-20 11:18 | disposition home or self-care (01) ==
LOC: HO.HHCL 11:17
PROVIDERS: Visit Provider Internal Medicine Geriatric Medicine
DX: I10 Essential (primary) hypertension (principal)
CPT/HCPCS: 36415; 80048

== ENCOUNTER 2024-09-19 08:24 | Outpatient (REF) | payer MEDICAID, SELFPAY ==
--- NOTE | ~2024-09-19 | CT_ITS ---
EXAMINATION: CT ABDOMEN AND PELVIS WITH CONTRAST CLINICAL INFORMATION: Colon cancer. Surveillance. Right lower quadrant pain. Elevated ALT COMPARISON: June 22, 2023. TECHNIQUE: Multidetector volumetric images were obtained from the superior aspect of the liver through the pubic symphysis following administration 85 mL of Omnipaque 350 intravenous contrast. Sagittal and coronal reformatted images were obtained on the technologist's workstation. Oral contrast: No This CT examination was performed using dose optimization techniques as appropriate, variously including the following: *Automated exposure control *Adjustment of mA and/or kV according to patient size (this includes techniques or standardized protocols for targeted exams where dose is matched to indication/reason for exam; i.e. extremities or head) *Use of iterative reconstruction technique DLP: 618.2 mGy centimeter. FINDINGS: LUNG BASES: Subsegmental atelectasis. LIVER, GALLBLADDER, AND BILIARY TREE: Liver measures 16 cm. No focal lesion. Portal veins and hepatic veins and intrahepatic portions of the IVC are patent. No pericholecystic fluid collection or gallbladder wall thickening. No intrahepatic or extrahepatic biliary ductal dilatation. PANCREAS: No focal lesion. No peripancreatic fluid collection. No main pancreatic ductal dilatation. SPLEEN: 10 cm. No focal lesion. ADRENAL GLANDS: No nodular lesion. KIDNEYS AND URETERS: No hydronephrosis. No gross nephrolithiasis. No gross renal mass. Normal enhancement pattern of the renal parenchyma. BLADDER: Fluid-filled nearly collapsed. GASTROINTESTINAL TRACT: Small hiatal hernia. Postsurgical changes in the right hemicolon suggesting prior segmental resection. No gross masses along the suture site. Abundant stool. No intestinal obstruction pattern. Few scattered diverticula, left hemicolon. Small diverticulum, second portion of the duodenum. No intestinal wall thickening. No ascites. No pneumoperitoneum. ABDOMINAL WALL: Small fat-containing umbilical and supraumbilical/epigastric hernia. LYMPH NODES: Nonspecific prominent, mesenteric. VASCULAR: Throughout the abdominal aorta wall and iliac arteries. No aneurysm or dissection, abdominal aorta. Calcified plaques in the coronary arteries. PELVIC VISCERA: 1 cm cystic lesion left adnexa. OSSEOUS STRUCTURES: Mild multilevel spondylosis without acute fracture or gross listhesis. Sclerotic marginated lytic abnormality, right femoral head. There is some vacuum phenomenon both sacroiliac joints. CT/CT abdomen pelvis w IV con IMPRESSION: Hepatomegaly, mild. Atherosclerosis disease and coronary artery disease. No gross masses or lymphadenopathy. 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 Fleischner guidelines were followed. Electronically signed by: Scout James MD 09/19/2024 10:52 AM EDT
--- NOTE | ~2024-09-19 | CT_ITS ---
EXAMINATION: CT CHEST WITH CONTRAST CLINICAL INFORMATION: Lung cancer. Smoker. Colon cancer. COMPARISON: January 07, 2023. TECHNIQUE: Multidetector volumetric CT imaging of the chest was obtained after the administration of 85 mL of Omnipaque 350 intravenous contrast without immediate adverse reactions. Axial MIP volume rendering provided. Sagittal and coronal reformatted images were obtained. This CT examination was performed using dose optimization techniques as appropriate, variously including the following: *Automated exposure control *Adjustment of mA and/or kV according to patient size (this includes techniques or standardized protocols for targeted exams where dose is matched to indication/reason for exam; i.e. extremities or head) *Use of iterative reconstruction technique DLP: 180.3 mGy centimeter. FINDINGS: LAMP DECORATOR: Patient's large body habitus. Both upper extremities at the both sides of the head. LUNGS: 2.6 mm noncalcified pulmonary nodule, right middle lung lobe. 2 mm noncalcified pulmonary nodule, lingula. Linear attenuation in the lung bases. 2 mm subpleural or nodules, lung bases. No bronchiectasis. No honeycombing. No consolidation. MEDIASTINUM: No lymphadenopathy, mediastinum or perihilar. No aneurysm or dissection, thoracic aorta. No pericardial effusion. No pneumomediastinum. Right-sided Port-A-Cath tip ends in the SVC.. PLEURA: No pleural effusion. No calcified pleural plaques. AXILLA: No lymphadenopathy. UPPER ABDOMEN: Decreased enhancement pattern of the liver parenchyma. OSSEOUS STRUCTURES: Spondylosis lower cervical spine. No acute fracture or listhesis in the axial skeleton. No lytic or blastic lesions. CT/CT chest w IV con IMPRESSION: Stable nonspecific pulmonary nodules. No lymphadenopathy. No gross intrathoracic left-sided disease. Fleischner guidelines were followed. Electronically signed by: Scout James MD 09/19/2024 10:37 AM EDT
--- OUTSIDE RECORDS SUMMARY | 2024-09-19 08:29 | XMS_ITS | Encounter Summary ---
Author Organization [employer] Address [address] [place] [address] [address] [place] [address] Care Team Providers Care Crnp Name Role Phone Name, Amado SILVEIRA Primary Care Provider [phone] Reason for Visit * Reason Comments Med Refill Encounter Details Date Type Department Care Team (Late Contact Info) Description 08/11/2022 Refill [facility] [address] [place] [address] Name, MD Amado [address] [place] [address] Social History Tobacco Use Types Packs/Day Years Used Date Smoking Tobacco: Every Day Cigarettes Smokeless Tobacco: Never Alcohol Use Standard Drinks/Week Comments Not Currently 2 (1 standard drink = 0.6 oz pur e alcohol) Rarely Depression Answer Date Recorded Patient Health Questionnaire-9 Score 7 07/08/2022 Depression Answer Date Recorded Patient Health Questionnaire-2 Score 2 07/08/2022 Comments Unknown Sex and Gender Information Value Date Recorded Sex Assigned at Female 01/12/2022 10:15 AM EDT Legal Sex Female 10:15 AM EDT Gender Identity Female 01/12/2022 10:15 AM EDT Sexual Orientation Straight 01/12/2022 10 :15 AM EDT documented as of this encounter Plan of Treatment Upcoming Encounters Date Type Department Care Team (Late Contact Info) Description 10/06/2024 2:30 PM EDT Office Visit [facility] [address] [place] [address] Rupesh Ny DDS [address], [place] [id number] 11/01/2024 2:45 PM EDT Office Visit [facility] [address] [place] [address] Name, MD Amado [address] [place] [address] documented as of this encounter Visit Diagnoses Not on filedocumented in this encounter Additional Health Concerns Assessment Noted Time PHQ-9 Depression Total Score: 7 07/09/19 23 2:16 PM EDT documented as of this encounter Care Teams Crnp Relationship Specialty Start Date End Date Name, MD Amado [address] [place] [id number] PCP - General Family Medicine 05/17/15 documented as of this encounter
--- OUTSIDE RECORDS SUMMARY | 2024-09-19 08:29 | XMS_ITS | Patient Health Record ---
Author Organization [facility] Address [address] [place] [address] Care Team Providers Care Computer Game Tester Name Role Phone Name Amado SILVEIRA Primary Care Provider Varinder Alicia Unavailable [phone] Allergies No Known Allergies Reason For Referral No Information Medications Medication SIG (Take, Route, Frequency, Duration) Notes Start Date End Date Status Ibuprofen 600 MG Oral for 30 A ctive Pantoprazole Sodium 40 MG 1 tablet Oral once or twice a week as needed Active Nystatin 129054 UNIT/GM 1 application Externally Twice a day Active Pravastatin Sodium 80 MG Oral for 30 Active hydroCHLOROthiazide 25 MG Oral for 30 Active Vitamin D (Ergocalciferol) 1.25 MG (32523 UT) Oral for 28 Active MiraLax (colon prep) 17 GM/SCOOP 1 238 Gm bottle mixed with Gatorade or Crystal Light Orally begin at 5:00 p.m. the day before the procedure for 1 day 05/16/2023 Active ProAir HFA 108 (90 Base) MCG/ACT Inhalation for 17 Active Dulcolax (colon prep) 5 MG take at 3:00 p.m and 7:00p.m. Orally two tablets twice a day for one day for 1 day 05/16/2023 Active [place]-3 1000 MG Oral for 30 Ac tive Fluticasone Propionate 50 MCG/ACT Nasal for 60 Active Lisinopril 5 MG Oral for 30 Ac tive Chlorhexidine Gluconate 0.12 % Mouth/Throat for 17 Active Augmentin Active Loratadine 10 MG Oral for 30 A ctive Zofran Active Dulcolax (colon prep) 5 MG take at 3:00 p.m and 7:00p.m. Orally two tablets twice a day for one day for 1 day 05/06/2021 Active Cetirizine HCl 10 MG Oral for 60 Active predniSONE 20 MG Oral for 5 Ac tive Singulair Active Eye Allergy Relief A ctive Zoloft 100 MG 1 tablet Orally Once a day for 30 day(s) Active MiraLax (colon prep) 17 GM/SCOOP 1 238 GM bottle mixed with Gatorade or Crystal Light Orally begin at 5:00 p.m. the day before the procedure for 1 day 05/06/2021 Active Azelastine-Fluticasone Active Dicyclomine HCl 10 MG Use 1 or 2 Orally Every 6 hours as needed for abdominal discomfort/cramps for 30 days Active Acetaminophen Active Hydrocortisone Activ e flovent HFA Active Immunizations Vaccine Route Administration Date Status Comme nts Influenza Unknown 11/13/2020 Administered Social History Tobacco Use: Social History Observation Description Date Details (start date - stop date) Current Smoker NA - NA Tobacco Use/Smoking Question Answer Notes Patient is a current smoker How often do you smoke cigarettes? every day How many cigarettes a day do you smoke? 5 or les s Alcohol Screen Question Answer Notes Did you have a drink contain ing alcohol in the past year? Yes How often did you have a dri nk containing alcohol in the past year? Monthly or less (1 point) How many drinks did you have on a typical day when you were drinking in the past year? 5 or 6 drinks (2 points) How often did you have 6 or more drinks on one occasion in the past year? Never (0 point) Points 3 Interpretation Positive Section Notes: Smokes, occ. alcohol Smokes, occ. alcohol Smokes, occ. alcohol Problems Problem Type SNOMED Code ICD Code Onset Dates Problem Status W/U Status Risk Notes Problem 354709922 Encounter for screening for malignant neoplasm of colon (Z12.11) Active confirmed Problem Diverticular disease of colon (210150646) Diverticulosis of large intestine without perforation or abscess without bleeding (K57.30) Active confirmed Problem Iron deficiency anemia (88265635) Iron deficiency anemia (D50.9) Active confirmed Problem 940916908 Gastroesophageal reflux disease without esophagitis (K21.9) Active confirmed Problem Personal history of colon cancer (Z85.038) Active confirmed Problem 984923560 Microcytic anemi a (D50.9) Active confirmed Problem 843023921 Family history o f colon cancer in father (Z80.0) Active confirmed Problem Diverticulosis of colon (844707110) Diverticulosis of colon (K57.30) Active confirmed Problem 852354218 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) Active confirmed Problem 052103033162333 Primary adenocarcinoma of ascending colon (C18.2) Active confirmed Plan Of Treatment Pending Test Test Name Order Date CHEM 7 PROFILE 05/15/2021 LIVER PROFILE 05/15/2021 IRON + IBC (FE) 04/08/2021 VITAMIN B12 AND FOLATE 04/08/2021 CEA 05/15/2021 CBC w DIFF 04/08/2021 CBC w DIFF 05/15/2021 CT ABD & PELVIS WITH CONTRAST 05/15/2021 Ferritin 04/08/2021 CT abdomen pelvis w con 05/26/2021 Future Test Test Name Order Date UPPER GI ENDOSCOPY 04/08/2021 COLONOSCOPY 04/08/2021 COLONOSCOPY 03/30/2023 Insurance Providers Payer Name Payer Address Payer Phone Subscriber Number Group Number Insured Name Patient Relationship to Insured Coverage Start Date Coverage End Date [facility] [address] [place] [address] [id number] PIERCE QUINN Self - patient is the insured Medical (General) History Medical History History ICD Code Asthma Seasonal allergies Hyperlipidemia Vocal cord polyps Depresssion Hypertension H/O Jean Carlos's syndrome Denies MS,DM,CVA,Lung disease,renal dise ase GERD--EGD 04/2021 small to mo derate sized hiatal hernia, but no significant esophagitis nor Cates's esophagus; duodenal and gastric biopsies were negative for celiac disease and H. pylori, respectively Adenocarcinoma of the ascend ing colon found on her colonoscopy in 04/2021; a large tubulovillous adenoma was removed from the sigmoid colon as well, and this site was marked with submucosal ink as well. She had the below surgery in May of 2021. This revealed moderately differentiated adenocarcinoma with tumor invading into the pericolonic tissue, one out of 9 lymph nodes positive for cancer, and negative margins. Preop CEA level was 7.9. She was treated with adjuvant chemotherapy beginning in July of 2021 and still has her port in place. She has that flushed monthly in the oncology clinic. She sees Dr. Reilly. Surgical History Surgery Date(Month/Year) Tonsillectomy Right ileocolectomy in May of 2021 for her above-mentioned colon cancer
[2024-09-19] MEDS: iohexoL 350 MG/ML 100 ML INFUS..BTL 85 ML IV (10:14)
== END 2024-09-19 08:25 | disposition home or self-care (01) ==
LOC: HO.CT 08:24
PROVIDERS: Absent Provider Internal Medicine; PCP Internal Medicine Geriatric Medicine; Visit Provider Nurse Practitioner Family
DX: C18.9 Malignant neoplasm of colon, unspecified (principal)
CPT/HCPCS: 71260; 74177; Q9967

== ENCOUNTER → 2024-09-19 08:29 | Outpatient (BNV) | payer MEDICAID, SELFPAY | PROVIDERS: Absent Provider Internal Medicine; PCP Internal Medicine Geriatric Medicine; Visit Provider Radiology Diagnostic Radiology | DX: N83.202 Unspecified ovarian cyst, left side (principal); J98.11 Atelectasis | CPT/HCPCS: 71260; 74177 ==

== ENCOUNTER 2025-01-04 09:07 | Outpatient (REF) | payer MEDICAID, SELFPAY ==
--- OUTSIDE RECORDS SUMMARY | 2025-01-04 09:58 | XMS_ITS | Encounter Summary ---
Author Organization [employer] Address [address] [place] [address] Care Team Providers Care Telegraphic Typewriter Mechanic Name Role Phone Name, Amado SILVEIRA Primary Care Provider [phone] Encounter Details Date Type Department Care Team ([facility] st Contact Info) Description 01/03/2025 Telephone [facility] [address] [place] [address] Yasmin Watson MA Social History Tobacco Use Types Packs/Day Years Used Date Smoking Tobacco: Every Day Cigarettes Smokeless Tobacco: Never Alcohol Use Standard Drinks/Week Comments Yes 2 (1 standard drink = 0.6 oz pur e alcohol) occassional Depression Answer Date Recorded Patient Health Questionnaire-9 Score 2 06/21/2024 Patient Health Questionnaire-9 Score 2 06/21/2024 Last PHQ-9: Questionnaire Data Not on file 0 06/21/2024 Housing Stability Answer Date Recorded What is your housing situation today? I have housing today, but I am worried about losing housing in the future 06/21/[address] you li ve. Do you have problems with any of the following? Mold 06/21/2024 Food Insecurity Answer Date Recorded Within the past 12 months, y ou worried that your food would run out before you got money to buy more: Often true 06/21/2024 Within the past 12 months,th e food you bought just didn't last and you didn't have enough money to get more: Often true 11/2024 Transportation Answer Date Recorded In the past 12 months, has l ack of transportation kept you from medical appts, meetings, work or from getting things needed for daily living? Yes, it has kept me from medical appointments or getting medications. 12/22/2022 Utilities Answer Date Recorded In the past 12 months, has t he electric, gas, oil or water company threatened to shut off services in your home? No 06/21/2024 Depression Answer Date Recorded Patient Health Questionnaire-2 Score 0 06/21/2024 Internet Access Answer Date Recorded Internet Access Q1 Yes 06/21/2024 Internet Access Q2 Not on file 06/21/2024 Comments Unknown Sex and Gender Information Value Date Recorded Sex Assigned at Female 01/12/2022 10:15 AM EDT Legal Sex Female 10:15 AM EDT Gender Identity Female 01/12/2022 10:15 AM EDT Sexual Orientation Straight 01/12/2022 10 :15 AM EDT documented as of this encounter Miscellaneous Notes * Telephone Encounter - Yasmin Watson MA - 01/03/2025 11:34 AM EDT Chart Prep Labs: not done Images: done Referrals: internal Vaccines due: Flu and Hep B Screenings: colonoscopy Overdue care gaps: SDOH documented in this encounter Plan of Treatment Upcoming Encounters Date Type Department Care Team (Late st Contact Info) Description 01/04/2025 1:45 PM EDT Procedure Visit [facility] [address] [place] [address] Fanta Zheng CNM [address] [place] [address] 02/28/2025 2:00 PM EST Office Visit [facility] [address] [place] [phone] Name, MD Amado [address] [place] [address] 03/29/2025 2:00 PM EST Office Visit [facility] [address] [place] [address] Csas Molina documented as of this encounter Visit Diagnoses Not on filedocumented in this encounter Additional Health Concerns Assessment Noted Time PHQ-9 Depression Total Score: 2 06/22/19 25 3:23 PM EDT documented as of this encounter Care Teams Telegraphic Typewriter Mechanic Relationship Specialty Start Date End Date Name, MD Amado [address] [place] [address] PCP - General Family Medicine 05/17/15 documented as of this encounter
--- OUTSIDE RECORDS SUMMARY | 2025-01-04 09:58 | XMS_ITS | Encounter Summary ---
Author Organization [employer] Address [address] [place] [address] 7t [place] [address] Care Team Providers Care Hospitality Services Manager Name Role Phone Name, Amado SILVEIRA Primary Care Provider [phone] Reason for Visit * Reason Comments Med Refill Encounter Details Date Type Department Care Team ([facility] st Contact Info) Description 09/09/2023 Refill [facility] [address] [place] [address] Melania Bobby MD [address] [place] [address] Social History Tobacco Use Types Packs/Day Years Used Date Smoking Tobacco: Every Day Cigarettes Smokeless Tobacco: Never Alcohol Use Standard Drinks/Week Comments Yes 2 (1 standard drink = 0.6 oz pur e alcohol) occassional Depression Answer Date Recorded Patient Health Questionnaire-9 Score 0 07/26/2023 Patient Health Questionnaire-9 Score 0 07/26/2023 Last PHQ-9: Questionnaire Data Not on file 0 07/26/2023 Housing Stability Answer Date Recorded What is your housing situation today? I have marilou daniels 12/28/[address] you li ve. Do you have problems with any of the following? None of the above 12/28/2022 Food Insecurity Answer Date Recorded Within the past 12 months, y ou worried that your food would run out before you got money to buy more: Often true 12/28/2022 Within the past 12 months,th e food you bought just didn't last and you didn't have enough money to get more: Often true Transportation Answer Date Recorded In the past [...] shut off services in your home? No 12/28/2022 Depression Answer Date Recorded Patient Health Questionnaire-2 Score 0 07/26/2023 Comments Unknown Sex and Gender Information Value [...] Description 01/04/2025 1:45 PM EDT Procedure Visit [facility] [address] [place] [address] Fanta Zheng CNM [address] [place] [address] 02/28/2025 2:00 PM EST Office Visit [facility] [address] [place] [address] Name, MD Amado [address] [place] [address] 03/29/2025 2:00 PM EST Office Visit [facility] ADULT DENTAL [address] [place] [address] Cass Molina documented as of this encounter Visit Diagnoses Not on filedocumented in this encounter Additional Health Concerns Assessment Noted Time PHQ-9 Depression Total Score: 0 07/26/19 24 11:03 AM EDT documented as of this encounter Care Teams Hospitality Services Manager Relationship Specialty Start Date End Date Name, MD Amado [address] [place] [phone] PCP - General Family Medicine 05/17/15 documented as of this encounter
--- OUTSIDE RECORDS SUMMARY | 2025-01-04 09:58 | XMS_ITS | Encounter Summary ---
Author Organization [employer] Address [address] [place] [address] 7 [place] [address] Care Team Providers Care Softball Coach Name Role Phone Name, Amado SILVEIRA Primary Care Provider [phone] Reason for Visit * Reason Comments Med Refill Encounter Details Date Type Department Care Team (Late Contact Info) Description 08/11/2022 Refill [facility] [address] [place] [address] Name, MD Amado [address] [place] [address] [phone] Social History Tobacco Use Types Packs/Day Years [...] Department Care Team (Late Contact Info) Description 01/04/2025 1:45 PM EDT Procedure Visit [facility] [address] [place] [address] Fanta Zheng CNM [address] [place], [place] [phone] 02/28/2025 2:00 PM EST Office Visit [facility] [address] [place] [address] Name, [place] [address] 03/29/2025 2:00 PM EST Office Visit [facility] [address] [place] [address] Cass Molina documented as of this encounter Visit Diagnoses Not on filedocumented in this encounter Additional Health Concerns Assessment Noted Time PHQ-9 Depression Total Score: 7 07/09/19 23 2:16 PM EDT documented as of this encounter Care Teams Softball Coach Relationship Specialty Start Date End Date Name, MD Amado [address] [place] [address] PCP - General Family Medicine 05/17/15 documented as of this encounter
--- OUTSIDE RECORDS SUMMARY | 2025-01-04 09:58 | XMS_ITS | Encounter Summary ---
Author Organization [employer] Address [address] [place] [address] 7t [address] [place] [address] Care Team Providers Care Data Abstractor Name Role Phone Name, Amado SILVEIRA Primary Care Provider [phone] Reason for Visit * Reason Comments Care Coordination CHW outreach for SDO H food needs-referral completed Encounter Details Date Type Department Care Team (Latest Contact Info) Description 01/02/2025 Patient Outreach [facility] [address] [place] [address] Name, MD Amado [address] [place] [address] Care Coordination (CHW outreach for SDOH food needs-referral completed /) Social History Tobacco Use Types Packs/Day Years [...] AM EDT documented as of this encounter Progress Notes * Elmo Hardin - 01/02/2025 3:34 PM EDT CHW Elmo Hardin, placed outbound call to patient for assistance with SDOH as a referral was received by the provider. Patient's name and were confirmed. Patient screened positive for the following SDOH food insecurities. Patient states family in on SNAP program at this time, but did'nt haveany food for today. CHW referral patient to the local list of pantries in the area for help. Patient verbalizes understanding, and able to agree with plan to follow up. Patient also state it that a friend was also coming over to bring her some food for today. Patient educated on extended clinic hours on Mondays through Wednesdays, and Walk-In Urgent Care Located in [facility] of [facility]. Patient provided w ith after-hours line for [facility], , which offer night time triage service and option to transfer to insulation hoseman provider if needed. documented in this encounter Plan of Treatment Upcoming Encounters Date Type Department Care Team (Late st Contact Info) Description 01/04/2025 1:45 PM EDT Procedure Visit [facility] [address] [place] [address] Fanta Zheng CNM [address] [place] [address] 02/28/2025 2:00 PM EST Office Visit [facility] MEDICINE [address] [place] [address] NameAmado MD [address] [place] [address] 03/29/2025 2:00 PM EST Office Visit [facility] ADULT DENTAL [address] [place] [address] [phone] Cass Molina documented as of this encounter Visit Diagnoses Not on filedocumented in this encounter Additional Health Concerns Assessment Noted Time PHQ-9 Depression Total Score: 2 06/22/19 25 3:23 PM EDT documented as of this encounter Care Teams Data Abstractor Relationship Specialty Start Date End Date Name, MD Amado [address] [place] [address] PCP - General Family Medicine 05/17/15 documented as of this encounter
--- OUTSIDE RECORDS SUMMARY | 2025-01-04 09:58 | XMS_ITS | Encounter Summary ---
Author Organization [employer] Address [address] [place] [address] [place] [address] Care Team Providers Care Farm Technician Name Role Phone NameAmado MD Primary Care Provider [phone] Reason for Visit * Reason Comments Med Refill Encounter Details Date Type Department Care Team (Late Contact Info) Description 06/28/2022 Refill [facility] [address] [place] [address] Amado Orr MD [address] [place] [address] [phone] Social History Tobacco Use Types Packs/Day Years Used Date Smoking Tobacco: Every Day Cigarettes Smokeless Tobacco: Never Alcohol Use Standard Drinks/Week Comments Not Currently 2 (1 standard drink = 0.6 oz pur e alcohol) Rarely Comments Unknown Sex and Gender Information Value Date Recorded Sex Assigned at Female 01/12/2022 10:15 AM EDT Legal Sex Female 10:15 AM EDT Gender Identity Female 01/12/2022 10:15 AM EDT Sexual Orientation Straight 01/12/2022 10 :15 AM EDT documented as of this encounter Plan of Treatment Upcoming Encounters Date Type Department Care Team (Late Contact Info) Description 01/04/2025 1:45 PM EDT Procedure Visit [facility] [address] [place] [address] [phone] Fanta Zheng CNM [address] [place] [address] 02/28/2025 2:00 PM EST Office Visit [facility] [address] [place] [address] [phone] Amado Orr MD [address] [place] [address] 03/29/2025 2:00 PM EST Office Visit [facility] ADULT D[facility] [address] [place] [address] Cass Molina documented as of this encounter Visit Diagnoses Not on filedocumented in this encounter Care Teams Farm Technician Relationship Specialty Start Date End Date Name, MD Amado [address] [place] [address] PCP - General Family Medicine 05/17/15 documented as of this encounter
--- OUTSIDE RECORDS SUMMARY | 2025-01-04 09:58 | XMS_ITS | Encounter Summary ---
Author Organization [employer] Address [address] [place] [address] 7 [place] [address] Care Team Providers Care School Inspector Name Role Phone Name, Amado SILVEIRA Primary Care Provider Reason for Visit * Reason Onset Date Comments Appointment Request 12/18/2024 Encounter Details Date Type Department Care Team ([facility] Contact Info) Description 12/18/2024 Telephone [facility] [address] [place] [address] Name, MD Amado [address] [place] [address] Appointment Request Social History Tobacco Use Types Packs/Day Years [...] encounter Miscellaneous Notes * Telephone Encounter - Nino Bower - 12/18/2024 3:33 PM EDT Tc from pt requesting to schedule pap smear , f/u apt . Publishing Editor unable to book due to no availability Contact pt at [phone] documented in this encounter Plan of Treatment Upcoming Encounters Date Type Department Care Team (Late st Contact Info) Description 01/04/2025 1:45 PM EDT Procedure Visit [facility] [address] [place] [address] Fanta Zheng CNM [address] [place] [address] 02/28/2025 2:00 PM EST Office Visit [facility] [address] [place] [address] Name, MD Amado [address] [place] [address] 03/29/2025 2:00 PM EST Office Visit [facility] ADULT DENTAL [address] [place] [address] Cass Molina documented as of this encounter Visit Diagnoses Not on filedocumented in this encounter Additional Health Concerns Assessment Noted Time PHQ-9 Depression Total Score: 2 06/22/19 25 3:23 PM EDT documented as of this encounter Care Teams School Inspector Relationship Specialty Start Date End Date Name, MD Amado [address] [place] [address] PCP - General Family Medicine 05/17/15 documented as of this encounter
--- OUTSIDE RECORDS SUMMARY | 2025-01-04 09:58 | XMS_ITS | Encounter Summary ---
Author Organization [employer] Address [address] [facility] [facility] 7t [place] [address] Care Team Providers Care Vice President Of Academic Affairs Name Role Phone Name, Amado SILVEIRA Primary Care Provider [phone] Encounter Details Date Type Department Care Team ([facility] st Contact Info) Description 09/21/2024 Telephone [facility] [address] [place] [address] Name, MD Amado [address] [place] [address] Social History Tobacco Use Types Packs/Day Years [...] Description 01/04/2025 1:45 PM EDT Procedure Visit [facility] [address] [place] [address] Fanta Zheng CNM [address] [place] [address] 02/28/2025 2:00 PM EST Office Visit [facility] [address] [place] [address] NameAmado MD [address] [place] [address] 03/29/2025 2:00 PM EST Office Visit [facility] ADULT DENTAL [address] [place] [address] Cass Molina documented as of this encounter Visit Diagnoses Not on filedocumented in this encounter Additional Health Concerns Assessment Noted Time PHQ-9 Depression Total Score: 2 06/22/19 25 3:23 PM EDT documented as of this encounter Care Teams Vice President Of Academic Affairs Relationship Specialty Start Date End Date Amado Orr MD [address] [place] [address] PCP - General Family Medicine 05/17/15 documented as of this encounter
--- OUTSIDE RECORDS SUMMARY | 2025-01-04 09:58 | XMS_ITS | Encounter Summary ---
Author Organization [employer] Address [address] [place] [address] 7t [place] [address] Care Team Providers Care Director Talent Management Name Role Phone Name, Amado SILVEIRA Primary Care Provider [phone] Reason for Visit * Reason Comments Med Refill Encounter Details Date Type Department Care Team ([facility] st Contact Info) Description 09/09/2023 Refill [facility] [address] [place] [address] Name, MD Amado [address] [place] [address] Social History Tobacco Use Types Packs/Day Years [...] PM EDT Procedure Visit [facility] [address] [place] [address] Fanta Zheng CNM [address] [place] [address] 02/28/2025 2:00 PM EST Office Visit [facility] [address] [place] [address] Name, MD Amado [address] [place] [address] 03/29/2025 2:00 PM EST Office Visit [facility] ADULT DENTAL [address] [place] [address] Cass Molina documented as of this encounter Visit Diagnoses Not on filedocumented in this encounter Additional Health Concerns Assessment Noted Time PHQ-9 Depression Total Score: 0 07/26/19 24 11:03 AM EDT documented as of this encounter Care Teams Director Talent Management Relationship Specialty Start Date End Date Name, MD Amado [address] [place] [address] PCP - General Family Medicine 05/17/15 documented as of this encounter
--- OUTSIDE RECORDS SUMMARY | 2025-01-04 09:58 | XMS_ITS | Encounter Summary ---
Author Organization [employer] Address [address] [place] [address] 7t [place] [address] Care Team Providers Care Phone Operator Name Role Phone Name, Amado SILVEIRA Primary Care Provider [phone] Reason for Visit * Reason Onset Date Comments Medication Question 09/09/2023 Encounter Details Date Type Department Care Team ([facility] Contact Info) Description 09/09/2023 Telephone [facility] MED[facility]INE [address] [place] [address] Name, MD Amado [address] [place] [address] Medication Question Social History Tobacco Use Types Packs/Day Years [...] encounter Miscellaneous Notes * Telephone Encounter - Sofie Leyva RN - 09/09/2023 4:32 PM EDT T/C to pt. To inquiry about vit B12 , No answer. LVM to call back on [phone]. * Telephone Encounter - Dino Robert - 09/09/2023 1:47 PM EDT Tc from pt was advised to contact pcp to authorize medications prescribed. Medication in question: pantoprazole (ProtoNix) 40 MG EC tablet sertraline (Zoloft) 100 MG tablet Vitamin B12 lisinopril 5 MG tablet If any questions please contact pt at [phone]. documented in this encounter Plan of Treatment Upcoming Encounters Date Type Department Care Team (Late st Contact Info) Description 01/04/2025 1:45 PM EDT Procedure Visit [facility] MEDICINE [address] [place] [address] [phone] Fanta Zheng CNM [address] [place] [address] 02/28/2025 2:00 PM EST Office Visit [facility] MEDICINE [address] [place] [address] Name, MD [facility] [place] [address] 03/29/2025 2:00 PM EST Office Visit [facility] ADULT [facility] [address] [facility] [address] Cass Molina documented as of this encounter Visit Diagnoses Not on filedocumented in this encounter Additional Health Concerns Assessment Noted Time PHQ-9 Depression Total Score: 0 07/26/19 24 11:03 AM EDT documented as of this encounter Care Teams Phone Operator Relationship Specialty Start Date End Date Name, MD Amado [facility] [address] PCP - General Family Medicine 05/17/15 documented as of this encounter
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
--- OUTSIDE RECORDS SUMMARY | 2025-01-04 09:58 | XMS_ITS | Encounter Summary ---
Author Organization [employer] Address [address] [place] [address] 7 [place] [address] Care Team Providers Care Production Consultant Name Role Phone Name, Amado SILVEIRA Primary Care Provider [phone] Reason for Visit * Reason Comments Med Refill Encounter Details Date Type Department Care Team (Late Contact Info) Description 08/18/2022 Refill [facility] [address] [place] [phone] Name, MD Amado [address] [place] [address] [phone] Social History Tobacco Use Types Packs/Day Years [...] Description 01/04/2025 1:45 PM EDT Procedure Visit [facility] [address] [place] [phone] Fanta Zheng CNM [address] [place], [place] [phone] 02/28/2025 2:00 PM EST Office Visit [facility] [address] [place] [address] Name, [place] [address] 03/29/2025 2:00 PM EST Office Visit [facility] [address] [place] [address] Cass Molina documented as of this encounter Visit Diagnoses Not on filedocumented in this encounter Additional Health Concerns Assessment Noted Time PHQ-9 Depression Total Score: 7 07/09/19 23 2:16 PM EDT documented as of this encounter Care Teams Production Consultant Relationship Specialty Start Date End Date Name, MD Amado [address] [place] [phone] PCP - General Family Medicine 05/17/15 documented as of this encounter
--- OUTSIDE RECORDS SUMMARY | 2025-01-04 09:58 | XMS_ITS | Encounter Summary ---
Author Organization [employer] Address [address] [place] [address] 7 [place] [address] Care Team Providers Care Costume Seamstress Name Role Phone Name, Amado SILVEIRA Primary Care Provider [phone] Reason for Visit * Reason Comments Med Refill Encounter Details Date Type Department Care Team (Late Contact Info) Description 08/27/2022 Refill [facility] [address] [place] [phone] Name, MD Amado [address] [place] [address] [phone] Hypertension, unspecified type Social History Tobacco Use Types Packs/Day Years [...] Description 01/04/2025 1:45 PM EDT Procedure Visit [facility] [address] [place] [phone] Fanta Zheng CNM [address] [place], [place] [phone] 02/28/2025 2:00 PM EST Office Visit [facility] [address] [place] [address] Name, MD Amado [address] [place] [address] 03/29/2025 2:00 PM EST Office Visit [facility] ADULT DENTAL [address] [place] [address] Cass Molina documented as of this encounter Visit Diagnoses Diagnosis Hypertension, unspecified type Cervical cancer screening- Primary Screening for malignant neoplasm of the cervix Family history of breast cancer Family history of malignant neoplasm of breast documented in this encounter Additional Health Concerns Assessment Noted Time PHQ-9 Depression Total Score: 7 07/09/19 23 2:16 PM EDT documented as of this encounter Care Teams Costume Seamstress Relationship Specialty Start Date End Date Name, MD Amado [address] [place] [phone] PCP - General Family Medicine 05/17/15 documented as of this encounter
--- OUTSIDE RECORDS SUMMARY | 2025-01-04 09:59 | XMS_ITS | Encounter Summary ---
Author Organization [employer] Address [address] [place] [address] 7 [place] [address] Care Team Providers Care Precipitator Operator Name Role Phone Name, Amado SILVEIRA Primary Care Provider [phone] Reason for Visit * Reason Comments Med Refill Encounter Details Date Type Department Care Team ([facility] Contact Info) Description 05/17/2022 Refill [facility] [address] [place] [phone] Name, MD Amado [address] [place] [phone] Hypertension, unspecified type Social History Tobacco Use [...] Upcoming Encounters Date Type Department Care Team ([facility] Contact Info) Description 01/04/2025 1:45 PM EDT Procedure Visit [facility] [address] [place] [address] [phone] Fanta Zheng CNM [address] [place] [phone] 02/28/2025 2:00 PM EST Office Visit [facility] [address] [place] [phone] Name, MD [facility]ado [address] [facility] [place] [address] 03/29/2025 2:00 PM EST Office Visit [facility] ADULT DENT[facility] [address] [place] [address] Cass Molina documented as of this encounter Visit Diagnoses Diagnosis Hypertension, unspecified type Cervical cancer screening- Primary Screening for malignant neoplasm of the cervix Family history of breast cancer Family history of malignant neoplasm of breast documented in this encounter Care Teams Precipitator Operator Relationship Specialty Start Date End Date Name, [place] [address] PCP - General Family Medicine 05/17/15 documented as of this encounter
--- OUTSIDE RECORDS SUMMARY | 2025-01-04 09:59 | XMS_ITS | Clinical Summary ---
Author Organization [employer] Address [address] [place] [address] [address] [place] [address] Care Team Providers Care Stucco Worker Name Role Phone Name, Amado SILVEIRA Primary Care Provider [phone] Allergies No known active allergies Medications Incontinence Supply Disposable (Poise Pad) pads Act mame Blood Pressure kit Use once a day 1 kit 01/05/20 23 Active clotrimazole (Lotrimin) 1 % cream Apply topically every 12 (twelve) hours. 60 g 11 01/20/20 24 Active azelastine (Optivar) 0.05 % ophthalmic solution INSTILL 1 DROP INTO AFFECTED EYE TWICE A DAY 6 mL 3 01/20/20 24 Active bisacodyl (Dulcolax) 5 MG EC tablet Take 1 tablet (5 mg) by mouth if needed each day for constipation. Do not crush, chew, or split. 30 tablet 11 01/20/20 24 025 Active Acetaminophen Extra Strength 500 MG tablet TAKE 1 TABLET BY MOUTH EVERY 8 HOURS IF NEEDED FOR PAIN 90 tablet 02/02/20 24 Active cholecalciferol VITAMIN D (Vitamin D-3) 50 MCG (1999) tablet TAKE 1 TABLET BY MOUTH EVERY MORNING 90 tablet 2 06/14/19 25 Active sertraline (Zoloft) 100 MG tabletIndication s:Hypertension, unspecified type TAKE 1 TABLET BY MOUTH EVERY DAY IN THE MORNING 90 tablet 1 06/22/19 25 Active montelukast (Singulair) 10 MG tabletIndication s:Mild intermittent asthma without complication TAKE 1 TABLET BY MOUTH EVERY DAY IN THE EVENING 90 tablet 1 06/22/19 25 Active fluticasone (Flonase) 50 MCG/ACT nasal spray Administer 1 spray into each nostril Once per day. 16 g 3 06/22/19 25 026 Active fexofenadine (Ximena) 180 MG tabletIndication s:Allergic rhinitis, unspecified seasonality, unspecified trigger Take 1 tablet (180 mg) by mouth Once per day. 30 tablet 11 06/22/19 25 026 Active azithromycin (Zithromax Z-Kartik) 250 MG tabletIndication s:Acute cough Take 2 tablets once on day 1, then 1 tablet 1x/day for 4 days. 6 tablet 07/13/19 25 Active albuterol (Ventolin HFA) 108 (90 Base) MCG/ACT inhalerIndicatio ns:Mild intermittent asthma without complication INHALE 2 PUFFS BY MOUTH THREE TIMES DAILY IN THE MORNING, AT NOON AND AT BEDTIME 18 g 1 08/22/19 25 Active pravastatin (Pravachol) 80 MG tablet Take 1 tablet (80 mg) by mouth at bedtime. 90 tablet 1 11/02/19 25 Active pantoprazole (ProtoNix) 40 MG EC tabletIndication s:Hypertension, unspecified type TAKE 1 TABLET BY MOUTH BEFORE BREAKFAST 90 tablet 11/02/19 25 Active hydroCHLOROthiaz marge (HYDRODiuril) 25 MG tabletIndication s:Hypertension, unspecified type TAKE 1 TABLET BY MOUTH EVERY DAY IN THE MORNING 90 tablet 1 12/14/19 25 Active lisinopril 5 MG tabletIndication s:Hypertension, unspecified type TAKE 1 TABLET BY MOUTH EVERY DAY IN THE MORNING 90 tablet 1 12/14/19 25 Active lisinopril 5 MG tabletIndication s:Hypertension, unspecified type Take 1 tablet (5 mg) by mouth in the morning. 90 tablet 1 06/22/19 25 025 Discontinued hydroCHLOROthiaz marge (HYDRODiuril) 25 MG tabletIndication s:Hypertension, unspecified type Take 1 tablet (25 mg) by mouth in the morning. 90 tablet 1 06/22/19 25 025 Discontinued Active Problems Problem Noted Date Diagnosed Date Diverticular disease of colon 10/06/2024 Personal history of colon cancer 10/06/2024 History of malignant neoplasm of colon Acute alcohol intoxication 10/04/2023 Acute knee pain 10/04/2023 Colon adenocarcinoma (CMS/HCC) 10/04/2023 Elbow pain, left 10/04/2023 Ileus following gastrointestinal surgery 024 Intertriginous candidiasis 10/04/2023 Obesity 10/04/2023 Osteoarthritis of left knee 10/04/2023 Viral syndrome 10/04/2023 S/P right colectomy 10/04/2023 Tobacco abuse 12/31/2022 Gastroesophageal reflux disease 10/01/2022 Stress incontinence 07/08/2022 Seasonal allergic rhinitis 02/14/2022 S/P partial colectomy 02/14/2022 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 Repeat CT abdomen/pelvis with contrast in June 2023 was negative for disease recurrence. Blood work in June was normal as well. Ct abdomen/pelvis and chest negative for recurrent disease 09/2024. Surveillance colonoscopy performed 06/25/2023 revealed a benign tubular adenoma/rectal polyp that was excised. 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 Depressive disorder 12/21/2011 Hyperlipidemia 12/21/2011 Hypertension 12/21/2011 Perforation of tympanic membrane 12/21/2011 Resolved Problems Problem Noted Date Diagnosed Date Resolved Date Abdominal pain 10/04/2023 11/02/2024 Benign neoplasm of colon 10/01/2022 Microcytic anemia 10/01/2022 07/26/2023 Viral gastroenteritis 02/14/20222023 Encounters Date Type Department Care Team Description 01/03/2025 Telephone [facility] [address] [place], [place] [phone] Yasmin Watson MA 01/02/2025 Patient Outreach [facility] [address] [place], [place] [phone] Name, MD Amado Care Coordination (W outreach for SDOH food needs-referral completed /) 01/02/2025 Telephone [facility] [address] [place], [place] [phone] Amado rOr MD care management help 12/19/[address] [address] Marianela Prabhakar [place] Appointment Request 12/18/[address] [address] Amado Orr MD Appointment Request 12/13/[address] [address] Amado Orr MD Hypertension, unspecified type 12/08/2024 1:00 PM EDT Office Visit [facility] [address] [place] [phone] Karlie Nya, DDS 11/28/2024 9:30 AM EDT Office Visit [facility] [address] [place] [phone] Karlie Nya, DDS 11/14/2024 3:30 PM EDT Office Visit [facility] [address] [place] [address] Karlie Nya, DDS 11/01/2024 2:45 PM EDT Office Visit [address] [address] Amado Orr MD PE (physical exam), routine (Primary Dx); Screening for cervical cancer; Avascular necrosis of bone of right hip (CMS/HCC); Tobacco abuse; Hypertension, unspecified type 11/01/2024 Travel 10/31/[address] [address] Sharon Goodson [place] CHARTPREP 10/26/2024 Patient Outreach [address] [address] Amado Orr MD Care Coordination (CHW outreach for SDOH PT-1 and food needs-referral completed /) 10/25/2024 Patient Outreach [facility] [address] [place] [address] Amado Orr MD Pre-visit Planning (SDOH positive. ) 10/23/2024 Telephone [facility] [address] [place] [address] Name, MD Amado Durable Medical Equipment 10/06/2024 2:30 PM EDT Office Visit [facility] [address] [place] [address] AnantRupesh DDS Colon adenocarcinoma (CMS/HCC) (Primary Dx) from Last 3 Months Immunizations Immunization Administration Dates Next Due Influenza Injectable Quadriv alant Preservative Free IIV4 MDCK 12/07/2022 Influenza injectable quadriv alent IIV4 with preservative 01/04/2018,12/22/2016 Influenza injectable quadriv alent preservative free 01/19/2022,12/10/2020,12/16/2019,01/10 Influenza, IIV3, injectable 11/13/2020 Influenza, seasonal, injecta ble, preservative free 01/20/2024 Moderna Covid-19 Vaccine 12+ 06/07/2020,05/10/19 21 Pfizer Covid-19 Vaccine 12+ 01/20/2024, 2,02/03/2021 Pfizer Covid-19 Vaccine 12+ sole-sucrose (Allen Cap) 08/18/2021 Pneumococcal Conjugate PCV 20 12/07/2022 Pneumococcal Polysaccharide PPSV23 01/23/2016 TD (adult), 2 Lf tetanus tox oid, preservative free, adsorbed 07/20/2007 Tdap 07/22/2016 Zoster, Recombinant 12/07/2022 Social History Tobacco Use Types Packs/Day Years Used Date Smoking Tobacco: Every Day Cigarettes Smokeless Tobacco: Never Tobacco Cessation:Ready to Q uit: Not Asked; Counseling Given: Not Answered Alcohol Use Standard Drinks/Week Comments Yes 2 [...] Orientation Straight 01/12/2022 10 :15 AM EDT Last Filed Vital Signs Vital Sign Reading Time Taken Comments Blood Pressure 136/80 11/28/2024 9:43 AM EDT Pulse 70 11/28/2024 9:43 AM EDT Temperature 36.4 C (97.6 F) 11/01/2024 2:56 PM EDT Respiratory Rate 12 11/01/2024 2:56 PM EDT Oxygen Saturation 98% 11/01/2024 2:56 PM EDT Inhaled Oxygen Concentration - - Weight 94.3 kg (207 lb 12.8 oz) 11/01/2024 2:56 PM EDT Height 167.6 cm (5' 6 ) 11/01/2024 2:56 PM EDT Body Mass Index 33.54 11/01/2024 2:56 PM EDT Plan of Treatment Upcoming Encounters Date Type Department Care Team (Late st Contact Info) Description 01/04/2025 1:45 PM EDT Procedure Visit [facility] [address] [place], [place] [phone] Norm Fanta, CNM [address] [place], [place] [phone] 02/28/2025 2:00 PM EST Office Visit [facility] [address] [place], [place] [phone] Name, MD Amado [address] [place], [place] [phone] 03/29/2025 2:00 PM EST Office Visit [facility] [address] [place], [place] [phone] Cass Molina Health Maintenance Due Date Last Done Comments CT Colonography 1969 FIT DNA/Cologuard 1970 FIT 1970 FOBT 1970 HIV Screening 1970 Sigmoidoscopy 1970 Hepatitis C Screening 07/24/1987 Hepatitis B Vaccines (1 of 3 - 19+ 3-dose series) 1988 HPV/Cotest 07/24/1999 Dental Prophylaxis 06/30/2018 12/29/2017, 0 04/23/2017, 10/19/2016, Additional history exists Cervical Cancer Screening 11/05/2018 Pap Smear 11/05/2018 11/06/2015 Zoster Vaccines (2 of 2) 02/01/2023 12/07/2022 SDOH Screening 10/06/2023 10/05/2022 Colonoscopy 06/24/2024 06/25/2023 Colorectal Cancer Screening 06/24/2024 Influenza Vaccine (#1) 2024 , 12/07/2022, 01/19/2022, Additional history exists Diabetes: Hemoglobin A1C 01/19/2025 01/20/2024, 01/13 Dental Oral Exam 05/15/2025 11/14/2024, 11/2017, 10/19/2016, Additional history exists Alcohol/Substance Use Screening 06/21/2025 06/21/2024 Depression Screening 06/21/2025 06/21/2024, 06/22/19 25 Disability Screening 06/21/2025 06/21/2024 Dental X-Ray: Bitewings 11/15/2025 11/15/19, 04/23/2017, 04/20/2016, Additional history exists Mammogram 11/23/2025 11/24/2023, 10/14, 11/03/2021, Additional history exists Tobacco Screening 12/08/2025 12/08/2024 Lipid Panel 01/31/2026 01/31/2021 DTaP/Tdap/Td Vaccines (2 - Td or Tdap) 07/22/2026 07/22/2016, 07/20/2007 Dental X-Ray: Full Mouth 11/16/2027 11/14/2024, 08/2016 RSV Patients and Patients Aged 60 years or older (1 - 1-dose 75+ series) 2044 Pneumococcal Vaccine: 50+ Years Completed 12/07/2022, 01/23/2016 COVID-19 Vaccine Completed 01/20/2024, , 08/18/2021, Additional history exists HIB Vaccines Aged Out No longer eligi ble based on patient's age to complete this topic HPV Vaccines Aged Out No longer eligi ble based on patient's age to complete this topic Hepatitis A Vaccines Aged Out No long er eligible based on patient's age to complete this topic IPV Vaccines Aged Out No longer eligi ble based on patient's age to complete this topic Meningococcal B Vaccine Aged Out No l onger eligible based on patient's age to complete this topic Meningococcal Vaccine Aged Out No jigar domi eligible based on patient's age to complete this topic RSV under 20 months Aged Out No longe r eligible based on patient's age to complete this topic Rotavirus Vaccines Aged Out No longer eligible based on patient's age to complete this topic Procedures Procedure Name Priority Date/Time Associated Diagnosis Comments CASE PRESENTATION, DETAILED AND EXTENSIVE TREATMENT PLANNING Routine 12/08/2024 1:00 PM EDT 15 ADD TOOTH TO EXISTING PARTIAL DENTURE Routine 12/08/2024 1:00 PM EDT 11 ADD TOOTH TO EXISTING PARTIAL DENTURE Routine 12/08/2024 1:00 PM EDT 10 ADD TOOTH TO EXISTING PARTIAL DENTURE Routine 12/08/2024 1:00 PM EDT DENTURE IMPRESSION Routine 11/28/2024 9: 30 AM EDT COMPREHENSIVE PERIODONTAL EVALUATION - NEW OR ESTABLISHED PATIENT Routine 11/14/2024 3:30 PM EDT CASE PRESENTATION, DETAILED AND EXTENSIVE TREATMENT PLANNING Routine 11/14/2024 3:30 PM EDT PERIODIC ORAL EVALUATION - ESTABLISHED PATIENT Routine 11/14/2024 3:30 PM EDT INTRAORAL - COMPLETE SERIES OF RADIOGRAPHIC IMAGES Routine 11/14/2024 3:30 PM EDT 15 EXTRACTION, ERUPTED TOOTH OR EXPOSED ROOT (ELEVATION/FORCEPS REMOVAL) Routine 11/14/2024 3:30 PM EDT 16 EXTRACTION Routine 11/14/2024 12:00 AM EDT CASE PRESENTATION, DETAILED AND EXTENSIVE TREATMENT PLANNING Routine 10/06/2024 2:30 PM EDT 11 EXTRACTION, ERUPTED TOOTH OR EXPOSED ROOT (ELEVATION/FORCEPS REMOVAL) Routine 10/06/2024 2:30 PM EDT 10 EXTRACTION, ERUPTED TOOTH OR EXPOSED ROOT (ELEVATION/FORCEPS REMOVAL) Routine 10/06/2024 2:30 PM EDT POCT GLYCATED HEMOGLOBIN, TOTAL Routine 01/20/2024 10:50 AM EST Prediabetes BI MAMMOGRAM SCREENING TOMOSYNTHESIS BILATERAL Routine 11/24/2023 8:15 AM EDT HM COLONOSCOPY Routine 06/25/2023 LIPID PANEL, STANDARD Routine 01/31/2021 9:42 AM EST PROPHYLAXIS - ADULT Routine 12/29/2017 1 2:00 AM EDT HM PAP/HPV Routine 11/06/2015 from Last 3 Months or Most Recently Relevant to Health Maintenance Results * POCT HGB A1C (01/20/2024 10:50 AM EST) Hemoglobin A1C 5.9 4.0 - 6.0 % QC Media Lot # [id number] Lot# Expiration Date [id number] Blood 01/20/2024 10:5 0 AM EST Amado Name POINT OF CARE TEST ENTER/EDIT OR DERABLES Final Result * BI Mammogram Screening Tomosynthesis Bilateral (11/24/2023 8:15 AM EDT) Anatomical Region Laterality Modality Breast Bilateral Mammography 11/24/2023 8:15 AM EDT Narrative 12/07/2023 4:06 PM EDT [facility] [address] [place] [address] Mammography Report Signed Patient: Salma Borjas MR#: [id number] : 1970 Acct:[id number] Age/Sex: 53 / F ADM Date: 11/24/23 Loc: HO.MAMMO Attending Dr: Amado Orr MD Ordering Physician: Amado Orr MD Results: 2Benign Fi ndings Date of Service: 11/24/23 Follow Up: 1 Year From Orig ina Mammogram Procedure(s): MM tomosynthesis screening BI Accession Number(s): [id number] cc: Amado Orr MD EXAMINATION: MM SCREENING DIGITAL BREAST TOMOSYNTHESIS, BILATERAL CLINICAL INFORMATION: Screening. Asymptomatic. COMPARISON: Mammography: Comparison is made with available priors TECHNIQUE: Digital breast mammography with tomosynthesis is performed in both the craniocaudal and mediolateral oblique views along with computer-aided detection (CAD). FINDINGS: The breasts are heterogeneously dense, which may obscure small masses (ACR BI-RADS breast composition Category c). A port overlies and obscures the superior posterior right breast on MLO view. There are no significant masses, abnormal calcifications, or other abnormalities. MM/MM tomosynthesis screening BI IMPRESSION: No mammographic evidence of malignancy. ASSESSMENT: BI-RADS BI-RADS 2 - Benign Findings RECOMMENDATION: Routine annual mammography screening. 1 year F/U This examination should not preclude the clinical evaluation of a suspicious palpable abnormality. This patient's information was entered into a reminder system with a target due date for their next mammogram. Electronically signed by: Stephanie Green DO 12/07/2023 04:03 PM EDT Dictated By: Stephanie Green DO Signed By: <Electronically signed by Stephanie Green DO in OV> 12/07/23 1603 DD/ 0815 TD/TT: 11/24/23 0845 [employer]: Procedure Note Donotuseinterpreter, Image - 12/07/2023 [facility] [address] [place], [place] [address] Mammography Report Signed Patient: Salma Borjas MMR#: [id number] : 1970Acct:[id number] Age/Sex: 53 / FADM Date: 11/24/23 Loc: HO.MAMMO Attending Dr: Amado Orr MD Ordering Physician: Amado Orr MDResults: 2Benign Fi ndings Date of Service: 11/24/23Follow Up: 1 Year From Orig inal Mammogram Procedure(s): MM tomosynthesis screening BI Accession Number(s): [id number] cc: Amado Orr MD EXAMINATION: MM SCREENING DIGITAL BREAST TOMOSYNTHESIS, BILATERAL CLINICAL INFORMATION: Screening. Asymptomatic. COMPARISON: Mammography: Comparison is made with available priors TECHNIQUE: Digital breast mammography with tomosynthesis is performed in both the craniocaudal and mediolateral oblique views along with computer-aided detection (CAD). FINDINGS: The breasts are heterogeneously dense, which may obscure small masses (ACR BI-RADS breast composition Category c). A port overlies and obscures the superior posterior right breast on MLO view. There are no significant masses, abnormal calcifications, or other abnormalities. MM/MM tomosynthesis screening BI IMPRESSION: No mammographic evidence of malignancy. ASSESSMENT: BI-RADS BI-RADS 2 - Benign Findings RECOMMENDATION: Routine annual mammography screening. 1 year F/U This examination should not preclude the clinical evaluation of a suspicious palpable abnormality. This patient's information was entered into a reminder system with a target due date for their next mammogram. Electronically signed by: Stephanie Green DO 12/07/2023 04:03 PM EDT Dictated By: Stephanie Green DO Signed By: <Electronically signed by Stephanie Green DO in OV> 12/07/23 1603 DD/ 0815 TD/TT: 11/24/23 0845 [employer]: Amado Orr MD IM BI PROCEDURES Final Result * (ABNORMAL) Hm Colonoscopy (06/25/2023) Colonoscopy Abnormal(A ) Normal us Amado Orr MD HEALTH MAINTENANCE Final Result * (ABNORMAL) LIPID PANEL, STANDARD (01/31/2021 9:42 AM EST) Chol/HDLC Ratio 4.5 <5.0 (calc) [facility] Cholesterol, Total 240(H) <200 mg/dL [facility] HDL Cholesterol 53 > OR = 50 mg/dL [facility] LDL Cholesterol 151(H) mg/dL (calc) [facility] Comment: Reference range: <100 Desirable range <100 mg/dL for primary prevention; <70 mg/dL for patients with CHD or diabetic patients with > or = 2 CHD risk factors. LDL-C is now calculated using the Mickie calculation, which is a validated novel method providing better accuracy than the Friedewald equation in the estimation of LDL-C. Rik SS et al. PAUL. 2013;310(19): 5555-1028 (http://education.Empower2adapt.BioMedFlex/faq/LJB626) Non-HDL Cholesterol 187(H) <130 mg/dL (calc) [facility] Comment: For patients with diabetes plus 1 major ASCVD risk factor, treating to a non-HDL-C goal of <100 mg/dL (LDL-C of <70 mg/dL) is considered a therapeutic option. Triglycerides 226(H) <150 mg/dL [facility] Comment: If a non-fasting specimen was collected, consider repeat triglyceride testing on a fasting specimen if clinically indicated. Antoine et al. J. of Clin. Lipidol. 2015;9:129-169. 01/31/2021 9:42 AM EST us Amado Orr MD LAB BLOOD ORDERABLES Final Resul t [facility] [address] * Pap Smear (11/06/2015) Pap smear performed us Historical Provider HEALTH MAINTENANCE Final Result from Last 3 Months or Most Recently Relevant to Health Maintenance Insurance [place] C3 Care Teams Stucco Worker Relationship Specialty Start Date End Date Name, MD Amado [address] [place] [address] PCP - General Family Medicine 05/17/15
--- OUTSIDE RECORDS SUMMARY | 2025-01-04 09:59 | XMS_ITS | Encounter Summary ---
Author Organization [employer] Address [address] [place] [address] [address] [place] [address] Care Team Providers Care Net Sql Developer Name Role Phone NameAmado MD Primary Care Provider [phone] Reason for Visit * Reason Comments Med Refill Encounter Details Date Type Department Care Team (Late Contact Info) Description 06/19/2022 Refill [facility] [address] [place] [phone] Amado Orr MD [address] [place] [address] [phone] Social History Tobacco Use Types Packs/Day Years [...] Description 01/04/2025 1:45 PM EDT Procedure Visit [facility] [address] [place] [address] [phone] Fanta Zheng CNM [address] [place] [address] 02/28/2025 2:00 PM EST Office Visit [facility] [address] [place] [phone] Amado Orr MD [address] [place] [address] 03/29/2025 2:00 PM EST Office Visit [facility] [address] [place] [address] Cass Molina documented as of this encounter Visit Diagnoses Not on filedocumented in this encounter Care Teams Net Sql Developer Relationship Specialty Start Date End Date Name, MD Amado [address] [place] [address] PCP - General Family Medicine 05/17/15 documented as of this encounter
--- OUTSIDE RECORDS SUMMARY | 2025-01-04 09:59 | XMS_ITS | Encounter Summary ---
Author Organization [employer] Address [address] [place] [address] [address] [place] [address] Care Team Providers Care General Farmer Name Role Phone Name, Amado SILVEIRA Primary Care Provider [phone] Reason for Visit * Reason Onset Date Comments triage 05/06/2022 Encounter Details Date Type Department Care Team ([facility] Contact Info) Description 05/06/2022 Telephone [facility] [address] [place] [address] Name, MD Amado [address] [place] [address] triage Social History Tobacco Use Types Packs/Day Years [...] encounter Miscellaneous Notes * Telephone Encounter - Pablo Qiu - 05/06/2022 12:47 PM EST Symptoms: Itching - No Rash, Cough Outcome: Schedule an urgent appointment (within 1 hour) or talk to a nurse or provider soon Reason: Wheezing The caller accepted this outcome documented in this encounter Plan of Treatment Upcoming Encounters Date Type Department Care Team (Late Contact Info) Description 01/04/2025 1:45 PM EDT Procedure Visit [facility] [address] [place] [address] Fanta Zheng CNM [address] [place] [address] 02/28/2025 2:00 PM EST Office Visit [facility] [address] [place] [phone] Name, MD Amado [address] [place] [address] 03/29/2025 2:00 PM EST Office Visit [facility] [address] [place] [address] Cass Molina documented as of this encounter Visit Diagnoses Not on filedocumented in this encounter Care Teams General Farmer Relationship Specialty Start Date End Date Name, MD Amado [address] [place] [phone] PCP - General Family Medicine 05/17/15 documented as of this encounter
== END 2025-01-04 09:08 | disposition home or self-care (01) ==
LOC: HO.MAMMO 09:07
PROVIDERS: PCP Internal Medicine Geriatric Medicine; Visit Provider Internal Medicine Geriatric Medicine
DX: Z12.31 Encounter for screening mammogram for malignant neoplasm of breast (principal)
CPT/HCPCS: 77063; 77067

== ENCOUNTER → 2025-01-04 10:30 | Outpatient (BNV) | payer MEDICAID, SELFPAY | PROVIDERS: PCP Internal Medicine Geriatric Medicine; Visit Provider Radiology Body Imaging | DX: Z12.31 Encounter for screening mammogram for malignant neoplasm of breast (principal) | CPT/HCPCS: 77063; 77067 ==

== ENCOUNTER 2025-01-04 18:12 | Outpatient (REF) | payer MEDICAID, SELFPAY ==
--- OUTSIDE RECORDS SUMMARY | 2025-01-04 13:45 | XMS_ITS | Encounter Summary ---
Author Organization [employer] Address [address] [place] [address] 7 [place] [address] Care Team Providers Care Inside Tester Name Role Phone Name, Amado SILVEIRA Primary Care Provider [phone] Reason for Visit * Reason Comments pap Encounter Details Date Type Department Care Team (Latest Contact Info) Description 01/04/2025 1:45 PM EDT Procedure Visit [facility] [address] [place] [address] Fanta Zheng CN [address] [place] [address] Cervical cancer screening (Primary Dx); Family history of breast cancer; Screening examination for venereal disease; Need for vaccination; Encounter for vaccination; Encounter for immunization Social History Tobacco Use Types Packs/Day Years [...] What is your housing situation today? I am not s ure 01/04/[address] you li ve. Do you have problems with any of the following? Pests such as bugs, ants, or mice;Mold 01/04/2025 Food Insecurity Answer Date Recorded Within the [...] from getting things needed for daily living? No 01/04/2025 Utilities Answer Date Recorded In the past 12 months, has t he electric, gas, oil or water company threatened to shut off services in your home? No 06/21/2024 Depression Answer Date Recorded Patient Health Questionnaire-2 Score 0 06/21/2024 Internet Access Answer Date Recorded Internet Access Q1 Yes 06/21/2024 Internet Access Q2 Not on file 06/21/2024 Comments No Sex and Gender Information Value Date Recorded Sex Assigned at Female 01/12/2022 10:15 AM EDT Legal Sex Female 10:15 AM EDT Gender Identity Female 01/12/2022 10:15 AM EDT Sexual Orientation Straight 01/12/2022 10 :15 AM EDT documented as of this encounter Last Filed Vital Signs Vital Sign Reading Time Taken Comments Blood Pressure 144/74 01/04/2025 1:45 PM EDT Pulse 70 01/04/2025 1:45 PM EDT Temperature 36.7 C (98 F) 01/04/2025 1:45 PM EDT Respiratory Rate 16 01/04/2025 1:45 PM EDT Oxygen Saturation 98% 01/04/2025 1:45 PM EDT Inhaled Oxygen Concentration - - Weight 97 kg (213 lb 12.8 oz) 01/04/2025 1:45 PM EDT Height - - Body Mass Index 34.51 11/01/2024 2:56 PM EDT documented in this encounter Progress Notes * Fanta Zheng CNM - 01/04/2025 1:45 PM EDT Subjective Patient ID: Salma Borjas is a 54 y.o. female who presents for pap Last visit with in in 2019. NIL/HPV neg pap 10/2015. Elevated lifetime risk of breast cancer at 24.5% from that visit, previously screened with MRI/mammogram. Mammogram BIRADS 2, cat c 11/2023. Just had mammogram today, declines breast exam. She isn't sure if she had MRI in the past year. 1cm left ovarian cyst on recent CT, no followup recommendations in report. Previous senior care AMAB partner from cancer. New AMAB partner, no safety concerns. Agrees to STI testing today. Notes occasional senior care nocturia, no other urinary symptoms. Would like COVID and influenza vaccines today. Followed by oncology, s/p surgery and chemo for colon cancer, no evidence of recurrence on recent imaging. Natura genetics testing negative per recent oncology note. Review of Systems Genitourinary: Negative for dyspareunia, dysuria, frequency, genital sores, hematuria, menstrual problem, pelvic pain, urgency, vaginal bleeding, vaginal discharge and vaginal pain. No abnormal pap, no abnormal bleeding, no breast pain, no breast mass, no nipple discharge Objective BP (!) 144/74 (BP Location: Left arm, Patient Position: Sitting, BP Cuff Size: Adult) Pulse 70 Temp 98 ??F (36.7 ??C) (Oral) Resp 16 Wt 213 lb 12.8 oz (97 kg) SpO2 98% BMI 34.51 kg/m?? 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 Constitutional: Appearance: Normal appearance. Genitourinary: General: Normal vulva. Labia: Right: No rash, tenderness, lesion or injury. Left: No rash, tenderness, lesion or injury. Vagina: Normal. No signs of injury and foreign body. No vaginal discharge, erythema, tenderness, bleeding or lesions. Cervix: No cervical motion tenderness, discharge, friability, lesion, erythema, cervical bleeding or eversion. Uterus: Normal. Not enlarged and not tender. Adnexa: Right adnexa normal and left adnexa normal. Right: No mass, tenderness or fullness. Left: No mass, tenderness or fullness. Comments: Ovaries non palpable bilaterally. Good tone with Kegels, no prolapse with Valsalva Neurological: Mental Status: She is alert. Psychiatric: Mood and Affect: Mood normal. Behavior: Behavior normal. Assessment/Plan Diagnoses and all orders for this visit: Cervical cancer screening - Pap Smear Cotest today. Repeat 5 y if normal. Report bleeding. Trial Kegels, avoid drinking anything 2-3 hours before bedtime, avoid caffeine after noon. Let me know if no improvement in nocturia. Family history of breast cancer Will get recent mammogram and see if MRI done this year. If not, will order for 6m after mammogram. Screening examination for venereal disease - STI testing add on (NG, CT, Trich) - Hepatitis B Surface Antibody, Qualitative; Future - Hepatitis B Core Antibody, Total; Future - Hepatitis B surface antigen, EIA; Future - HIV-1/2 Antigen and Antibodies, Fourth Generation, with Reflexes; Future - Syphilis Screen; Future - Hepatitis C Antibody with Reflex to HCV, RNA, Quantitative, Real-Time PCR; Future Agrees to pap based and serum STI testing. Need for vaccination COVID and influenza vaccine today. documented in this encounter Plan of Treatment Upcoming Encounters Date Type Department Care Team (Late st Contact Info) Description 02/28/2025 2:00 PM EST Office Visit [facility] [address] [place] [phone] Name, MD Amado [address] [place] [address] 03/29/2025 2:00 PM EST Office Visit [facility] [address] [place] [address] Cass Molina Scheduled Orders Name Type Priority Associated Diagnoses Orde r Schedule Pap Smear Pathology and Cytology Routine Cervical cancer screening Ordered: 01/04/2025 STI testing add on (NG, CT, Trich) Pathology and Cytology Routine Screening examination for venereal disease Ordered: 01/04/2025 Hepatitis B Surface Antibody, Qualitative Lab Routine Screening examination for venereal disease Expected: 01/04/2025 (Approximate), Expires: 01/04/2026 Hepatitis B Core Antibody, Total Lab Routine Screening examination for venereal disease Expected: 01/04/2025 (Approximate), Expires: 01/04/2026 Hepatitis B surface antigen, EIA Lab Routine Screening examination for venereal disease Expected: 01/04/2025 (Approximate), Expires: 01/04/2026 HIV-1/2 Antigen and Antibodies, Fourth Generation, with Reflexes Lab Routine Screening examination for venereal disease Expected: 01/04/2025 (Approximate), Expires: 01/04/2026 Syphilis Screen Lab Routine Screening examination for venereal disease Expected: 01/04/2025 (Approximate), Expires: 01/04/2026 Hepatitis C Antibody with Reflex to HCV, RNA, Quantitative, Real-Time PCR Lab Routine Screening examination for venereal disease Expected: 01/04/2025 (Approximate), Expires: 01/04/2026 documented as of this encounter Visit Diagnoses Diagnosis Cervical cancer screening- Primary Screening for malignant neoplasm of the cervix Family history of breast cancer Family history of malignant neoplasm of breast Screening examination for venereal disease Need for vaccination Need for prophylactic vaccination and inoculation against unspecified single disease Encounter for vaccination Encounter for immunization documented in this encounter Additional Health Concerns Assessment Noted Time PHQ-9 Depression Total Score: 2 06/22/19 25 3:23 PM EDT documented as of this encounter Care Teams Inside Tester Relationship Specialty Start Date End Date Name, MD Amado [address] [place] [address] PCP - General Family Medicine 05/17/15 documented as of this encounter
--- OUTSIDE RECORDS SUMMARY | 2025-01-04 19:42 | XMS_ITS | Encounter Summary ---
Author Organization [employer] Address [address] [place] [address] [place] [address] Care Team Providers Care Byproduct Engineer Name Role Phone Name, Amado SILVEIRA Primary Care Provider [phone] Reason for Visit * Reason Comments Med Refill Encounter Details Date Type Department Care Team (Late Contact Info) Description 08/11/2022 Refill [facility] [address] [place] [address] Name, MD Amado [address] [place] [address] [phone] Social History Tobacco Use Types Packs/Day Years [...] Department Care Team (Late Contact Info) Description 02/28/2025 2:00 PM EST Office Visit [facility] [address] [place] [address] [phone] NameAmado MD [address] [place] [address] [phone] 03/29/2025 2:00 PM EST Office Visit [facility] [address] [place] [address] Cass Molina documented as of this encounter Visit Diagnoses Not on filedocumented in this encounter Additional Health Concerns Assessment Noted Time PHQ-9 Depression Total Score: 7 07/09/19 23 2:16 PM EDT documented as of this encounter Care Teams Byproduct Engineer Relationship Specialty Start Date End Date Name, MD Amado [address] [place] [address] PCP - General Family Medicine 05/17/15 documented as of this encounter
--- OUTSIDE RECORDS SUMMARY | 2025-01-04 19:42 | XMS_ITS | Patient Health Record ---
Author Organization [facility] Address [address] [place] [address] Care Team Providers Care Music Grapher Name Role Phone Name Amado SILVEIRA Primary Care Provider Varinder Alicia [phone] Allergies No Known Allergies Reason For Referral No Information Medications Medication SIG (Take, Route, Frequency, Duration) Notes Start Date End Date Status Ibuprofen 600 MG Oral; Duration: 30 Active Pantoprazole Sodium 40 MG 1 tablet Oral once or twice a week as needed Active Nystatin 490828 UNIT/GM 1 application Externally Twice a day Active Pravastatin Sodium 80 MG Oral; Duration: 30 Active hydroCHLOROthiazide 25 MG Oral; Duration: 30 Active Vitamin D (Ergocalciferol) 1.25 MG (50207 UT) Oral; Duration: 28 Act mame MiraLax (colon prep) 17 GM/SCOOP 1 238 Gm bottle mixed with Gatorade or Crystal Light Orally begin at 5:00 p.m. the day before the procedure; Duration: 1 day 05/16/2023 Active ProAir HFA 108 (90 Base) MCG/ACT Inhalation; Duration: 17 Active Dulcolax (colon prep) 5 MG take at 3:00 p.m and 7:00p.m. Orally two tablets twice a day for one day; Duration: 1 day 05/16/2023 Active Leary-3 1000 MG Oral; Duration: 30 Active Fluticasone Propionate 50 MCG/ACT Nasal; Duration: 60 Active Lisinopril 5 MG Oral; Duration: 30 Active Chlorhexidine Gluconate 0.12 % Mouth/Thr oat; Duration: 17 Active Augmentin Active Loratadine 10 MG Oral; Duration: 30 Active Zofran Active Dulcolax (colon prep) 5 MG take at 3:00 p.m and 7:00p.m. Orally two tablets twice a day for one day; Duration: 1 day 05/06/2021 Active Cetirizine HCl 10 MG Oral; Duration: 60 Active predniSONE 20 MG Oral; Duration: 5 Active Singulair Active Eye Allergy Relief A ctive Zoloft 100 MG 1 tablet Orally Once a day; Duration: 30 day(s) Active MiraLax (colon prep) 17 GM/SCOOP 1 238 GM bottle mixed with Gatorade or Crystal Light Orally begin at 5:00 p.m. the day before the procedure; Duration: 1 day 05/06/2021 Active Azelastine-Fluticasone Active Dicyclomine HCl 10 MG Use 1 or 2 Orally Every 6 hours as needed for abdominal discomfort/cramps; Duration: 30 days Active Acetaminophen Active Hydrocortisone Activ [...] Problem Status W/U Status Risk Notes Problem Screening for malignant neoplasm of colon (471750846) Encounter for screening for malignant neoplasm of colon (Z12.11) Active confirmed Problem Diverticular disease of colon (873791161) Diverticulosis of large intestine without perforation or abscess without bleeding (K57.30) Active confirmed Problem Iron deficiency anemia (04108603) Iron deficiency anemia (D50.9) Active confirmed Problem Gastroesophageal reflux disease without esophagitis (429267371) Gastroesophageal reflux disease without esophagitis (K21.9) Active confirmed Problem History of malignant neoplasm of colon (933138377) Personal history of colon cancer (Z85.038) Active confirmed Problem Microcytic anemia (596572472) Microcytic anemia (D50.9) Active confirmed Problem Family history of malignant neoplasm of gastrointestinal tract (433749654) Family history of colon cancer in father (Z80.0) Active confirmed Problem Diverticulosis of colon (570748900) Diverticulosis of colon (K57.30) Active confirmed Problem Tubulovillous adenoma of colon (9858952278) 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) Active confirmed Problem Primary adenocarcinoma of ascending colon (182153376066244) Primary adenocarcinoma of ascending colon (C18.2) Active [...] Start Date Coverage End Date [place] [address] [place] [address] [id number] PIERCE QUINN Self - patient is the insured Medical (General) History Medical History History ICD Code Asthma Seasonal allergies Hyperlipidemia Vocal cord polyps Depresssion Hypertension H/O Jean Carlos's syndrome Denies [place],DM,CVA,Lung disease,renal dise ase GERD--EGD 04/2021 small to [...]
--- OUTSIDE RECORDS SUMMARY | 2025-01-04 19:42 | XMS_ITS | Encounter Summary ---
Author Organization [employer] Address [address] [place] [address] [place] [address] Care Team Providers Care Military Technology Specialist Name Role Phone Name, Amado SILVEIRA Primary Care Provider [phone] Reason for Visit * Reason Comments Med Refill Encounter Details Date Type Department Care Team (Late Contact Info) Description 08/18/2022 Refill [facility] [address] [place] [address] Name, MD Amado [address] [place] [address] [phone] Social History Tobacco Use Types Packs/Day Years [...] Description 02/28/2025 2:00 PM EST Office Visit [facility] [address] [place] [address] [phone] NameAmado MD [address] [place] [address] [phone] 03/29/2025 2:00 PM EST Office Visit [facility] [address] [place] [address] Cass Molina documented as of this encounter Visit Diagnoses Not on filedocumented in this encounter Additional Health Concerns Assessment Noted Time PHQ-9 Depression Total Score: 7 07/09/19 23 2:16 PM EDT documented as of this encounter Care Teams Military Technology Specialist Relationship Specialty Start Date End Date Name, MD Amado [address] [place] [address] PCP - General Family Medicine 05/17/15 documented as of this encounter
--- OUTSIDE RECORDS SUMMARY | 2025-01-04 19:43 | XMS_ITS | Encounter Summary ---
Author Organization [employer] Address [address] [place] [address] 7 [place] [address] Care Team Providers Care Retail Office Associate Name Role Phone Name, Amado SILVEIRA Primary Care Provider [phone] Reason for Visit * Reason Comments Med Refill Encounter Details Date Type Department Care Team (Late Contact Info) Description 08/27/2022 Refill [facility] [address] [place] [address] Name, MD Amado [address] [place] [address] [phone] Hypertension, unspecified type Social History Tobacco Use [...] Description 02/28/2025 2:00 PM EST Office Visit [facility] [address] [place] [phone] NameAmado MD [address] [place] [address] 03/29/2025 2:00 PM EST Office Visit [facility] [address] [place] [address] Cass Molina documented as of this encounter Visit Diagnoses Diagnosis Hypertension, unspecified type documented in this encounter Additional Health Concerns Assessment Noted Time PHQ-9 Depression Total Score: 7 07/09/19 23 2:16 PM EDT documented as of this encounter Care Teams Retail Office Associate Relationship Specialty Start Date End Date Name, MD Amado [address] [place] [address] PCP - General Family Medicine 05/17/15 documented as of this encounter
--- OUTSIDE RECORDS SUMMARY | 2025-01-04 19:43 | XMS_ITS | Encounter Summary ---
Author Organization [employer] Address [address] [place] [address] 7t [place] [address] Care Team Providers Care Supervisor Fishing Name Role Phone Name, Amado SILVEIRA Primary Care Provider [phone] Reason for Visit * Reason Comments Care Coordination CHW outreach for SDO H food needs-referral completed Encounter Details Date Type Department Care Team (Latest Contact Info) Description 01/02/2025 Patient Outreach [facility] [address] [place] [address] Name, MD Amado [address] [place] [address] Care Coordination (CHW outreach for SDOH food [...] Wednesdays, and Walk-In Urgent Care Located in [facility]. Patient provided w ith after-hours line for [facility], , which offer night time triage service and option to transfer to recreation assistant provider if needed. documented in this encounter Plan of Treatment Upcoming Encounters Date Type Department Care Team (Late st Contact Info) Description 02/28/2025 2:00 PM EST Office Visit [facility] [address] [place] [address] Name, MD Amado [facility] [place] [address] 03/29/2025 2:00 PM EST Office Visit [facility] [address] [place] [address] Cass Molina documented as of this encounter Visit Diagnoses Not on filedocumented in this encounter Additional Health Concerns Assessment Noted Time PHQ-9 Depression Total Score: 2 06/22/19 25 3:23 PM EDT documented as of this encounter Care Teams Supervisor Fishing Relationship Specialty Start Date End Date Name, MD Amado [facility] [place] [address] PCP - General Family Medicine 05/17/15 documented as of this encounter
--- OUTSIDE RECORDS SUMMARY | 2025-01-04 19:43 | XMS_ITS | Encounter Summary ---
Author Organization [employer] Address [address] [place] [address] 7t [place] [address] Care Team Providers Care Sack Cleaner Name Role Phone Name, Amado SILVEIRA Primary Care Provider [phone] Reason for Visit * Reason Comments Med Refill Encounter Details Date Type Department Care Team ([facility] st Contact Info) Description 09/09/2023 Refill [facility] [address] [place] [address] Name, MD Amado [address] [place] [address] Social History Tobacco Use Types Packs/Day Years [...] Description 02/28/2025 2:00 PM EST Office Visit [facility] [address] [place] [phone] Name, MD Amado [address] [place] [phone] 03/29/2025 2:00 PM EST Office Visit [facility] [address] [place] [address] Cass Molina documented as of this encounter Visit Diagnoses Not on filedocumented in this encounter Additional Health Concerns Assessment Noted Time PHQ-9 Depression Total Score: 0 07/26/19 24 11:03 AM EDT documented as of this encounter Care Teams Sack Cleaner Relationship Specialty Start Date End Date Name, MD Amado [address] [place] [address] PCP - General Family Medicine 05/17/15 documented as of this encounter
--- OUTSIDE RECORDS SUMMARY | 2025-01-04 19:43 | XMS_ITS | Encounter Summary ---
Author Organization [employer] Address [address] [place] [address] 7 [place] [address] Care Team Providers Care Motor Equipment Sergeant Name Role Phone Name, Amado SILVEIRA Primary Care Provider [phone] Reason for Visit * Reason Onset Date Comments care management help 01/02/2025 Encounter Details Date Type Department Care Team ([facility] st Contact Info) Description 01/02/2025 Telephone [facility] [address] [place] [address] Name, MD Amado [address] [place] [address] care management help Social History Tobacco Use [...] 01/02/2025 3:13 PM EDT Received call from [place] team nurse, Janae, regarding patients food insecurity. Message relayed viawarm handoff to W Elmo Hardin, who will reach out to patient to connect with resources. * Telephone Encounter - Janae Reynolds RN - 01/02/2025 2:36 PM EDT TC placed to Maira Hannah RN Clinical 911 Telecommunicator regarding below message. Maira recommends contactingcare management to see how they want to proceed. TC placed to care management Elaine for assistance.No answer. TC placed to Lindsay Velazquez regarding pt per recommendation from Maira Hannah RN Clinical 911 Telecommunicator. Lindsay states they will have Cecilia reach [...] no food since 12/23. Contact pt at [phone] documented in this encounter Plan of Treatment Upcoming Encounters Date Type Department Care Team (Late st Contact Info) Description 02/28/2025 2:00 PM EST Office Visit [facility] [address] [place] [address] Name, MD Amado [address] [place] [phone] 03/29/2025 2:00 PM EST Office Visit [facility] [address] [place], [place] [phone] Cass Molina documented as of this encounter Visit Diagnoses Not on filedocumented in this encounter Additional Health Concerns Assessment Noted Time PHQ-9 Depression Total Score: 2 06/22/19 25 3:23 PM EDT documented as of this encounter Care Teams Motor Equipment Sergeant Relationship Specialty Start Date End Date Name, MD Amado [address] [place] [address] [phone] PCP - General Family Medicine 05/17/15 documented as of this encounter
--- OUTSIDE RECORDS SUMMARY | 2025-01-04 19:43 | XMS_ITS | Encounter Summary ---
Author Organization [employer] Address [address] [place] [address] 7 [place] [address] Care Team Providers Care Director Compliance Name Role Phone Name, Amado SILVEIRA Primary Care Provider [phone] Reason for Visit * Reason Onset Date Comments Appointment Request 12/18/2024 Encounter Details Date Type Department Care Team ([facility] Contact Info) Description 12/18/2024 Telephone [facility] [address] [place] [address] Name, MD Amado [address] [place] [address] Appointment Request Social History Tobacco Use Types [...] schedule pap smear , f/u apt . Infusion Therapy Nurse unable to book due to no availability Contact pt at [phone] documented in this encounter Plan of Treatment Upcoming Encounters Date Type Department Care Team (Late st Contact Info) Description 02/28/2025 2:00 PM EST Office Visit [facility] [address] [place] [phone] Name, MD Amado [address] [place] [address] 03/29/2025 2:00 PM EST Office Visit [facility] [address] [place] [address] Cass Molina documented as of this encounter Visit Diagnoses Not on filedocumented in this encounter Additional Health Concerns Assessment Noted Time PHQ-9 Depression Total Score: 2 06/22/19 25 3:23 PM EDT documented as of this encounter Care Teams Director Compliance Relationship Specialty Start Date End Date Name, MD Amado [facility] [place] [address] PCP - General Family Medicine 05/17/15 documented as of this encounter
--- OUTSIDE RECORDS SUMMARY | 2025-01-04 19:43 | XMS_ITS | Encounter Summary ---
Author Organization [employer] Address [address] [facility] 7t [place] [address] Care Team Providers Care Behavioral Medical Director Name Role Phone Name, Amado SILVEIRA Primary Care Provider [phone] Encounter Details Date Type Department Care Team ([facility] st Contact Info) Description 01/03/2025 Telephone [facility] [address] [place] [address] Yasmin Watson MA Social History Tobacco Use [...] Description 02/28/2025 2:00 PM EST Office Visit [facility] MEDICINE [address] [place] [address] Name, MD Amado [address] [place] [address] 03/29/2025 2:00 PM EST Office Visit [facility] ADULT DENTAL [address] [place] [address] Cass Molina documented as of this encounter Visit Diagnoses Not on filedocumented in this encounter Additional Health Concerns Assessment Noted Time PHQ-9 Depression Total Score: 2 06/22/19 25 3:23 PM EDT documented as of this encounter Care Teams Behavioral Medical Director Relationship Specialty Start Date End Date Name, MD Amado [address] [place] [address] PCP - General Family Medicine 05/17/15 documented as of this encounter
--- OUTSIDE RECORDS SUMMARY | 2025-01-04 19:43 | XMS_ITS | Encounter Summary ---
Author Organization [employer] Address [address] [place] [address] 7 [place] [address] Care Team Providers Care Sales Special Agent Name Role Phone Name, Amado SILVEIRA Primary Care Provider [phone] Reason for Visit * Reason Comments Med Refill Encounter Details Date Type Department Care Team (Late st Contact Info) Description 06/19/2022 Refill [facility] MEDICINE [address] [place] [phone] NameAmado MD [address] [place] [address] [phone] Social History Tobacco Use Types Packs/Day Years [...] Description 02/28/2025 2:00 PM EST Office Visit [facility] MEDICINE [address] [place] [address] NameAmado MD [address] [place] [address] [phone] 03/29/2025 2:00 PM EST Office Visit [facility] ADULT DENTAL [address] [place] [address] [phone] Cass Molina documented as of this encounter Visit Diagnoses Not on filedocumented in this encounter Care Teams Sales Special Agent Relationship Specialty Start Date End Date Name, MD Amado [address] [place] [address] PCP - General Family Medicine 05/17/15 documented as of this encounter
--- OUTSIDE RECORDS SUMMARY | 2025-01-04 19:43 | XMS_ITS | Encounter Summary ---
Author Organization [employer] Address [address] [facility] 7t [place] [address] Care Team Providers Care Landing Scaler Name Role Phone Name, Amado SILVEIRA Primary Care Provider [phone] Encounter Details Date Type Department Care Team (Latest Contact Info) Description 01/04/2025 Travel Social History Tobacco Use Types Packs/Day Years [...] Description 02/28/2025 2:00 PM EST Office Visit [facility] MEDICINE [address] [place] [address] NameAmado MD [address] [place] [address] 03/29/2025 2:00 PM EST Office Visit [facility] ADULT DENTAL [address] [place] [address] Cass Molina documented as of this encounter Visit Diagnoses Not on filedocumented in this encounter Additional Health Concerns Assessment Noted Time PHQ-9 Depression Total Score: 2 06/22/19 25 3:23 PM EDT documented as of this encounter Care Teams Landing Scaler Relationship Specialty Start Date End Date NameAmado MD [address] [place] [address] PCP - General Family Medicine 05/17/15 documented as of this encounter
--- OUTSIDE RECORDS SUMMARY | 2025-01-04 19:43 | XMS_ITS | Encounter Summary ---
Author Organization [employer] Address [address] [place] [address] 7t [place] [address] Care Team Providers Care Early Childhood Name Role Phone Name, Amado SILVEIRA Primary Care Provider [phone] Reason for Visit * Reason Comments Med Refill Encounter Details Date Type Department Care Team ([facility] st Contact Info) Description 09/09/2023 Refill [facility] MEDICINE 230 [place] [address] Melania Bobby MD 230 [place] [address] Social History Tobacco Use Types Packs/Day Years [...] Description 02/28/2025 2:00 PM EST Office Visit [facility] MEDICINE [address] [place] [address] Name, MD Amado [address] [place] [address] 03/29/2025 2:00 PM EST Office Visit [facility] ADULT DENTAL [address] [place] [address] Cass Molina documented as of this encounter Visit Diagnoses Not on filedocumented in this encounter Additional Health Concerns Assessment Noted Time PHQ-9 Depression Total Score: 0 07/26/19 24 11:03 AM EDT documented as of this encounter Care Teams Early Childhood Relationship Specialty Start Date End Date Name, MD Amado [address] [place] [phone] PCP - General Family Medicine 05/17/15 documented as of this encounter
--- OUTSIDE RECORDS SUMMARY | 2025-01-04 19:43 | XMS_ITS | Encounter Summary ---
Author Organization [employer] Address [address] [place] [address] 7 [place] [address] Care Team Providers Care Commercial Subcontractor Name Role Phone Name, Amado SILVEIRA Primary Care Provider [phone] Reason for Visit * Reason Comments Med Refill Encounter Details Date Type Department Care Team (Late st Contact Info) Description 06/28/2022 Refill [facility] MEDICINE [address] [place] [phone] NameAmado MD [address] [place] [address] [phone] Social History Tobacco Use Types Packs/Day Years [...] 2:00 PM EST Office Visit [facility] MEDICINE [address] [place] [phone] NameAmado MD [address] [place] [address] [phone] 03/29/2025 2:00 PM EST Office Visit [facility] ADULT DENTAL [address] [place] [address] [phone] Cass Molina documented as of this encounter Visit Diagnoses Not on filedocumented in this encounter Care Teams Commercial Subcontractor Relationship Specialty Start Date End Date Name, MD Amado 230 [place] [address] PCP - General Family Medicine 05/17/15 documented as of this encounter
--- OUTSIDE RECORDS SUMMARY | 2025-01-04 19:43 | XMS_ITS | Encounter Summary ---
Author Organization [employer] Address [address] [place] [address] 7t [place] [address] Care Team Providers Care Switchman Supervisor Name Role Phone Name, Amado SILVEIRA Primary Care Provider [phone] Reason for Visit * Reason Onset Date Comments Medication Question 09/09/2023 Encounter Details Date Type Department Care Team ([facility] Contact Info) Description 09/09/2023 Telephone [facility] [address] [place] [address] Name, MD Amado [address] [place] [address] Medication Question Social History Tobacco Use Types [...] No answer. LVM to call back on [phone]. * Telephone Encounter - Dino Robert - 09/09/2023 1:47 PM EDT Tc from pt was advised to contact pcp to authorize medications prescribed. Medication in question: pantoprazole (ProtoNix) 40 MG EC tablet sertraline (Zoloft) 100 MG tablet Vitamin B12 lisinopril 5 MG tablet If any questions please contact pt at [phone]. documented in this encounter Plan of Treatment Upcoming Encounters Date Type Department Care Team (Late st Contact Info) Description 02/28/2025 2:00 PM EST Office Visit [facility] [address] [place] [address] Name, MD Amado [address] [place] [address] 03/29/2025 2:00 PM EST Office Visit [facility] ADULT DENTAL [address] [place], [place] [phone] Cass Molina documented as of this encounter Visit Diagnoses Not on filedocumented in this encounter Additional Health Concerns Assessment Noted Time PHQ-9 Depression Total Score: 0 07/26/19 24 11:03 AM EDT documented as of this encounter Care Teams Switchman Supervisor Relationship Specialty Start Date End Date Name, MD Amado [address] [place] [address] PCP - General Family Medicine 05/17/15 documented as of this encounter
--- OUTSIDE RECORDS SUMMARY | 2025-01-04 19:43 | XMS_ITS | Encounter Summary ---
Author Organization [employer] Address [address] [facility] 7t h Floor [address] Care Team Providers Care Bobbin Winder Name Role Phone Name, Amado SILVEIRA Primary Care Provider [phone] Encounter Details Date Type Department Care Team ([facility] st Contact Info) Description 09/21/2024 Telephone [facility] MEDICINE [address] [place] [address] Name, MD Amado [address] [place] [address] Social History Tobacco Use Types Packs/Day Years [...] Description 02/28/2025 2:00 PM EST Office Visit [facility] MEDICINE [address] [place] [address] Name, MD Amado [address] [place] [address] 03/29/2025 2:00 PM EST Office Visit [facility] ADULT DENTAL [address] [place] [address] Cass Molina documented as of this encounter Visit Diagnoses Not on filedocumented in this encounter Additional Health Concerns Assessment Noted Time PHQ-9 Depression Total Score: 2 06/22/19 25 3:23 PM EDT documented as of this encounter Care Teams Bobbin Winder Relationship Specialty Start Date End Date Amado Orr MD [address] [place] [address] PCP - General Family Medicine 05/17/15 documented as of this encounter
--- OUTSIDE RECORDS SUMMARY | 2025-01-04 19:43 | XMS_ITS | Encounter Summary ---
Author Organization [employer] Address [address] [place] [address] 7 [place] [address] Care Team Providers Care Geosciences Associate Professor Name Role Phone Name, Amado SILVEIRA Primary Care Provider [phone] Reason for Visit * Reason Onset Date Comments triage 05/06/2022 Encounter Details Date Type Department Care Team ([facility] Contact Info) Description 05/06/2022 Telephone [facility] MEDICINE [address] [place] [address] Name, MD Amado [address] [place] [address] triage Social History Tobacco Use Types Packs/Day [...] Description 02/28/2025 2:00 PM EST Office Visit [facility] MEDICINE [address] [place] [address] Name, MD Amado [address] [place] [address] 03/29/2025 2:00 PM EST Office Visit [facility] ADULT DENTAL [address] [place] [address] Cass Molina documented as of this encounter Visit Diagnoses Not on filedocumented in this encounter Care Teams Geosciences Associate Professor Relationship Specialty Start Date End Date Name, MD Amado [address] [place] [address] PCP - General Family Medicine 05/17/15 documented as of this encounter
--- OUTSIDE RECORDS SUMMARY | 2025-01-04 19:43 | XMS_ITS | Encounter Summary ---
Author Organization [employer] Address [address] [place] [address] 7 [place] [address] Care Team Providers Care Uke Driver Name Role Phone Name, Amado SILVEIRA Primary Care Provider Reason for Visit * Reason Comments Med Refill Encounter Details Date Type Department Care Team ([facility] Contact Info) Description 05/17/2022 Refill [facility] MEDICINE [address] [place] [address] NameAmado MD [address] [place] [address] [phone] Hypertension, unspecified type Social History Tobacco Use [...] Upcoming Encounters Date Type Department Care Team ([facility] Contact Info) Description 02/28/2025 2:00 PM EST Office Visit [facility] MEDICINE [address] [place] [address] [phone] NameAmado MD [address] [place] [address] [phone] 03/29/2025 2:00 PM EST Office Visit [facility] ADULT DENTAL [address] [place] [address] [phone] Cass Molina documented as of this encounter Visit Diagnoses Diagnosis Hypertension, unspecified type documented in this encounter Care Teams Uke Driver Relationship Specialty Start Date End Date Name, MD Amado 230 [place] [address] PCP - General Family Medicine 05/17/15 documented as of this encounter
--- OUTSIDE RECORDS SUMMARY | 2025-01-04 19:43 | XMS_ITS | Clinical Summary ---
Author Organization [employer] Address [address] [place] [address] 7t [place] [address] Care Team Providers Care Glass Bulb Silverer Name Role Phone Name, Amado SILVEIRA Primary Care Provider [phone] Allergies No known active allergies Medications Incontinence [...] Encounters Date Type Department Care Team Description 01/04/2025 1:45 PM EDT Procedure Visit [facility] MEDICINE [address] [place] [address] Fanta Zheng CNM Cervical cancer screening (Primary Dx); Family history of breast cancer; Screening examination for venereal disease; Need for vaccination; Encounter for vaccination; Encounter for immunization 01/04/2025 Travel 01/03/2025 Telephone [facility] [address] [place] [address] Yasmin Watson MA 01/02/2025 Patient Outreach [address] [address] Amado Orr MD Care Coordination (CHW outreach for SDOH food needs-referral completed /) 01/02/[address] [address] Amado Orr MD care management help 12/19/[address] [address] Marianela Prabhakar MA Appointment Request 12/18/[address] [address] Amado Orr MD Appointment Request 12/13/[address] [address] Amado Orr MD Hypertension, unspecified type 12/08/2024 1:00 PM EDT Office Visit [facility] ADULT DENTAL [address] [place] [address] Rupesh Ny, DDS 11/28/2024 9:30 AM EDT Office Visit [facility] ADULT DENTAL [address] [place] [address] Rupesh Ny, DDS 11/14/2024 3:30 PM EDT Office Visit [facility] ADULT DENTAL [address] [place] [address] Rupesh Ny, DDS 11/01/2024 2:45 PM EDT Office Visit [address] [address] Amado Orr MD PE (physical exam), routine (Primary Dx); Screening for cervical cancer; Avascular necrosis of bone of right hip (CMS/HCC); Tobacco abuse; Hypertension, unspecified type 11/01/2024 Travel 10/31/[address] [address] Sharon Goodson MA CHARTPREP 10/26/2024 Patient Outreach [address] [address] Amado Orr MD Care Coordination (CHW outreach for SDOH PT-1 and food needs-referral completed /) 10/25/2024 Patient Outreach [facility] [address] [place], [place] [phone] Amado Orr MD Pre-visit Planning (SDOH positive. ) 10/23/2024 Telephone [facility] MED[facility]INE [address] [place] [address] Amado Orr MD Durable Medical Equipment 10/06/2024 2:30 PM EDT Office Visit [facility] ADULT DENTAL [address] [place], [place] [phone] Rupesh Ny DDS Colon adenocarcinoma ([facility]) (Primary Dx) from Last 3 Months Immunizations Immunization Administration Dates Next Due Influenza Injectable Quadriv alant Preservative Free IIV4 MDCK 12/07/2022 Influenza injectable quadriv alent IIV4 with preservative 01/04/2018,12/22/2016 Influenza injectable quadriv alent preservative free 01/19/2022,12/10/2020,12/16/2019,01/10 Influenza, IIV3, injectable 11/13/2020 Influenza, seasonal, injecta ble, preservative free 01/04/2025,01/20/2024 Moderna Covid-19 Vaccine 12+ 06/07/2020,05/10/19 21 Pfizer Covid-19 Vaccine 12+ 01/04/2025,1 03/21/2023,08/18/2021,02/03 Pfizer Covid-19 Vaccine 12+ sole-sucrose (Allen Cap) 08/18/2021 Pneumococcal Conjugate PCV 20 12/07/2022 Pneumococcal Polysaccharide PPSV23 01/23/2016 TD (adult), 2 Lf tetanus tox oid, preservative free, adsorbed 07/20/2007 Tdap 07/22/2016 Zoster, Recombinant 12/07/2022 Family History Medical History Relation Name Comments Breast cancer Mother Relation Name Status Comments Mother Social History Tobacco Use Types Packs/Day Years [...] 12.8 oz) 01/04/2025 1:45 PM EDT Height 167.6 cm (5' 6 ) 11/01/2024 2:56 PM EDT Body Mass Index 34.51 11/01/2024 2:56 PM EDT Plan of Treatment Upcoming Encounters Date Type Department Care Team (Late st Contact Info) Description 02/28/2025 2:00 PM EST Office Visit [facility] MEDICINE [address] [place] [address] Name, MD Amado [address] [place] [address] 03/29/2025 2:00 PM EST Office Visit [facility] ADULT DENTAL [address] [place] [address] Cass Molina Health Maintenance Due Date Last [...] Zoster Vaccines (2 of 2) 02/01/2023 12/07/2022 Colonoscopy 06/24/2024 06/25/2023 Colorectal Cancer Screening 06/24/2024 Diabetes: Hemoglobin A1C 01/19/2025 01/20/2024, 01/13 Dental Oral Exam 05/15/2025 11/14/2024, 11/2017, 10/19/2016, Additional history exists Alcohol/Substance Use Screening 06/21/2025 06/21/2024 Depression Screening 06/21/2025 06/21/2024, 06/22/19 Disability Screening 06/21/2025 06/21/2024 Dental X-Ray: Bitewings 11/15/2025 11/15/19, 04/23/2017, 04/20/2016, Additional history exists Mammogram 11/23/2025 11/24/2023, 08/11/2022, 11/03/2021, Additional history exists SDOH Screening 01/04/2026 01/04/2025 Tobacco Screening 01/04/2026 01/04/2025 Lipid Panel 01/31/2026 01/31/2021 DTaP/Tdap/Td Vaccines (2 - Td or Tdap) 07/22/2026 07/22/2016, 07/20/2007 Dental X-Ray: Full Mouth 11/16/2027 11/14/2024, 0208/2016 RSV Patients and Patients Aged 60 years or older (1 - 1-dose 75+ series) 2044 Pneumococcal Vaccine: 50+ Years Completed 12/07/2022, 01/23/2016 COVID-19 Vaccine Completed 01/04/2025, 09/2023, 01/26/2022, Additional history exists Influenza Vaccine Completed 01/04/2025, , 12/07/2022, Additional history exists HIB Vaccines Aged Out [...] Media Lot # [id number] Lot# Expiration Date [id number] Blood 01/20/2024 10:5 0 AM EST Amado Orr MD POINT OF CARE TEST ENTER/EDIT OR DERABLES Final Result * BI Mammogram Screening Tomosynthesis Bilateral (11/24/2023 8:15 AM EDT) Anatomical Region Laterality Modality Breast Bilateral Mammography 11/24/2023 8:15 AM EDT Narrative 12/07/2023 4:06 PM EDT [facility] [address] [place], [place] [address] Mammography Report Signed Patient: Salma Borjas MR#: [id number] : 1970 Acct:[id number] Age/Sex: 53 / F ADM Date: 11/24/23 Loc: HO.MAMMO Attending Dr: Amado Orr MD Ordering Physician: Amado Orr MD Results: 2Benign Fi ndings Date of Service: 11/24/23 Follow Up: 1 Year From Orig ina Mammogram Procedure(s): MM tomosynthesis screening BI Accession Number(s): [id number] cc: Amado Orr MD EXAMINATION: MM SCREENING [...] in OV> 12/07/23 1603 DD/ 0815 TD/TT: 11/24/2345 Flotation Tank Operator: Procedure Note Donotuseinterpreter, Image - 12/07/2023 [facility] [address] [place], [place] [address] Mammography Report Signed Patient: Salma Borjas MMR#: [id number] : 1970Acct:[id number] Age/Sex: 53 / FADM Date: 11/24/23 Loc: HO.MAMMO Attending Dr: Amado Orr MD Ordering Physician: Amado Orr MDResults: 2Benign Fi ndings Date of Service: 11/24/23Follow Up: 1 Year From Orig inal Mammogram Procedure(s): MM tomosynthesis screening BI Accession Number(s): [id number] cc: Amado Orr MD EXAMINATION: MM SCREENING [...] Green DO in OV> 12/07/23 1603 DD/ TD/TT: 11/24/23844 Flotation Tank Operator: us Amado Orr MD IMG BI PROCEDURES Final Result * (ABNORMAL) Hm [...] equation in the estimation of LDL-C. Rik GEREBR et al. PAUL. 2013;310(19): 3637-7560 (http://education.Sparkfly/faq/LEL435) Non-HDL Cholesterol 187(H) <130 mg/dL (calc) [facility] Comment: For patients with diabetes plus 1 major ASCVD risk factor, treating to a non-HDL-C goal of <100 mg/dL (LDL-C of <70 mg/dL) is considered a therapeutic option. Triglycerides 226(H) <150 mg/dL [facility] Comment: If a non-fasting specimen was collected, consider repeat triglyceride testing on a fasting specimen if clinically indicated. Antoine et al. J. of Clin. Lipidol. 2015;9:129-169. 01/31/2021 9:42 AM EST us Amado Orr MD LAB BLOOD ORDERABLES Final Resul t [facility] [address] * Hm Pap Smear (11/06/2015) Pap smear performed us Historical Provider HEALTH MAINTENANCE Final Result from Last 3 Months or Most Recently Relevant to Health Maintenance Insurance [facility] MEDICAID STAND ADULT Care Teams Glass Bulb Silverer Relationship Specialty Start Date End Date Name, MD Amado [address] [place] [address] PCP - General Family Medicine 05/17/15
[2025-01-08 17:53] LABS: C. trachomatis RNA TMA NOT DETECTED (NOT DETECTED); N. gonorrhoeae RNA TMA NOT DETECTED (NOT DETECTED)
[2025-01-08 20:43] LABS: Trichomonas (NAAT) NOT DETECTED (NOT DETECTED)
== END 2025-01-04 18:13 | disposition home or self-care (01) ==
LOC: HO.LNP 18:12
PROVIDERS: Visit Provider Advanced Practice Midwife
DX: Z12.4 Encounter for screening for malignant neoplasm of cervix (principal); Z20.2 Contact with and (suspected) exposure to infections with a predominantly sexual mode of transmission
CPT/HCPCS: 87491; 87591; 87626; 87661; 88175

== ENCOUNTER 2025-01-31 10:50 | Outpatient (REF) | payer MEDICAID, SELFPAY ==
--- NOTE | ~2025-01-31 | MR_ITS ---
EXAMINATION: MR BREAST WITHOUT AND WITH CONTRAST, BILATERAL CLINICAL INFORMATION: lifetime risk of breast cancer greater than 20% Port-A-Cath in place for chemotherapy for colon cancer. COMPARISON: Screening mammogram on January 04, 2025 (BI-RADS 1) TECHNIQUE: Siemens Magnetom Altea 1.5 T utilized. MR imaging of the breast was performed using T1, T2 and fat saturated techniques. Dynamic multiphase imaging was performed with 4 sequences after the administration of 10 cc of intravenous gadolinium contrast agent Gadavist 3D image processing was performed using the diagnostic workstation ([employer] software) with real-time multiplanar image reformation and maximum intensity projection ray tracing. Kinetic curves were obtained. FINDINGS: Breast composition: Heterogeneous fibroglandular tissue. Minimal background parenchymal enhancement. RIGHT BREAST: Port-A-Cath present in the upper breast. There is a 0.3 cm round enhancing mass in the upper breast at approximately 12 o'clock position at 4.8 cm from the nipple (1121:51/126, 19:71/240, 12:51/126), that is associated with persistent kinetics on the delayed phase. No architectural distortion. No axillary or internal mammary adenopathy. LEFT BREAST: No suspicious masses or areas of non mass enhancement. No architectural distortion. No axillary or internal mammary adenopathy. Limited views of the chest and abdomen are unremarkable. MR/MR breast BI wo/w con IMPRESSION: RIGHT BREAST: 0.3 cm the isthmus in the upper breast approximately 12 o'clock position at 4.8 cm from the nipple associated with persistent kinetics. Probably benign. A 6-month follow-up breast MRI is recommended. LEFT BREAST: No MR specific evidence of malignancy. ASSESSMENT: BI-RADS 3 RECOMMENDATIONS: 6-month follow-up breast MRI Electronically signed by: Oliver Gamez MD 01/31/2025 07:18 PM [facility]
--- OUTSIDE RECORDS SUMMARY | 2025-01-31 21:21 | XMS_ITS | Encounter Summary ---
Author Organization [employer] Address [address] [place] [address] 7t [place] [address] Care Team Providers Care Compliance Analyst Name Role Phone Name, Amado SILVEIRA Primary Care Provider [phone] Reason for Visit * Reason Comments Med Refill Encounter Details Date Type Department Care Team ([facility] st Contact Info) Description 09/09/2023 Refill [facility] MEDICINE [address] [place] [address] Name, MD Amado [address] [place] [address] Social History Tobacco Use Types Packs/Day Years [...] Description 02/28/2025 2:00 PM EST Office Visit [facility] MEDICINE [address] [place] [address] Name, MD Amado [address] [place] [address] 03/29/2025 2:15 PM EST Office Visit [facility] ADULT DENTAL [address] [place] [address] Cass Molina documented as of this encounter Visit Diagnoses Not on filedocumented in this encounter Additional Health Concerns Assessment Noted Time PHQ-9 Depression Total Score: 0 07/26/19 24 11:03 AM EDT documented as of this encounter Care Teams Compliance Analyst Relationship Specialty Start Date End Date Name, MD Amado [address] [place] [address] PCP - General Family Medicine 05/17/15 documented as of this encounter
--- OUTSIDE RECORDS SUMMARY | 2025-01-31 21:21 | XMS_ITS | Encounter Summary ---
Author Organization [employer] Address [address] [place] [address] 7t [place] [address] Care Team Providers Care Senior Buyer Planner Name Role Phone Name, Amado SILVEIRA Primary Care Provider [phone] Reason for Visit * Reason Onset Date Comments Medication Question 09/09/2023 Encounter Details Date Type Department Care Team ([facility] Contact Info) Description 09/09/[address] [facility] MEDICINE [address] [place] [address] Name, MD Amado [address] [place] [address] Medication Question Social History Tobacco Use Types [...] No answer. LVM to call back on [phone]. * Telephone Encounter - Dino Robert - 09/09/2023 1:47 PM EDT Tc from pt was advised to contact pcp to authorize medications prescribed. Medication in question: pantoprazole (ProtoNix) 40 MG EC tablet sertraline (Zoloft) 100 MG tablet Vitamin B12 lisinopril 5 MG tablet If any questions please contact pt at [phone]. documented in this encounter Plan of Treatment Upcoming Encounters Date Type Department Care Team (Late st Contact Info) Description 02/28/2025 2:00 PM EST Office Visit [facility] MEDICINE [address] [place] [address] Name, MD Amado [address] [place] [address] 03/29/2025 2:15 PM EST Office Visit [facility] ADULT DENTAL [address] [place], [place] [phone] Cass Molina documented as of this encounter Visit Diagnoses Not on filedocumented in this encounter Additional Health Concerns Assessment Noted Time PHQ-9 Depression Total Score: 0 07/26/19 24 11:03 AM EDT documented as of this encounter Care Teams Senior Buyer Planner Relationship Specialty Start Date End Date Name, MD Amado [address] [place] [address] PCP - General Family Medicine 05/17/15 documented as of this encounter
--- OUTSIDE RECORDS SUMMARY | 2025-01-31 21:21 | XMS_ITS | Encounter Summary ---
Author Organization [employer] Address [address] [place] [address] 7 [place] [address] Care Team Providers Care Lan Manager Name Role Phone Name, Amado SILVEIRA Primary Care Provider [phone] Reason for Visit * Reason Comments Med Refill Encounter Details Date Type Department Care Team (Late st Contact Info) Description 06/19/2022 Refill [facility] [address] [place] [phone] NameAmado MD [address] [place] [address] [phone] Social History Tobacco Use Types Packs/Day Years [...] Description 02/28/2025 2:00 PM EST Office Visit [facility] [address] [place] [address] NameAmado MD [address] [place] [address] [phone] 03/29/2025 2:15 PM EST Office Visit [facility] ADULT DENTAL [address] [place] [address] Cass Molina documented as of this encounter Visit Diagnoses Not on filedocumented in this encounter Care Teams Lan Manager Relationship Specialty Start Date End Date Name, MD Amado [address] [place] [address] PCP - General Family Medicine 05/17/15 documented as of this encounter
--- OUTSIDE RECORDS SUMMARY | 2025-01-31 21:21 | XMS_ITS | Encounter Summary ---
Author Organization [employer] Address [address] [place] [address] 7t [place] [address] Care Team Providers Care Social Worker School Name Role Phone Name, Amado SILVEIRA Primary Care Provider [phone] Reason for Visit * Reason Onset Date Comments Med Refill 01/30/2025 Encounter Details Date Type Department Care Team ([facility] st Contact Info) Description 01/30/2025 Refill [facility] [address] [place] [address] Name, MD Amado [address] [place] [address] Hypertension, unspecified type Social History Tobacco Use [...] encounter Miscellaneous Notes * Telephone Encounter - Patti Miner LPN - 01/30/2025 12:46 PM EST Last seen 11/01/24. documented in this encounter Plan of Treatment Upcoming Encounters Date Type Department Care Team (Late st Contact Info) Description 02/28/2025 2:00 PM EST Office Visit [facility] [address] [place] [address] Name, MD Amado [address] [place] [address] 03/29/2025 2:15 PM EST Office Visit [facility] ADULT DENTAL [address] [place] [address] Cass Molina documented as of this encounter Visit Diagnoses Diagnosis Hypertension, unspecified type documented in this encounter Additional Health Concerns Assessment Noted Time PHQ-9 Depression Total Score: 2 06/22/19 3:23 PM EDT documented as of this encounter Care Teams Social Worker School Relationship Specialty Start Date End Date Name, MD Amado [address] [place] [address] PCP - General Family Medicine 05/17/15 documented as of this encounter
--- OUTSIDE RECORDS SUMMARY | 2025-01-31 21:21 | XMS_ITS | Encounter Summary ---
Author Organization [employer] Address [address] [place] [address] 7t [place] [address] Care Team Providers Care Miter Grinder Operator Name Role Phone Name, Amado SILVEIRA Primary Care Provider [phone] Reason for Visit * Reason Comments Med Refill Encounter Details Date Type Department Care Team ([facility] st Contact Info) Description 09/09/2023 Refill [facility] [address] [place] [address] Melania Bobby MD [address] [place] [address] Social History Tobacco Use Types Packs/Day Years [...] Description 02/28/2025 2:00 PM EST Office Visit [facility] MEDICINE [address] [place] [address] Name, MD Amado [address] [place] [address] 03/29/2025 2:15 PM EST Office Visit [facility] ADULT DENTAL [address] [place] [address] Cass Molina documented as of this encounter Visit Diagnoses Not on filedocumented in this encounter Additional Health Concerns Assessment Noted Time PHQ-9 Depression Total Score: 0 07/26/19 24 11:03 AM EDT documented as of this encounter Care Teams Miter Grinder Operator Relationship Specialty Start Date End Date Name, MD Amado [address] [place] [address] PCP - General Family Medicine 05/17/15 documented as of this encounter
--- OUTSIDE RECORDS SUMMARY | 2025-01-31 21:21 | XMS_ITS | Encounter Summary ---
Author Organization [employer] Address [address] [place] [address] 7t [place] [address] Care Team Providers Care Sample Maker Original Name Role Phone Name, Amado SILVEIRA Primary Care Provider [phone] Reason for Referral * Imaging (Routine) - Authorized Specialty Diagnoses / Procedures Referred By Valente engel Referred To Contact Radiology Diagnoses Family history of breast cancer Procedures BI MR Breast w and w/o Contrast Bilateral Fanta Dominique CNM [address] [place] [address] Phone: tel: fax: [address] Phone: tel: fax: Referral ID Status Reason Start Date Expiration Date V isits Requested Visits Authorized [id number] Authorized 01/09/2025 01/09/2026 1 1 Encounter Details Date Type Department Care Team (Late st Contact Info) Description 01/09/2025 Orders Only [facility] [address] [place], [place] [phone] Fanta Dominique CNM [address] [place], [place] [phone] Family history of breast cancer (Primary Dx) Social History Tobacco Use Types Packs/Day Years [...] Description 02/28/2025 2:00 PM EST Office Visit [facility] [address] [place] [address] Name, MD Amado [address] [place] [address] 03/29/2025 2:15 PM EST Office Visit [facility] ADULT DENTAL [address] [place] [address] Cass Molina documented as of this encounter Procedures Procedure Name Priority Date/Time Associated Diagnosis Comments BI MR BREAST W AND WO CONTRAST BILATERAL Routine 01/31/2025 1:20 PM EST Family history of breast cancer documented in this encounter Results * BI MR Breast w and w/o Contrast Bilateral (01/31/2025 1:20 PM EST) Anatomical Region Laterality Modality Breast Bilateral Magnetic Resonan ce 01/31/2025 1:20 PM EST Narrative 01/31/2025 7:21 PM EST [address] [address] Magnetic Resonance Report Signed Patient: Salma Borjas MR#: [id number] : 1970 Acct:[id number] Age/Sex: 54 / F ADM Date: 01/31/25 Loc: .MRI Attending Dr: Fanta Dominique CNM Ordering Physician: FANTA DOMINIQUE CNM Date of Service: 01/31/25 Procedure(s): MR breast BI wo/w con Accession Number(s): [id number] cc: Amado Orr MD; FANTA DOMINIQUE CNM Reason for Exam: lifetime risk of breast cancer greater than 20% EXAMINATION: MR BREAST WITHOUT AND WITH CONTRAST, BILATERAL CLINICAL INFORMATION: lifetime risk of breast cancer greater than 20% Port-A-Cath in place for chemotherapy for colon cancer. COMPARISON: Screening mammogram on January 04, 2025 (BI-RADS 1) TECHNIQUE: Siemens Magnetom Altea 1.5 T utilized. MR imaging of the breast was performed using T1, T2 and fat saturated techniques. Dynamic multiphase imaging was performed with 4 sequences after the administration of 10 cc of intravenous gadolinium contrast agent Gadavist 3D image processing was performed using the diagnostic workstation (RiseSmart software) with real-time multiplanar image reformation and maximum intensity projection ray tracing. Kinetic curves were obtained. FINDINGS: Breast composition: Heterogeneous fibroglandular tissue. Minimal background parenchymal enhancement. RIGHT BREAST: Port-A-Cath present in the upper breast. There is a 0.3 cm round enhancing mass in the upper breast at approximately 12 o'clock position at 4.8 cm from the nipple (1121:51/126, 19:71/240, 12:51/126), that is associated with persistent kinetics on the delayed phase. No architectural distortion. No axillary or internal mammary adenopathy. LEFT BREAST: No suspicious masses or areas of non mass enhancement. No architectural distortion. No axillary or internal mammary adenopathy. Limited views of the chest and abdomen are unremarkable. MR/MR breast BI wo/w con IMPRESSION: RIGHT BREAST: 0.3 cm the isthmus in the upper breast approximately 12 o'clock position at 4.8 cm from the nipple associated with persistent kinetics. Probably benign. A 6-month follow-up breast MRI is recommended. LEFT BREAST: No MR specific evidence of malignancy. ASSESSMENT: BI-RADS 3 RECOMMENDATIONS: 6-month follow-up breast MRI Electronically signed by: Oliver Gamez MD 01/31/2025 07:18 PM [facility] Dictated By: Oliver Gamez MD Signed By: <Electronically signed by Oliver Gamez MD in OV> 01/31/25 1918 DD/ 1320 TD/TT: 01/31/25 1343 Soundscriber Mechanic: Procedure Note Donotuseinterpreter, Image - 01/31/2025 [place] [address] Magnetic Resonance Report Signed Patient: Salma Borjas MMR#: [id number] : 1970Acct:[id number] Age/Sex: 54 / FADM Date: 01/31/25 Loc: HO.MRI Attending Dr: Fanta Dominique CNM Ordering Physician: FANTA DOMINIQUE CNM Date of Service: 01/31/25 Procedure(s): MR breast BI wo/w con Accession Number(s): [id number] cc: Amado Orr MD; FANTA DOMINIQUE CNM Reason for Exam: lifetime risk of breast cancer greater than 20% EXAMINATION: MR BREAST WITHOUT AND WITH CONTRAST, BILATERAL CLINICAL INFORMATION: lifetime risk of breast cancer greater than 20% Port-A-Cath in place for chemotherapy for colon cancer. COMPARISON: Screening mammogram on January 04, 2025 (BI-RADS 1) TECHNIQUE: Siemens Magnetom Altea 1.5 T utilized. MR imaging of the breast was performed using T1, T2 and fat saturated techniques. Dynamic multiphase imaging was performed with 4 sequences after the administration of 10 cc of intravenous gadolinium contrast agent Gadavist 3D image processing was performed using the diagnostic workstation (RiseSmart software) with real-time multiplanar image reformation and maximum intensity projection ray tracing. Kinetic curves were obtained. FINDINGS: Breast composition: Heterogeneous fibroglandular tissue. Minimal background parenchymal enhancement. RIGHT BREAST: Port-A-Cath present in the upper breast. There is a 0.3 cm round enhancing mass in the upper breast at approximately 12 o'clock position at 4.8 cm from the nipple (1121:51/126, 19:71/240, 12:51/126), that is associated with persistent kinetics on the delayed phase. No architectural distortion. No axillary or internal mammary adenopathy. LEFT BREAST: No suspicious masses or areas of non mass enhancement. No architectural distortion. No axillary or internal mammary adenopathy. Limited views of the chest and abdomen are unremarkable. MR/MR breast BI wo/w con IMPRESSION: RIGHT BREAST: 0.3 cm the isthmus in the upper breast approximately 12 o'clock position at 4.8 cm from the nipple associated with persistent kinetics. Probably benign. A 6-month follow-up breast MRI is recommended. LEFT BREAST: No MR specific evidence of malignancy. ASSESSMENT: BI-RADS 3 RECOMMENDATIONS: 6-month follow-up breast MRI Electronically signed by: Oliver Gamez MD 01/31/2025 07:18 PM [facility] Dictated By: Oliver Gamez MD Signed By: <Electronically signed by Oliver Gamez MD in OV> 01/31/25 1918 DD/ 1320 TD/TT: 01/31/25 1343 Soundscriber Mechanic: Fanta Dominique CNM IM MRI PROCEDURES Final Result documented in this encounter Visit Diagnoses Diagnosis Family history of breast cancer- Primary Family history of malignant neoplasm of breast documented in this encounter Additional Health Concerns Assessment Noted Time PHQ-9 Depression Total Score: 2 04/09/20 25 3:23 PM EDT documented as of this encounter Care Teams Sample Maker Original Relationship Specialty Start Date End Date Name, MD Amado [address] [place] [address] PCP - General Family Medicine 05/17/15 documented as of this encounter
--- OUTSIDE RECORDS SUMMARY | 2025-01-31 21:22 | XMS_ITS | Encounter Summary ---
Author Organization [employer] Address [address] [place] [address] [place] [address] Care Team Providers Care Hospital Aides And Assistants Teacher Name Role Phone Name, Amado SILVEIRA Primary Care Provider [phone] Reason for Visit * Reason Comments Med Refill Encounter Details Date Type Department Care Team (Late Contact Info) Description 08/11/[address] [facility] [address] [place] [address] Name, MD Amado [address] [place] [address] [phone] Social History Tobacco Use Types Packs/Day Years [...] 02/28/2025 2:00 PM EST Office Visit [facility] [address] [place] [address] [phone] NameAmado MD [address] [place] [address] [phone] 03/29/2025 2:15 PM EST Office Visit [facility] ADULT DENTAL [address] [place] [address] Cass Molina documented as of this encounter Visit Diagnoses Not on filedocumented in this encounter Additional Health Concerns Assessment Noted Time PHQ-9 Depression Total Score: 7 07/09/19 23 2:16 PM EDT documented as of this encounter Care Teams Hospital Aides And Assistants Teacher Relationship Specialty Start Date End Date Name, MD Amado [address] [place] [address] PCP - General Family Medicine 05/17/15 documented as of this encounter
--- OUTSIDE RECORDS SUMMARY | 2025-01-31 21:22 | XMS_ITS | Encounter Summary ---
Author Organization [employer] Address [address] [place] [address] [place] [address] Care Team Providers Care Activities Volunteer Name Role Phone Name, Amado SILVEIRA Primary Care Provider [phone] Reason for Visit * Reason Comments Med Refill Encounter Details Date Type Department Care Team (Late Contact Info) Description 08/18/2022 Refill [facility] MED[facility]INE [address] [place] [address] Name, MD Amado [address] [place] [address] [phone] Social History Tobacco Use Types Packs/Day Years [...] 2:00 PM EST Office Visit [facility] [address] [place] [address] [phone] NameAmado MD [address] [place] [address] [phone] 03/29/2025 2:15 PM EST Office Visit [facility] ADULT DENTAL [address] [place] [address] Cass Molina documented as of this encounter Visit Diagnoses Not on filedocumented in this encounter Additional Health Concerns Assessment Noted Time PHQ-9 Depression Total Score: 7 07/09/19 23 2:16 PM EDT documented as of this encounter Care Teams Activities Volunteer Relationship Specialty Start Date End Date Name, MD Amado [address] [place] [address] PCP - General Family Medicine 05/17/15 documented as of this encounter
--- OUTSIDE RECORDS SUMMARY | 2025-01-31 21:22 | XMS_ITS | Encounter Summary ---
Author Organization [employer] Address [address] [place] [address] 7 [place] [address] Care Team Providers Care Manager Quantitative Name Role Phone Name, Amado SILVEIRA Primary Care Provider [phone] Reason for Visit * Reason Onset Date Comments triage 05/06/2022 Encounter Details Date Type Department Care Team ([facility] Contact Info) Description 05/06/2022 Telephone [facility] [address] [place] [address] Name, MD Amado [address] [place] [address] triage Social History Tobacco Use Types Packs/Day [...] 2:00 PM EST Office Visit [facility] [address] [place] [address] Name, [place] [address] 03/29/2025 2:15 PM EST Office Visit [facility] ADULT DENTAL [address] [place] [address] Cass Molina documented as of this encounter Visit Diagnoses Not on filedocumented in this encounter Care Teams Manager Quantitative Relationship Specialty Start Date End Date Name, MD Amado [address] [place] [address] PCP - General Family Medicine 05/17/15 documented as of this encounter
--- OUTSIDE RECORDS SUMMARY | 2025-01-31 21:22 | XMS_ITS | Encounter Summary ---
Author Organization [employer] Address [address] [place] [address] 7 [place] [address] Care Team Providers Care Technical Account Manager Name Role Phone Name, Amado SILVEIRA Primary Care Provider [phone] Reason for Visit * Reason Onset Date Comments Appointment Request 12/18/2024 Encounter Details Date Type Department Care Team ([facility] Contact Info) Description 12/18/2024 Telephone [facility]INE [address] [place] [address] Name, MD Amado [address] [place] [address] Appointment Request Social History Tobacco Use Types [...] schedule pap smear , f/u apt . Quality Rep unable to book due to no availability Contact pt at [phone] documented in this encounter Plan of Treatment Upcoming Encounters Date Type Department Care Team (Late st Contact Info) Description 02/28/2025 2:00 PM EST Office Visit [facility] [address] [place] [address] Name, MD Amado [address] [place] [address] 03/29/2025 2:15 PM EST Office Visit [facility] ADULT DENTAL [address] [place] [address] Cass Molina documented as of this encounter Visit Diagnoses Not on filedocumented in this encounter Additional Health Concerns Assessment Noted Time PHQ-9 Depression Total Score: 2 06/22/19 25 3:23 PM EDT documented as of this encounter Care Teams Technical Account Manager Relationship Specialty Start Date End Date Name, MD Amado [place] [address] PCP - General Family Medicine 05/17/15 documented as of this encounter
--- OUTSIDE RECORDS SUMMARY | 2025-01-31 21:22 | XMS_ITS | Patient Health Record ---
Author Organization [facility] Address [address] [place] [address] Care Team Providers Care User Experience Lead Name Role Phone Name Amado SILVEIRA Primary Care Provider Varinder Alicia [phone] Allergies No Known Allergies Reason For Referral No Information Medications Medication SIG (Take, Route, Frequency, Duration) Notes Start Date End Date Status Ibuprofen 600 MG Tablet Oral; Duration: 30 Active Pantoprazole Sodium 40 MG Tablet Delayed Release 1 tablet Oral once or twice a week as needed Active Nystatin 671886 UNIT/GM Ointment 1 application Externally Twice a day Active Pravastatin Sodium 80 MG Tablet Oral; Duration: 30 Active hydroCHLOROthiazide 25 MG Tablet Oral; Duration: 30 Active Vitamin D (Ergocalciferol) 1.25 MG (10638 UT) Capsule Oral; Duration: 28 Active MiraLax (colon prep) 17 GM/SCOOP Powder 1 238 Gm bottle mixed with Gatorade or Crystal Light Orally begin at 5:00 p.m. the day before the procedure; Duration: 1 day 05/16/2023 Active ProAir HFA 108 (90 Base) MCG/ACT Aerosol Solution Inhalation; Duration: 17 Active Dulcolax (colon prep) 5 MG Tablet Delayed Release take at 3:00 p.m and 7:00p.m. Orally two tablets twice a day for one day; Duration: 1 day 05/16/2023 Active [place]-3 1000 MG Capsule Oral; Duration: 30 Active Fluticasone Propionate 50 MCG/ACT Suspension Nasal; Duration: 60 Ac tive Lisinopril 5 MG Tablet Oral; Duration: 30 Active Chlorhexidine Gluconate 0.12 % Solution Mouth/Throat; Duration: 17 Active Augmentin Active Loratadine 10 MG Tablet Oral; Duration: 30 Active Zofran Active Dulcolax (colon prep) 5 MG Tablet Delayed Release take at 3:00 p.m and 7:00p.m. Orally two tablets twice a day for one day; Duration: 1 day 05/06/2021 Active Cetirizine HCl 10 MG Tablet Oral; Duration: 60 Active predniSONE 20 MG Tablet Oral; Duration: 5 Active Singulair Active Eye Allergy Relief A ctive Zoloft 100 MG Tablet 1 tablet Orally Onc e a day; Duration: 30 day(s) Active MiraLax (colon prep) 17 GM/SCOOP Powder 1 238 GM bottle mixed with Gatorade or Crystal Light Orally begin at 5:00 p.m. the day before the procedure; Duration: 1 day 05/06/2021 Active Azelastine-Fluticasone Active Dicyclomine HCl 10 MG Capsule Use 1 or 2 Orally Every 6 hours as needed for abdominal discomfort/cramps; Duration: 30 days Active Acetaminophen Active Hydrocortisone Activ e flovent HFA Active Immunizations Vaccine Route Administration Date Status Comme nts Influenza Unknown 11/13/2020 Administered Social History Tobacco Use: Social History Observation Description Date Details (start date - stop date) Current Smoker NA - NA Social History Drugs/Alcohol: Social Info Question Answer Notes Alcohol Screen Did you have a drink containing alcohol in the past year? Yes How often did you have a drink containing alcohol in the past year? Monthly or less (1 point) How many drinks did you have on a typical day when you were drinking in the past year? 5 or 6 drinks (2 points) How often did you have 6 or more drinks on one occasion in the past year? Never (0 point) Points 3 Interpretation Positive Tobacco Use: Social Info Question Answer Notes Tobacco Use/Smoking Patient is a current smoker How often do you smoke cigarettes? every day How many cigarettes a day do you smoke? 5 or less Additional Details Category Social Info Options Details Miscellaneous: Marital status: single Occupation: , unemployed Section Notes: Smokes, occ. alcohol Smokes, occ. alcohol Smokes, occ. alcohol Problems Problem Type SNOMED Code ICD Code Onset Dates Problem Status W/U Status Risk Notes Problem Screening for malignant neoplasm of colon (390846510) Encounter for screening for malignant neoplasm of colon (Z12.11) Active confirmed Problem Diverticular disease of colon (696905678) Diverticulosis of large intestine without perforation or abscess without bleeding (K57.30) Active confirmed Problem Iron deficiency anemia (56163701) Iron deficiency anemia (D50.9) Active confirmed Problem Gastroesophageal reflux disease without esophagitis (360744260) Gastroesophageal reflux disease without esophagitis (K21.9) Active confirmed Problem History of malignant neoplasm of colon (713717295) Personal history of colon cancer (Z85.038) Active confirmed Problem Microcytic anemia (291372131) Microcytic anemia (D50.9) Active confirmed Problem Family history of malignant neoplasm of gastrointestinal tract (645005940) Family history of colon cancer in father (Z80.0) Active confirmed Problem Diverticulosis of colon (870792349) Diverticulosis of colon (K57.30) Active confirmed Problem Tubulovillous adenoma of colon (7156677196) 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) Active confirmed Problem Primary adenocarcinoma of ascending colon (723482110252271) Primary adenocarcinoma of ascending colon (C18.2) Active confirmed Plan Of Treatment Pending Test Test Name Order Date CHEM 7 PROFILE 05/15/2021 LIVER PROFILE 05/15/2021 IRON + IBC (FE) 04/08/2021 VITAMIN B12 AND FOLATE 04/08/2021 CEA 05/15/2021 CBC w DIFF 05/15/2021 CBC w DIFF 04/08/2021 CT ABD & PELVIS WITH CONTRAST 05/15/2021 Ferritin 04/08/2021 CT abdomen pelvis w con 05/26/2021 Future Test Test Name Order Date UPPER GI ENDOSCOPY 04/08/2021 COLONOSCOPY 04/08/2021 COLONOSCOPY 03/30/2023 Insurance Providers Payer Name Payer Address Payer Phone Subscriber Number Group Number Insured Name Patient Relationship to Insured Coverage Start Date Coverage End Date [facility] [address] [place] [phone] [id number] PIERCE QUINN Self - patient is the insured Medical (General) History Medical History History ICD Code Asthma Seasonal allergies Hyperlipidemia Vocal cord polyps Depresssion Hypertension 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
--- OUTSIDE RECORDS SUMMARY | 2025-01-31 21:22 | XMS_ITS | Clinical Summary ---
Author Organization [facility] Address [address] [place] [address] 7[address] [place] [address] Care Team Providers Care Hand Woven Carpet And Rug Mender Name Role Phone Name, Amado SILVEIRA Primary Care Provider [phone] Allergies No known active allergies Medications Incontinence Supply Disposable (Poise Pad) pads Active Blood Pressure kit Use once a day 1 kit 01/05/20 23 Active clotrimazole (Lotrimin) 1 % cream Apply topically every 12 (twelve) hours. 60 g 11 01/20/20 24 Active azelastine (Optivar) 0.05 % ophthalmic solution INSTILL 1 DROP INTO AFFECTED EYE TWICE A DAY 6 mL 3 01/20/20 24 Active Acetaminophen Extra Strength 500 MG tablet TAKE 1 TABLET BY MOUTH EVERY 8 HOURS IF NEEDED FOR PAIN 90 tablet 02/02/20 24 Active cholecalciferol VITAMIN D (Vitamin D-3) 50 MCG (2000 UT) tablet TAKE 1 TABLET BY MOUTH EVERY MORNING 90 tablet 2 06/14/19 25 Active montelukast (Singulair) 10 MG tabletIndicatio ns:Mild intermittent asthma without complication TAKE 1 TABLET BY MOUTH EVERY DAY IN THE EVENING 90 tablet 1 06/22/19 25 Active fexofenadine (Ximena) 180 MG tabletIndicatio ns:Allergic rhinitis, unspecified seasonality, unspecified trigger Take 1 tablet (180 mg) by mouth Once per day. 30 tablet 11 06/22/19 25 026 Active azithromycin (Zithromax Z-Kartik) 250 MG tabletIndicatio ns:Acute cough Take 2 tablets once on day 1, then 1 tablet 1x/day for 4 days. 6 tablet 07/13/19 25 Active albuterol (Ventolin HFA) 108 (90 Base) MCG/ACT inhalerIndicati ons:Mild intermittent asthma without complication INHALE 2 PUFFS BY MOUTH THREE TIMES DAILY IN THE MORNING, AT NOON AND AT BEDTIME 18 g 1 08/22/19 25 Active pravastatin (Pravachol) 80 MG tablet Take 1 tablet (80 mg) by mouth at bedtime. 90 tablet 1 11/02/19 25 Active hydroCHLOROthia zide (HYDRODiuril) 25 MG tabletIndicatio ns:Hypertension , unspecified type TAKE 1 TABLET BY MOUTH EVERY DAY IN THE MORNING 90 tablet 1 12/14/19 25 Active lisinopril 5 MG tabletIndicatio ns:Hypertension , unspecified type TAKE 1 TABLET BY MOUTH EVERY DAY IN THE MORNING 90 tablet 1 12/14/19 25 Active sertraline (Zoloft) 100 MG tabletIndicatio ns:Hypertension , unspecified type TAKE 1 TABLET BY MOUTH EVERY DAY IN THE MORNING 90 tablet 1 5 4:41 PM EST 01/17/20 25 Active fluticasone (Flonase) 50 MCG/ACT nasal spray INSTILL 1 SPRAY IN EACH NOSTRIL ONCE DAILY 48 g 01/23/20 25 Active pantoprazole (ProtoNix) 40 MG EC tabletIndicatio ns:Hypertension , unspecified type TAKE 1 TABLET BY MOUTH BEFORE BREAKFAST 90 tablet 5 4:41 PM EST 01/31/20 25 Active bisacodyl (Dulcolax) 5 MG EC tablet Take 1 tablet (5 mg) by mouth if needed each day for constipation. Do not crush, chew, or split. 30 tablet 11 01/20/20 24 025 sertraline (Zoloft) 100 MG tabletIndicatio ns:Hypertension , unspecified type TAKE 1 TABLET BY MOUTH EVERY DAY IN THE MORNING 90 tablet 1 06/22/19 25 025 Discontinued fluticasone (Flonase) 50 MCG/ACT nasal spray Administer 1 spray into each nostril Once per day. 16 g 3 06/22/19 25 025 Discontinued pantoprazole (ProtoNix) 40 MG EC tabletIndicatio ns:Hypertension , unspecified type TAKE 1 TABLET BY MOUTH BEFORE BREAKFAST 90 tablet 11/02/19 25 025 Discontinued(R eorder (will not trigger notification to Pharmacy)) Active Problems Problem Noted Date Diagnosed Date [...] Encounters Date Type Department Care Team Description 01/30/2025 Refill [facility] [address] [place] [address] Amado Orr MD Hypertension, unspecified type 01/20/2025 Refill [facility] [address] [place] [address] [place] [address] Amado Orr MD 01/15/[address] [address] Amado Orr MD Hypertension, unspecified type 01/09/2025 Orders Only [address] [address] Cecilia Dominique CNM Family history of breast cancer (Primary Dx) 01/09/2025 Results Follow-Up [address] [place] [address] Cecilia Dominique CNM Pap Smear, STI testing add on (NG, CT, Trich) 01/04/2025 1:45 PM EDT Procedure Visit [address] [address] Cecilia Dominique CNM Cervical cancer screening (Primary Dx); Family history of breast cancer; Screening examination for venereal disease; Need for vaccination; Encounter for vaccination; Encounter for immunization 01/04/2025 Orders Only [address] [address] Amado Orr MD 01/04/2025 Travel 01/03/2025 Telephone [facility] [address] [place] [address] Yasmin Watson MA 01/02/2025 Patient Outreach [address] [address] Amado Orr MD Care Coordination (CHW outreach for SDOH food needs-referral completed /) 01/02/[address] [address] Amado Orr MD care management help 12/19/[address] [address] Marianela Prabhakar [place] Appointment Request 12/18/[address] [address] Amado Orr MD Appointment Request 12/13/2024 Refill [facility] [address] [place] [address] Amado Orr MD Hypertension, unspecified type 12/08/2024 1:00 PM EDT Office Visit [facility] [address] [place] [address], [place] [address] Anant, Rupesh, DDS 11/28/2024 9:30 AM EDT Office Visit [facility] [address] [place] [address] Anant Rupesh, DDS 11/14/2024 3:30 PM EDT Office Visit [facility] [address] [place] [address] Anant Rupesh, DDS 11/01/2024 2:45 PM EDT Office Visit [address] [address] Amado Orr MD PE (physical exam), routine (Primary Dx); Screening for cervical cancer; Avascular necrosis of bone of right hip ([facility]/HCC); Tobacco abuse; Hypertension, unspecified type 11/01/2024 Travel 10/31/[address] [address] Sharon Goodson [place] CHARTPREP from Last 3 Months Immunizations Immunization Administration Dates Next Due Influenza Injectable Quadriv alant Preservative Free IIV4 MDCK 12/07/2022 Influenza injectable quadriv alent IIV4 with preservative 01/04/2018,12/22/2016 Influenza injectable quadriv alent preservative free 01/19/2022,12/10/2020,12/16/2019,01/10 Influenza, IIV3, injectable 11/13/2020 Influenza, seasonal, injecta ble, preservative free 01/04/2025,01/20/2024 Moderna Covid-19 Vaccine 12+ 06/07/2020,05/10/19 21 Pfizer Covid-19 Vaccine 12+ 01/04/2025,1 03/21/2023,08/18/2021,11/22 /2021 Pfizer Covid-19 Vaccine 12+ sole-sucrose (Allen Cap) [...] Description 02/28/2025 2:00 PM EST Office Visit [facility] [address] [place] [address] Name, MD Amado [address] [place] [address] 03/29/2025 2:15 PM EST Office Visit [facility] [address] [place] [address] Cass Molina Health Maintenance Due Date Last Done Comments CT Colonography 1969 FIT DNA/Cologuard 1970 FIT 1970 FOBT 1970 HIV Screening 1970 Sigmoidoscopy 1969 Hepatitis C Screening 07/24/1987 Hepatitis A Vaccines (1 of 2 - Risk 2-dose series) 1988 Hepatitis B Vaccines (1 of 3 - 19+ 3-dose series) 1988 Dental Prophylaxis 06/30/2018 12/29/2017, 0 04/23/2017, 10/19/2016, Additional history exists RSV Patients and Patients Aged 60 years or older (1 - Risk 50-74 years 1-dose series) 07/24/2019 Zoster Vaccines (2 of 2) 02/01/2023 12/07/2022 Colonoscopy 06/24/2024 06/25/2023, 06/13, 05/12/2021 Colorectal Cancer Screening 06/24/2024 Diabetes: Hemoglobin A1C 01/19/2025 01/20/2024, 01/13 Dental Oral Exam 05/15/2025 11/14/2024, 11/2017, 10/19/2016, Additional history exists Alcohol/Substance Use Screening 06/21/2025 06/21/2024 Depression Screening 06/21/2025 06/21/2024, 06/22/19 Disability Screening 06/21/2025 06/21/2024 Dental X-Ray: Bitewings 11/15/2025 11/15/19, 04/23/2017, 04/20/2016, Additional history exists SDOH Screening 01/04/2026 01/04/2025 Tobacco Screening 01/04/2026 01/04/2025 Lipid Panel 01/31/2026 01/31/2021 DTaP/Tdap/Td Vaccines (2 - Td or Tdap) 07/22/2026 07/22/2016, 07/20/2007 Mammogram 01/04/2027 01/31/2025, 12/14, 11/24/2023, Additional history exists Dental X-Ray: Full Mouth 11/16/2027 11/14/2024, 08/2016 Cervical Cancer Screening 01/04/2030 HPV/Cotest 01/04/2030 01/04/2025 Pap Smear 01/04/2030 01/04/2025, 11/06/2015 Pneumococcal Vaccine: 50+ Years Completed 12/07/2022, 01/23/2016 [...] PM EST Family history of breast cancer CHLAMYDIA/N. GONORRHOEAE AND T. VAGINALIS RNA, QUAL,TMA Routine 01/04/2025 2:30 PM EDT Screening examination for venereal disease PAP SMEAR Routine 01/04/2025 2:30 PM EDT Cervical cancer screening HPV DNA, LOW/HIGH RISK Routine 2:30 PM EDT BI MAMMOGRAM SCREENING TOMOSYNTHESIS BILATERAL Routine 01/04/2025 9:17 AM EDT CASE PRESENTATION, DETAILED AND EXTENSIVE [...] 16 EXTRACTION Routine 11/14/2024 12:00 AM EDT POCT GLYCATED HEMOGLOBIN, TOTAL Routine 01/20/2024 10:50 AM EST Prediabetes HM COLONOSCOPY Routine 06/25/2023 LIPID PANEL, STANDARD Routine 01/31/2021 9:42 AM EST PROPHYLAXIS - ADULT Routine 12/29/2017 1 2:00 AM EDT from Last 3 Months or Most Recently Relevant to Health Maintenance Results * BI MR Breast w and w/o Contrast Bilateral (01/31/2025 1:20 PM EST) Anatomical Region Laterality Modality Breast Bilateral Magnetic Resonan ce 01/31/2025 1:20 PM EST Narrative 01/31/2025 7:21 PM EST [place] [address] Magnetic Resonance Report Signed Patient: Salma Borjas MR#: [id number] : 1970 Acct:[id number] Age/Sex: 54 / F ADM Date: 01/31/25 Loc: HO.MRI Attending Dr: Cecilia Dominique CNM Ordering Physician: CECILIA DOMINIQUE CNM Date of Service: 01/31/25 Procedure(s): MR breast BI wo/w con Accession Number(s): [id number] cc: Amado Orr MD; CECILIA DOMINIQUE CNM Reason for Exam: lifetime risk [...] processing was performed using the diagnostic workstation (Bandhappy software) with real-time multiplanar image reformation and [...] by: Oliver Gamez MD 01/31/2025 07:18 PM [facility] Dictated By: Oliver Gamez MD Signed By: <Electronically signed by Oliver Gamez MD in OV> 01/31/25 1918 DD/ 1320 TD/TT: 01/31/25 1343 Linux Vmware Administrator: Procedure Note Donotuseinterpreter, Image - 01/31/2025 [place] [address] Magnetic Resonance Report Signed Patient: Salma Borjas [facility]#: [id number] : 1970Acct:[id number] Age/Sex: 54 / FADM Date: 01/31/25 Loc: HO.MRI Attending Dr: Cecilia Dominique CNM Ordering Physician: CECILIA DOMINIQUE CNM Date of Service: 01/31/25 Procedure(s): MR breast BI wo/w con Accession Number(s): [id number] cc: Name,Amado SILVEIRA; CECILIA DOMINIQUE CNM Reason for Exam: lifetime risk [...] processing was performed using the diagnostic workstation (Bandhappy software) with real-time multiplanar image reformation and [...] by: Oliver Gamez MD 01/31/2025 07:18 PM [facility] Dictated By: Oliver Gamez MD Signed By: <Electronically signed by Oliver Gamez MD in OV> 01/31/25 1918 DD/ 1320 TD/TT: 01/31/25 1343 Linux Vmware Administrator: [facility] PROCED[facility] Final Result * STI testing add on (NG, CT, Trich) (01/04/2025 2:30 PM EDT) Trichomonas (NAAT) NOT DETECTED NOT DETECTED [facility] Comment:The analytical perfo rmance characteristics of thisassay have been determined by [employer]. Themodifications have not been cleared or approved bythe FDA. This assay has been validated pursuant to theCLIA regulations and is used for clinical purposes.For additional information, please refer tohttp://education.[employer]/faq/Trichomonastma(This link is being provided for information/educational purposes only.)THIS TEST WAS PERFORMED AT:[facility] [place] [phone] CASTRO MD CTNG Ref Lab NOT DETECTED NOT DETECTED [facility] NG Ref Lab NOT DETECTED NOT DETECTED [facility] ThinPrep vial Cervix uteri structure / Unknown 01/04/2025 2:30 PM EDT 01/05/2025 6:15 AM EDT Narrative [facility] - 01/08/2025 8:43 PM EDT Collection Date: [id number] by: YASMIN Leblanc: Cervix Cecilia Dominique [facility] LAB CYTOLOGY ORDERABLES F inal Result [facility] [address] [place] [phone] * HPV DNA, Low/High Risk (01/04/2025 2:30 PM EDT) HPV High Risk Negative Negative [facility] HPV Genotype 16 Negative Negative [facility] HPV Genotype 18 Negative Negative [facility] Comment:HPV testing performe d at [facility] (CLIA#[id number]), [address] [place] [address].Testing for HPV was performed using the Kenneth AMIRAH Jamalon0system. The presence of HPV in the female genital tract isassociated with a number of diseases, including cervicalcarcinoma. The HPV DNA high risk pool tests for HPV 31, 33,35, 39, 45, 51, 52, 56, 58, 59, 66 and 68. The testing forHPV 16 and 18 genotypes has also been performed. A positiveresult indicates detection of nucleic acid sequences fromone or more subtypes, whereas a negative result indicatessuch sequences were not detected. 01/04/2025 2:30 PM EDT 01/05/2025 6:15 AM EDT us Cecilia Dominique CNM LAB BLOOD ORDERABLES Vale edwar Result [facility] [address] [place] [phone] * Pap Smear (01/04/2025 2:30 PM EDT) Swab Cervix uteri structure / Unknown 01/04/2025 2:30 PM EDT 01/05/2025 6:15 AM EDT Narrative [facility] - 01/09/2025 1:30 PM EDT ----- ------- Name: Salma Borjas Age/Sex: 54/F : 1970 Unit#: [id number] Attend Dr: CECILIA DOMINIQUE CNM Re01/04/25 Status: DEP REF Location: HO.LNP Disch: ----- ------- SPEC : [id number] RECD: 01/05/25 STATUS: TAQUERIA ANNE NUM: [id number] LAUREN: 01/04/[address] [facility] [address]: CECILIA DOMINIQUE CNM ENTERED: 01/05/25 SP TYPE: Pap Smr OTHR DR: ORDERED: Pap Smear Interpretation Satisfactory for evaluation. Negative for intraepithelial lesion or malignancy. No endocervical cells seen. Fungal organisms consistent with Alexandrea species. HPV High Risk: Negative HPV Genotyping 16: Negative HPV Genotyping 18: Negative Clinical Information LMP: Previous PAP test: 2015 Other surgery: Other history: Material Received ThinPrep-Cervical ----- ------- Signed (signature on file) ZHANG Hernandez (ASCP) 01/09/25 1330 ----- ------- END OF REPORT us Cecilia Dominique CNM LAB CYTOLOGY ORDERABLES F inal Result [facility] [address] [place] [phone] * BI Mammogram Screening Tomosynthesis Bilateral (01/04/2025 9:17 AM EDT) Anatomical Region Laterality Modality Breast Bilateral Mammography 01/04/2025 9:17 AM EDT Narrative 01/07/2025 5:37 PM EDT [place] [facility]'s [address] [place], [place] [address] Mammography Report Signed Patient: Salma Borjas MR#: [id number] : 1970 Acct:[id number] Age/Sex: 54 / F ADM Date: 01/04/25 Loc: HO.MAMMO Attending Dr: Amado Orr MD Ordering Physician: Amado Orr MD Results: 1Negative Date of Service: 01/04/25 Follow Up: 1 Year From Orig inal Mammogram Procedure(s): MM tomosynthesis screening BI Accession Number(s): [id number] cc: Amado Orr MD Reason For Exam: SCREENING EXAMINATION: MM SCREENING DIGITAL BREAST TOMOSYNTHESIS, BILATERAL CLINICAL INFORMATION: Screening. Asymptomatic. COMPARISON: Comparison made to multiple prior, most recent November 24, 2023, and most remote November 03, 2016. TECHNIQUE: Digital breast tomosynthesis is performed in mediolateral oblique and craniocaudal views along with computer-aided detection (CAD). Synthesized 2D images are generated from the tomosynthesis. FINDINGS: BREAST COMPOSITION: The breasts are heterogeneously dense, which may obscure small masses. RIGHT BREAST: Port-A-Cath limits local evaluation. No significant masses, suspicious calcifications or other abnormalities are seen. LEFT BREAST: No significant masses, suspicious calcifications or other abnormalities are seen. MM/MM tomosynthesis screening BI IMPRESSION: BILATERAL BREASTS: , no mammographic evidence of malignancy. Normal interval follow-up is recommended in 12 months. ASSESSMENT: BI-RADS: Category 1: Negative RECOMMENDATION: Routine annual mammography screening. FOLLOW-UP: 1 year F/U This examination should not preclude the clinical evaluation of a suspicious palpable abnormality. This patient's information was entered into a reminder system with a target due date for their next mammogram. Electronically signed by: Oliver Gamez MD 01/07/2025 05:34 PM EDT Dictated By: Oliver Gamez MD Signed By: <Electronically signed by Oliver Gamez MD in OV> 01/07/25 1734 DD/ 6 TD/TT: 01/04/25929 Linux Vmware Administrator: Procedure Note Donotmakaylater, Image - 01/07/2025 [facility] [address] [place] [address] Mammography Report Signed Patient: aSlma Borjas MMR#: [id number] : 1970Acct:[id number] Age/Sex: 54 / FADM Date: 01/04/25 Loc: HO.MAMMO Attending Dr: Amado Orr MD Ordering Physician: Amado Orr MDResults: 1Negative Date of Service: 01/04/25Follow Up: 1 Year From Orig inal Mammogram Procedure(s): MM tomosynthesis screening BI Accession Number(s): [id number] cc: Amado Orr MD Reason For Exam: SCREENING EXAMINATION: MM SCREENING DIGITAL BREAST TOMOSYNTHESIS, BILATERAL CLINICAL INFORMATION: Screening. Asymptomatic. COMPARISON: Comparison made to multiple prior, most recent November 24, 2023, and most remote November 03, 2016. TECHNIQUE: Digital breast tomosynthesis is performed in mediolateral oblique and craniocaudal views along with computer-aided detection (CAD). Synthesized 2D images are generated from the tomosynthesis. FINDINGS: BREAST COMPOSITION: The breasts are heterogeneously dense, which may obscure small masses. RIGHT BREAST: Port-A-Cath limits local evaluation. No significant masses, suspicious calcifications or other abnormalities are seen. LEFT BREAST: No significant masses, suspicious calcifications or other abnormalities are seen. MM/MM tomosynthesis screening BI IMPRESSION: BILATERAL BREASTS: , no mammographic evidence of malignancy. Normal interval follow-up is recommended in 12 months. ASSESSMENT: BI-RADS: Category 1: Negative RECOMMENDATION: Routine annual mammography screening. FOLLOW-UP: 1 year F/U This examination should not preclude the clinical evaluation of a suspicious palpable abnormality. This patient's information was entered into a reminder system with a target due date for their next mammogram. Electronically signed by: Oliver Gamez MD 01/07/2025 05:34 PM EDT Dictated By: Oliver Gamez MD Signed By: <Electronically signed by Oliver Gamez MD in OV> 01/07/25 1734 DD/ 6 TD/TT: 01/04/25 09 Linux Vmware Administrator: us Amado Orr MD IMG BI PROCEDURES Edited Result - Final * POCT HGB A1C (01/20/2024 10:50 AM EST) [facility] Hemoglobin A1C 5.9 4.0 - 6.0 % QC Media Lot # [id number] Lot# Expiration Date Blood 01/20/2024 10:5 0 AM EST us Amado Orr MD POINT OF CARE TEST ENTER/EDIT OR DERABLES Final Result * (ABNORMAL) Colonoscopy (06/25/2023) [facility] Colonoscopy Abnormal(A ) Normal us Amado Orr MD HEALTH MAINTENANCE Final Result * (ABNORMAL) LIPID PANEL, STANDARD (01/31/2021 9:42 AM EST) [facility] Chol/HDLC Ratio 4.5 <5.0 (calc) [facility] [...] equation in the estimation of LDL-C. Rik GERBER et al. PAUL. 2013;310(19): 0061-5008 (http://education.[employer]/faq/NXF192) Non-HDL Cholesterol 187(H) <130 mg/dL (calc) [facility] Comment: For patients with diabetes plus 1 major ASCVD risk factor, treating to a non-HDL-C goal of <100 mg/dL (LDL-C of <70 mg/dL) is considered a therapeutic option. Triglycerides 226(H) <150 mg/dL [facility] Comment: If a non-fasting specimen was collected, consider repeat triglyceride testing on a fasting specimen if clinically indicated. Antoine et al. J. of Clin. Lipidol. 2015;9:129-169. 01/31/2021 9:42 AM EST us Amado Orr MD LAB BLOOD ORDERABLES Final Resul t [facility] [address] from Last 3 Months or Most Recently Relevant to Health Maintenance Insurance [facility] [place] Care Teams Hand Woven Carpet And Rug Mender Relationship Specialty Start Date End Date Name, MD Amado [address] [place] [phone] PCP - General Family Medicine 05/17/15
--- OUTSIDE RECORDS SUMMARY | 2025-01-31 21:22 | XMS_ITS | Encounter Summary ---
Author Organization [employer] Address [address] [place] [address] 7 [place] [address] Care Team Providers Care Freight Weigher Name Role Phone Name, Amado SILVEIRA Primary Care Provider [phone] Reason for Visit * Reason Comments Med Refill Encounter Details Date Type Department Care Team (Late st Contact Info) Description 06/28/2022 Refill [facility] MED[facility] [address] [place] [phone] NameAmado MD [address] [place] [address] [phone] Social History Tobacco Use Types Packs/Day Years [...] Description 02/28/2025 2:00 PM EST Office Visit [facility] MED[facility] [address] [place] [phone] NameAmado MD [address] [place] [phone] 03/29/2025 2:15 PM EST Office Visit [facility] ADULT DENTAL [address] [place] [address] Cass Molina documented as of this encounter Visit Diagnoses Not on filedocumented in this encounter Care Teams Freight Weigher Relationship Specialty Start Date End Date Name, MD Amado [address] [place] [address] PCP - General Family Medicine 05/17/15 documented as of this encounter
--- OUTSIDE RECORDS SUMMARY | 2025-01-31 21:22 | XMS_ITS | Encounter Summary ---
Author Organization [employer] Address [address] [facility] 7t [place] [address] Care Team Providers Care Laboratory Secretary Name Role Phone Name, Amado SILVEIRA Primary Care Provider [phone] Encounter Details Date Type Department Care Team ([facility] st Contact Info) Description 09/21/2024 Telephone [facility] MEDICINE [address] [place] [address] Name, MD Amado [address] [place] [address] Social History Tobacco Use Types Packs/Day Years [...] Description 02/28/2025 2:00 PM EST Office Visit [facility] MEDICINE [address] [place] [address] Name, MD Amado [address] [place] [phone] 03/29/2025 2:15 PM EST Office Visit [facility] ADULT DENTAL [address] [place] [address] Cass Molina documented as of this encounter Visit Diagnoses Not on filedocumented in this encounter Additional Health Concerns Assessment Noted Time PHQ-9 Depression Total Score: 2 06/22/19 25 3:23 PM EDT documented as of this encounter Care Teams Laboratory Secretary Relationship Specialty Start Date End Date Amado Orr MD [address] [place] [phone] PCP - General Family Medicine 05/17/15 documented as of this encounter
--- OUTSIDE RECORDS SUMMARY | 2025-01-31 21:22 | XMS_ITS | Encounter Summary ---
Author Organization [employer] Address [address] [place] [address] 7 [place] [address] Care Team Providers Care Administrative Support Assistant Name Role Phone Name, Amado SILVEIRA Primary Care Provider Reason for Visit * Reason Comments Med Refill Encounter Details Date Type Department [facility] Description 05/17/2022 Refill [facility] [address] [place] [phone] NameAmado MD [address] [place] [address] [phone] Hypertension, unspecified type Social History Tobacco Use [...] Upcoming Encounters Date Type Department [facility] Team ([facility] Contact [facility] Description 02/28/2025 2:00 PM EST Office Visit [facility] [address] [place] [address] [phone] NameAmado MD [address] [place] [address] [phone] 03/29/2025 2:15 PM EST Office Visit [facility] [address] [place] [address] [phone] Cass Molina documented as of this encounter Visit Diagnoses Diagnosis Hypertension, unspecified type documented in this encounter Care Teams Administrative Support Assistant Relationship Specialty Start Date End Date Name, MD Amado [address] [place] [address] PCP - General Family Medicine 05/17/15 documented as of this encounter
--- OUTSIDE RECORDS SUMMARY | 2025-01-31 21:22 | XMS_ITS | Encounter Summary ---
Author Organization [employer] Address [address] [place] [address] 7 [place] [address] Care Team Providers Care Dietitian Teaching Name Role Phone Name, Amado SILVEIRA Primary Care Provider [phone] Reason for Visit * Reason Comments Med Refill Encounter Details Date Type Department Care Team (Late Contact Info) Description 08/27/2022 Refill [facility] [address] [place] [phone] Name, MD Amado [address] [place] [address] [phone] Hypertension, unspecified type Social History Tobacco Use [...] Description 02/28/2025 2:00 PM EST Office Visit [facility] [address] [place] [phone] NameAmado MD [address] [place] [address] [phone] 03/29/2025 2:15 PM EST Office Visit [facility] [address] [place] [address] Cass Molina documented as of this encounter Visit Diagnoses Diagnosis Hypertension, unspecified type documented in this encounter Additional Health Concerns Assessment Noted Time PHQ-9 Depression Total Score: 7 07/09/19 23 2:16 PM EDT documented as of this encounter Care Teams Dietitian Teaching Relationship Specialty Start Date End Date Name, MD Amado [address] [place] [address] PCP - General Family Medicine 05/17/15 documented as of this encounter
[2025-02-01 08:56] LABS: HBS Num1 0.00 mIU/mL (0-7.99); HBc Num1 0.09 S/CO (0.00-0.79); HBsAGNum1 0.30 S/CO (0.00-0.99); HIV Num 1 0.06 S/CO (0.00-0.99); Hepatitis B Surface Antigen Negative (Negative); ~HepC Num1 0.65 S/CO (0.00-0.79); ~Hepatitis B Surface Antibody NONREACTIVE (Nonreactive); ~Hepatitis C Antibody Nonreactive (Nonreactive)
[2025-02-01 09:21] LABS: Syphilis Screen Nonreactive (Nonreactive)
== END 2025-01-31 10:51 | disposition home or self-care (01) ==
LOC: HO.MRI 10:50
PROVIDERS: PCP Internal Medicine Geriatric Medicine; Visit Provider Advanced Practice Midwife
DX: Z11.3 Encounter for screening for infections with a predominantly sexual mode of transmission (principal); Z80.3 Family history of malignant neoplasm of breast
CPT/HCPCS: 36415; 77049; 86704; 86706; 86780; 86803; 87340; 87389; A9585

== ENCOUNTER → 2025-01-31 13:02 | Outpatient (BNV) | payer MEDICAID, SELFPAY | PROVIDERS: PCP Internal Medicine Geriatric Medicine; Visit Provider Radiology Body Imaging | DX: N64.89 Other specified disorders of breast (principal) | CPT/HCPCS: 77049 ==